=== PATIENT | male | born 1980 | race Caucasian/White ===

== ENCOUNTER 2019-04-16 12:31 | Emergency (ER) | payer OTHER, SELFPAY ==
--- NOTE | ~2019-04-16 | XR_ITS ---
EXAMINATION: XR chest 2V EXAM DATE: 04/16/2019 13:28 INDICATION: Shortness of breath, dizziness. TECHNIQUE: Frontal and lateral projections of the chest obtained and reviewed. Comparison is made to prior examination from 08/17/2018. FINDINGS: The lungs are clear. There are no pleural effusions. The cardiomediastinal silhouette is within normal limits. There is no pneumothorax suspected. The bones and soft tissues are unremarkab le. IMPRESSION: Normal chest x-ray exam. Reviewed, dictated and finalized at location A. E INVESTIGATOR IMPRESSION: Normal chest x-ray exam.
[2019-04-16 12:42] VITALS: BP 108/54; PULSE 75; RESP 18; TEMP 36.3; O2SAT 100
--- NOTE | 2019-04-16 12:51 | ECG_ITS ---
Measurements Intervals [place] Rate: 65 P: 39 NC: 164 QRS: -13 QRSD: 76 T: 45 QT: 357 QTc: 373 Interpretive Statements SINUS RHYTHM POSSIBLE LEFT ATRIAL ENLARGEMENT MINIMAL Q WAVES- INFERIOR LEADS BORDERLINE ECG Electronically Signed On 04-16-2019 17:05:38 DRAWER IN JACQUARD LOOM by Donny Fletcher D.O.
--- NOTE | 2019-04-16 13:03 | PC.NURSE ---
Patient aware that if he wishes to leave the ED he must come to triage and have IV, that was started by EMS, discontinued.
[2019-04-16 13:16] LABS: Basophils Percent Auto 0.2 % (0.2-1.2); Eosinophils Absolute Auto 0.1 K/mm3 (0-0.3); Eosinophils Percent Auto 1.3 % (0-4.4); Hematocrit 47.5 % (42.0-52.0); Hemoglobin 16.3 g/dL (14.0-18.0); Immature Granulocyte Absolute 0.04 K/mm3 (0.00-0.031); Immature Granulocyte Percent A 0.4 % (0-0.5); Lymphocytes Percent Auto 29.5 % (18.3-44.2); Mean Corpuscular HGB Conc 34.3 g/dl (32-36); Mean Corpuscular Hemoglobin 31.5 pg (26-34); Mean Corpuscular Volume 91.9 fl (80-100); Mean Platelet Volume 10.2 fl (7.4-10.4); Monocytes Absolute Auto 0.7 K/mm3 (0.1-0.6); Monocytes Percent Auto 7.8 % (2.6-8.5); Neutrophils Absolute Auto 5.8 K/mm3 (1.3-6.7); Neutrophils Percent Auto 60.8 % (45.5-73.1); Platelet Count Result 254 k/mm3 (150-375); Red Blood Count 5.17 M/mm3 (4.6-6.20); Red Cell Distribution Width 13.2 % (11.5-14.5); White Blood Count 9.5 K/mm3 (4.5-10.0)
[2019-04-16 13:28] LABS: Blood Urea Nitrogen 18 mg/dL (9-20); Calcium 9.7 mg/dL (8.4-10.2); Carbon Dioxide 19 mmol/L (22-30); Chloride 104 mmol/L (98-107); Estimated CRCL calculation 131 ml/min; Estimated Glomerular Filt Rate > 60; Glucose 116 mg/dL (75-110); Potassium 4.1 mmol/L (3.4-5.0); Sodium 134 mmol/L (137-145)
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
[2019-04-16] MEDS: KETOROLAC 30 MG/ML VIAL (*BKC) IV PUSH (16:35)
[2019-04-16] MEDS: FAMOTIDINE 20 MG/2 ML VIAL IV PUSH (16:35)
[2019-04-16] MEDS: LACTATED RINGERS 1,000 ML 999 ML IV CONT (16:36)
[2019-04-16 17:25] LABS: Alanine Aminotransferase 25 U/L (4-50); Albumin Level 4.6 g/dL (3.5-5.1); Alkaline Phosphatase 98 U/L (38-126); Aspartate Amino Transferase 23 U/L (17-59); Bilirubin,Total 0.4 mg/dL (0.2-1.3); Lipase 128 U/L (23-300)
[2019-04-16 17:36] LABS: Troponin I < 0.012 ng/mL (0.000-0.034)
[2019-04-16 17:40] VITALS: BP 124/55; BP 136/89; BP 138/39; PULSE 57; PULSE 62; PULSE 68
== END 2019-04-16 18:02 | disposition home or self-care (01) ==
PROVIDERS: Emergency Medicine Emergency Medical Services; Emergency Provider Emergency Medicine; PCP Emergency Medicine
DX: R07.9 Chest pain, unspecified (principal)
CPT/HCPCS: 36415; 71046; 80048; 80076; 83690; 84484; 85025; 93005; 96361; 96374; 96375; 99284; J1885; J7120

== ENCOUNTER 2019-05-22 04:03 | Emergency (ER) | payer OTHER, SELFPAY ==
[2019-05-22] VITALS (14 sets, daily range): BP systolic 106–128; BP diastolic 48–93; PULSE 49–87; RESP 15–29; TEMP 36.8; O2SAT 97–100
[2019-05-22 04:30] LABS: Basophils Absolute Auto 0.1 K/mm3 (0.0-0.1); Basophils Percent Auto 0.7 % (0.2-1.2); Eosinophils Absolute Auto 0.2 K/mm3 (0-0.3); Eosinophils Percent Auto 2.6 % (0-4.4); Hematocrit 43.3 % (42.0-52.0); Hemoglobin 14.5 g/dL (14.0-18.0); Immature Granulocyte Absolute 0.01 K/mm3 (0.00-0.031); Immature Granulocyte Percent A 0.1 % (0-0.5); Lymphocytes Percent Auto 46.2 % (18.3-44.2); Mean Corpuscular HGB Conc 33.5 g/dl (32-36); Mean Corpuscular Hemoglobin 31.5 pg (26-34); Mean Corpuscular Volume 93.9 fl (80-100); Mean Platelet Volume 9.9 fl (7.4-10.4); Monocytes Absolute Auto 0.8 K/mm3 (0.1-0.6); Neutrophils Absolute Auto 3.5 K/mm3 (1.3-6.7); Neutrophils Percent Auto 41.4 % (45.5-73.1); Platelet Count Result 252 k/mm3 (150-375); Red Blood Count 4.61 M/mm3 (4.6-6.20); Red Cell Distribution Width 13.7 % (11.5-14.5); White Blood Count 8.4 K/mm3 (4.5-10.0)
[2019-05-22] MEDS: LORAZEPAM INJ 2 MG/ML VIAL 1 MG IV PUSH (04:38)
[2019-05-22 04:41] LABS: Ethanol 220 mg/dL (<10)
[2019-05-22 04:41] LABS: Add Urine Microscopic? NO; Appearance Urine Clear (Clear); Bilirubin Urine Negative (Negative); Blood Urine Negative (Negative); Color Urine Yellow (Yellow); Glucose Urine UA Negative (Negative); Ketones Urine Negative (Negative); Leukocyte Esterase Ur Negative LEU/UL (Negative); Nitrate Urine Negative (Negative); Protein Urine Negative (Negative); Specific Grav Ur 1.012 (1.001-1.035); Urobilinogen Urine Negative mg/dL (<2.0)
--- NOTE | 2019-05-22 05:00 | PC.NURSE ---
Patient stated he would like to speak to someone about his PTSD. Patient in room, resting on stretcher. Patient states he is unaware of where he is, or what is going on. Patient informed that he is at [facility] and he was brought in by EMS. This nurse informed the patient that he is here to be checked out and that he is in a safe place. Patient states he has multiple issues he wants to speak to someone about. Patient states he does remember that he is supposed to see someone in [place] tomorrow, I'm not sure when though. To speak about my problems. Patient requested to have the lights dimmed and a warm blanket. Patient was given a warm blanket and the lights in the room were dimmed. Patient stated he will try to get some rest.
[2019-05-22 05:02] LABS: Amphetamine Screen Urine Negative (Negative); Barbiturate Screen Urine Negative (Negative); Benzodiazepines Screen Urine Negative (Negative); Cannabinoid Screen Urine Negative (Negative); Cocaine Screen Urine Negative (Negative); Methadone Screen Urine Negative (Negative); Opiate Screen Urine Negative (Negative); Phencyclidine Screen Urine Negative (Negative)
[2019-05-22 05:03] LABS: Alanine Aminotransferase 22 U/L (4-50); Albumin Level 4.3 g/dL (3.5-5.1); Alkaline Phosphatase 85 U/L (38-126); Aspartate Amino Transferase 24 U/L (17-59); Bilirubin,Total 0.2 mg/dL (0.2-1.3); Blood Urea Nitrogen 12 mg/dL (9-20); Carbon Dioxide 23 mmol/L (22-30); Chloride 109 mmol/L (98-107); Estimated CRCL calculation 138 ml/min; Estimated Glomerular Filt Rate > 60; Glucose 99 mg/dL (75-110); Sodium 142 mmol/L (137-145)
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
--- NOTE | 2019-05-22 07:25 | PC.NURSE ---
Assumed care. Sleeping. Sitter at bedside.
[2019-05-22 11:41] LABS: Ethanol 120 mg/dL (<10)
[2019-05-22] MEDS: ACETAMINOPHEN 500 MG TABLET 1000 MG PO ×2 (12:54→18:21)
[2019-05-22 14:49] LABS: Ethanol 70 mg/dL (<10)
--- NOTE | 2019-05-22 15:14 | PC.NURSE ---
Called crisis in regards to pt. Spoke with Gisele from Crisis, she states she will send someone out.
--- NOTE | 2019-05-22 17:32 | PC.NURSE ---
Per flour worker, Shauna from crisis will be coming out and speaking with this pt.
[2019-05-22] MEDS: IBUPROFEN 600 MG TABLET PO (18:20)
== END 2019-05-22 18:29 | disposition home or self-care (01) ==
PROVIDERS: Emergency Medicine; Emergency Provider Emergency Medicine; PCP Emergency Medicine
DX: F10.120 Alcohol abuse with intoxication, uncomplicated (principal); Y90.6 Blood alcohol level of 120-199 mg/100 ml; F43.10 Post-traumatic stress disorder, unspecified
CPT/HCPCS: 36415; 80053; 80307; 81003; 84443; 85025; 96374; 99284; A9270; J2060

== ENCOUNTER 2019-05-24 11:36 | Emergency (ER) | payer OTHER, SELFPAY ==
--- NOTE | 2019-05-24 11:40 | ED.GENADULT ---
HPI - General Adult General Chief complaint: Dental/Oral Stated complaint: tooth abscess Time Seen by Provider: 05/24/19 11:40 Source: patient Mode of arrival: ambulatory Limitations: no limitations History of Present Illness HPI narrative: 38-year-old male patient presents to the [facility] with complaints of dental pain for the past 3 days. Patient states he has had a left lower tooth that has been broken for quite a while but has gotten increasingly worse with the pain for the past 3 days. Patient states he has been taking Tylenol and ibuprofen for the pain but does not feel like it is helping much. Patient states he feels like the pain is radiating down to the jaw. Denies having a dentist at this time but states he is trying to call around find a dentist that we will see him. Denies any fevers, body aches or chills. Related Data Home Medications Medication Instructions Recorded Confirmed alprazolam [Xanax] 0.5 mg PO TID 05/24/19 05/24/19 Allergies Allergy/AdvReac Type Severity Reaction Status Date / Time aspirin Allergy Intermediate hives Verified 05/24/19 11:51 Review of Systems Review of Systems: Narrative: CONSTITUTIONAL: Denies fever, chills, or sweats. EYES: Denies visual changes, redness, or discharge. ENT: Denies rhinorrhea, congestion, sore throat, or otalgia. Positive left lower dental pain x3 days CARDIOVASCULAR: Denies chest pain, palpitations, or edema. RESPIRATORY: Denies cough or dyspnea. GASTROINTESTINAL: Denies abdominal pain, nausea, vomiting, or diarrhea. GENITOURINARY: Denies dysuria or hematuria. SKIN: Denies rash or itching. MUSCULOSKELETAL: Denies back pain, joint pain, or myalgia. NEUROLOGIC: Denies headache, numbness, or weakness. PSYCHIATRIC: Denies anxiety or depression. PENDING SALE TO [facility] Past Medical History Medical History Back pain Blackout Cardiac arrhythmia Chest pain Dizziness and giddiness History of migraine headaches Social History Social History Smoking status: Smoker, status unknown Alcohol intake: never Gender identity (if verbalized by the patient): Male Comments At the time of my signature I agree with nursing past medical history, surgical, social, and family history. There is no relevant family history pertinent to the presenting complaint. Exam Narrative: Exam Narrative: GENERAL: Well-appearing, well-nourished, and in no acute distress. HEAD: Normocephalic, atraumatic. EYES: PERRLA and EOMI. ENT: Nares clear, no rhinorrhea or epistaxis. Mucous membranes moist. Patient has a broken tooth noted to the left lower first molar. There is surrounding erythema and tenderness noted on palpation. No active discharge at this time. No obvious abscess noted at this time. NECK: Supple. No lymphadenopathy CHEST: Clear to auscultation. No respiratory distress. HEART: Regular rate and rhythm. No murmur heard. Normal peripheral pulses. ABDOMEN: Soft, nontender, nondistended, normal active bowel sounds. EXTREMITIES: Normal range of motion. No edema. SKIN: Warm, dry, no rash. NEURO: No focal deficits. Alert and oriented x3. Course Vital Signs Vital signs: Vital Signs Temperature 36.6 C 05/24/19 11:44 Pulse Rate 70 05/24/19 11:44 Respiratory Rate 16 05/24/19 11:44 Blood Pressure 129/60 05/24/19 11:44 Pulse Oximetry 99 05/24/19 11:44 Temperature 36.6 C 05/24/19 11:44 Pulse Rate 70 05/24/19 11:44 Respiratory Rate 16 05/24/19 11:44 Blood Pressure 129/60 05/24/19 11:44 Pulse Oximetry 99 05/24/19 11:44 Vital signs reviewed. Medical Decision Making Differential Diagnosis Differential Diagnosis: Differential diagnosis: Dental caries, periodontal disease, avulsed tooth, tooth infections, mandibular infection, Boni's angiana, upper tooth infection, dry socket, gingivitis, acute necrotizing ulcerative gingivitis, sialolithiasis. No
[2019-05-24 11:44] VITALS: BP 129/60; PULSE 70; RESP 16; TEMP 36.6; O2SAT 99
== END 2019-05-24 12:04 | disposition home or self-care (01) ==
PROVIDERS: Emergency Provider Nurse Practitioner Family; PCP Emergency Medicine
DX: K08.89 Other specified disorders of teeth and supporting structures (principal); K02.9 Dental caries, unspecified
CPT/HCPCS: 99213; G0463

== ENCOUNTER 2019-10-17 02:23 | Emergency (ER) | payer OTHER, SELFPAY ==
--- NOTE | ~2019-10-17 | XR_ITS ---
EXAMINATION: XR chest 1V portable INDICATION: Chest pain TECHNIQUE: Portable AP chest at 0 to 54 hours COMPARISON: 04/16/2019 FINDINGS: The lungs are free of acute opacities. There is no pleural effusion or pneumothorax. The ca rdiomediastinal silhouette is normal. The visualized bones and soft tissues are unremarkable. IMPRESSION: 1. No acute cardiopulmonary abnormality. Reviewed, dictated and finalized at location A.
[2019-10-17 02:24] VITALS: BP 130/78; PULSE 83; RESP 20; TEMP 36.6; O2SAT 98
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
--- NOTE | 2019-10-17 02:46 | ECG_ITS ---
Measurements Intervals [place] Rate: 73 P: 65 CT: 168 QRS: 33 QRSD: 90 T: 51 QT: 356 QTc: 394 Interpretive Statements SINUS RHYTHM POSSIBLE LEFT ATRIAL ENLARGEMENT BASELINE ARTIFACT- I, III, AVR, AVL, AVF BORDERLINE ECG Electronically Signed On 10-17-2019 7:06:44 CDT by Donny Fletcher D.O.
--- NOTE | 2019-10-17 02:55 | PC.NURSE ---
ekg times at 0225 was deleted. new ekg obtained timed 0233. only 1 order on chart.
[2019-10-17 03:00] LABS: Basophils Percent Auto 0.5 % (0.2-1.2); Eosinophils Absolute Auto 0.1 K/mm3 (0-0.3); Eosinophils Percent Auto 1.6 % (0-4.4); Hematocrit 44.5 % (42.0-52.0); Hemoglobin 15.4 g/dL (14.0-18.0); Immature Granulocyte Absolute 0.02 K/mm3 (0.00-0.031); Immature Granulocyte Percent A 0.3 % (0-0.5); Lymphocytes Percent Auto 51.9 % (18.3-44.2); Mean Corpuscular HGB Conc 34.6 g/dl (32-36); Mean Corpuscular Hemoglobin 31.2 pg (26-34); Mean Corpuscular Volume 90.1 fl (80-100); Mean Platelet Volume 10.1 fl (7.4-10.4); Monocytes Absolute Auto 0.9 K/mm3 (0.1-0.6); Neutrophils Absolute Auto 2.7 K/mm3 (1.3-6.7); Neutrophils Percent Auto 34.7 % (45.5-73.1); Platelet Count Result 251 k/mm3 (150-375); Red Blood Count 4.94 M/mm3 (4.6-6.20); Red Cell Distribution Width 13.2 % (11.5-14.5); White Blood Count 7.9 K/mm3 (4.5-10.0)
[2019-10-17 03:08] LABS: Prothrombin Time 12.8 Seconds (11.1-14.7)
[2019-10-17 03:13] LABS: Alanine Aminotransferase 41 U/L (4-50); Albumin Level 4.6 g/dL (3.5-5.1); Alkaline Phosphatase 86 U/L (38-126); Anion Gap 15.5 mmol/L (7-16); Aspartate Amino Transferase 29 U/L (17-59); Bilirubin,Total 0.4 mg/dL (0.2-1.3); Blood Urea Nitrogen 10 mg/dL (9-20); Calcium 9.2 mg/dL (8.4-10.2); Carbon Dioxide 19 mmol/L (22-30); Chloride 110 mmol/L (98-107); Estimated Glomerular Filt Rate > 60; Glucose 88 mg/dL (75-110); Lipase 129 U/L (23-300); Potassium 3.5 mmol/L (3.4-5.0); Sodium 141 mmol/L (137-145)
[2019-10-17 03:24] LABS: NT Pro B Type Natriuretic Pept 64 PG/ML (5-100); Troponin I < 0.012 ng/mL (0.000-0.034)
[2019-10-17 03:30] LABS: Ethanol 158 mg/dL (<10)
[2019-10-17 03:44] LABS: Amphetamine Screen Urine Negative (Negative); Barbiturate Screen Urine Negative (Negative); Benzodiazepines Screen Urine Negative (Negative); Cannabinoid Screen Urine Negative (Negative); Cocaine Screen Urine Negative (Negative); Methadone Screen Urine Negative (Negative); Opiate Screen Urine Negative (Negative); Phencyclidine Screen Urine Negative (Negative)
[2019-10-17] MEDS: FAMOTIDINE 20 MG/2 ML VIAL IV PUSH (04:01)
[2019-10-17] MEDS: KETOROLAC 15 MG/ML VIAL (*BKC) IV PUSH (04:01)
[2019-10-17 06:09] VITALS: BP 112/67; PULSE 61; RESP 14; O2SAT 99
[2019-10-17 06:23] LABS: Troponin I < 0.012 ng/mL (0.000-0.034)
[2019-10-17 06:38] LABS: Ethanol 109 mg/dL (<10)
== END 2019-10-17 07:07 | disposition home or self-care (01) ==
PROVIDERS: Emergency Provider Emergency Medicine; PCP Emergency Medicine
DX: R07.9 Chest pain, unspecified (principal); F10.920 Alcohol use, unspecified with intoxication, uncomplicated
CPT/HCPCS: 36415; 71045; 80053; 80307; 83690; 83880; 84484; 85025; 85610; 93005; 96374; 96375; 99284; J1885

== ENCOUNTER 2020-02-16 07:35 | Outpatient (CLI) | payer OTHER, SELFPAY ==
--- NOTE | ~2020-02-16 | MR_ITS ---
EXAMINATION: MR brain/brain stem wo con DATE: 02/16/2020 09:03 TIRE GROOVER INDICATION: Vertigo TECHNIQUE: Magnetic resonance imaging (MRI) of the brain and brainstem was performed without intraven ous contrast. Sequences included sagittal and axial T1-weighted SE, axial diffusion-weighted FS SE, a xial T2*-weighted GRE, axial T2-weighted FLAIR Propeller, and axial T2-weighted Propeller. Apparent d iffusion coefficient (ADC) maps were created. COMPARISON: CT dated 01/17/2018 FINDINGS: The brain volume and ventricular system are within normal limits. The brain parenchymal si gnal intensity pattern and arellano/white matter is normal and there is no evidence of hemorrhage, space occupying masses or infarctions. The flow signal voids of the major arterial structures about the [place] and within the anselmo r dural venous sinuses appear grossly unremarkable and patent. The seventh and eighth cranial nerve complexes are normal. The mid sagittal image demonstrates a normal craniovertebral junction and robert us callosum. The paranasal sinuses are grossly unremarkable. IMPRESSION: 1: No acute intracranial abnormality. Reviewed, dictated and finalized at location A. GROOVER
== END 2020-02-16 07:36 | disposition home or self-care (01) ==
PROVIDERS: Visit Provider Psychiatry & Neurology Neurology
DX: R42 Dizziness and giddiness (principal)
CPT/HCPCS: 70551

== ENCOUNTER 2020-07-11 08:00 | Outpatient (RCR) | payer OTHER, SELFPAY ==
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
--- NOTE | 2020-06-06 11:35 | PTOPEVAL ---
PHYSICAL THERAPY RE-EVALUATION AND UPDATED PLAN OF CARE 06-06-20 Refer to the clinical summary below for his status with the reeval, compared to the initial evaluation. He has made improvements and requires additional vestibular therapy, to further increase his activity level and decrease his dizziness. PT to continue 1x/week for 4 weeks. Thank you for referring Raoul Goode to [facility].? Please review, sign, date and return this updated plan of care [facility]. I agree with and certify that the following plan of care is medically necessary. Referring Physician Date Attending Provider: Kraig Darby NP Document 06/06/20 10:50 MARS (Rec: 06/06/20 11:35 MARS [id number]) Assessment Status Re-evaluation Subjective Information Raoul reports: dizziness still Query Text:As Reported By Patient/ there with driving and going Family on ramps towards the [place]; have returned to driving, after about [address]-start to get nausea; it is getting better with driving and dizziness; play video games on home console 1-2 hours, then dizzy and cannot do anymore; off balance with walking- happens all the time; not always have time to do the exercises at home, been too busy and not have time to get to them; taking allergy meds every day- when I remember; need more therapy, to be better and 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- 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 to be active, move alot and not able to do because of dizziness; has not worked since October due to dizziness; Pain Assessment Timing of Pain Assessment Timing of Pain Assessment Assessment Pain Scale Pain Scale Used Numeric (1 - 10) Self Report Pain Assessment Bilateral Head, Occiptial Reported Pain Level 3 Pain Description Pressure Pain Frequency Chronic,Intermittent Other Pain Description headache- front of head pressure; last 5-10 min, 3-4x/ day; Lowest Pain Intensity 0 Greatest Pain Intensity 10 Pain Score Pain Score 3: Self Report Interventions Used Interventions Used By Clinicians Education Other Alleviating Interventions reinforced taking allergy med
--- NOTE | 2020-07-02 13:48 | PCPTNOTE ---
pt called and canceled today's reevaluation;
--- NOTE | 2020-07-11 08:53 | PTOPEVAL ---
PHYSICAL THERAPY DISCHARGE 07-11-20 Refer to the clinical summary below for his status at today's discharge, compared to the last reevaluation. The goals were partially achieved. Thank you for referring Raoul Goode to [facility].? Please review, sign, date and return this Discharge JANETT. I agree with and certify that the following plan of care is medically necessary. Referring Physician Date Attending Provider: Kraig Darby NP CC: Dr. Stan Cooper, per pt request, his general physician Document 07/11/20 08:00 MARS (Rec: 07/11/20 08:53 MARS [id number]) Assessment Status Discharge Subjective Information Raoul reports: sleeping 4-6 Query Text:As Reported By Patient/ hours-cannot go to sleep; Family dizziness comes and goes, mostly when in the car, as driving and as passenger, mostly when is the passenger; driving is mostly on the weekend, his car is not working, and when use girlfriends' car; is able to drive about 30 minutes; stress makes dizziness worse; walking is not a problem; dizziness happens when drive, every time, during day doing house things- not dizzy, except with leaning over to pick things up off floor; play video games about 1-2 hours at night; busy during day-- remodeling bathroom, working on getting car running, cutting grass; is still doing the exercises at home, but it is different when do them at home by himself and when do in therapy--doing in therapy is better and makes it easier to do them; everything is getting better, but taking too long to get over this; want to get better ; With other medical issues: -have antibiotics for tooth infection, take only when mouth hurts, to have dental work done by October; -nasal issues have cleared up- no longer coughing; is not
== END 2020-07-11 13:42 | disposition home or self-care (01) ==
LOC: ANHPT 08:00
PROVIDERS: PCP Family Medicine; Visit Provider Nurse Practitioner Family
DX: R42 Dizziness and giddiness (principal)
CPT/HCPCS: 97110; 97161

== ENCOUNTER 2020-07-12 02:59 | Emergency (ER) | payer OTHER, SELFPAY ==
--- NOTE | ~2020-07-12 | XR_ITS ---
XR chest 2V DATE: 07/12/2020 03:28 INDICATION: Shortness of breath, burning in chest. TECHNIQUE: PA and lateral views COMPARISON: 11/06/2019 portable AP chest FINDINGS: Normal heart size. No hilar or mediastinal enlargement. No pulmonary infiltrate or consolid ation, pleural effusion or pulmonary vascular congestion or pneumothorax. Included skeletal structure s are unremarkable. IMPRESSION: Negative Reviewed, dictated and finalized at location A. IMPRESSION: Negative
[2020-07-12 02:59] VITALS: BP 139/77; PULSE 87; RESP 24; TEMP 36.2; O2SAT 98
--- NOTE | 2020-07-12 03:00 | ECG_ITS ---
Measurements Intervals [place] Rate: 84 P: 50 HI: 169 QRS: 33 QRSD: 90 T: 44 QT: 323 QTc: 383 Interpretive Statements SINUS RHYTHM POSSIBLE LEFT ATRIAL ENLARGEMENT MINIMAL Q WAVES- INFERIOR LEADS BASELINE ARTIFACT- I, II, III, AVR, AVL, AVF, V1 BORDERLINE ECG Electronically Signed On 07-12-2020 17:00:27 CDT by Donny Fletcher D.O.
[2020-07-12 03:23] LABS: Basophils Absolute Auto 0.1 K/mm3 (0.0-0.1); Basophils Percent Auto 0.6 % (0.2-1.2); Eosinophils Absolute Auto 0.1 K/mm3 (0-0.3); Eosinophils Percent Auto 1.3 % (0-4.4); Hematocrit 41.7 % (42.0-52.0); Hemoglobin 14.3 g/dL (14.0-18.0); Immature Granulocyte Absolute 0.03 K/mm3 (0.00-0.031); Immature Granulocyte Percent A 0.3 % (0-0.5); Lymphocytes Percent Auto 47.1 % (18.3-44.2); Mean Corpuscular HGB Conc 34.3 g/dl (32-36); Mean Corpuscular Hemoglobin 31.4 pg (26-34); Mean Corpuscular Volume 91.6 fl (80-100); Mean Platelet Volume 9.8 fl (7.4-10.4); Monocytes Percent Auto 10.1 % (2.6-8.5); Neutrophils Percent Auto 40.6 % (45.5-73.1); Platelet Count Result 269 k/mm3 (150-375); Red Blood Count 4.55 M/mm3 (4.6-6.20); Red Cell Distribution Width 13.1 % (11.5-14.5); White Blood Count 9.8 K/mm3 (4.5-10.0)
[2020-07-12 03:24] LABS: Add Urine Microscopic? NO; Appearance Urine Clear (Clear); Bilirubin Urine Negative (Negative); Blood Urine Negative (Negative); Color Urine Colorless (Yellow); Glucose Urine UA Negative (Negative); Ketones Urine Negative (Negative); Leukocyte Esterase Ur Negative LEU/UL (Negative); Nitrate Urine Negative (Negative); Protein Urine Negative (Negative); Urobilinogen Urine Negative mg/dL (<2.0)
[2020-07-12 03:28] LABS: Specific Grav Ur 1.003 (1.001-1.035)
[2020-07-12 03:33] LABS: Alanine Aminotransferase 57 U/L (4-50); Albumin Level 4.3 g/dL (3.5-5.1); Alkaline Phosphatase 99 U/L (38-126); Anion Gap 9 mmol/L (8-16); Aspartate Amino Transferase 38 U/L (17-59); Bilirubin,Total 0.2 mg/dL (0.2-1.3); Blood Urea Nitrogen 19 mg/dL (9-20); Carbon Dioxide 22 mmol/L (22-30); Chloride 108 mmol/L (98-107); Estimated CRCL calculation 96 ml/min; Estimated Glomerular Filt Rate > 60; Glucose 110 mg/dL (75-110); Potassium 3.7 mmol/L (3.4-5.0); Sodium 139 mmol/L (137-145)
[2020-07-12 03:34] LABS: Ethanol 105 mg/dL (<10)
[2020-07-12 03:42] LABS: Amphetamine Screen Urine Negative (Negative); Barbiturate Screen Urine Negative (Negative); Benzodiazepines Screen Urine Negative (Negative); Cannabinoid Screen Urine Negative (Negative); Cocaine Screen Urine Negative (Negative); Methadone Screen Urine Negative (Negative); Opiate Screen Urine Negative (Negative); Phencyclidine Screen Urine Negative (Negative)
[2020-07-12 03:51] LABS: Troponin I < 0.012 ng/mL (0.000-0.034)
[2020-07-12 05:01] VITALS: BP 109/63; PULSE 71; RESP 19; O2SAT 97
--- NOTE | 2020-07-12 06:21 | ED.GENADULT ---
HPI - General Adult General Chief complaint: Shortness of Breath/Dyspnea Stated complaint: difficulty breathing, burning in chest Time Seen by Provider: 07/12/20 03:03 History of Present Illness HPI narrative: Patient is a 39-year-old male who presents ER with chest pain and shortness of breath. Patient reports he is having a nightmare to related PTSD and it woke him up. He then started to get nervous and started having chest burning. He is also been having some chronic left-sided chest pain that sharp. Patient was also having shortness of breath. Significant improvement prior to arrival to the ER. Patient sees Dr. Fletcher. Previous echo and stress test were negative. He is planning on obtaining outpatient echo and pulmonary studies for patient's reports of exertional dyspnea. No SI/HI. Related Data Home Medications Medication Instructions Recorded Confirmed meclizine 12.5 mg tablet 12.5 mg PO DAILY tablet 06/30/20 06/30/20 Allergies Allergy/AdvReac Type Severity Reaction Status Date / Time No Known Allergies Allergy Verified 06/30/20 09:46 Review of Systems Review of Systems: All systems reviewed & are unremarkable except as noted in HPI and below Constitutional: Constitutional: Denies chills, Denies fever(s) and Denies weakness ENT: Denies nasal congestion and Denies sore throat Cardiovascular: Cardiovascular: Reports chest pain (chronic pain in left chest), Denies rapid heart rate and Denies radiating jaw, neck or arm pain Respiratory: Respiratory: Denies cough, Reports dyspnea and Denies wheezing Psychiatric: Psychiatric: Reports anxiety, Denies depression, Denies homicidal ideation and Denies suicidal ideation PMFSH Past Medical History Medical History Back pain Blackout Cardiac arrhythmia Chest pain Dizziness and giddiness History of migraine headaches Hyperlipidemia Smoking Social History Social History (Reviewed 06/30/20 @ 09:47 by Fatmata Marshall [facility]) Social History: former smoker Smoking status: Former smoker Alcohol intake: never Gender identity (if verbalized by the patient): Male Exam Narrative: Exam Narrative: GENERAL: Well-appearing, well-nourished, and in no acute distress. HEAD: Normocephalic, atraumatic. EYES: PERRL and EOMI. CHEST: Clear to auscultation. No respiratory distress. HEART: Regular rate and rhythm. Normal peripheral pulses. ABDOMEN: Soft, nontender, nondistended. EXTREMITIES: Normal range of motion. No edema. SKIN: Warm, dry, no rash. NEURO: Alert and oriented x3. PSYCH: Mildly anxious, normal affect. No SI/HI. Does not appear to be responding to internal stimuli. Course Course Emergency Course: Patient resting comfortably. Informed of results. Symptoms felt to be related to patient's anxiety/PTSD. Discharge home. Vital Signs Vital signs: Vital Signs Temperature 97.1 F L 07/12/20 02:59 Pulse Rate 87 07/12/20 02:59 Respiratory Rate 24 H 07/12/20 02:59 Blood Pressure 139/77 07/12/20 02:59 Pulse Oximetry 98 07/12/20 02:59 Temperature 97.1 F L 07/12/20 02:59 Pulse Rate 71 07/12/20 05:01 Respiratory Rate 19 07/12/20 05:01 Blood Pressure 109/63 07/12/20 05:01 Pulse Oximetry 97 07/12/20 05:01 Medical Decision Making Vital Signs Vital Signs: Vital Signs Temperature 97.1 F L 07/12/20 02:59 Pulse Rate 87 07/12/20 02:59 Respiratory Rate 24 H 07/12/20 02:59 Blood Pressure 139/77 07/12/20 02:59 Pulse Oximetry 98 07/12/20 02:59 Temperature 97.1 F L 07/12/20 02:59 Pulse Rate 71 07/12/20 05:01 Respiratory Rate 19 07/12/20 05:01 Blood Pressure 109/63 07/12/20 05:01 Pulse Oximetry 97 07/12/20 05:01 Lab Data Result diagrams: 07/12/20 03:15 07/12/20 03:15 Labs: Lab Results 07/12/20 07/12/20 07/12/20 Range/Units 03:14 03:15 03:15 WBC 9.8 (4.5-10.0) K/mm3 RBC 4.55 L (4.6-6.20) M/mm3 Hgb 14.3 (14.0-18.0) g/dL Hct
[2020-07-12 06:45] VITALS: BP 118/65; PULSE 68; RESP 19; O2SAT 98
== END 2020-07-12 06:45 | disposition home or self-care (01) ==
PROVIDERS: Emergency Provider Emergency Medicine; PCP Family Medicine
DX: F41.9 Anxiety disorder, unspecified (principal); E78.5 Hyperlipidemia, unspecified; R94.31 Abnormal electrocardiogram [ECG] [EKG]; F43.10 Post-traumatic stress disorder, unspecified; Z87.891 Personal history of nicotine dependence
CPT/HCPCS: 36415; 71046; 80053; 80307; 81003; 84443; 84484; 85025; 93005; 99284

== ENCOUNTER 2020-07-21 12:30 | Outpatient (CLI) | payer OTHER, SELFPAY ==
--- NOTE | 2020-07-21 12:43 | ECHO_ITS ---
Patient Info Name: Raoul Goode Age: 39 years : 1980 Gender: Male Ht: 76 in Wt: 268 lbs BSA: 2.58 m2 HR: 67 bpm Technical Quality: Good Exam Date: 07/21/2020 12:46 PM Exam Location: [facility] Patient Status: Outpatient Admit Date: 07/21/2020 Staff Ordering Physician: Donny Fletcher DO Attending Provider: Donny Fletcher DO Referring Physician: Chance LUGO; Exam Type: CA echo doppler color flow Study Info Indications R06.00 - Dyspnea, unspecified Complete two-dimensional, color flow and Doppler transthoracic echocardiogram is performed. Summary 1. Complete two-dimensional, color flow and Doppler transthoracic echocardiogram is performed. 2. Left ventricular chamber dimension is normal. 3. Left ventricular systolic function is normal, estimated at 55-60%. 4. The left ventricular diastolic function is normal. 5. E/e' 6 is not elevated. 6. There is trace mitral valve regurgitation. 7. There is trace tricuspid valve regurgitation. 8. No pulmonary hypertension, estimated pulmonary arterial systolic pressure is 32 mmHg. Left Ventricle E/e' 6 is not elevated. Left ventricular chamber dimension is normal. Left ventricular systolic function is normal, estimated at 55-60%. The left ventricular diastolic function is normal. Right Ventricle Right ventricular chamber dimension is normal. Right ventricular systolic function is normal. Left Atria Left atrial chamber dimension is normal. Right Atria Right atrial chamber dimension is normal. Aortic Valve The aortic valve is trileaflet. There is no aortic valve stenosis. There is no aortic valve regurgitation. Pulmonic Valve There is no pulmonic regurgitation. Mitral Valve There is no mitral valve stenosis. There is trace mitral valve regurgitation. Tricuspid Valve There is trace tricuspid valve regurgitation. No pulmonary hypertension, estimated pulmonary arterial systolic pressure is 32 mmHg. Pericardium/Pleural There is no pericardial effusion. Inferior Vena Cava Normal inferior vena cava with >50% collapse upon inspiration consistent with normal right atrial pressure, 5 mmHg. Aorta The aortic root size at the sinus of Valsalva is normal. Left Ventricular Outflow Tract Name Value Normal LVOT 2D LVOT Diameter 2.1 cm LVOT Doppler LVOT Peak Gradient 3 mmHg LVOT Mean Gradient 1 mmHg LVOT VTI 17 cm LVOT VTI/AV VTI Ratio 0.7 LVOT Stroke Volume 58 ml LVOT CO 3.5 l/min LVOT CI 1.3 l/min/m2 Pulmonic Valve Name Value Normal PV Doppler PV Peak Gradient 4 mmHg PV Regurgitation Doppler
== END 2020-07-21 12:31 | disposition home or self-care (01) ==
PROVIDERS: PCP Family Medicine; Visit Provider Internal Medicine Cardiovascular Disease
DX: R06.00 Dyspnea, unspecified (principal)
CPT/HCPCS: 93306

== ENCOUNTER 2020-08-18 10:29 | Emergency (ER) | payer OTHER, SELFPAY ==
--- NOTE | ~2020-08-18 | XR_ITS ---
EXAMINATION: XR chest 2V 08/18/2020 12:49 INDICATION: Shortness of breath and dizziness PROCEDURE: PA and lateral views of the chest COMPARISON: 08/17/2018 FINDINGS: The lungs are clear. The cardiomediastinal silhouette is within normal limits. There are no pleural effusions. There is no pneumothorax suspected. IMPRESSION: 1: NO ACUTE CARDIOPULMONARY DISEASE. Reviewed, dictated and finalized at location B.
--- NOTE | ~2020-08-18 | CT_ITS ---
EXAMINATION: CTA chest PE protocol EXAM DATE: 08/18/2020 14:39 INDICATION: Dyspnea. TECHNIQUE: Spiral CTA of the chest (pulmonary arteries) was performed with 100 cc Omnipaque 350 intr avenous contrast injection. Images were acquired during the pulmonary arterial phase. Coronal maxi mum intensity projection 3D-reconstructions were created by the technologist on dedicated workstation . Axial, coronal and sagittal reformatted images were reviewed. The dose-length product (DLP) for t his examination was 573.27 mGy-cm. The exposure was tailored according to patient size (auto mA exp osure control), and iterative reconstruction (ASIR) was used as additional dose reduction technique. There is no prior study for comparison. FINDINGS: Pulmonary arteries are well opacified and without intraluminal filling defects. No thora cic aortic dissection. The lungs are clear. There are no pleural or pericardial effusions. Trach eobronchial tree is patent. There is no mediastinal, hilar or axillary lymphadenopathy. There is no pneumothorax. Heart normal in size. No evidence of coronary arterial calcification. Upper abd omen is unremarkable. The bones are unremarkable. IMPRESSION: No acute cardiopulmonary findings. Reviewed, dictated and finalized at location A.
[2020-08-18 10:35] VITALS: BP 131/58; PULSE 61; RESP 16; TEMP 36.8; O2SAT 96
--- NOTE | 2020-08-18 10:41 | ED.SOB ---
HPI - SOB/Dyspnea General Chief Complaint: Shortness of Breath/Dyspnea Stated Complaint: SOB x 2 days Time Seen by Provider: 08/18/20 10:41 Source: patient and EMS Mode of arrival: EMS Limitations: no limitations History of Present Illness HPI Narrative: Patient is a 39-year-old male who presents for evaluation of shortness of breath and chest pain. Patient reports an episode of shortness of breath and chest pain yesterday when he was moving some moldy logs that were outside. Patient states that some of the dust and debris got into his face and respiratory symptoms started at that point. They have been constant since overnight. He reports some mild, aching left-sided chest pain that began yesterday. No current chest pain in the room. No associated jaw pain, neck pain, shoulder pain or back pain. No epigastric pain. No nausea or vomiting. Patient denies any recent car or air travel. No history of Covid. No history of coagulopathy. No leg swelling or calf pain. Patient follows with Dr. Fletcher. He has had a cardiology work-up recently which has been negative. Patient transported via EMS with stable vital signs, normal oxygenation. Related Data Home Medications Medication Instructions Recorded Confirmed meclizine 12.5 mg tablet 12.5 mg PO DAILY tablet 06/30/20 06/30/20 Allergies Allergy/AdvReac Type Severity Reaction Status Date / Time No Known Allergies Allergy Verified 06/30/20 09:46 Review of Systems Review of Systems: Narrative: CONSTITUTIONAL: Denies fever, chills, or sweats. EYES: Denies visual changes, redness, or discharge. ENT: Denies rhinorrhea, congestion, sore throat, or otalgia. CARDIOVASCULAR: Denies current chest pain, palpitations, or edema. RESPIRATORY: Denies cough, reports mild dyspnea GASTROINTESTINAL: Denies abdominal pain, nausea, vomiting, or diarrhea. GENITOURINARY: Denies dysuria or hematuria. SKIN: Denies rash or itching. MUSCULOSKELETAL: Denies back pain, joint pain, or myalgia. NEUROLOGIC: Denies headache, numbness, or weakness. [facility] Past Medical History Medical History Back pain Blackout Cardiac arrhythmia Chest pain Dizziness and giddiness History of migraine headaches Hyperlipidemia Smoking Social History Social History Social History: former smoker Smoking status: Former smoker Alcohol intake: never Gender identity (if verbalized by the patient): Male Exam Narrative: Exam Narrative: GENERAL: Awake, alert, conversant HEAD: Normocephalic, atraumatic. EYES: PERRLA and EOMI. ENT: Nares clear, no rhinorrhea or epistaxis. Mucous membranes moist. NECK: Supple. CHEST: No respiratory distress, breathing even and non labored, no chest wall tenderness HEART: Regular rate, sinus rhythm ABDOMEN:Non distended, non tender EXTREMITIES: Normal range of motion. No edema. SKIN: Warm, dry, no rash. NEURO:No focal deficits. Alert and oriented x3 Course Vital Signs Vital signs: Vital Signs Temperature 36.8 C 08/18/20 10:35 Pulse Rate 61 08/18/20 10:35 Respiratory Rate 16 08/18/20 10:35 Blood Pressure 131/58 L 08/18/20 10:35 Pulse Oximetry 96 08/18/20 10:35 Temperature 36.8 C 08/18/20 10:35 Pulse Rate 63 08/18/20 15:00 Respiratory Rate 18 08/18/20 15:00 Blood Pressure 128/67 08/18/20 15:00 Pulse Oximetry 100 08/18/20 15:00 MDM - SOB/Dyspnea MDM Narrative Medical decision making narrative: Patient presenting for evaluation of shortness of breath and chest pain. Symptoms are very atypical in nature. Initial EKG is obtained, no evidence of acute ST segment elevation or depression. Patient was given an aspirin. I reviewed the patient's previous laboratory results for which she has had numerous visits to emergency department for atypical chest pain, ultimately diagnosed with anxiety type component, is following with his hospice physician. Patient's EKG and labs are without signific
[2020-08-18] MEDS: ASPIRIN 81 MG CHEWABLE TABLET 324 MG PO (11:48)
--- NOTE | 2020-08-18 11:51 | ECG_ITS ---
Measurements Intervals [place] Rate: 56 P: 48 NH: 162 QRS: 24 QRSD: 89 T: 21 QT: 366 QTc: 356 Interpretive Statements SINUS BRADYCARDIA POSSIBLE LEFT ATRIAL ENLARGEMENT BORDERLINE ST-T WAVE ABNORMALITY- HIGH LATERAL LEADS BASELINE ARTIFACT- II, III, AVR, AVF, V1, V3-V6 BORDERLINE ECG Electronically Signed On 08-18-2020 12:03:48 CDT by Donny Fletcher D.O.
[2020-08-18 12:00] VITALS: BP 124/56; PULSE 57; RESP 20; O2SAT 100
[2020-08-18 12:11] LABS: Basophils Percent Auto 0.7 % (0.2-1.2); Eosinophils Absolute Auto 0.1 K/mm3 (0-0.3); Eosinophils Percent Auto 1.4 % (0-4.4); Hematocrit 44.9 % (42.0-52.0); Hemoglobin 15.3 g/dL (14.0-18.0); Immature Granulocyte Absolute 0.01 K/mm3 (0.00-0.031); Immature Granulocyte Percent A 0.2 % (0-0.5); Lymphocytes Percent Auto 41.5 % (18.3-44.2); Mean Corpuscular HGB Conc 34.1 g/dl (32-36); Mean Corpuscular Hemoglobin 30.5 pg (26-34); Mean Corpuscular Volume 89.6 fl (80-100); Mean Platelet Volume 10.6 fl (7.4-10.4); Monocytes Absolute Auto 0.6 K/mm3 (0.1-0.6); Monocytes Percent Auto 9.9 % (2.6-8.5); Neutrophils Absolute Auto 2.7 K/mm3 (1.3-6.7); Neutrophils Percent Auto 46.3 % (45.5-73.1); Platelet Count Result 230 k/mm3 (150-375); Red Blood Count 5.01 M/mm3 (4.6-6.20); Red Cell Distribution Width 13.1 % (11.5-14.5); White Blood Count 5.8 K/mm3 (4.5-10.0)
[2020-08-18 12:24] LABS: Anion Gap 10 mmol/L (8-16); Blood Urea Nitrogen 14 mg/dL (9-20); Calcium 9.7 mg/dL (8.4-10.2); Carbon Dioxide 21 mmol/L (22-30); Chloride 108 mmol/L (98-107); Estimated CRCL calculation 128 ml/min; Estimated Glomerular Filt Rate > 60; Glucose 108 mg/dL (75-110); Potassium 4.5 mmol/L (3.4-5.0); Sodium 139 mmol/L (137-145)
[2020-08-18 12:34] LABS: Troponin I < 0.012 ng/mL (0.000-0.034)
--- NOTE | 2020-08-18 13:15 | PC.NURSE ---
pt complaining of SOB. Pulse ox 99%, heart rate 60, & resps hector and unlabored @ rate of 12. Pt explained SOB as a burning in the middle of chest and it goes outward then dissipates. Informed CHIOMA Guevara and Dr Toledo
[2020-08-18] MEDS: FAMOTIDINE 20 MG/2 ML VIAL IV PUSH (13:30)
--- NOTE | 2020-08-18 13:40 | PC.NURSE ---
Patient refuses GI cocktail stating, this burning in my chest is not heartburn, I don't have heartburn. Patient did agree to Pepcid IVP to help with the burning/pain.
--- NOTE | 2020-08-18 13:50 | PC.NURSE ---
PT called out and states he is SOB. This RN into room and pt is talking on Ipad with no difficulty. Informs pt that his vitals are stable and is showing no signs of distress. Also informs pt that i will let know of his concerns.
[2020-08-18 14:19] VITALS: BP 127/78; PULSE 65; RESP 18; O2SAT 100
[2020-08-18 15:00] VITALS: BP 128/67; PULSE 63; RESP 18; O2SAT 100
[2020-08-18] MEDS: ALBUTEROL SULFATE (*SP) AEROSOL 1 PUFF 2 PUFF INHALATION (15:38)
--- NOTE | 2020-08-18 15:54 | PC.NURSE ---
Spoke with Anna in lab - looking for 3 hr trop blood specimen. Informed her it was sent down and waiting results.
[2020-08-18 15:58] LABS: D Dimer 0.37 ug/mL (<0.48)
[2020-08-18 17:00] LABS: Troponin I < 0.012 ng/mL (0.000-0.034)
== END 2020-08-18 17:16 | disposition home or self-care (01) ==
PROVIDERS: Emergency Provider Emergency Medicine; PCP Family Medicine
DX: R06.00 Dyspnea, unspecified (principal); R07.89 Other chest pain; E78.5 Hyperlipidemia, unspecified; Z87.891 Personal history of nicotine dependence; R00.1 Bradycardia, unspecified; R94.31 Abnormal electrocardiogram [ECG] [EKG]
CPT/HCPCS: 36415; 71046; 71275; 80048; 84484; 85025; 85380; 93005; 96374; 99284; A9270; Q9967

== ENCOUNTER 2020-11-05 10:00 | Outpatient (RCR) | payer OTHER, SELFPAY ==
--- NOTE | 2020-09-16 13:41 | PTOPEVAL ---
PHYSICAL THERAPY EVALUATION AND PLAN OF CARE 09-16-20 Thank you for referring Raoul Goode to [facility].? He is scheduled to be seen for therapy? 2 x/week for 3 weeks. Please review, sign, date and return this plan of care JANETT. I agree with and certify that the following plan of care is medically necessary. Referring Physician Date Attending Provider: Stan Cooper MD PT Outpatient Evaluation Document 09/16/20 12:40 MARS (Rec: 09/16/20 13:41 MARS [id number]) Past Medical History Source of Past Medical History Recalled from Previous Visit, Confirmed with Patient/Family Neurological History Hx Other Neurological Disorders Yes: head injury '99 with decreased memory; vertigo Cardiovascular History Hx Hypercholesterolemia Yes: meds Respiratory History Hx Bronchitis Yes Gastrointestinal History Hx Gastrointestinal Disorders No Significant History Genitourinary History Hx Urinary Tract Infection Yes Musculoskeletal History Hx Back Pain Yes: chronic back pain since 2002 Hx Other Musculoskeletal Disorders Yes: headaches with vertigo episodes; Hematological History Hx Hematological Disorders No Significant History Endocrine History Hx Endocrine Disorders No Significant History HEENT History Hx Other HEENT Disorders Yes: sinus/allergies Integumentary History Hx Skin Disorders No Significant History Reproductive History Hx Reproductive Disorders No Significant History Psychosocial History Hx Anxiety Yes Hx Post Traumatic Stress Disorder Yes Pain History History of Any Previous or Ongoing No Significant History Instance of Pain Anesthesia History Hx Anesthesia Reactions No Significant History Evaluation Information Problem Diagnosis chronic low back pain, degenerative disc disease, scoliosis Onset Jan 2020 Subjective Information chronic since 2002; in Query Text:As Reported By Patient/ January, more L leg numbness Family and tingling- leg goes completely numb sometimes; Diagnostic Tests X-Rays For This Problem Yes: at another facility MRI For This Problem No Other Tests For This Problem No Previous Treatments Previous Treatments For This Problem chiropractor treatment in 2003 Prior Level of Function Activity Level (Last 3 Months) Occupation currently not working due to vertigo and back pain Hand Dominance Right Activity of Daily Living Ability Independent Indoor/Home Mobility [facility]
--- NOTE | 2020-10-01 14:25 | PTOPEVAL ---
PHYSICAL THERAPY REEVALUATION AND UPDATED PLAN OF CARE 10-01-20 Refer to the clinical summary below for his status today, compared to the initial evaluation. Continue PT 1x/week for 5 weeks. Thank you for referring Raoul Goode to [facility].? Please review, sign, date and return this updated plan of care [facility]. I agree with and certify that the following plan of care is medically necessary. Referring Physician Date Attending Provider: Stan Cooper MD PT Outpatient Re-Evaluation Document 10/01/20 13:40 MARS (Rec: 10/01/20 14:25 MARS [id number]) Subjective Information Raoul reports: therapy is Query Text:As Reported By Patient/ helping-- L leg is better, but Family now have pain R leg; exercises are helping get strength back; cannot do heavy lifting anymore---for fitness exercises, do squat lifts, can no longer do 200- 300#, can do 100# without hurting, but anymore than that hurts my back, even with back brace on; doing work on cars ; The electrical stim and massage help his pain--wants to continue therapy; At home, have fitness equipment: doing weighted chest, single arms 35-45#, legs 100-150# and back work/ lats and rowing machine; Discussed posture with above exercises and decreasing the wt for decreased stress on his back; Pain Assessment Timing of Pain Assessment Timing of Pain Assessment Assessment Pain Scale Pain Scale Used Numeric (1 - 10) Self Report Pain Assessment Bilateral Spine, Lumbar Reported Pain Level 3 Pain Description Aching Pain Radiation Right Leg Radicular Pain Location no pain in L leg, but now is in R leg--lateral thigh to mid thigh Pain Frequency Chronic,Continuous Other Pain Description lumbar R and L; when worse, pain goes into anterior chest Lowest Pain Intensity 2 Greatest Pain Intensity 7 Other Pain Aggravating Factors reports standing tolerance of 25 min; yard work; Pain Behaviors Anxious,Grimacing Pain Score Pain Score
--- NOTE | 2020-11-05 10:57 | PTOPEVAL ---
PHYSICAL THERAPY DISCHARGE 11-05-20 Refer to the clinical summary below for his status with today's reeval, compared to the last reeval. The goals were partially achieved. Raoul has been educated on a home exercise program, correct lifting and activity/rest balance to help manage his pain. He continues to use incorrect lifting technique and overdoing activity--lifting heavy weights and running. He expressed concern about still having pain, but he is doing more activity. Discussed with him to follow up with his dr and he stated he may go to pain management, but does not want any kind of back surgery. Thank you for referring Raoul Goode to [facility].? Please review, sign, date and return this Discharge JANETT. I agree with and certify that the following plan of care is medically necessary. Referring Physician Date Attending Provider: Stan Cooper, Document 11/05/20 10:00 MARS (Rec: 11/05/20 10:56 MARS [id number]) Assessment Status Discharge Subjective Information Raoul reports: doing more-- Query Text:As Reported By Patient/ jogged 3 miles yesterday after Family he cut his grass; painted his car; back hurts less when running, compared to walking-- running hips hurt and with walking both legs go crazy and hurt more; back is the same, but doing more; home exercises with hand wts and at gym- use machines: wear back brace: doing pec fly in sitting with 35# hand wt on R and L sides; doing abd curls with 50# wt on stomach- and the ball popped; doing exercises with bench support; EDUCATION: with demo of exercises: arch/sag lumbar spine with UE pec fly- instruct on correct stabilization of trunk; correct lifting floor/waist, home TENS unit, taping technique, continue HEP; have to manage his chronic back pain, monitor activity level to manage his s/s; Pt stated he wants to continue therapy for the stim, massage and taping; reinforced to him that is not skilled therapy--he has been educated and knows above techniques to manage his pain. Pain Assessment
== END 2020-11-06 10:35 | disposition home or self-care (01) ==
LOC: ANHPT 10:00
PROVIDERS: PCP Family Medicine; Visit Provider Family Medicine
DX: M51.36 Other intervertebral disc degeneration, lumbar region (principal)
CPT/HCPCS: 97014; 97110; 97140; 97161; G0283

== ENCOUNTER 2021-04-14 12:30 | Outpatient (RCR) | payer OTHER, SELFPAY ==
--- NOTE | 2021-02-09 13:50 | PTOPEVAL ---
PHYSICAL THERAPY EVALUATION AND PLAN OF CARE Thank you for referring Raoul Goode to [facility].? The patient is scheduled to be seen for therapy? 2x/week for 4 weeks. Please review, sign, date and return this plan of care JANETT. I agree with and certify that the following plan of care is medically necessary. Referring Physician Date Attending Provider: Jun Medeiros MD Evaluation Outpatient Past Medical History Neurological History Hx Other Neurological Disorders Yes: head injury '99 with decreased memory; vertigo Cardiovascular History Hx Hypercholesterolemia Yes: meds Respiratory History Hx Bronchitis Yes Gastrointestinal History Hx Gastrointestinal Disorders No Significant History Genitourinary History Hx Urinary Tract Infection Yes Musculoskeletal History Hx Back Pain Yes: chronic back pain since 2002 Hx Other Musculoskeletal Disorders Yes: headaches with vertigo episodes; Psychosocial History Hx Anxiety Yes Hx Post Traumatic Stress Disorder Yes Pain History Diagnosis low back pain Subjective Information left leg started going numb Query Text:As Reported By Patient/ and hurting about a year ago. Family More recently the entire left leg has been going numb when standing on it for longer than 30-60minutes. Changing positions helps to prevent the numbness and it takes 10-15 minutes of sitting when the leg is numb for feeling to come back. States that his back hurts all the time but when standing for a prolonged period of time his back will get tight and then the leg will go numb. Self Report Pain Assessment Spine, Lumbar Reported Pain Level 5 Pain Frequency Chronic,Continuous Pain Aggravating Factors Weight Bearing/Standing Pain Behaviors None Pain Score Pain Score 5: Self Report Interventions Used Interventions Used By Clinicians Exercise,Joint Mobilization, Manual Therapy Techniques Pain Relief Interventions Used By Inactivity/Rest Patient Cervical and Lumbar ROM Lumbar ROM Lumbar Flexion Active Floor Query Text:Hands to: Lumbar Extension (0-40) 12 Query Text:Active in Degrees Lumbar Comments decreased pain with flexion, i
--- NOTE | 2021-02-16 16:30 | PCPTNOTE ---
Patient called & cancelled scheduled appointment this date due to not having a ride.
--- NOTE | 2021-02-23 16:55 | PCPTNOTE ---
Patient did not show up for scheduled appointment this date. Called and spoke with Pt. He apologized stating he forgot. Reminded Pt of upcoming appointment and advised him if unable to make it, please call. This is Pt's first N/S.
--- NOTE | 2021-03-10 16:55 | PTOPEVAL ---
PHYSICAL THERAPY PLAN OF CARE UPDATE AND PROGRESS REPORT Thank you for referring Raoul Goode to [facility].? The patient is scheduled to be seen for therapy? 1x/week for 5 weeks. Please review, sign, date and return this plan of care JANETT. I agree with and certify that the following plan of care is medically necessary. Referring Physician Date Attending Provider: Jun Medeiros MD Diagnosis low back pain Subjective Information states that overall things are Query Text:As Reported By Patient/ better by about 25%. States Family that today he does have a good amount of pain in the left side of the low back. He has been driving a lot lately which could have lead to the increased symptoms but he is also stating today that the stretching at home has started to cause increased pain. States that the stretches started causing his pain to increase about a week ago but before that when he did the stretches they did not increase his pain. Self Report Pain Assessment Spine, Lumbar Reported Pain Level 2 Pain Score Pain Score 2: Self Report Interventions Used Interventions Used By Clinicians Exercise Other Alleviating Interventions states that he has a lot of medication in him right now Cervical and Lumbar ROM Lumbar ROM Lumbar Flexion Active Floor Query Text:Hands to: Lumbar Extension (0-40) 15 Query Text:Active in Degrees Lateral Rotation Right (0-45) 45 Query Text:Active in Degrees Lateral Rotation Left (0-45) 45 Query Text:Active in Degrees Lumbar Comments decreased pain with flexion, increased pain with extension Lower Extremity Muscle Strength Testing Hip Strength Right Hip Flexion Strength 5 Normal Hip Extension Strength 4+ Good + Hip Abduction Strength 4+ Good + Left Hip Flexion Strength 5 Normal Hip Extension Strength 4- Good - Hip Abduction Strength 4 Good Muscle Length Testing Muscle Length Testing Piriformis w/Hip Flexion >90 Degrees (R) Moderate Tightness,(L) Moderate Tightness Left Hamstring Length -30 Query Text:(90 - 90 Position) Right Hamstring Length -20 Query Text:(90 - 90 Position) Right Prone Knee Flexor Muscle Length ( 135 degrees) Left Prone Knee Flexor Muscle Length (
--- NOTE | 2021-04-14 13:17 | PTOPEVAL ---
PHYSICAL THERAPY DISCHARGE NOTE Thank you for referring Raoul Goode to [facility].?Please review, sign, date and return this plan of care JANETT. I agree with and certify that the following plan of care is medically necessary. Referring Physician Date Attending Provider: Jun Medeiros MD Diagnosis low back pain Subjective Information States that he feels like his Query Text:As Reported By Patient/ back is getting better. He is Family going to the gym and running and working on losing weight. His left leg does still go numb when standing or walking - rarely happens when he is sitting. Physical therapy does not seem to have changed the numbness but did improve the pain. Self Report Pain Assessment Spine, Lumbar Reported Pain Level 5 Pain Description Sharp Pain Radiation Left Leg Pain Aggravating Factors Bending,Walking,Weight Bearing /Standing Pain Score Pain Score 5: Self Report Interventions Used Interventions Used By Clinicians Education,Exercise Cervical and Lumbar ROM Lumbar ROM Lumbar Flexion Active Floor Query Text:Hands to: Lumbar Extension (0-40) 20 Query Text:Active in Degrees Lateral Rotation Right (0-45) 45 Query Text:Active in Degrees Lateral Rotation Left (0-45) 45 Query Text:Active in Degrees Lower Extremity Muscle Strength Testing Hip Strength Right Hip Flexion Strength 5 Normal Hip Extension Strength 4+ Good + Hip Abduction Strength 4+ Good + Left Hip Flexion Strength 5 Normal Hip Extension Strength 5 Normal Hip Abduction Strength 5 Normal Muscle Length Testing Muscle Length Testing Left Hamstring Length -30 Query Text:(90 - 90 Position) Right Hamstring Length -20 Query Text:(90 - 90 Position) PT Clinical Summary Raoul is a 40 yo male presenting to outpatient physical therapy with chronic and constant low back pain with intermittment left LE numbness from prolonged standing. His symptoms are significantly reduced except for the numbness in the left LE. At this time I recommend discharge from PT with continuing HEP.
== END 2021-04-14 14:29 | disposition home or self-care (01) ==
LOC: ANHPT 12:30
PROVIDERS: PCP Family Medicine; Visit Provider Psychiatry & Neurology Neurology
DX: M54.50 Low back pain, unspecified (principal)
CPT/HCPCS: 97110; 97140; 97162

== ENCOUNTER 2021-06-11 04:33 | Emergency (ER) | payer OTHER, SELFPAY ==
[2021-06-11] VITALS (12 sets, daily range): BP systolic 113–159; BP diastolic 71–116; PULSE 61–87; RESP 15–26; TEMP 36.4; O2SAT 97–99
--- NOTE | ~2021-06-11 | XR_ITS ---
EXAMINATION: XR chest 2V DATE: 06/11/2021 05:37 INDICATION: Chest pain TECHNIQUE: frontal and lateral views of the chest were obtained. COMPARISON: Chest radiograph dated 08/18/20 FINDINGS: Thoracic kyphosis which could be positional with decreased lung volumes. No focal airspace opacities, pulmonary edema, pleural effusion or pneumothorax. The cardiomediastinal silhouette is normal. Visua lized bones and soft tissues are unremarkable. IMPRESSION: 1. No acute cardiopulmonary disease. Reviewed, dictated and finalized at location A.
--- NOTE | 2021-06-11 04:34 | ED.PSYCH ---
HPI - Psych General Chief Complaint: Chest Pain Stated Complaint: Anxiety Time Seen by Provider: 06/11/21 04:33 Source: EMS Mode of arrival: EMS Limitations: intoxication History of Present Illness HPI Narrative: Patient is a 40-year-old male with history of hyperlipidemia, anxiety, PTSD, alcoholism, presenting to the emergency department for evaluation of hallucinations. History mostly provided by EMS report. Patient reportedly called 911 for hallucinations, EMS responded, patient was agreeable to come to the hospital, noted to be somewhat agitated in route. Pt reports visual hallucinations for EMS. Denied any pain. At the time of arrival, patient walks from the ambulance to the hospital room. He is oriented to person, not to place or time. He is reporting visual hallucinations. States that he is seeing evidence of war like when he was in [place]. Reports flashes of people in front of him. Patient is intermittently tearful, pacing the room. He does respond to gentle direction. He is reporting chest pain for approximately 11 years. He is reporting shortness of breath daily for 11 years. States that he drinks significant alcohol today, when questioned how much he drinks, he states only that he drinks daily for many years. Denies history of alcohol withdrawal or seizures. Patient denies fever, chills, cough Patient denies suicidal ideation. Denies homicidal ideation. Related Data Home Medications Medication Instructions Recorded Confirmed fenofibrate 50 mg capsule 50 mg PO DAILY 03/25/21 03/25/21 omeprazole 40 mg capsule,delayed 40 mg PO DAILY 03/25/21 release meclizine 12.5 mg tablet 12.5 mg PO TID 05/18/21 Allergies Allergy/AdvReac Type Severity Reaction Status Date / Time No Known Allergies Allergy Verified 03/25/21 13:37 Review of Systems Review of Systems: CONSTITUTIONAL: Denies fever CARDIOVASCULAR: Reports chest pain RESPIRATORY: Denies cough or dyspnea. GASTROINTESTINAL: Denies abdominal pain SKIN: Denies rash MUSCULOSKELETAL: Denies back pain NEUROLOGIC: Denies headache History limited secondary to patient. [facility] Past Medical History Medical History Back pain Blackout Cardiac arrhythmia Chest pain Dizziness and giddiness History of migraine headaches Hyperlipidemia Smoking Social History Social History Social History: former smoker Smoking status: Former smoker Alcohol intake: current Gender identity (if verbalized by the patient): Male Exam Narrative: GENERAL: Awake, alert, anxious appearing, pacing HEAD: Normocephalic, atraumatic. EYES: PERRLA and EOMI. ENT: Nares clear, no rhinorrhea or epistaxis. Mucous membranes moist. NECK: Supple. CHEST: No respiratory distress, breathing even and non labored, no chest wall pain HEART: Regular rate, sinus rhythm ABDOMEN:Non distended, non tender EXTREMITIES: Normal range of motion. No edema. SKIN: Warm, dry, no rash. NEURO:No focal deficits. Alert and oriented x1, ambulatory with a narrow base, steady gait Course Course Emergency Course: Pt alcohol level undetected at [address], came to evaluate patient, patient is alert and oriented with friend at bedside. No SI or HI. Safety plan with crisis counselor. He is not currently agitated, suicidal, homicidal, no other acute complaints. Patient then left the ER prior to discharge paperwork being provided to him. Vital Signs Vital signs: Vital Signs Temperature 36.4 C 06/11/21 04:36 Pulse Rate 86 06/11/21 04:36 Respiratory Rate 24 H 06/11/21 04:36 Blood Pressure 129/75 06/11/21 04:36 Pulse Oximetry 99 06/11/21 04:36 Temperature 36.4 C 06/11/21 04:36 Pulse Rate 66 06/11/21 14:01 Respiratory Rate 21 H 06/11/21 14:01 Blood Pressure 159/96 H 06/11/21 14:01 Pulse Oximetry 99 06/11/21 14:01 MDM - Psych MDM Narrative Medical decision making narrative: Pt pr
--- NOTE | 2021-06-11 04:35 | ECG_ITS ---
Measurements Intervals [place] Rate: 84 P: 49 RI: 164 QRS: 35 QRSD: 96 T: 52 QT: 366 QTc: 434 Interpretive Statements SINUS RHYTHM NONSPECIFIC T-WAVE ABNORMALITY BASELINE ARTIFACT BORDERLINE ECG COMPARED TO ECG 08/18/2020 10:31:59 HEART RATE HAS INCREASED OTHERWISE NO SIGNIFICANT CHANGE Electronically Signed On 06-11-2021 15:39:07 CDT by Chalino Gonzales M.D.
[2021-06-11 05:02] LABS: Basophils Absolute Auto 0.1 K/mm3 (0.0-0.1); Basophils Percent Auto 0.6 % (0.2-1.2); Eosinophils Absolute Auto 0.1 K/mm3 (0-0.3); Eosinophils Percent Auto 1.5 % (0-4.4); Hematocrit 46.2 % (42.0-52.0); Hemoglobin 15.5 g/dL (14.0-18.0); Immature Granulocyte Absolute 0.01 K/mm3 (0.00-0.031); Immature Granulocyte Percent A 0.1 % (0-0.5); Lymphocytes Absolute Auto 4.43 K/mm3 (0.9-3.2); Lymphocytes Percent Auto 51.1 % (18.3-44.2); Mean Corpuscular HGB Conc 33.5 g/dl (32-36); Mean Corpuscular Hemoglobin 31.5 pg (26-34); Mean Corpuscular Volume 93.9 fl (80-100); Mean Platelet Volume 9.8 fl (7.4-10.4); Monocytes Absolute Auto 0.7 K/mm3 (0.1-0.6); Neutrophils Absolute Auto 3.4 K/mm3 (1.3-6.7); Neutrophils Percent Auto 38.7 % (45.5-73.1); Platelet Count Result 261 k/mm3 (150-375); Red Blood Count 4.92 M/mm3 (4.6-6.20); Red Cell Distribution Width 13.8 % (11.5-14.5); White Blood Count 8.7 K/mm3 (4.5-10.0)
[2021-06-11] MEDS: ASPIRIN 81 MG CHEWABLE TABLET 324 MG PO (05:11)
[2021-06-11] MEDS: LORazepam INJ (*CRX) 2 MG/ML VIAL IV PUSH (05:12)
[2021-06-11 05:14] LABS: Alanine Aminotransferase 37 U/L (4-50); Albumin Level 4.6 g/dL (3.5-5.1); Alkaline Phosphatase 99 U/L (38-126); Anion Gap 14 mmol/L (8-16); Aspartate Amino Transferase 35 U/L (17-59); Bilirubin,Total 0.3 mg/dL (0.2-1.3); Blood Urea Nitrogen 13 mg/dL (9-20); Calcium 8.9 mg/dL (8.4-10.2); Carbon Dioxide 20 mmol/L (22-30); Chloride 109 mmol/L (98-107); Estimated CRCL calculation 110 ml/min; Estimated Glomerular Filt Rate > 60; Glucose 110 mg/dL (65-110); Sodium 143 mmol/L (137-145)
[2021-06-11 05:21] LABS: Mucus Urine Rare /lpf; Squamous Epithelial Cell Urine Rare /hpf (Few); WBC Urine 0-3 /hpf
[2021-06-11 05:25] LABS: Troponin I < 0.012 ng/mL (0.000-0.034)
--- NOTE | 2021-06-11 05:28 | PC.NURSE ---
Pt to imaging at this time.
[2021-06-11 05:31] LABS: Amphetamine Screen Urine Negative (Negative); Barbiturate Screen Urine Negative (Negative); Benzodiazepines Screen Urine Negative (Negative); Cannabinoid Screen Urine Negative (Negative); Cocaine Screen Urine Negative (Negative); Methadone Screen Urine Negative (Negative); Opiate Screen Urine Negative (Negative); Phencyclidine Screen Urine Negative (Negative)
[2021-06-11 05:33] LABS: Ethanol 203 mg/dL (<10)
[2021-06-11 05:40] LABS: Add Urine Microscopic? NO; Appearance Urine Clear (Clear); Bilirubin Urine Negative (Negative); Blood Urine Negative (Negative); Color Urine Yellow (Yellow); Glucose Urine UA Negative (Negative); Ketones Urine Negative (Negative); Leukocyte Esterase Ur Negative LEU/UL (Negative); Nitrate Urine Negative (Negative); Protein Urine Negative (Negative); Specific Grav Ur 1.015 (1.001-1.035); Urobilinogen Urine 0.2 mg/dL (<2.0)
[2021-06-11 05:48] LABS: SARS-CoV-2 RNA PCR Negative
--- NOTE | 2021-06-11 06:10 | PC.NURSE ---
Per [facility] [place], pt will continue to require a sitter for elopement precautions. Sitter initiated at this time.
--- NOTE | 2021-06-11 07:12 | PC.NURSE ---
Assumed care of pt at this time from Summer. Sitter at bedside
[2021-06-11 07:56] LABS: Troponin I < 0.012 ng/mL (0.000-0.034)
--- NOTE | 2021-06-11 14:38 | PC.NURSE ---
Pt is awake at this time, calm, asking what is going on. This RN informed him that we are waiting on his ETOH level to come down and then he will be evaluated by crisis
--- NOTE | 2021-06-11 14:55 | PC.NURSE ---
Reevaluated pt columbia scale. Pt scored no risk. Pt calm and cooperative. Pt friend at bedside. Sitter pulled at this time. Charge notified
[2021-06-11 15:17] LABS: Ethanol < 10 mg/dL (<10)
--- NOTE | 2021-06-11 18:15 | PC.NURSE ---
Pt not in room at time of charge nurse walking rounds.
== END 2021-06-11 21:18 | disposition left against medical advice (07) ==
PROVIDERS: Emergency Provider Emergency Medicine; PCP Family Medicine
DX: F32.A Depression, unspecified (principal); F29 Unspecified psychosis not due to a substance or known physiological condition; R44.0 Auditory hallucinations; Z20.822 Contact with and (suspected) exposure to COVID-19; E78.5 Hyperlipidemia, unspecified; Z87.891 Personal history of nicotine dependence; R94.31 Abnormal electrocardiogram [ECG] [EKG]
CPT/HCPCS: 36415; 71046; 80053; 80307; 81003; 84443; 84484; 85025; 93005; 96374; 99284; A9270; C9803; J2060; U0003; U0005

== ENCOUNTER 2021-07-17 02:15 | Emergency (ER) | payer OTHER, SELFPAY ==
--- NOTE | ~2021-07-17 | XR_ITS ---
EXAMINATION: XR chest 1V portable INDICATION: Chest pain TECHNIQUE: Portable AP chest at 0 to 53 hours COMPARISON: 06/11/2021 FINDINGS: The lungs are free of acute opacities. There is no pleural effusion or pneumothorax. The ca rdiomediastinal silhouette is normal. The visualized osseous structures are unremarkable. IMPRESSION: 1. No acute cardiopulmonary abnormality. Reviewed, dictated and finalized at location A.
[2021-07-17 02:13] VITALS: BP 143/76; PULSE 80; RESP 14; TEMP 36.1; O2SAT 98
--- NOTE | 2021-07-17 02:22 | ECG_ITS ---
Measurements Intervals [place] Rate: 81 P: 46 SD: 162 QRS: 39 QRSD: 81 T: 42 QT: 326 QTc: 380 Interpretive Statements SINUS RHYTHM POSSIBLE LEFT ATRIAL ENLARGEMENT MINIMAL Q WAVES- INFERIOR LEADS BORDERLINE ECG Electronically Signed On 07-17-2021 6:41:36 CDT by Donny Fletcher D.O.
--- NOTE | 2021-07-17 02:24 | ED.ANXIETY ---
HPI - Anxiety General Chief Complaint: Anxiety <Mian Mullins MD - Last Filed: 07/17/21 07:04> Stated Complaint: ANXIETY,PTSD, R CHEST PAIN <Mian Mullins MD - Last Filed: 07/17/21 07:04> Time Seen by Provider: 07/17/21 02:21 <Mian Mullins MD - Last Filed: 07/17/21 07:04> Source: patient and old records reviewed <Mian Mullins MD - Last Filed: 07/17/21 07:04> History of Present Illness HPI narrative: Patient presents with visual hallucinations. He reports he is seeing people and situations plan out that have happened in his past. Reports a history of the same last episode of this was on Tuesday and he pushed it back down . Today was more severe so he came to the ER for further evaluation. Denies any auditory hallucinations denies any thoughts of hurting himself or others. He also reports right-sided chest pain prior documentation reports chest pain present for approximately 11 years similar timeframe for shortness of breath. Denies any nausea vomiting or diarrhea. Reports he does not see any behavioral health and has not previously been evaluated for this. Of note patient was seen on June 11 for similar complaint. Patient reports he has significant alcohol use drinks several beers a day as well as a couple bottles of wine. Reports he last drank an hour ago. <Mian Mullins MD - Last Filed: 07/17/21 07:04> Related Data Home Medications: Home Medications Medication Instructions Recorded Confirmed No Home Medications 06/25/21 07/17/21 <Mian Mullins MD - Last Filed: 07/17/21 07:04> Allergies/Adverse Reactions: Allergies Allergy/AdvReac Type Severity Reaction Status Date / Time No Known Allergies Allergy Verified 06/25/21 13:36 <Mian Mullins MD - Last Filed: 07/17/21 07:04> Review of Systems Review of Systems: CONSTITUTIONAL: Denies fever, chills, or sweats. EYES: Denies visual changes, redness, or discharge. ENT: Denies rhinorrhea, congestion, sore throat, or otalgia. CARDIOVASCULAR: Denies palpitations, or edema. RESPIRATORY: Denies cough. GASTROINTESTINAL: Denies abdominal pain, nausea, vomiting, or diarrhea. GENITOURINARY: Denies dysuria or hematuria. SKIN: Denies rash or itching. MUSCULOSKELETAL: Denies back pain, joint pain, or myalgia. NEUROLOGIC: Denies headache, numbness, dizziness, or weakness. PSYCHIATRIC: Denies anxiety or depression. <Mian Mullins MD - Last Filed: 07/17/21 07:04> All systems reviewed & are unremarkable except as noted in HPI and below <Mian Mullins MD - Last Filed: 07/17/21 07:04> PMFSH Past Medical History Medical History: Medical History Back pain Blackout Cardiac arrhythmia Chest pain Dizziness and giddiness History of migraine headaches Hyperlipidemia Smoking <Mian Mullins MD - Last Filed: 07/17/21 07:04> Social History Social History: Social History Social History: former smoker Smoking status: Former smoker Alcohol intake: current Substance use type: does not use Gender identity (if verbalized by the patient): Male <Mian Mullins MD - Last Filed: 07/17/21 07:04> Exam Narrative: GENERAL: Well-appearing, well-nourished, and in no acute distress. HEAD: Normocephalic, atraumatic. EYES: PERRLA and EOMI. ENT: Nares clear, no rhinorrhea or epistaxis. Mucous membranes moist. NECK: Supple. No masses. No JVD CHEST: Clear to auscultation. No respiratory distress. No wheezes rales or rhonchi HEART: Regular rate and rhythm. No murmur heard. Normal peripheral pulses. ABDOMEN: Soft, nontender, nondistended, normal active bowel sounds. EXTREMITIES: Normal range of motion. No edema. SKIN: Warm, dry, no rash. NEURO: No focal deficits. Alert and oriented x3. PSYCH: Normal mood and affect. <Mian Mullins MD - Last Filed: 07/17/21 07:04> Course Reevaluation(s) Reevaluation #1: Repeat
[2021-07-17 02:38] LABS: Appearance Urine Clear (Clear); Bilirubin Urine Negative (Negative); Blood Urine Negative (Negative); Color Urine Yellow (Yellow); Glucose Urine UA Negative (Negative); Ketones Urine Negative (Negative); Leukocyte Esterase Ur Negative LEU/UL (Negative); Nitrate Urine Negative (Negative); Protein Urine Negative (Negative); Specific Grav Ur <= 1.005 (1.001-1.035); Urobilinogen Urine 0.2 mg/dL (<2.0)
[2021-07-17 02:39] LABS: Basophils Percent Auto 0.2 % (0.2-1.2); Eosinophils Absolute Auto 0.1 K/mm3 (0-0.3); Eosinophils Percent Auto 1.4 % (0-4.4); Hematocrit 47.2 % (42.0-52.0); Hemoglobin 15.7 g/dL (14.0-18.0); Immature Granulocyte Absolute 0.01 K/mm3 (0.00-0.031); Immature Granulocyte Percent A 0.1 % (0-0.5); Lymphocytes Absolute Auto 3.39 K/mm3 (0.9-3.2); Lymphocytes Percent Auto 42.1 % (18.3-44.2); Mean Corpuscular HGB Conc 33.3 g/dl (32-36); Mean Corpuscular Hemoglobin 31.8 pg (26-34); Mean Corpuscular Volume 95.5 fl (80-100); Mean Platelet Volume 9.7 fl (7.4-10.4); Monocytes Absolute Auto 0.9 K/mm3 (0.1-0.6); Monocytes Percent Auto 11.4 % (2.6-8.5); Neutrophils Absolute Auto 3.6 K/mm3 (1.3-6.7); Neutrophils Percent Auto 44.8 % (45.5-73.1); Platelet Count Result 256 k/mm3 (150-375); Red Blood Count 4.94 M/mm3 (4.6-6.20); Red Cell Distribution Width 13.5 % (11.5-14.5); White Blood Count 8.1 K/mm3 (4.5-10.0)
[2021-07-17 02:47] LABS: Alanine Aminotransferase 40 U/L (4-50); Albumin Level 4.3 g/dL (3.5-5.1); Alkaline Phosphatase 86 U/L (38-126); Anion Gap 12 mmol/L (8-16); Aspartate Amino Transferase 35 U/L (17-59); Bilirubin,Total 0.3 mg/dL (0.2-1.3); Blood Urea Nitrogen 14 mg/dL (9-20); Calcium 8.8 mg/dL (8.4-10.2); Carbon Dioxide 18 mmol/L (22-30); Chloride 111 mmol/L (98-107); Estimated CRCL calculation 113 ml/min; Estimated Glomerular Filt Rate > 60; Glucose 65 mg/dL (65-110); Lipase 123 U/L (23-300); Potassium 4.1 mmol/L (3.4-5.0); Sodium 141 mmol/L (137-145)
[2021-07-17 02:52] LABS: Acetaminophen < 10 ug/mL (10-30); Ethanol 149 mg/dL (<10); Salicylate < 1.0 mg/dL (2-20)
[2021-07-17 02:57] LABS: Amphetamine Screen Urine Negative (Negative); Barbiturate Screen Urine Negative (Negative); Benzodiazepines Screen Urine Negative (Negative); Cannabinoid Screen Urine Negative (Negative); Cocaine Screen Urine Negative (Negative); Methadone Screen Urine Negative (Negative); Opiate Screen Urine Negative (Negative); Phencyclidine Screen Urine Negative (Negative); RBC Urine 0-2 /hpf (0-2); WBC Urine 0-3 /hpf
[2021-07-17 02:59] LABS: Troponin I < 0.012 ng/mL (0.000-0.034)
[2021-07-17 03:00] VITALS: BP 150/89; PULSE 62; RESP 16; O2SAT 99
[2021-07-17 03:02] LABS: Add Urine Microscopic? YES
[2021-07-17 04:50] VITALS: BP 150/75; PULSE 83; RESP 16; O2SAT 99
[2021-07-17 06:23] LABS: Ethanol 73 mg/dL (<10)
[2021-07-17 06:34] LABS: Troponin I < 0.012 ng/mL (0.000-0.034)
[2021-07-17 07:13] VITALS: BP 126/101; PULSE 72; RESP 17; O2SAT 98
--- NOTE | 2021-07-17 08:28 | PC.NURSE ---
Pt getting impatient, want to leave. Told pt that crisis was on his way.
== END 2021-07-17 09:17 | disposition home or self-care (01) ==
PROVIDERS: Emergency Provider Emergency Medicine; PCP Family Medicine
DX: R44.1 Visual hallucinations (principal); E78.5 Hyperlipidemia, unspecified; Z87.891 Personal history of nicotine dependence; R94.31 Abnormal electrocardiogram [ECG] [EKG]
CPT/HCPCS: 36415; 71045; 80053; 80307; 81001; 83690; 84443; 84484; 85025; 93005; 99284

== ENCOUNTER 2022-07-05 13:05 | Emergency (ER) | payer OTHER, SELFPAY ==
[2022-07-05 13:16] VITALS: BP 143/81; PULSE 90; RESP 16; TEMP 36.6; O2SAT 98
--- NOTE | 2022-07-05 13:19 | ED.WOUNDLAC ---
HPI - Wound/Laceration General Chief Complaint: Wound/Laceration Stated Complaint: Wound on Right Hand Time Seen by Provider: 07/05/22 13:19 Source: patient Mode of arrival: ambulatory Limitations: no limitations History of Present Illness HPI narrative: 41-year-old male presents with complaint of healing laceration to right hand. Patient cut himself on glass 4 days ago. Reports that he has tried Band-Aids but wound keeps opening while working. 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 States that he has a medic friend that told him to get a Tegaderm to cover wound. Patient states that he looked for taking her arms but could not find them anywhere. Explained to patient there are multiple options for water poured Band-Aids at [employer] or [employer] but patient states that he wants a clear dressing So he can see if wound is bleeding when he is working . Tetanus up-to-date. All systems reviewed and negative except as noted above. Related Data Home Medications Medication Instructions Recorded Confirmed No Home Medications 06/25/21 07/05/22 Allergies Allergy/AdvReac Type Severity Reaction Status Date / Time No Known Allergies Allergy Verified 07/05/22 13:11 Review of Systems Review of Systems: CONSTITUTIONAL: Denies fever, chills, or sweats. EYES: Denies visual changes, redness, or discharge. ENT: Denies rhinorrhea, congestion, sore throat, or otalgia. CARDIOVASCULAR: Denies chest pain, palpitations, or edema. RESPIRATORY: Denies cough or dyspnea. GASTROINTESTINAL: Denies abdominal pain, nausea, vomiting, or diarrhea. GENITOURINARY: Denies dysuria or hematuria. SKIN: Denies rash or itching. Reports healing laceration to right hand. MUSCULOSKELETAL: Denies back pain, joint pain, or myalgia. NEUROLOGIC: Denies headache, numbness, or weakness. PSYCHIATRIC: Denies anxiety or depression. All other systems reviewed are negative, except as documented in HPI. [facility] Past Medical History Medical History Back pain Blackout Cardiac arrhythmia Chest pain Dizziness and giddiness History of migraine headaches Hyperlipidemia Smoking Social History Social History (System 02/11/22 @ 11:52 by Shira Jenkins) Social History: former smoker Smoking status: Former smoker Alcohol intake: current Substance use type: does not use Gender identity (if verbalized by the patient): Male Comments At time of signature, agree with nursing past medical, surgical, social and family history. There is no relevant family history pertinent to the presenting complaint. Exam Narrative: GENERAL: This is a well-nourished, well-developed patient, in no apparent distress. HEAD: normocephalic, atraumatic. EYES: PERRL. Sclera clear/white. Vision is grossly intact. EARS: External ears normal NOSE: External nose normal NECK: Neck supple, non-tender without lymphadenopathy, masses or thyromegaly. CARDIOVASCULAR: Regular rate and rhythm without murmurs, gallops, or rubs. RESPIRATORY: Clear to auscultation. Breath sounds equal bilaterally. No wheezes, rales, or rhonchi. SKIN: warm, Dry, with no suspicious lesions or rash, good texture and turgor. Healing superficial laceration approximately 5 cm diameter to lateral aspect of right hand. there are no signs of infection. No active bleeding. NEURO: awake, alert, and oriented to person, place and time. There were no obvious focal neurologic abnormalities. EXTREMITIES: No joint tenderness, effusion, or edema noted. Extrem: Hand/finger images: 1. 5cm superficial laceration Course Course Level of Care: Express Care Visit Vital Signs Vital signs: Vital Signs Temperature 36.6 C 07/05/22 13:16 Pulse Rate 90 07/05/22 13:16 Respiratory Rate 16 07/05/22 13:16 Blood Pressure 143/81 H 07/05/22 13:16 Pulse Oximetry 98 07/05/22 13:16 Oxygen Delivery Room Air 07/05/22 13:16 Temperature 36.6 C 07/05/22 13:16 Pulse Rate 90 07/05/22 13:16 Respiratory Rate 16
== END 2022-07-05 13:33 | disposition home or self-care (01) ==
PROVIDERS: Emergency Provider Nurse Practitioner Family; PCP Family Medicine
DX: S61.412A Laceration without foreign body of left hand, initial encounter (principal); W25.XXXA Contact with sharp glass, initial encounter; Z87.891 Personal history of nicotine dependence; E78.5 Hyperlipidemia, unspecified
CPT/HCPCS: 99212; G0463

== ENCOUNTER 2022-08-08 13:39 | Inpatient (IN) | payer OTHER, SELFPAY ==
--- NOTE | ~2022-08-08 | CT_ITS ---
EXAMINATION: CT abdomen pelvis w con DATE: 08/08/2022 16:23 INDICATION: Left-sided abdominal pain TECHNIQUE: Computed tomography (CT) of the abdomen and pelvis was performed with 100 mL Omnipaque-350 intravenous contrast. Automated exposure control and iterative reconstruction technique were employe d. The dose-length product was 1323.45 mGy-cm. COMPARISON: 01/10/2016 FINDINGS: Lung bases are clear. Heart size is normal. No pericardial or pleural effusion. 7 mm cyst in the righ t hepatic lobe. The gallbladder, spleen, bilateral adrenal glands and kidneys are normal. There is pr ominent peripancreatic stranding with small nonloculated peripancreatic fluid collections including a long the bilateral anterior pararenal spaces extending more caudally on the left along the paracolic gutter and with additional small collection inferior to the distal stomach likely within the lesser o mentum. Fracture consistent with acute interstitial pancreatitis. No evident pancreatic parenchymal n ecrosis, organized abscess, walled off necrosis. The adjacent vasculature appears normal with no evid ent thrombosis or pseudoaneurysm. Bowels including the appendix are normal. Bladder is normal. Trace amount of ascites in the pelvis. No free intraperitoneal gas. No pathologically enlarged abdominal or pelvic lymphadenopathy. Moderate to severe disc height loss at L5-S1. Mild spondylosis in the more c ephalad lumbar and lower thoracic spine. IMPRESSION: 1. Acute interstitial pancreatitis. Reviewed, dictated and finalized at location A.
--- NOTE | ~2022-08-08 | NM_ITS ---
EXAMINATION: NM hepatobiliary w pharm DATE: 08/10/2022 15:37 INDICATION: Abdominal pain. COMPARISON: CT abdomen and pelvis 08/08/2022 TECHNIQUE: 5.3 mCi Tc-99m mebrofenin (Choletec) was administered intravenously. Scintigraphic images of the abdomen were obtained for one hour. Then, 2 mg morphine IV was administered, and imaging was continued for 30 minutes. FINDINGS: There is normal clearance of radiotracer from the blood pool. There is homogeneous tracer u ptake by the liver. Activity progresses to the bowel and gallbladder. IMPRESSION: 1. Patent cystic duct and common duct. Reviewed, dictated and finalized at location L.
[2022-08-08 14:04] VITALS: BP 133/82; PULSE 71; RESP 20; TEMP 37; O2SAT 98
--- NOTE | 2022-08-08 14:34 | PC.NURSE ---
patient states he is lactose intolerant and ate a bunch of cheese last night so he is unsure if the pain is related.
[2022-08-08 14:47] LABS: Basophils Percent Auto 0.2 % (0.2-1.2); Eosinophils Absolute Auto 0.1 K/mm3 (0-0.3); Eosinophils Percent Auto 0.8 % (0-4.4); Hematocrit 47.1 % (42.0-52.0); Hemoglobin 15.9 g/dL (14.0-18.0); Immature Granulocyte Absolute 0.03 K/mm3 (0.00-0.031); Immature Granulocyte Percent A 0.3 % (0-0.5); Lymphocytes Absolute Auto 1.96 K/mm3 (0.9-3.2); Lymphocytes Percent Auto 20.2 % (18.3-44.2); Mean Corpuscular HGB Conc 33.8 g/dl (32-36); Mean Corpuscular Hemoglobin 31.2 pg (26-34); Mean Corpuscular Volume 92.4 fl (80-100); Mean Platelet Volume 10.2 fl (7.4-10.4); Monocytes Absolute Auto 0.6 K/mm3 (0.1-0.6); Monocytes Percent Auto 6.6 % (2.6-8.5); Neutrophils Percent Auto 71.9 % (45.5-73.1); Platelet Count Result 290 k/mm3 (150-375); White Blood Count 9.7 K/mm3 (4.5-10.0)
[2022-08-08 15:07] LABS: Alanine Aminotransferase 33 U/L (6-50); Albumin Level 4.1 g/dL (3.5-5.1); Alkaline Phosphatase 99 U/L (38-126); Anion Gap 10 mmol/L (8-16); Aspartate Amino Transferase 26 U/L (17-59); Bilirubin,Total 0.6 mg/dL (0.2-1.3); Blood Urea Nitrogen 13 mg/dL (9-20); Calcium 8.9 mg/dL (8.4-10.2); Carbon Dioxide 20 mmol/L (22-30); Chloride 105 mmol/L (98-107); Estimated CRCL calculation 132 ml/min; Estimated Glomerular Filt Rate > 60; Glucose 133 mg/dL (65-110); Potassium 4.1 mmol/L (3.4-5.0); Sodium 135 mmol/L (137-145)
--- NOTE | 2022-08-08 15:08 | ED.ABDPAIN ---
HPI - Abdominal Pain General Chief Complaint: Abdominal Pain Stated Complaint: abd pain Time Seen by Provider: 08/08/22 14:34 Source: patient, RN notes reviewed and old records reviewed Mode of arrival: ambulatory Limitations: no limitations History of Present Illness HPI narrative: This is a 41 year old male who presents for evaluation of abdominal pain. PAtient reports he developed sudden onset mid abdominal pain going into his back this morning at 9 am. He is unable to describe his pain. This pain has been constant and denies having similar pain in the past. HE denies associated nausea, vomiting but he does reports constipation. His last bowel movement was 2 days ago and he normally going daily. He is having urge to have bowel movement and urinate but he states only a small amount of urine out patient. He has not taken any medication for his pain. He rates his pain 10/10. He also reported to nurse that he is lactose intolerate and he did eat some cheese. Related Data Home Medications Medication Instructions Recorded Confirmed No Home Medications 06/25/21 08/08/22 Allergies Allergy/AdvReac Type Severity Reaction Status Date / Time No Known Allergies Allergy Verified 08/08/22 14:06 Review of Systems Constitutional: Constitutional: Denies weakness Cardiovascular: Cardiovascular: Denies syncope, Denies rapid heart rate, Denies irregular heart rhythm, Denies leg edema and Denies dyspnea Respiratory: Respiratory: Denies chest congestion, Denies hemoptysis, Denies excessive phlegm production and Denies dyspnea Gastrointestinal: Gastrointestinal: Reports abdominal pain, Denies hematochezia, Reports constipation, Denies diarrhea and Denies vomiting Genitourinary: Genitourinary: Denies hematuria, Denies dysuria, Denies penile discharge, Denies testicular pain and Reports urinary frequency Musculoskeletal: Musculoskeletal: Reports back pain, Denies joint swelling, Denies loss of height and Denies muscle weakness Neurologic: Denies syncope, Denies focal weakness and Denies weakness PMFSH Past Medical History Medical History Back pain Blackout Cardiac arrhythmia Chest pain Dizziness and giddiness History of migraine headaches Hyperlipidemia Smoking Social History Social History Social History: former smoker Smoking status: Former smoker Alcohol intake: current Substance use type: does not use Lack of Transportation: YES Lack of Food: Sometimes True Current Housing: I Have Housing Concerned About Future Housing: No Difficulty Paying Gas/Electric Bills: YES Difficulty Paying for Meds: No Currently Unemployed: No Education: Trade/Vocational Certificate Difficulty w/ Childcare or Family Care: No Gender identity (if verbalized by the patient): Male Spiritual care concerns: No Exam Const: General: alert Orientation/consciousness: patient oriented x3 Other: patient is restless and appears to be in pain, no diaphoresis HENMT: Head: normal to inspection Throat: posterior oropharynx normal and uvula midline Eyes: EOM: EOMs intact bilaterally Chest: Chest palpation & inspection: normal inspection of the chest Resp: Effort & Inspection: normal respiratory effort Auscultation: clear to auscultation bilaterally Cardio: Rate: regular rate Rhythm: regular rhythm Heart sounds: no murmurs GI: GI Palp: Yes Soft to palpation, Yes Tenderness to palpation present (GI) (LLQ, LUQ), No Guarding due to palpation present (GI) and No Rigid due to palpation Auscultation: Hypoactive bowel sounds present : General: Yes no CVA tenderness Back/Spine/Pelvis: Back: no CVA tenderness Skin: General skin exam: normal color Rashes: no rashes Wounds: no wounds Neuro: General: patient oriented x3, moves all extremities and CN's II-XI intact bilaterally Cranial nerves: Yes Nystagmus not present Speech: normal speech Gait exam (Sherman
[2022-08-08] MEDS: ONDANSETRON INJ 4 MG/2 ML VIAL IV PUSH (15:27)
[2022-08-08] MEDS: SODIUM CHLORIDE 0.9% IV 1,000 ML 999 ML IV CONT (15:27)
[2022-08-08 15:28] LABS: Lipase 19581 U/L (23-300)
[2022-08-08] MEDS: HYDROmorphone HCL INJ (*CRX) 1 MG/ML SYR IV PUSH ×2 (15:28→17:10)
--- NOTE | 2022-08-08 18:25 | ADMGEN ---
This patient, Raoul Goode, was admitted to 3 Med Surg Room 332-01 at 1825. Patient/family oriented to hospital policies and general routines including ID bracelet, bed and alarms, visiting hours, pain management, procedures, bathroom and other care routines, personal items, smoking policy, room service/diet, and visiting hours. Information on how to activate the Rapid Response Team has been discussed. Patient/Family are encouraged to report perceived risks to care and to ask questions if they do not understand what they are told or what they should do.
[2022-08-08] MEDS: LACTATED RINGERS 1,000 ML 125 ML IV CONT (18:30)
[2022-08-08] MEDS: HYDROmorphone HCL INJ (*CRX) 1 MG/ML SYR 0.5 MG IV PUSH ×2 (18:30→22:47)
[2022-08-08 18:38] VITALS: BP 136/72; PULSE 52; RESP 20; TEMP 35.5; O2SAT 100; BMI 28.6
[2022-08-08 20:00] VITALS: PULSE 61; RESP 16; O2SAT 100
[2022-08-08 21:13] LABS: Appearance Urine Clear (Clear); Bilirubin Urine Negative (Negative); Blood Urine Negative (Negative); Color Urine Yellow (Yellow); Glucose Urine UA Negative (Negative); Ketones Urine Negative (Negative); Leukocyte Esterase Ur Negative LEU/UL (Negative); Nitrate Urine Negative (Negative); Protein Urine 1+ mg/dL (Negative); Urobilinogen Urine 0.2 mg/dL (<2.0); pH Urine 5.5 (5.0-9.0)
[2022-08-08 21:27] LABS: Add Urine Microscopic? YES; RBC Urine 0-2 /hpf (0-2)
[2022-08-08 21:28] LABS: WBC Urine 0-3 /hpf
[2022-08-08] MEDS: KETOROLAC 30 MG/ML VIAL (*BKC) IV PUSH (21:48)
[2022-08-08 21:53] VITALS: BP 129/79; PULSE 61; RESP 16; TEMP 36.1; O2SAT 100
--- NOTE | 2022-08-08 22:09 | PM.IMHP ---
H&P: HPI History of Present Illness Date/Time: 08/08/22 22:09 Chief Complaint: Abdominal pain Narrative: this is a 41-year-old male patient that stated he has been having pain to his abdomen for approximately 2 weeks. The patient stated that he was scheduled to have an ultrasound of his gallbladder at the imaging center bus not had performed yet. The patient stated that he did drink heavily on Tuesday. The patient states that he drinks heavily a couple times a week. The patient has been complaining of worsening pain to his mid abdomen. This is different from his usual right upper quadrant pain. The patient denies any nausea vomiting reports he feels bloated has some constipation. The patient still feels like he needs to have a bowel movement and is unable to. He feels distended. When he came to the emergency room he stated his pain was 10/10 and was also in the room moaning. The patient stated that he has lactose intolerance and had recently eat some cheese. Sodium is slightly low at 135. Abdominal pelvis CT was read as acute interstitial pancreatitis. The patient was given Dilaudid in the emergency room he stated it did not totally resolve all of his pain. his lipase was 19,581. The patient was given IV fluids, Zofran, and Dilaudid. The patient is being admitted to inpatient status on the date of service of 08/08/2022. Review of Systems Review of Systems: All systems reviewed & are unremarkable except as noted in HPI and below Constitutional: Constitutional: Reports as per HPI and Reports no additional constitutional complaints Eyes: Eyes: Reports as per HPI and Reports no additional eye complaints ENT: Reports system reviewed and no additional complaints, except as documented and Reports Normal hearing present Cardiovascular: Cardiovascular: Reports no additional cardiovascular complaints Respiratory: Respiratory: Reports no additional respiratory complaints and Reports no additional respiratory complaints Gastrointestinal: Gastrointestinal: Reports as per HPI and Reports no additional gastrointestinal complaints Musculoskeletal: Musculoskeletal: Reports no additional musculoskeletal complaints Integumentary/Breasts: Skin/Breast: Reports system reviewed and no additional complaints, except as docu and Reports as per HPI Neurologic: Reports system reviewed and no additional complaints, except as documented, Reports as per HPI and Reports Normal hearing present Psychiatric: Psychiatric: Reports no additional psychiatric complaints and Reports as per HPI Endocrine: Endocrine: Reports no additional endocrine complaints Hematologic/Lymphatic: Hematologic/Lymphatic: Reports no additional hematologic/lymphatic complaints Allergic/Immunologic: Allergic/Immunologic: Reports no additional allergic/immunologic complaints PMFSH Past Medical History Medical History Back pain Blackout Cardiac arrhythmia Chest pain Dizziness and giddiness History of migraine headaches Hyperlipidemia Infertility Smoking Surgical History Surgical History (Updated 08/09/22 @ 00:34 by Dipika Valladares NP) No pertinent past surgical history Family History Family History (Updated 08/09/22 @ 00:34 by Dipika Valladares NP) Sibling Autoimmune disease Social History Social History (Updated 08/09/22 @ 00:35 by Dipika Valladares NP) Social History: former smoker. The patient has a significant Other. The patient recently lost his job. He is not currently working. The patient states that he drinks heavily at least 2-3 days a week which is more than 6 drinks at a time. 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
[2022-08-09] MEDS: HYDROmorphone HCL INJ (*CRX) 1 MG/ML SYR IV PUSH ×7 (01:28→23:51)
[2022-08-09] MEDS: SODIUM CHLORIDE 0.9% IV 1,000 ML 100 ML IV CONT ×3 (04:15→20:40)
[2022-08-09] MEDS: diphenhydrAMINE HCl INJ 50 MG/ML VIAL 25 MG IV PUSH (04:35)
[2022-08-09] MEDS: KETOROLAC 15 MG/ML VIAL (*BKC) IV PUSH ×2 (04:35→20:00)
[2022-08-09 05:19] LABS: Basophils Percent Auto 0.3 % (0.2-1.2); Eosinophils Percent Auto 0.2 % (0-4.4); Hematocrit 44.5 % (42.0-52.0); Hemoglobin 14.9 g/dL (14.0-18.0); Immature Granulocyte Absolute 0.06 K/mm3 (0.00-0.031); Immature Granulocyte Percent A 0.5 % (0-0.5); Lymphocytes Absolute Auto 1.08 K/mm3 (0.9-3.2); Lymphocytes Percent Auto 9.2 % (18.3-44.2); Mean Corpuscular HGB Conc 33.5 g/dl (32-36); Mean Corpuscular Hemoglobin 31.7 pg (26-34); Mean Corpuscular Volume 94.7 fl (80-100); Mean Platelet Volume 9.6 fl (7.4-10.4); Monocytes Percent Auto 8.1 % (2.6-8.5); Neutrophils Absolute Auto 9.6 K/mm3 (1.3-6.7); Neutrophils Percent Auto 81.7 % (45.5-73.1); Platelet Count Result 145 k/mm3 (150-375); Red Cell Distribution Width 13.6 % (11.5-14.5); White Blood Count 11.7 K/mm3 (4.5-10.0)
[2022-08-09 05:41] LABS: Alanine Aminotransferase 28 U/L (6-50); Albumin Level 3.5 g/dL (3.5-5.1); Alkaline Phosphatase 70 U/L (38-126); Anion Gap 5 mmol/L (8-16); Aspartate Amino Transferase 30 U/L (17-59); Bilirubin,Total 1.5 mg/dL (0.2-1.3); Blood Urea Nitrogen 21 mg/dL (9-20); Carbon Dioxide 26 mmol/L (22-30); Chloride 105 mmol/L (98-107); Estimated CRCL calculation 79 ml/min; Estimated Glomerular Filt Rate 55; Glucose 131 mg/dL (65-110); Potassium 4.4 mmol/L (3.4-5.0); Sodium 136 mmol/L (137-145)
[2022-08-09 06:00] VITALS: BP 143/92; PULSE 76; RESP 18; TEMP 36.2; O2SAT 93
[2022-08-09 06:43] LABS: Lipase 13407 U/L (23-300)
[2022-08-09 12:00] VITALS: PULSE 91
--- NOTE | 2022-08-09 12:39 | WPDPN ---
Progress Note: A&P Assessment and Plan (1) Acute alcoholic pancreatitis: Code(s): K85.20 - Alcohol induced acute pancreatitis without necrosis or infection Status: Acute Assessment and Plan: The patient stated that he drinks heavily 2 to 3 times a week. I explained to the patient that he will need to avoid alcohol in the future to prevent any further episodes of pancreatitis. The patient stated that he was supposed to have an ultrasound performed days he has been having pain for 2 weeks and that he thought it might be his gallbladder. However and the CT scan there was no abnormality seen in the gallbladder. I did order a nuclear med HIDA scan. His lipase was 19,581. The patient is receiving ice chips. The patient stated that he has been drinking water in his room in that he has hiccups and still complains of severe discomfort. I explained how the pancreas works with the digestion of food in the the more that he puts on his stomach that it will just irritated his pancreas even more. The patient stated he is having difficulty sleeping so I did add Ativan and Benadryl. The patient stated that the Toradol helped the most with this discomfort. He stated that the dilaudid only lasted for approximately 1 hour and then it wore off. Recheck lipase in the a.m. his lipase was 19,581. as per CT lung bases are clear. Heart size is normal. No pericardial or pleural effusion. 7 mm cyst in the right hepatic lobe. The gallbladder, spleen, bilateral adrenal glands and kidneys are normal. There is prominent peripancreatic stranding with small nonloculated peripancreatic fluid collections including along the bilateral anterior pararenal spaces extending more caudally on the left along the paracolic gutter and with additional small collection inferior to the distal stomach likely within the lesser omentum. Fracture consistent with acute interstitial pancreatitis. No evident pancreatic parenchymal necrosis, organized abscess, walled off necrosis. The adjacent vasculature appears normal with no evident thrombosis or pseudoaneurysm. Bowels including the appendix are normal. Bladder is normal. Trace amount of ascites in the pelvis. No free intraperitoneal gas. No pathologically enlarged abdominal or pelvic lymphadenopathy. Moderate to severe disc height loss at L5-S1. Mild spondylosis in the more cephalad lumbar and lower thoracic spine. 08/09/2022 interval history: patient with history of alcohol abuse presented with abnormal faint is found to have a acute on chronic pancreatitis most likely secondary to alcohol abuse upon arrival patient lipase were 19,581 patient is NPO being hydrated and given pain medication his lipase levels are trending down today to 13,407, patient he does not have any history of alcohol withdrawal, however will continue to monitor with CIWA protocol and further recommendation to follow. Subjective Date/time seen: 08/09/22 12:39 Interval history: ?Abdominal pain HPI-Narrative: ?this is a 41-year-old male patient that stated he has been having pain to his abdomen for approximately 2 weeks.? The patient stated that he was scheduled to have an ultrasound of his gallbladder at the imaging center bus not had performed yet.? The patient stated that he did drink heavily on Tuesday.? The patient states that he drinks heavily a couple times a week.? The patient has been complaining of worsening pain to his mid abdomen.? This is different from his usual right upper quadrant pain.? The patient denies any nausea vomiting reports he feels bloated has some constipation.? The patient still feels like he needs to have a bowel movement and is unable to.? He feels distended.? When he came to the emergency room he stated his pain was 10/10 and was also in the room moaning.? The patient stated that he has lactose intolerance and had recently eat some cheese.? Sodium is slightly low at 135.? Abdominal pelvis CT was read as acute interstitial pancreatitis.?
[2022-08-09 14:00] VITALS: BP 126/73; PULSE 84; RESP 16; TEMP 36.3; O2SAT 93
[2022-08-09 16:00] VITALS: PULSE 73
[2022-08-09 19:50] VITALS: PULSE 98
[2022-08-09] MEDS: ONDANSETRON INJ 4 MG/2 ML VIAL IV PUSH (20:01)
[2022-08-09 22:00] VITALS: BP 124/56; PULSE 96; RESP 16; TEMP 36.4; O2SAT 93
[2022-08-10] VITALS (9 sets, daily range): BP systolic 126–152; BP diastolic 59–76; PULSE 84–101; RESP 14–20; TEMP 36.5–37.2; O2SAT 90–93
[2022-08-10] MEDS: SODIUM CHLORIDE 0.9% IV 1,000 ML 100 ML IV CONT ×2 (04:40→13:03)
[2022-08-10] MEDS: HYDROmorphone HCL INJ (*CRX) 1 MG/ML SYR IV PUSH ×5 (04:41→23:06)
[2022-08-10 06:25] LABS: Hemoglobin 14.2 g/dL (14.0-18.0); Mean Corpuscular HGB Conc 32.3 g/dl (32-36); Mean Corpuscular Hemoglobin 31.8 pg (26-34); Mean Corpuscular Volume 98.7 fl (80-100); Mean Platelet Volume 10.5 fl (7.4-10.4); Platelet Count Result 77 k/mm3 (150-375); Red Blood Count 4.46 M/mm3 (4.6-6.20); Red Cell Distribution Width 14.3 % (11.5-14.5); White Blood Count 13.8 K/mm3 (4.5-10.0)
[2022-08-10 06:35] LABS: Alanine Aminotransferase 23 U/L (6-50); Albumin Level 3.1 g/dL (3.5-5.1); Alkaline Phosphatase 59 U/L (38-126); Anion Gap 3 mmol/L (8-16); Aspartate Amino Transferase 33 U/L (17-59); Bilirubin,Total 1.7 mg/dL (0.2-1.3); Blood Urea Nitrogen 22 mg/dL (9-20); Carbon Dioxide 25 mmol/L (22-30); Chloride 108 mmol/L (98-107); Estimated CRCL calculation 85 ml/min; Estimated Glomerular Filt Rate 60; Glucose 104 mg/dL (65-110); Magnesium 1.6 mg/dL (1.6-2.3); Potassium 4.5 mmol/L (3.4-5.0); Sodium 136 mmol/L (137-145)
[2022-08-10 06:53] LABS: Lipase 3917 U/L (23-300)
[2022-08-10] MEDS: ONDANSETRON INJ 4 MG/2 ML VIAL IV PUSH ×2 (08:21→20:21)
[2022-08-10 10:24] LABS: Appearance Urine Clear (Clear); Bacteria Urine None Seen /hpf; Bilirubin Urine 1+ (Negative); Blood Urine 2+ (Negative); Color Urine Dark Yellow (Yellow); Glucose Urine UA Negative (Negative); Ketones Urine 1+ mg/dL (Negative); Leukocyte Esterase Ur Negative LEU/UL (Negative); Nitrate Urine Negative (Negative); Non Pathogenic Casts 0-2; Protein Urine 3+ mg/dL (Negative); RBC Urine 0-2 /hpf (0-2); Specific Grav Ur 1.034 (1.001-1.035); Squamous Epithelial Cell Urine Few /hpf (Few); WBC Urine 0-5 /hpf; pH Urine 5.5 (5.0-9.0)
[2022-08-10 10:38] LABS: Add Urine Microscopic? YES
--- NOTE | 2022-08-10 11:39 | ECG_ITS ---
Measurements Intervals [place] Rate: 86 P: 58 CO: 156 QRS: 44 QRSD: 86 T: 32 QT: 316 QTc: 380 Interpretive Statements SINUS RHYTHM MINIMAL Q WAVES- INFERIOR LEADS BORDERLINE ECG COMPARED TO ECG 07/17/2021 02:20:09 NO SIGNIFICANT CHANGES Electronically Signed On 08-10-2022 12:14:35 CDT by Donny Fletcher D.O.
[2022-08-10 12:16] LABS: Troponin I < 0.012 ng/mL (0.000-0.034)
--- NOTE | 2022-08-10 12:26 | WPDPN ---
Progress Note: A&P Assessment and Plan (1) Acute alcoholic pancreatitis: Code(s): K85.20 - Alcohol induced acute pancreatitis without necrosis or infection Status: Acute Assessment and Plan: The patient stated that he drinks heavily 2 to 3 times a week. I explained to the patient that he will need to avoid alcohol in the future to prevent any further episodes of pancreatitis. The patient stated that he was supposed to have an ultrasound performed days he has been having pain for 2 weeks and that he thought it might be his gallbladder. However and the CT scan there was no abnormality seen in the gallbladder. I did order a nuclear med HIDA scan. His lipase was 19,581. The patient is receiving ice chips. The patient stated that he has been drinking water in his room in that he has hiccups and still complains of severe discomfort. I explained how the pancreas works with the digestion of food in the the more that he puts on his stomach that it will just irritated his pancreas even more. The patient stated he is having difficulty sleeping so I did add Ativan and Benadryl. The patient stated that the Toradol helped the most with this discomfort. He stated that the dilaudid only lasted for approximately 1 hour and then it wore off. Recheck lipase in the a.m. his lipase was 19,581. as per CT lung bases are clear. Heart size is normal. No pericardial or pleural effusion. 7 mm cyst in the right hepatic lobe. The gallbladder, spleen, bilateral adrenal glands and kidneys are normal. There is prominent peripancreatic stranding with small nonloculated peripancreatic fluid collections including along the bilateral anterior pararenal spaces extending more caudally on the left along the paracolic gutter and with additional small collection inferior to the distal stomach likely within the lesser omentum. Fracture consistent with acute interstitial pancreatitis. No evident pancreatic parenchymal necrosis, organized abscess, walled off necrosis. The adjacent vasculature appears normal with no evident thrombosis or pseudoaneurysm. Bowels including the appendix are normal. Bladder is normal. Trace amount of ascites in the pelvis. No free intraperitoneal gas. No pathologically enlarged abdominal or pelvic lymphadenopathy. Moderate to severe disc height loss at L5-S1. Mild spondylosis in the more cephalad lumbar and lower thoracic spine. 08/10/2022 interval history: patient with history of alcohol abuse presented with abnormal pain is found to have a acute on chronic pancreatitis most likely secondary to alcohol abuse upon arrival patient lipase were 19,581 patient is NPO being hydrated and given pain medication his lipase levels are trending down today to 3917, patient is scheduled to have HIDA scan today to further evaluate, patient he does not have any history of alcohol withdrawal, however will continue to monitor with CIWA protocol and further recommendation to follow. Subjective Date/time seen: 08/10/22 12:26 Interval history: 08/10/2022 interval history: patient with history of alcohol abuse presented with abnormal pain is found to have a acute on chronic pancreatitis most likely secondary to alcohol abuse upon arrival patient lipase were 19,581 patient is NPO being hydrated and given pain medication his lipase levels are trending down today to 3917, patient is scheduled to have HIDA scan today to further evaluate, patient he does not have any history of alcohol withdrawal, however will continue to monitor with CIWA protocol and further recommendation to follow. Review of Systems Review of Systems: All systems reviewed & are unremarkable except as noted in HPI and below Exam Narrative: Moderately obese Patient is comfortable, NAD HEENT: eyes are clear and none icteric LUNGS: Normal respiratory effort ABD: Distended Lower extremities: no edema SKIN: nonjaundiced Neuro: grossly intact. Objective Data Vital Signs Vital Sig
[2022-08-10] MEDS: MORPHINE SULFATE (*CRX) 2 MG/ML INJ IV PUSH (14:56)
[2022-08-11] VITALS: PULSE 94
[2022-08-11] MEDS: HYDROmorphone HCL INJ (*CRX) 1 MG/ML SYR IV PUSH ×2 (02:06→05:21)
[2022-08-11] MEDS: SODIUM CHLORIDE 0.9% IV 1,000 ML 100 ML IV CONT (02:06)
[2022-08-11 04:00] VITALS: PULSE 90
[2022-08-11 06:00] VITALS: BP 118/52; PULSE 86; RESP 14; TEMP 37.3; O2SAT 90
[2022-08-11 06:02] LABS: Hematocrit 37.9 % (42.0-52.0); Hemoglobin 12.4 g/dL (14.0-18.0); Mean Corpuscular HGB Conc 32.7 g/dl (32-36); Mean Corpuscular Hemoglobin 31.6 pg (26-34); Mean Corpuscular Volume 96.7 fl (80-100); Mean Platelet Volume 10.6 fl (7.4-10.4); Platelet Count Result 59 k/mm3 (150-375); Red Blood Count 3.92 M/mm3 (4.6-6.20); Red Cell Distribution Width 14.4 % (11.5-14.5); White Blood Count 10.6 K/mm3 (4.5-10.0)
[2022-08-11 06:25] LABS: Alanine Aminotransferase 18 U/L (6-50); Albumin Level 2.8 g/dL (3.5-5.1); Alkaline Phosphatase 52 U/L (38-126); Anion Gap 3 mmol/L (8-16); Aspartate Amino Transferase 27 U/L (17-59); Bilirubin,Total 1.5 mg/dL (0.2-1.3); Blood Urea Nitrogen 15 mg/dL (9-20); Calcium 7.1 mg/dL (8.4-10.2); Carbon Dioxide 24 mmol/L (22-30); Chloride 107 mmol/L (98-107); Estimated CRCL calculation 109 ml/min; Estimated Glomerular Filt Rate > 60; Glucose 109 mg/dL (65-110); Lipase 637 U/L (23-300); Magnesium 1.7 mg/dL (1.6-2.3); Sodium 134 mmol/L (137-145)
[2022-08-11 08:00] VITALS: PULSE 84
[2022-08-11] MEDS: KETOROLAC 15 MG/ML VIAL (*BKC) IV PUSH (08:29)
--- NOTE | 2022-08-11 11:37 | PM.DS ---
DS: Admitting Diagnosis Discharge Date 08/11/2022 Admitting Diagnosis Abdominal pain DS: Discharge Diagnosis Discharge Diagnosis (1) Acute alcoholic pancreatitis: Code(s): K85.20 - Alcohol induced acute pancreatitis without necrosis or infection Status: Acute Assessment and Plan: The patient stated that he drinks heavily 2 to 3 times a week. I explained to the patient that he will need to avoid alcohol in the future to prevent any further episodes of pancreatitis. The patient stated that he was supposed to have an ultrasound performed days he has been having pain for 2 weeks and that he thought it might be his gallbladder. However and the CT scan there was no abnormality seen in the gallbladder. I did order a nuclear med HIDA scan. His lipase was 19,581. The patient is receiving ice chips. The patient stated that he has been drinking water in his room in that he has hiccups and still complains of severe discomfort. I explained how the pancreas works with the digestion of food in the the more that he puts on his stomach that it will just irritated his pancreas even more. The patient stated he is having difficulty sleeping so I did add Ativan and Benadryl. The patient stated that the Toradol helped the most with this discomfort. He stated that the dilaudid only lasted for approximately 1 hour and then it wore off. Recheck lipase in the a.m. his lipase was 19,581. as per CT lung bases are clear. Heart size is normal. No pericardial or pleural effusion. 7 mm cyst in the right hepatic lobe. The gallbladder, spleen, bilateral adrenal glands and kidneys are normal. There is prominent peripancreatic stranding with small nonloculated peripancreatic fluid collections including along the bilateral anterior pararenal spaces extending more caudally on the left along the paracolic gutter and with additional small collection inferior to the distal stomach likely within the lesser omentum. Fracture consistent with acute interstitial pancreatitis. No evident pancreatic parenchymal necrosis, organized abscess, walled off necrosis. The adjacent vasculature appears normal with no evident thrombosis or pseudoaneurysm. Bowels including the appendix are normal. Bladder is normal. Trace amount of ascites in the pelvis. No free intraperitoneal gas. No pathologically enlarged abdominal or pelvic lymphadenopathy. Moderate to severe disc height loss at L5-S1. Mild spondylosis in the more cephalad lumbar and lower thoracic spine. 08/10/2022 interval history: patient with history of alcohol abuse presented with abnormal pain is found to have a acute on chronic pancreatitis most likely secondary to alcohol abuse upon arrival patient lipase were 19,581 patient is NPO being hydrated and given pain medication his lipase levels are trending down today to 3917, patient is scheduled to have HIDA scan today to further evaluate, patient he does not have any history of alcohol withdrawal, however will continue to monitor with CIWA protocol and further recommendation to follow. DS: Summary Hospital Course Reason for hospitalization: Chief Complaint: ? Abdominal pain Narrative: ?this is a 41-year-old male patient that stated he has been having pain to his abdomen for approximately 2 weeks.? The patient stated that he was scheduled to have an ultrasound of his gallbladder at the imaging center bus not had performed yet.? The patient stated that he did drink heavily on Tuesday.? The patient states that he drinks heavily a couple times a week.? The patient has been complaining of worsening pain to his mid abdomen.? This is different from his usual right upper quadrant pain.? The patient denies any nausea vomiting reports he feels bloated has some constipation.? The patient still feels like he needs to have a bowel movement and is unable to.? He feels distended.? When he came to the emergency room he stated his pain was 10/10 and was also in the room moaning.? The patient stated
== END 2022-08-11 12:05 | disposition home or self-care (01) | DRG 282 ==
LOC: ANHED 17:07 → ANH3MEDSUR 18:21
PROVIDERS: Emergency Medicine; Admitting Provider Family Medicine; Emergency Provider General Practice; PCP Family Medicine; Visit Provider Family Medicine
DX: K85.20 Alcohol induced acute pancreatitis without necrosis or infection (principal); F10.10 Alcohol abuse, uncomplicated; E78.5 Hyperlipidemia, unspecified; Z87.891 Personal history of nicotine dependence
CPT/HCPCS: 36415; 74177; 78227; 80053; 81001; 83690; 83735; 84484; 85025; 85027; 85055; 93005; 96361; 96374; 96375; 96376; 99285; A9537; J1170; J1200; J1885; J2270; J2405; J2805; J7030; J7120; Q9967

== ENCOUNTER 2022-08-28 11:36 | Emergency (ER) | payer OTHER, SELFPAY ==
[2022-08-28 11:40] VITALS: BP 130/82; PULSE 97; RESP 18; TEMP 36.4; O2SAT 97
--- NOTE | 2022-08-28 11:57 | ED.SKABFB ---
HPI - Skin/Abscess/Foreign Bdy General Chief complaint: Skin/Abscess/Foreign Body Stated complaint: Insect Bite Rt Knee Time Seen by Provider: 08/28/22 11:50 Source: patient Mode of arrival: ambulatory Limitations: no limitations History of Present Illness HPI narrative: 41 y/o male presented for c/o red lump on right inner knee since yesterday. States he was bit by an insect in the the garage. The site became red and swollen last night. While in the shower today, he scratched the center and pressed out clear liquid. Since then the site has gone down in size. Denies streaking, pain, nausea, vomiting, fever or chills. Denies other locations of skin changes. Patient is currently taking Augmentin for recent dx pancreatitis. Scheduled to f/u with pcp in 3 days. Related Data Home Medications Medication Instructions Recorded Confirmed amoxicillin 875 mg-potassium 1 tablet PO BID 08/28/22 08/28/22 clavulanate 125 mg tablet oxycodone-acetaminophen 5 mg-325 1 tablet PO Q6-8H PRN Abdominal 08/28/22 08/28/22 mg tablet Pain pantoprazole 40 mg tablet,delayed 40 mg PO DAILY 08/28/22 08/28/22 release Allergies Allergy/AdvReac Type Severity Reaction Status Date / Time lactose AdvReac Intermediate Diarrhea Verified 08/28/22 11:38 Review of Systems Review of Systems: CONSTITUTIONAL: Denies body aches, fever, chills, or sweats. EYES: Denies visual changes, redness, or discharge. ENT: Denies rhinorrhea, congestion CARDIOVASCULAR: Denies chest pain, palpitations, or edema. RESPIRATORY: Denies cough or dyspnea. GASTROINTESTINAL: Reports abdominal pain, nausea, denies vomiting, or diarrhea. SKIN: per HPI MUSCULOSKELETAL: Denies back pain, joint pain, or myalgia. NEUROLOGIC: Denies headache, numbness, tingling, or weakness. PMF Past Medical History Medical History Alcoholic pancreatitis Back pain Blackout Cardiac arrhythmia Chest pain Depressive disorder, not elsewhere classified Dizziness and giddiness History of migraine headaches Hyperlipidemia Infertility Sleep apnea Smoking Surgical History Surgical History No pertinent past surgical history Family History Family History Sibling Autoimmune disease Social History Social History Social History: former smoker. The patient has a significant Other. The patient recently lost his job. He is not currently working. The patient states that he drinks heavily at least 2-3 days a week which is more than 6 drinks at a time. Code status full code Smoking status: Former smoker Alcohol intake: current Substance use type: does not use Lack of Transportation: YES Lack of Food: Sometimes True Current Housing: I Have Housing Concerned About Future Housing: No Difficulty Paying Gas/Electric Bills: YES Difficulty Paying for Meds: No Currently Unemployed: No Education: Trade/Vocational Certificate Difficulty w/ Childcare or Family Care: No Gender identity (if verbalized by the patient): Male Spiritual care concerns: No Comments At time of signature, I have reviewed and agree with nursing past medical, surgical, social and family history unless otherwise noted. Please see nursing chart for further information. There is no relevant family history pertinent to the presenting complaint Exam Narrative: GENERAL: Well-appearing HEAD: Normocephalic, atraumatic. EYES: conjunctivae clear, and EOMI. ENT: Mucous membranes moist. Oropharynx without edema, erythema or lesions. NECK: Supple. No lymphadenopathy CHEST: Clear to auscultation. HEART: Regular rate and rhythm. ABD: round, soft, bowel sounds positive x4. Generalized tenderness. SKIN: Warm, dry. Right medial knee with 5cm diameter erythematous round area. Nontender. No fluctuance, induration, streaking,
== END 2022-08-28 12:03 | disposition home or self-care (01) ==
PROVIDERS: Emergency Provider Nurse Practitioner Family; PCP Family Medicine
DX: S80.261A Insect bite (nonvenomous), right knee, initial encounter (principal); W57.XXXA Bitten or stung by nonvenomous insect and other nonvenomous arthropods, initial encounter; R63.4 Abnormal weight loss; Z68.25 Body mass index [BMI] 25.0-25.9, adult; Z87.891 Personal history of nicotine dependence; E78.5 Hyperlipidemia, unspecified
CPT/HCPCS: 99211; G0463

== ENCOUNTER 2022-10-26 13:37 | Emergency (ER) | payer OTHER, SELFPAY ==
--- NOTE | 2022-10-26 13:47 | ED.CHESTPAIN ---
HPI - Chest Pain General Chief Complaint: Chest Pain Stated Complaint: chest pain Time Seen by Provider: 10/26/22 13:47 Source: patient, RN notes reviewed and old records reviewed Mode of arrival: ambulatory Limitations: no limitations History of Present Illness HPI narrative: 41 year old male presents to [facility] care with complaints of having lower back pain at 1300 then he had mid sternal chest pain at 1310 which lasted about 10 minutes which he describes as a sharp ice pick internally. He states then his pain wrapped around the sides of his chest.Patient states that he did not have any shortness of breath with his pain or feel nauseated or have any diaphoresis or any radiation of pain down his arms, denies chest pain at this time..He reports that he had pancreatitis in July and was hospitalized a few days at [facility] and was discharged. He reports that he then went to [facility] and was in the hospital there and was told he needs his gall bladder removed but has not had his gall bladder removed yet. Patient denies any chest pain or any shortness of breath at this time. 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 MD complaint: chest pain Pertinent past history: other (pancreatitis, hyperlipidemia,GERD) Onset (ago): hour(s) (1310 lasted about 10 minutes then wrapping around sides of chest) Prior episodes: Yes Pain location: substernal and other (sides of chest wrapping around) Pain scale (0-10): 9 Quality: sharp Treatment prior to arrival: none Related Data Home Medications Medication Instructions Recorded Confirmed pantoprazole 40 mg tablet,delayed 40 mg PO DAILY 08/28/22 10/26/22 release docusate sodium 50 mg capsule 50 mg PO DAILY 09/15/22 10/26/22 (Stool Softener) Allergies Allergy/AdvReac Type Severity Reaction Status Date / Time lactose AdvReac Intermediate Diarrhea Verified 10/26/22 13:40 Review of Systems Review of Systems: CONSTITUTIONAL: Denies fever, chills, or sweats. EYES: Denies visual changes, redness, or discharge. ENT: Denies rhinorrhea, congestion, sore throat, or otalgia. CARDIOVASCULAR: Reports episode of mid sternal chest pain las chest pain lasting 10 minutes which then wrapped around to sides of chest, no chest pain presently denies any, palpitations, or edema. RESPIRATORY: Denies cough or dyspnea. GASTROINTESTINAL: Denies abdominal pain, nausea, vomiting, or diarrhea. GENITOURINARY: Denies dysuria or hematuria. SKIN: Denies rash or itching. MUSCULOSKELETAL: Reports episode of lower back pain which has resolved,no other joint pain, or myalgia. NEUROLOGIC: Denies headache, numbness, or weakness. PSYCHIATRIC: Denies anxiety or depression. All systems reviewed & are unremarkable except as noted in HPI and below PMFSH Past Medical History Medical History Alcoholic pancreatitis Back pain Blackout Cardiac arrhythmia Chest pain Depressive disorder, not elsewhere classified Dizziness and giddiness History of migraine headaches Hyperlipidemia Infertility Sleep apnea Smoking Surgical History Surgical History No pertinent past surgical history Family History Family History Sibling Autoimmune disease Social History Social History (Updated 10/27/22 @ 08:39 by Freda Horowitz NP) Social History: former smoker. The patient has a significant Other. The patient recently lost his job. He is not currently working. The patient states that he drinks heavily at least 2-3 days a week which is more than 6 drinks at a time. Reports no alcohol since episode of pancreatitis in July 2022. States employed at present time. Code status full code Smoking status: Former smoker Alcohol intake: former Alcohol use details
[2022-10-26 13:57] VITALS: BP 131/79; PULSE 113; RESP 18; TEMP 36.1; O2SAT 100
--- NOTE | 2022-10-26 13:58 | ECG_ITS ---
Measurements Intervals [place] Rate: 50 P: 48 ME: 171 QRS: 34 QRSD: 88 T: 27 QT: 412 QTc: 378 Interpretive Statements SINUS BRADYCARDIA POSSIBLE LEFT ATRIAL ENLARGEMENT [-0.1mV P WAVE IN V1/V2] POSSIBLE INFERIOR MYOCARDIAL INFARCTION [30 ms Q WAVE IN II/aVF], PROBABLY OLD COMPARED TO ECG 08/10/2022 11:55:39 SINUS BRADYCARDIA NOW PRESENT Electronically Signed On 10-26-2022 14:42:30 CDT by Natanael Cooper M.D.
== END 2022-10-26 14:24 | disposition left against medical advice (07) ==
PROVIDERS: Emergency Provider Registered Nurse; PCP Family Medicine
DX: R07.89 Other chest pain (principal); Z87.891 Personal history of nicotine dependence; E78.5 Hyperlipidemia, unspecified; K21.9 Gastro-esophageal reflux disease without esophagitis
CPT/HCPCS: 93005; 99213; G0463

== ENCOUNTER 2022-11-16 10:37 | Emergency (ER) | payer OTHER, SELFPAY ==
[2022-11-16 10:48] VITALS: BP 126/74; PULSE 58; RESP 16; TEMP 36; O2SAT 99
--- NOTE | 2022-11-16 10:54 | ED.EYEPROB ---
HPI - Eye Problem General Chief complaint: Eye Problems Stated complaint: Rt Eye Irritation Time Seen by Provider: 11/16/22 10:50 Source: patient Mode of arrival: ambulatory Limitations: no limitations History of Present Illness HPI Narrative: Raoul is a 41-year-old male patient presenting to the clinic today with complaints of right eye irritation. He reports that he had a right upper eyelid stye that he notice yesterday and he pop this using a hook scalpel. States he for got to clean the hook scalpel the last time he used and is concerned that he may have an infection. He reports that he is having some yellow discharge into his eye. Denies any visual changes. Related Data Home Medications Medication Instructions Recorded Confirmed pantoprazole 40 mg tablet,delayed 40 mg PO DAILY 08/28/22 11/16/22 release docusate sodium 50 mg capsule 50 mg PO DAILY 09/15/22 11/16/22 (Stool Softener) Allergies Allergy/AdvReac Type Severity Reaction Status Date / Time lactose AdvReac Intermediate Diarrhea Verified 11/16/22 10:42 Review of Systems Review of Systems: Pertinent positives per HPI. Patient denies any fever, chills, rash, headache, visual changes, dizziness, cough, runny nose, sore throat, shortness of breath, chest pain, palpitations, nausea, vomiting, diarrhea, constipation, abdominal pain, or any urinary issues. [facility] Past Medical History Medical History Alcoholic pancreatitis Back pain Blackout Cardiac arrhythmia Chest pain Depressive disorder, not elsewhere classified Dizziness and giddiness History of migraine headaches Hyperlipidemia Infertility Sleep apnea Smoking Surgical History Surgical History No pertinent past surgical history Family History Family History Sibling Autoimmune disease Social History Social History Social History: former smoker. The patient has a significant Other. The patient recently lost his job. He is not currently working. The patient states that he drinks heavily at least 2-3 days a week which is more than 6 drinks at a time. Reports no alcohol since episode of pancreatitis in July 2022. States employed at present time. Code status full code Smoking status: Former smoker Alcohol intake: former Alcohol use details: reports no alcohol since episode of pancreatitis Substance use type: does not use Lack of Transportation: YES Lack of Food: Sometimes True Current Housing: I Have Housing Concerned About Future Housing: No Difficulty Paying Gas/Electric Bills: YES Difficulty Paying for Meds: No Currently Unemployed: No Education: Trade/Vocational Certificate Difficulty w/ Childcare or Family Care: No Gender identity (if verbalized by the patient): Male Spiritual care concerns: No Comments At the time of my signature, I reviewed and agree with the nursing past medical, surgical, social, and family history. There is no relevant family history pertinent to the patient complaint. Exam Narrative: General: Well-developed, well nourished, in no apparent distress Head: Normocephalic, atraumatic Eyes: Pupils equally round and reactive to light bilaterally, EOM intact, sclera and conjunctive clear, no discharge, redness and mild swelling noted to the right upper eyelid around the area that the stye was present, ttp, no active discharge noted Ears: TMs intact and clear, ear canals clear, no drainage, grossly hearing normal. Nose: Nares patent, no discharge, no inflammation, no sinus tenderness. Mouth: Oropharynx without lesions or masses, good dentition, MMM. Neck: Supple, trachea midline, no enlargement of anterior or posterior cervical nodes, no thyroid masses or goiter palpable. Cardio: Regular rate and rhythm, s1 and s2 normal, no murmur appreciated.
== END 2022-11-16 10:58 | disposition home or self-care (01) ==
PROVIDERS: Emergency Provider Nurse Practitioner Family; PCP Family Medicine
DX: H00.011 Hordeolum externum right upper eyelid (principal); E78.5 Hyperlipidemia, unspecified
CPT/HCPCS: 99213; G0463

== ENCOUNTER 2022-11-20 09:35 | Emergency (ER) | payer OTHER, SELFPAY ==
[2022-11-20 09:42] VITALS: BP 137/76; PULSE 77; RESP 16; TEMP 36; O2SAT 98
--- NOTE | 2022-11-20 09:47 | ED.GENADULT ---
HPI - General Adult General Chief complaint: Nausea/Vomiting/Diarrhea Stated complaint: Upset Stomach,Vomiting,Diarrhea Time Seen by Provider: 11/20/22 09:47 Source: patient Mode of arrival: ambulatory Limitations: no limitations History of Present Illness HPI narrative: 41-year-old male patient presents to the [facility] with complaints of nausea vomiting and diarrhea that started this morning. Patient states he ate some catfish from [place] [employer] yesterday which he thinks might have been bad. Denies any fevers, body aches or chills. Patient states he does have a little bit of abdominal pain. Denies any chest pain but states he always has short of breath. Denies taking anything for symptoms today. Patient states he has continued to vomit last time he vomited was about an hour ago and has not been able to keep any food or fluids down. patient denies alcohol consumption within the last 24 hours. Colleague states he has a known gallbladder issue and was told it was producing sludge in it needed to be removed. But has never removed it. Related Data Home Medications Medication Instructions Recorded Confirmed pantoprazole 40 mg tablet,delayed 40 mg PO DAILY 08/28/22 11/20/22 release docusate sodium 50 mg capsule 50 mg PO DAILY 09/15/22 11/20/22 (Stool Softener) Allergies Allergy/AdvReac Type Severity Reaction Status Date / Time lactose AdvReac Intermediate Diarrhea Verified 11/20/22 09:37 Review of Systems Review of Systems: CONSTITUTIONAL: Denies fever, chills, or sweats. EYES: Denies visual changes, redness, or discharge. ENT: Denies rhinorrhea, congestion, sore throat, or otalgia. CARDIOVASCULAR: Denies chest pain, palpitations, or edema. RESPIRATORY: Denies cough , positive chronic dyspnea. GASTROINTESTINAL: Positive abdominal pain, nausea, vomiting, and diarrhea. GENITOURINARY: Denies dysuria or hematuria. SKIN: Denies rash or itching. MUSCULOSKELETAL: Denies back pain, joint pain, or myalgia. NEUROLOGIC: Denies headache, numbness, or weakness. PSYCHIATRIC: Denies anxiety or depression. [facility] Past Medical History Medical History Alcoholic pancreatitis Back pain Blackout Cardiac arrhythmia Chest pain Depressive disorder, not elsewhere classified Dizziness and giddiness History of migraine headaches Hyperlipidemia Infertility Sleep apnea Smoking Surgical History Surgical History No pertinent past surgical history Family History Family History Sibling Autoimmune disease Social History Social History Social History: former smoker. The patient has a significant Other. The patient recently lost his job. He is not currently working. The patient states that he drinks heavily at least 2-3 days a week which is more than 6 drinks at a time. Reports no alcohol since episode of pancreatitis in July 2022. States employed at present time. Code status full code Smoking status: Former smoker Alcohol intake: former Alcohol use details: reports no alcohol since episode of pancreatitis Substance use type: does not use Lack of Transportation: YES Lack of Food: Sometimes True Current Housing: I Have Housing Concerned About Future Housing: No Difficulty Paying Gas/Electric Bills: YES Difficulty Paying for Meds: No Currently Unemployed: No Education: Trade/Vocational Certificate Difficulty w/ Childcare or Family Care: No Gender identity (if verbalized by the patient): Male Spiritual care concerns: No Comments At the time of my signature I agree with nursing past medical history, surgical, social, and family history. There is no relevant family history pertinent to the presenting complaint. Exam Narrative: GENERAL: Well-appearing, well-nourished, and in no acute distress. HEAD: Normocephalic, atrauma
== END 2022-11-20 10:04 | disposition short-term general hospital (02) ==
PROVIDERS: Emergency Provider Nurse Practitioner Family; PCP Family Medicine
DX: R10.11 Right upper quadrant pain (principal); R11.2 Nausea with vomiting, unspecified; R19.7 Diarrhea, unspecified; E78.5 Hyperlipidemia, unspecified; Z87.891 Personal history of nicotine dependence
CPT/HCPCS: 99212; G0463

== ENCOUNTER 2022-11-20 10:25 | Emergency (ER) | payer OTHER, SELFPAY ==
--- NOTE | ~2022-11-20 | CT_ITS ---
EXAMINATION: CT abdomen pelvis w con DATE: 11/20/2022 12:48 INDICATION: Right upper quadrant abdominal pain, nausea, vomiting, diarrhea TECHNIQUE: Computed tomography (CT) of the abdomen and pelvis was performed with 100 CC Omnipaque 350 intravenous contrast. Automated exposure control and iterative reconstruction technique were employe d. Exam dose: 1092.80 mGy-cm total exam DLP. COMPARISON: None. FINDINGS: The lung bases are clear. Normal heart size. No pericardial or pleural effusion. 8 mm probable cyst at the inferomedial lower right hepatic lobe. The liver, spleen, bile ducts are ot herwise unremarkable. There are prominent organized fluid collections along the anterior margin of the body of the pancreas and surrounding the tail the pancreas, likely due to pancreatitis. No pancreatic necrosis or pancrea tic mass lesion or calcification is evident. No dilatation of the pancreatic duct is noted. Normal morphology of the adrenal glands. No renal mass lesion or urinary tract calculus or hydroureteronephrosis is detected. There is moderate diffuse thickening of the urinary bladder which may be due to moderate prostate enl argement, less likely bladder infection. Normal caliber of the abdominal aorta. No intraperitoneal or retroperitoneal or pelvic mass lesion or adenopathy or ascites is detected. Normal appendix. No bowel obstruction or intraperitoneal free air. No osteolytic or osteosclerotic lesions are noted. IMPRESSION: Peripancreatic organized fluid collections at pancreatic body and tail, likely secondary to pancreatitis Normal appendix 8 mm hepatic cyst Reviewed, dictated and finalized at [facility]. Reviewed, dictated and finalized at [facility].
[2022-11-20 10:25] VITALS: BP 133/99; PULSE 73; RESP 16; TEMP 36.6; O2SAT 98
[2022-11-20 10:42] LABS: Basophils Percent Auto 0.5 % (0.2-1.2); Eosinophils Absolute Auto 0.1 K/mm3 (0-0.3); Eosinophils Percent Auto 1.6 % (0-4.4); Hematocrit 44.9 % (42.0-52.0); Hemoglobin 15.1 g/dL (14.0-18.0); Immature Granulocyte Absolute 0.02 K/mm3 (0.00-0.031); Immature Granulocyte Percent A 0.3 % (0-0.5); Lymphocytes Absolute Auto 1.95 K/mm3 (0.9-3.2); Lymphocytes Percent Auto 33.6 % (18.3-44.2); Mean Corpuscular HGB Conc 33.6 g/dl (32-36); Mean Corpuscular Hemoglobin 31.1 pg (26-34); Mean Corpuscular Volume 92.6 fl (80-100); Mean Platelet Volume 9.8 fl (7.4-10.4); Monocytes Absolute Auto 0.5 K/mm3 (0.1-0.6); Monocytes Percent Auto 8.6 % (2.6-8.5); Neutrophils Absolute Auto 3.2 K/mm3 (1.3-6.7); Neutrophils Percent Auto 55.4 % (45.5-73.1); Platelet Count Result 264 k/mm3 (150-375); Red Blood Count 4.85 M/mm3 (4.6-6.20); Red Cell Distribution Width 13.4 % (11.5-14.5); White Blood Count 5.8 K/mm3 (4.5-10.0)
[2022-11-20 10:57] LABS: Alanine Aminotransferase 28 U/L (6-50); Albumin Level 4.4 g/dL (3.5-5.1); Alkaline Phosphatase 107 U/L (38-126); Anion Gap 8 mmol/L (8-16); Aspartate Amino Transferase 26 U/L (17-59); Bilirubin,Total 0.6 mg/dL (0.2-1.3); Blood Urea Nitrogen 20 mg/dL (9-20); Calcium 9.5 mg/dL (8.4-10.2); Carbon Dioxide 26 mmol/L (22-30); Chloride 104 mmol/L (98-107); Estimated CRCL calculation 109 ml/min; Estimated Glomerular Filt Rate > 60; Glucose 100 mg/dL (65-110); Lipase 162 U/L (23-300); Potassium 4.7 mmol/L (3.4-5.0); Sodium 138 mmol/L (137-145)
[2022-11-20 11:53] LABS: Appearance Urine Clear (Clear); Bilirubin Urine Negative (Negative); Blood Urine Negative (Negative); Color Urine Yellow (Yellow); Glucose Urine UA Negative (Negative); Ketones Urine Negative (Negative); Leukocyte Esterase Ur Negative LEU/UL (Negative); Nitrate Urine Negative (Negative); Protein Urine Negative (Negative); Specific Grav Ur 1.021 (1.001-1.035); Urobilinogen Urine 0.2 mg/dL (<2.0); pH Urine 5.5 (5.0-9.0)
--- NOTE | 2022-11-20 11:53 | ED.ABDPAIN ---
HPI - Abdominal Pain General Chief Complaint: Abdominal Pain <ESTHER [place] Last Filed: 11/20/22 14:08> Stated Complaint: abdominal pain <ESTHER [place] Last Filed: 11/20/22 14:08> Time Seen by Provider: 11/20/22 11:29 <Gissel Price PA-C - Last Filed: 11/20/22 14:08> History of Present Illness HPI narrative: 41-year-old male with a history of reported pancreatitis and what sounds like biliary colic reports for evaluation for nausea, vomiting and diarrhea since 0500 this morning. Patient states he thought he had food poisoning because he ate a pound of slimy fish last night. States he was urgent care and was advised to come to the ED for further evaluation given he had right upper quadrant tenderness. Patient reports 6 episodes of emesis today and 3 episodes of diarrhea. He denies hematochezia or hematemesis, mucus in his stool. He is reporting epigastric abdominal pain now. He denies fever, body aches or chills, cough or congestion, chest pain or shortness of breath. Denies dysuria or hematuria. He denies recent camping or travel, recent antibiotic use. 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 <ESTHER [place] Last Filed: 11/20/22 14:08> Related Data Home Medications: Home Medications Medication Instructions Recorded Confirmed pantoprazole 40 mg tablet,delayed 40 mg PO DAILY 08/28/22 11/20/22 release docusate sodium 50 mg capsule 50 mg PO DAILY 09/15/22 11/20/22 (Stool Softener) <ESTHER [place] Last Filed: 11/20/22 14:08> Allergies/Adverse Reactions: Allergies Allergy/AdvReac Type Severity Reaction Status Date / Time lactose AdvReac Intermediate Diarrhea Verified 11/20/22 11:24 <ESTHER [place] Last Filed: 11/20/22 14:08> Review of Systems Review of Systems: CONSTITUTIONAL: Denies fever, chills EYES: Denies visual changes, redness, or discharge. ENT: Denies rhinorrhea, congestion, sore throat, or otalgia. CARDIOVASCULAR: Denies chest pain, palpitations, or edema. RESPIRATORY: Denies cough or dyspnea. GASTROINTESTINAL: See HPI GENITOURINARY: Denies dysuria or hematuria. SKIN: Denies rash or itching. MUSCULOSKELETAL: Denies back pain, joint pain, or myalgia. NEUROLOGIC: Denies headache, numbness, dizziness, or weakness. PSYCHIATRIC: Denies anxiety or depression. <Gissel Price PA-C - Last Filed: 11/20/22 14:08> [facility] Past Medical History Medical History: Medical History Alcoholic pancreatitis Back pain Blackout Cardiac arrhythmia Chest pain Depressive disorder, not elsewhere classified Dizziness and giddiness History of migraine headaches Hyperlipidemia Infertility Sleep apnea Smoking <Gissel Price PA-C - Last Filed: 11/20/22 14:08> Surgical History Surgical History: Surgical History No pertinent past surgical history <Gissel Price PA-C - Last Filed: 11/20/22 14:08> Family History Family History: Family History Sibling Autoimmune disease <Gissel Price PA-C - Last Filed: 11/20/22 14:08> Social History Social History: Social History Social History: former smoker. The patient has a significant Other. The patient recently lost his job. He is not currently working. The patient states that he drinks heavily at least 2-3 days a week which is more than 6 drinks at a time. Reports no alcohol since episode of pancreatitis in July 2022. States employed at present time. Code status full code Smoking status: Former smoker Alcohol intake: former Alcohol use details: reports no alcohol since episode of pancreatitis Substance use type: does not use Lack of Transportation: YES Lack of Food: Sometimes True Current Housing: I Have Housing Concerned About Fu
[2022-11-20 12:07] LABS: Add Urine Microscopic? NO
[2022-11-20] MEDS: SODIUM CHLORIDE 0.9% IV 1,000 ML 999 ML IV CONT (12:10)
[2022-11-20] MEDS: FAMOTIDINE 20 MG/2 ML VIAL IV PUSH (12:11)
[2022-11-20] MEDS: ONDANSETRON INJ 4 MG/2 ML VIAL IV PUSH (12:11)
--- NOTE | 2022-11-20 12:39 | PC.NURSE ---
Patient off unit to CT
[2022-11-20 14:13] VITALS: BP 130/92; PULSE 72; RESP 16; O2SAT 98
== END 2022-11-20 14:16 | disposition home or self-care (01) ==
PROVIDERS: Emergency Medicine; Emergency Provider Physician Assistant; PCP Family Medicine
DX: K86.1 Other chronic pancreatitis (principal); R11.2 Nausea with vomiting, unspecified; R19.7 Diarrhea, unspecified; E78.5 Hyperlipidemia, unspecified; G47.30 Sleep apnea, unspecified; Z87.891 Personal history of nicotine dependence; K76.89 Other specified diseases of liver
CPT/HCPCS: 36415; 74177; 80053; 81003; 83690; 85025; 96361; 96374; 96375; 99284; J2405; J7030; Q9967

== ENCOUNTER 2022-11-30 13:10 | Emergency (ER) | payer OTHER, SELFPAY ==
[2022-11-30 13:26] VITALS: BP 122/75; PULSE 64; RESP 18; TEMP 36.6; O2SAT 99
--- NOTE | 2022-11-30 13:35 | ED.ABDPAIN ---
HPI - Abdominal Pain General Chief Complaint: Abdominal Pain Stated Complaint: Abdominal Pain Time Seen by Provider: 11/30/22 13:38 Source: patient and RN notes reviewed Mode of arrival: ambulatory Limitations: no limitations History of Present Illness HPI narrative: 41 y/o male with hx pancreatitis and cholelithiasis, presented for c/o epigastric abdominal pain, onset today stating pain woke him up at 4:00 a.m.. States 'I know what this is states this is due to constipation because he is not able to fully have BM while at work. Taking docusate without change. States he has had similar symptoms his whole life, which have worsened since gallbladder problems started. He is aware of hx gallbladder issues and pancreatitis, however he states this is not the same. Reports chronic RUQ pain. States he is scared to have frank due to the fear of not waking up after anesthesia. Has been given GI referrals. Last ate yesterday. LBM today, small. Denies n/v/d/f/c. Denies cp, palpitations, sob. Denies recent alcohol use. Patient is requesting something to make bowels move. Related Data Home Medications Medication Instructions Recorded Confirmed pantoprazole 40 mg tablet,delayed 40 mg PO DAILY 08/28/22 11/30/22 release docusate sodium 50 mg capsule 50 mg PO DAILY 09/15/22 11/30/22 (Stool Softener) Allergies Allergy/AdvReac Type Severity Reaction Status Date / Time lactose AdvReac Intermediate Diarrhea Verified 11/30/22 13:32 Review of Systems Review of Systems: CONSTITUTIONAL: Denies body aches, fever, chills ENT: Denies rhinorrhea, congestion CARDIOVASCULAR: Denies chest pain, palpitations, or edema. RESPIRATORY: Denies cough or dyspnea. GASTROINTESTINAL: Endorses abdominal pain, denies nausea, vomiting, diarrhea, hematochezia, melena GENITOURINARY: Denies dysuria, hematuria, or CVA tenderness. SKIN: Denies rash, itching, or wounds. MUSCULOSKELETAL: Denies back pain, joint pain, or myalgia. NEUROLOGIC: Denies headache, numbness, tingling, or weakness. All systems reviewed & are unremarkable except as noted in HPI and below PMFSH Past Medical History Medical History Alcoholic pancreatitis Back pain Blackout Cardiac arrhythmia Chest pain Depressive disorder, not elsewhere classified Dizziness and giddiness History of migraine headaches Hyperlipidemia Infertility Sleep apnea Smoking Surgical History Surgical History No pertinent past surgical history Family History Family History Sibling Autoimmune disease Social History Social History Social History: former smoker. The patient has a significant Other. The patient recently lost his job. He is not currently working. The patient states that he drinks heavily at least 2-3 days a week which is more than 6 drinks at a time. Reports no alcohol since episode of pancreatitis in July 2022. States employed at present time. Code status full code Smoking status: Former smoker Alcohol intake: former Alcohol use details: reports no alcohol since episode of pancreatitis Substance use type: does not use Lack of Transportation: YES Lack of Food: Sometimes True Current Housing: I Have Housing Concerned About Future Housing: No Difficulty Paying Gas/Electric Bills: YES Difficulty Paying for Meds: No Currently Unemployed: No Education: Trade/Vocational Certificate Difficulty w/ Childcare or Family Care: No Gender identity (if verbalized by the patient): Male Spiritual care concerns: No Comments At time of signature, I have reviewed and agree with nursing past medical, surgical, social and family history unless otherwise noted. Please see nursing chart for further information. There is no relevant family history pertinent to the presenting complaint Exam Narrativ
== END 2022-11-30 13:55 | disposition left against medical advice (07) ==
PROVIDERS: Emergency Provider Nurse Practitioner Family; PCP Family Medicine
DX: R10.13 Epigastric pain (principal); Z87.891 Personal history of nicotine dependence; E78.5 Hyperlipidemia, unspecified
CPT/HCPCS: 99213; G0463

== ENCOUNTER 2023-01-05 10:57 | Emergency (ER) | payer OTHER, SELFPAY ==
--- NOTE | ~2023-01-05 | XR_ITS ---
EXAMINATION: XR chest 2V 01/05/2023 11:19 INDICATION: Chronic cough. PROCEDURE: 2 view chest COMPARISON: Comparison to multiple prior studies sequentially, with oldest reviewed study dated 03/2020. FINDINGS: The lungs are clear. The cardiomediastinal silhouette is within normal limits. There are no pleural effusions. There is no pneumothorax suspected. IMPRESSION: 1: NO ACUTE CARDIOPULMONARY DISEASE. Reviewed, dictated and finalized at location B.
[2023-01-05 11:05] VITALS: BP 140/65; PULSE 63; RESP 18; TEMP 36.6; O2SAT 99
--- NOTE | 2023-01-05 11:33 | ED.URI ---
HPI - URI/Sore Throat General Chief Complaint: Upper Respiratory Infection Stated Complaint: Blood Tinged Sputum and Vomit Time Seen by Provider: 01/05/23 11:05 Source: patient Mode of arrival: ambulatory Limitations: no limitations History of Present Illness HPI Narrative: 42 yo M with hx of chronic cough presents with c/o that when coughing this AM he gagged and coughed up sputum with speckled blood. No blood in sputum since then. Pt states has chronic cough from smoking. Always coughs alot in the AM. No fever. Pt is well appearing. Denies CP/SOB. Here for work note. All systems reviewed and negative except as noted above. Related Data Home Medications Medication Instructions Recorded Confirmed pantoprazole 40 mg tablet,delayed 40 mg PO DAILY 08/28/22 01/05/23 release docusate sodium 50 mg capsule 50 mg PO DAILY 09/15/22 01/05/23 (Stool Softener) Allergies Allergy/AdvReac Type Severity Reaction Status Date / Time lactose AdvReac Intermediate Diarrhea Verified 01/05/23 11:00 Review of Systems Review of Systems: CONSTITUTIONAL: Denies fever, chills, or sweats. EYES: Denies visual changes, redness, or discharge. ENT: Denies rhinorrhea, congestion, sore throat, or otalgia. CARDIOVASCULAR: Denies chest pain, palpitations, or edema. RESPIRATORY: reports cough blood and sputum. Denies dyspnea. GASTROINTESTINAL: Denies abdominal pain, nausea, vomiting, or diarrhea. GENITOURINARY: Denies dysuria or hematuria. SKIN: Denies rash or itching. MUSCULOSKELETAL: Denies back pain, joint pain, or myalgia. NEUROLOGIC: Denies headache, numbness, or weakness. PSYCHIATRIC: Denies anxiety or depression. All other systems reviewed are negative, except as documented in HPI. [facility] Past Medical History Medical History Alcoholic pancreatitis Back pain Blackout Cardiac arrhythmia Chest pain Depressive disorder, not elsewhere classified Dizziness and giddiness History of migraine headaches Hyperlipidemia Infertility Sleep apnea Smoking Surgical History Surgical History No pertinent past surgical history Family History Family History Sibling Autoimmune disease Social History Social History (Reviewed 11/30/22 @ 14:34 by ANGIE Simon Social History: former smoker. The patient has a significant Other. The patient recently lost his job. He is not currently working. The patient states that he drinks heavily at least 2-3 days a week which is more than 6 drinks at a time. Reports no alcohol since episode of pancreatitis in July 2022. States employed at present time. Code status full code Smoking status: Former smoker Alcohol intake: former Alcohol use details: reports no alcohol since episode of pancreatitis Substance use type: does not use Lack of Transportation: YES Lack of Food: Sometimes True Current Housing: I Have Housing Concerned About Future Housing: No Difficulty Paying Gas/Electric Bills: YES Difficulty Paying for Meds: No Currently Unemployed: No Education: Trade/Vocational Certificate Difficulty w/ Childcare or Family Care: No Gender identity (if verbalized by the patient): Male Spiritual care concerns: No Comments At time of signature, agree with nursing past medical, surgical, social and family history. There is no relevant family history pertinent to the presenting complaint. Exam Narrative: GENERAL: This is a well-nourished, well-developed patient, in no apparent distress. HEAD: normocephalic, atraumatic. EYES: PERRL. Sclera clear/white. Vision is grossly intact. EARS: External ears normal, auditory canals clear and without drainage, TMs normal without perforation. Hearing grossly intact. NOSE: External nose normal with no obvious nasal discharge, nares without redness, no rhinorrhea. THROAT: Mucous membranes moist, posterior pharynx
== END 2023-01-05 11:45 | disposition home or self-care (01) ==
PROVIDERS: Emergency Provider Nurse Practitioner Family; PCP Family Medicine
DX: R05.3 Chronic cough (principal); R04.2 Hemoptysis; E78.5 Hyperlipidemia, unspecified
CPT/HCPCS: 71046; 99213; G0463

== ENCOUNTER 2023-11-15 13:30 | Emergency (ER) | payer OTHER, SELFPAY ==
[2023-11-15 13:41] VITALS: BP 113/68; PULSE 63; RESP 16; TEMP 36.4; O2SAT 100
--- NOTE | 2023-11-15 13:48 | ED.SKABFB ---
HPI - Skin/Abscess/Foreign Bdy General Chief complaint: Skin/Abscess/Foreign Body Stated complaint: chin swelling from wasp sting Time Seen by Provider: 11/15/23 13:48 Source: patient, RN notes reviewed and old records reviewed Mode of arrival: ambulatory Limitations: no limitations History of Present Illness HPI narrative: 42 year old male presents to express care accompanied by spouse with with complaints of wasp sting to his chin which happened yesterday and initially was size of raised quarter on his chin. Today since this morning his chin has increased redness with increased swelling, warmth and tenderness to chin, He reports that he has noted some yellowish drainage from his chin, reports no fevers.. Patient reports no difficulty swallowing or with his breathing no Boni angina noted. Patient reports that he is scheduled to have dental extractions. MD complaint: insect bite/sting and other Onset (ago): day(s) (2) Location: face (chin) Severity: moderate Quality: aching Pain Consistency: intermittent Treatments prior to arrival: other (ice) Related Data Home Medications Medication Instructions Recorded Confirmed pantoprazole 40 mg tablet,delayed 40 mg PO DAILY 08/28/22 11/15/23 release docusate sodium 50 mg capsule 50 mg PO DAILY 09/15/22 11/15/23 (Stool Softener) rosuvastatin 5 mg tablet 5 mg PO DAILY 01/26/23 11/15/23 escitalopram oxalate 10 mg tablet 10 mg PO DAILY 11/15/23 11/15/23 gabapentin 300 mg capsule 300 mg PO TID 11/15/23 11/15/23 Allergies Allergy/AdvReac Type Severity Reaction Status Date / Time bee venom protein (honey bee) Allergy Swelling Verified 11/15/23 13:50 [bees] lactose AdvReac Intermediate Diarrhea Verified 01/26/23 11:11 wasp Allergy Swelling Uncoded 11/15/23 13:50 yellow jackets Allergy Swelling Uncoded 11/15/23 13:50 Review of Systems Review of Systems: CONSTITUTIONAL: Denies fever, chills, or sweats. CARDIOVASCULAR: Denies chest pain, palpitations, or edema. RESPIRATORY: Denies cough or dyspnea. GASTROINTESTINAL: Denies abdominal pain, nausea, vomiting SKIN: Reports redness and swelling to his chin which started yesterday with noted increase in size today, some yellowish drainage noted from chin,no obvious pustules, warmth of tissue with tenderness MUSCULOSKELETAL: Denies myalgia. NEUROLOGIC: Denies headache, numbness All systems reviewed & are unremarkable except as noted in HPI and below PMFSH Past Medical History Medical History Alcoholic pancreatitis Back pain Blackout Cardiac arrhythmia Chest pain Depressive disorder, not elsewhere classified Dizziness and giddiness History of migraine headaches Hyperlipidemia Infertility Sleep apnea Smoking Surgical History Surgical History No pertinent past surgical history Family History Family History Sibling Autoimmune disease Social History Social History Social History: former smoker. The patient has a significant Other. The patient recently lost his job. He is not currently working. The patient states that he drinks heavily at least 2-3 days a week which is more than 6 drinks at a time. Reports no alcohol since episode of pancreatitis in July 2022. States employed at present time. Code status full code Smoking status: Former smoker Alcohol intake: former Alcohol use details: reports no alcohol since episode of pancreatitis Substance use type: does not use Lack of Transportation: YES Lack of Food: Sometimes True Current Housing: I Have Housing Concerned About Future Housing: No Difficulty Paying Gas/Electric Bills: YES Difficulty Paying for Meds: No Currently Unemployed: No Education: Trade/Vocational Certificate Difficulty w/ Childcare or Family Care: No Gender identity (if verbalized by the patient):
[2023-11-15] MEDS: methylPREDNISolone ACETATE 80 MG/ML VIAL IM (14:03)
== END 2023-11-15 14:44 | disposition home or self-care (01) ==
PROVIDERS: Emergency Provider Registered Nurse; PCP Nurse Practitioner
DX: L03.211 Cellulitis of face (principal); T63.461A Toxic effect of venom of wasps, accidental (unintentional), initial encounter; Z87.891 Personal history of nicotine dependence; E78.5 Hyperlipidemia, unspecified
CPT/HCPCS: 96372; 99213; G0463; J1010

== ENCOUNTER 2024-06-17 15:42 | Inpatient (IN) | payer OTHER, SELFPAY ==
[2024-06-17] VITALS (8 sets, daily range): BP systolic 114–140; BP diastolic 56–87; PULSE 54–79; RESP 14–21; TEMP 36.4–36.8; O2SAT 95–100; BMI 27.6
--- NOTE | ~2024-06-17 | CT_ITS ---
CLINICAL INDICATION: Upper abdominal pain and diarrhea COMPARISON: 11/20/2022. TECHNIQUE: Multiple contiguous axial images of the abdomen and pelvis were performed following the ad ministration of with 100 mL Omnipaque-350 intravenous contrast The dose-length product (DLP) was 874.83 mGy-cm. Automated exposure control and iterative reconstruction technique were employed. FINDINGS/OBSERVATIONS: Visualized lower thorax: The bilateral lung bases are clear. The heart is of normal size, without pericardial effusion. Small hiatal hernia is present. Liver: The liver demonstrates homogeneous enhancement and is not enlarged. Gallbladder and biliary system: The gallbladder is only minimally distended, and otherwise unremarkable. Pancreas: Global enlargement of the pancreas with free fluid surrounding the pancreatic head. Redemonstration of multiple well-circumscribed foci of fluid attenuation within the tail of the pancr eas, unchanged from 11/20/2022 Spleen: Punctate calcifications identified within the splenic parenchyma, suggesting prior granulomat ous disease. The remainder of the spleen otherwise enhances homogeneously and is not enlarged. Kidneys: The bilateral kidneys enhance symmetrically without hydronephrosis or renal calculi. Adrenal glands: Unremarkable. Gastrointestinal tract: Trace fecal stasis. Appendix: The air-filled appendix is of normal caliber (axial series, images 113 through 134). Vasculature: The inferior vena cava is slit like, consistent with severe hypovolemia. Lymph nodes: No pathologically enlarged or morphologically suspicious lymph nodes within the retroperitoneum or at the root of the mesentery. Pelvic structures: The bladder is minimally distended, and otherwise unremarkable. The prostate gland is not enlarged. Body wall and musculoskeletal: Small fat-containing umbilical hernia. Degenerative disease within the lower lumbar spine at the level of L5/S1 with disc space narrowing an d vacuum phenomena. IMPRESSION: Findings consistent with acute (on chronic) pancreatitis. Additional findings suggesting hypovolemia. Reviewed, dictated and finalized at location A.
[2024-06-17 16:00] LABS: Basophils Absolute Auto 0.1 K/mm3 (0.0-0.1); Basophils Percent Auto 0.7 % (0.2-1.2); Eosinophils Absolute Auto 0.1 K/mm3 (0-0.3); Eosinophils Percent Auto 1.4 % (0-4.4); Hematocrit 45.6 % (42.0-52.0); Hemoglobin 15.6 g/dL (14.0-18.0); Immature Granulocyte Absolute 0.02 K/mm3 (0.00-0.031); Immature Granulocyte Percent A 0.3 % (0-0.5); Lymphocytes Absolute Auto 2.94 K/mm3 (0.9-3.2); Lymphocytes Percent Auto 40.8 % (18.3-44.2); Mean Corpuscular HGB Conc 34.2 g/dl (32-36); Mean Corpuscular Hemoglobin 31.1 pg (26-34); Mean Corpuscular Volume 90.8 fl (80-100); Mean Platelet Volume 10.1 fl (7.4-10.4); Monocytes Absolute Auto 0.6 K/mm3 (0.1-0.6); Neutrophils Absolute Auto 3.5 K/mm3 (1.3-6.7); Neutrophils Percent Auto 48.8 % (45.5-73.1); Platelet Count Result 291 k/mm3 (150-375); Red Blood Count 5.02 M/mm3 (4.6-6.20); White Blood Count 7.2 K/mm3 (4.5-10.0)
--- OUTSIDE RECORDS SUMMARY | 2024-06-17 16:01 | XMS_ITS | CONTINUITY OF CARE DOCUMENT ---
Author Name gisel batres Address Unknown Organization [facility] Address [address] [place] [address] Phone [phone] Care Team Providers Care Meat Packager Name Role Phone Norman Briscoe MD Unavailable [phone] JOSESITO SAXENA MD, KEVIN Unavailable DIONNE WINTERS, SERGEI Unavailable [phone] INSURANCE PROVIDERS Payer name Policy type / Coverage type [employer] [place] MEDICAID (2) Medicaid [id number]
--- OUTSIDE RECORDS SUMMARY | 2024-06-17 16:01 | XMS_ITS | Encounter Summary ---
Author Organization [facility] Address [address] [place] [address] Care Team Providers Care Professional Volleyball Player Name Role Phone Ani Ellsworth NP Primary Care Provider [phone] Encounter Details Date Type Department Care Team (Late st Contact Info) Description 11/15/2023 [employer] Message Enc [facility] Medical Group Family Medicine [address] [address] [facility] Provider results. Social History Tobacco Use Types Packs/Day Years Used Date Smoking Tobacco: Former Cigarettes 2 26 0 08/24/1993 - 08/25/2019 Passive Smoke Exposure: Past Smokeless Tobacco: Never Alcohol Use Standard Drinks/Week Comments Not Currently 0 (1 standard drink = 0.6 oz pur e alcohol) rare B1300 Health Literacy Answer Date Recor ded How often do you need to hav e someone help you when you read instructions, pamphlets, or other written material from your doctor or pharmacy? Never 10/03/2023 [facility] Utilities Answer Date Recorded In the past 12 months has [facility] [employer] gas, oil, or water [place] threatened to shut off services in your home? No 10/03/2023 Humiliation, Afraid, Rape, and Kick questionnair e Answer Date Recorded Within the last year, have y ou been afraid of your partner or ex-partner? No 10/03/2023 Within the last year, have y ou been humiliated or emotionally abused in other ways by your partner or ex-partner? No Within the last year, have y ou been kicked, hit, slapped, or otherwise physically hurt by your partner or ex-partner? No 10/03/2023 Within the last year, have y ou been raped or forced to have any kind of sexual activity by your partner or ex-partner? No 10/03/2023 Social Connection and Isolat ion Panel [NHANES] Answer Date Recorded In a typical week, how many times do you talk on the phone with family, friends, or neighbors? More than three times a week 10/03/2023 How often do you get togethe r with friends or relatives? Once a week 10/03/2023 How often do you attend chur ch or quaker services? Never 10/03/2023 Do you belong to any clubs o r organizations such as mandaeism groups, unions, fraternal or athletic groups, or school groups? No 10/03/2023 How often do you attend meet ings of the clubs or organizations you belong to? Never 10/03/2023 Are you , , di vorced, , never , or living with a partner? Never 10/03/2023 AUDIT-C Answer Date Recorded Q1: How often do you have a drink containing alcohol? Never 10/03/2023 Q2: How many drinks containi ng alcohol do you have on a typical day when you are drinking? Patient does not drink Q3: How often do you have si x or more drinks on one occasion? Never 10/03/2023 Overall Financial Resource Strain (CARDIA) Answe r Date Recorded How hard is it for you to pa y for the very basics like food, housing, medical care, and heating? Somewhat hard 10/03/2023 PHQ-2 Answer Date Recorded Patient Health Questionnaire-2 Score 0 10/03/2023 [facility] - Occupational Stress Questionnaire Answer Date Recorded Do you feel stress - tense, restless, nervous, or anxious, or unable to sleep at night because your mind is troubled all the time - these days? Not at all 10/03/2023 Exercise Vital Sign Answer Date Recorde d On average, how many days pe r week do you engage in moderate to strenuous exercise (like a brisk walk)? 6 days 10/03/2023 On average, how many minutes do you engage in exercise at this level? 30 min 10/03/2023 Hunger Vital Sign Answer Date Recorded Within the past 12 months, y ou worried that your food would run out before you got the money to buy more. Never true 10/03/19 24 Within the past 12 months, t he food you bought just didn't last and you didn't have money to get more. Never true 10/03/2023 PRAPARE - Transportation Answer Date Re corded In the past 12 months, has l ack of transportation kept you from medical appointments or from getting medications? No 09/12 In the past 12 months, has l ack of transportation kept you from meetings, work, or from getting things needed for daily living? No 10/03/2023 Housing Stability Vital Sign Answer Ciro e Recorded In the last 12 months, was t here a time when you were not able to pay the mortgage or rent on time? Yes 06/13/2023 In the last 12 months, how many places have you lived? 1 06/13/2023 In the last 12 months, was t here a time when you did not have a steady place to sleep or slept in a senior living (including now)? No 06/13/2023 Housing Stability Vital Sign Answer Ciro e Recorded In the last 12 months, was t here a time when you were not able to pay the mortgage or rent on time? No 10/03/2023 In the past 12 months, how m any times have you moved where you were living? 1 10/03/2023 At any time in the past 12 m [facility], were you homeless or living in a senior living (including now)? No 10/03/2023 Sex and Gender Information Value Date Recorded Sex Assigned at Male 08/13/2022 10:18 PM CDT Legal Sex Male 11:28 AM CDT Gender Identity Male 08/13/2022 10:18 PM CDT Sexual Orientation Straight 08/13/2022 10 :18 PM CDT documented as of this encounter Functional Status * Are you deaf or do you have serious difficulty hearing Answer Date of Assessment Author Status No 10/03/2023 5:52 PM CDT Staci Medina RN Active * Are you blind or do you have serious difficulty seeing, even when wearing glasses? Answer Date of Assessment Author Status No 10/03/2023 5:52 PM CDT Staci Medina RN Active * Do you have serious difficulty walking or climbing stairs? Answer Date of Assessment Author Status No 10/03/2023 5:52 PM CDT Staci Medina RN Active * Do you have difficulty dressing or bathing? Answer Date of Assessment Author Status No 10/03/2023 5:52 PM CDT Staci Medina RN Active * Because of a physical, mental, or emotional condition, do you have difficulty doing errands alone such as visiting a doctor's office or shopping? Answer Date of Assessment Author Status No 10/03/2023 5:52 PM CDT Staci Medina RN Active documented as of this encounter Mental Status * Because of a physical, mental, or emotional condition, do you have serious difficulty concentrating, remembering, or making decisions? Answer Entry Date Author Status No 10/03/2023 5:52 PM CDT Staci Medina RN Active documented in this encounter Progress Notes * Jemima Sherwood MA - 11/15/2023 2:31 PM CDT Sent him a letter thru my chart with the results pasted on it. And the number to call for pain management. documented in this encounter Plan of Treatment Upcoming Encounters Date Type Department Care Team (Late st Contact Info) Description 06/27/2024 8:00 AM CDT Office Visit [facility] Medical Group Multispecialty Care - [facility] [address] [place] [id number] Fatmata Wilhelm NP [address] [facility] [address] [place] [address] documented as of this encounter Goals Goal Patient Goal Type Associated Problems Recent Progress Patient-Stated? Author Patient will return to prior living situation and remain independent in ADLs upon discharge from hospital Lifestyle No Baltazar, Marycruz M, RN documented as of this encounter Visit Diagnoses Not on filedocumented in this encounter Additional Health Concerns Infection Onset Date Last Indicated Resolved Time COVID-19 Rule Out 03/16/2024 03/16/2024 03/16/2024 1:26 PM CUSHION BUILDER Assessment Noted Time PHQ-9 Depression Total Score: 13 024 1:09 PM CDT documented as of this encounter Care Teams Professional Volleyball Player Relationship Specialty Start Date End Date Ani Ellsworth NP [place] [address] PCP - General NURSE PRACTITIONER 06/13/23 documented as of this encounter
--- OUTSIDE RECORDS SUMMARY | 2024-06-17 16:01 | XMS_ITS | Clinical Summary ---
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 ML/MIN/1.7 3 M2 06/06/2024 5:54 PM CDT [facility] Comment: NOTE: eGFR is not calculated for patients <18 years of age. This is an estimated GFR calculation using the new CKD EPI creatinine equation without race and so does not require a correction factor for race. This estimated GFR should not be used for calculating drug doses. 06/06/2024 5:10 PM CDT us Amena Bull MD LABORATORY Final Resu lt [facility] [address] [place] [address], [place] [phone] * CBC W/DIFF AUTOMATED (06/06/2024 5:10 PM CDT) Only the most recent of4 resultswithin the time period is included. WBC 6.01 4.4 - 11.0 x10'3/uL 06/06/2024 5:41 PM CDT [facility] RBC 4.69 4.50 - 5.90 x10'6/uL 06/06/2024 5:41 PM CDT [facility] HGB 14.6 14.0 - 17.5 G/DL 06/06/2024 5:41 PM CDT [facility] HCT 42.7 41.5 - 50.4 % 06/06/2024 5:41 PM CDT [facility] MCV 91.0 80.0 - 96.0 FL 06/06/2024 5:41 PM CDT [facility] MCH 31.1 26.5 - 31.4 PG 06/06/2024 5:41 PM CDT [facility] MCHC 34.2 31.9 - 34.8 G/DL 06/06/2024 5:41 PM CDT [facility] RDW 13.2 12.3 - 14.3 % 06/06/2024 5:41 PM CDT [facility] PLT 258 151 - 353 x10'3/uL 06/06/2024 5:41 PM CDT [facility] MPV 9.9 9.7 - 11.9 FL 06/06/2024 5:41 PM CDT [facility] RBC MORPHOLOGY NORMAL 06/06/2024 5:41 PM CDT [facility] PLT MORPH. NORMAL 06/06/2024 5:41 PM CDT [facility] WBC MORPHOLOGY NORMAL 06/06/2024 5:41 PM CDT [facility] LYMPHOCYTES % 22.8 15.8 - 45.0 % 06/06/2024 5:41 PM CDT [facility] NEUTROPHILS % 69.3 42.1 - 71.9 % 06/06/2024 5:41 PM CDT [facility] MONOCYTES % 6.5 5.7 - 12.5 % 06/06/2024 5:41 PM CDT [facility] EOSINOPHILS 0.7 0.0 - 5.6 % 06/06/2024 5:41 PM CDT [facility] BASOPHILS 0.5 0.0 - 1.3 % 06/06/2024 5:41 PM CDT [facility] ABS. NEUTROPHILS 4.17 1.40 - 6.00 x10'3/uL 06/06/2024 5:41 PM T [facility] IMMATURE GRANS % 0.2 0.0 - 0.5 % 06/06/2024 5:41 PM CDT [facility] ABS. LYMPHOCYTES 1.37 0.80 - 4.70 x10'3/uL 06/06/2024 5:41 PM T [facility] 06/06/2024 5:10 PM CDT Amena Bull MD LABORATORY Final Resu lt [facility] [address] [place] [address], [place] [phone] * LIPASE (06/06/2024 5:10 PM CDT) Only the most recent of4 resultswithin the time period is included. LIPASE 61 16 - 77 UNITS/L 06/06/2024 5:54 PM CDT [facility] 06/06/2024 5:10 PM CDT Amena Bull MD LABORATORY Final Resu lt Performing Organization Address [facility]/ZIP Co de Phone Number [facility] [address] [place] [address], [place] [phone] * US ABD LIMITED (06/04/2024 4:15 PM CDT) Anatomical Region Laterality Modality Abdomen Ultrasound 06/04/2024 4:41 PM CDT Impressions 06/04/2024 4:45 PM CDT IMPRESSION: 1. Grossly normal gallbladder. Mild tenderness while scanning over the right upper quadrant. 2. No biliary ductal dilatation. Ordered By: QUINTIN JONES Interpreted By: Polly Nayak, 06/04/2024 4:41 PM Narrative 06/04/2024 4:45 PM CDT [facility] [address] [place] [address] IMAGING STUDIES: US ABD LIMITED DATE: 06/04/2024 3:34 PM COMPARISON STUDIES: 04/13/2023. CT abdomen of 05/30/2024 CLINICAL HISTORY: Right upper quadrant pain and tenderness. FINDINGS: Normal appearance to the gallbladder without calculi. No gallbladder wall thickening. Mild fatty infiltration of the liver without focal mass..Hepatic and portal veins are patent.. Common bile duct measures.4.8 mm. Right kidney .7 x 5.5 x 5.1 cm. No focal mass or hydronephrosis. Pancreas not well-visualized. Please see dictation for above stated recent CT Procedure Note Jesse Nayak MD - 06/04/2024 [facility] [address] [place] [address] IMAGING STUDIES: US ABD LIMITED DATE: 06/04/2024 3:34 PM COMPARISON STUDIES: 04/13/2023. CT abdomen of 05/30/2024 CLINICAL HISTORY: Right upper quadrant pain and tenderness. FINDINGS: Normal appearance to the gallbladder without calculi. No gallbladder wallthickening. Mild fatty infiltration of the liver without focal mass..Hepatic andportal veins are patent.. Common bile duct measures.4.8 mm. Right kidney .7 x 5.5 x 5.1 cm. No focal mass orhydronephrosis. Pancreas not well-visualized. Please see dictation for above stated recentCT IMPRESSION: 1. Grossly normal gallbladder. Mild tenderness while scanning over theright upper quadrant. 2. No biliary ductal dilatation. Ordered By: QUINTIN JONES Interpreted By: Polly Nayak, 06/04/2024 4:41 PM Quintin Jones MD ULTRASOUND Final Result * BASIC METABOLIC PANEL (06/03/2024 6:26 AM CDT) GLUCOSE 93 70 - 99 MG/DL 06/03/2024 7:22 AM CDT [facility] BUN 7 7 - 18 MG/DL 06/03/2024 7:22 AM CDT [facility] CREATININE S/P/B 1.00 0.7 - 1.3 MG/DL 06/03/2024 7:22 AM CDT [facility] SODIUM S/P/B 139 136 - 145 MMOL/L 06/03/2024 7:22 AM CDT [facility] POTASSIUM S/P/B 4.2 3.5 - 5.1 MMOL/L 06/03/2024 7:22 AM CDT [facility] CHLORIDE S/P/B 106 100 - 108 MMOL/L 06/03/2024 7:22 AM CDT [facility] CO2 25.9 21 - 32 MMOL/L 06/03/2024 7:22 AM CDT [facility] CALCIUM S/P/B 8.9 8.5 - 10.1 MG/DL 06/03/2024 7:22 AM CDT [facility] ANION GAP 7.1 5 - 15 MMOL/L 06/03/2024 7:22 AM T [facility] BUN CREATININE RATIO 7.0 6 - 26 06/03/2024 7:22 AM T [facility] GFR ESTIMATE >90 >90 ML/MIN/1.7 3 M2 06/03/2024 7:22 AM T [facility] Comment: NOTE: eGFR is not calculated for patients <18 years of age or gender unknown. This is an estimated GFR calculation using the new CKD EPI creatinine equation without race and so does not require a correction factor for race. This estimated GFR should not be used for calculating drug doses. 06/03/2024 6:26 AM CDT Fatmata Hernandez INFORMATION RESOURCES MANAGER LABORATORY Final Resul t [facility] [address] [place] [address], * (ABNORMAL) MAGNESIUM (06/03/2024 6:26 AM CDT) Only the most recent of3 resultswithin the time period is included. MAGNESIUM 1.5(L) 1.8 - 2.4 MG/DL 06/03/2024 7:22 AM CDT [facility] 06/03/2024 6:26 AM CDT Fatmata Hernandez NP LABORATORY Final Resul t Performing Organization Address City/[facility]/ZIP Co de Phone Number [facility] [address] [place] [address], [place] [phone] * LACTIC ACID W REFLEX (SEPSIS) (05/30/2024 7:10 PM CDT) Only the most recent of2 resultswithin the time period is included. LACTIC ACID VENOUS 0.6 0.4 - 2.0 MMOL/L 05/30/2024 7:35 PM CDT [facility] 05/30/2024 7:10 PM CDT Tommy Shepard MD LABORATORY Final Result [facility] [address] [place] [address], [place] [phone] * DRUG SCREEN RAPID (05/30/2024 5:02 PM CDT) AMPHETAMINE (U) NONE DETECTED NONE DETECTED 05/30/2024 5:28 PM CDT [facility] BARBITURATES SCREEN (U) NONE DETECTED NONE DETECTED 05/30/2024 5:28 PM CDT [facility] BENZODIAZEPINES SCREEN (U) NONE DETECTED NONE DETECTED 05/30/2024 5:28 PM CDT [facility] BUPRENORPHINE SCREEN (U) NONE DETECTED NONE DETECTED 05/30/2024 5:28 PM CDT [facility] COCAINE METABOLITES (U) NONE DETECTED NONE DETECTED 05/30/2024 5:28 PM CDT [facility] METHAMPHETAMINE (U) NONE DETECTED NONE DETECTED 05/30/2024 5:28 PM CDT [facility] METHADONE (U) NONE DETECTED NONE DETECTED 05/30/2024 5:28 PM CDT [facility] OPIATE SCREEN (U) NONE DETECTED NONE DETECTED 05/30/2024 5:28 PM CDT [facility] OXYCODONE SCREEN (U) NONE DETECTED NONE DETECTED 05/30/2024 5:28 PM CDT [facility] PHENCYCLIDINE PCP (U) NONE DETECTED NONE DETECTED 05/30/2024 5:28 PM CDT [facility] CANNABINOIDS SCREEN (U) NONE DETECTED NONE DETECTED 05/30/2024 5:28 PM CDT [facility] TRICYCLIC ANTIDEPRESSANT SCREEN (U) NONE DETECTED NONE DETECTED 05/30/2024 5:28 PM CDT [facility] Comment: NOTE: RESULTS OF THIS DRUG SCREEN SHOULD BE USED FOR MEDICAL PURPOSES ONLY AND NOT FOR LEGAL OR EMPLOYEMENT PURPOSES. MEDICATIONS CONTAINING EPHEDRINE MAY CAUSE FALSE POSITIVE AMPHETAMINE. AMPHETAMINE- 500 NG/ML BARBITURATE- 200 NG/ML BENZODIAZEPINE- 150 NG/ML BUPRENORPHINE- 10 NG/ML COCAINE- 150 NG/ML METHAMPHETAMINES- 500 NG/ML METHADONE- 200 NG/ML OPIATE- 100 NG/ML OXYCODONE- 100 NG/ML PCP- 25 NG/ML THC- 50 NG/ML TCA- 300 NG/ML URINE SPECIMEN / Unknown 05/30/2024 5:02 PM CDT us Tommy Shepard MD URINE ORDERABLES Final Result [facility] [address] [place] [address], * URINALYSIS, AUTO, COMPLETE (05/30/2024 5:02 PM CDT) COLOR (U) YELLOW 05/30/2024 5:25 PM CDT [facility] TRANSPARENCY CLEAR 05/30/2024 5:25 PM CDT [facility] SPECIFIC GRAVITY (U) 1.025 1.000 - 1.030 05/30/2024 5:25 PM CDT [facility] U PH 5.5 5.0 - 9.0 05/30/2024 5:25 PM CDT [facility] LEUKOCYTES (U) NEGATIVE NEGATIVE 05/30/2024 5:25 PM CDT [facility] NITRITES NEGATIVE NEGATIVE 05/30/2024 5:25 PM CDT [facility] PROTEIN RANDOM (U) NEGATIVE NEGATIVE 05/30/2024 5:25 PM CDT [facility] GLUCOSE (U) NEGATIVE NEGATIVE 05/30/2024 5:25 PM CDT [facility] KETONES MG/DL (U) NEGATIVE NEGATIVE 05/30/2024 5:25 PM CDT [facility] BILIRUBIN (U) NEGATIVE NEGATIVE 05/30/2024 5:25 PM CDT [facility] BLOOD (U) NEGATIVE NEGATIVE 05/30/2024 5:25 PM CDT [facility] WBC/HPF 0-5 0 - 5 /HPF 05/30/2024 5:25 PM CDT [facility] RBC/HPF 0-5 0 - 5 /HPF 05/30/2024 5:25 PM CDT [facility] EPI/HPF FEW /HPF 05/30/2024 5:25 PM CDT [facility] BACTERIA (U) FEW /HPF 05/30/2024 5:25 PM CDT [facility] URINE SPECIMEN OBTAINED BY CLEAN CATCH PROCEDURE / Unknown 05/30/2024 5:02 PM CDT us Tommy Shepard MD URINE ORDERABLES Final Result [facility] [address] [place] [address], [place] [phone] * PARTIAL THROMBOPLASTIN TIME,PTT (05/30/2024 4:46 PM CDT) PTT 32.2 27.0 - 36.8 SEC 05/30/2024 5:03 PM CDT [facility] 05/30/2024 4:46 PM CDT us Tommy Shepard MD LABORATORY Final Result Performing Organization Address [facility] Co de Phone Number [facility] [address] [place] [address], [place] [phone] * PROTIME/INR, VENOUS (05/30/2024 4:46 PM CDT) [facility] PROTIME 11.1 9.1 - 12.4 SEC 05/30/2024 5:03 PM CDT [facility] INR 1.0 05/30/2024 5:03 PM CDT [facility] Comment: Recommend INR ranges for Oral Anticoagulant Therapy: Mechanical Cardiac Values 2.5-3.5 All others indication 2.0-3.0 05/30/2024 4:46 PM CDT us Tommy Shepard MD LABORATORY Final Result Performing Organization Address City/[facility]/ZIP Co de Phone Number [facility] [address] [place] [address], [place] [phone] * (ABNORMAL) AMYLASE (05/30/2024 4:46 PM CDT) AMYLASE S/P/B 287(H) 25 - 115 UNITS/L 05/30/2024 5:17 PM CDT [facility] 05/30/2024 4:46 PM CDT Tommy Shepard MD LABORATORY Final Result Performing Organization Address [facility]/ZIP Co de Phone Number [facility] [address] [place] [address], [place] [phone] * CK (CPK) (05/30/2024 4:46 PM CDT) CPK 45 39 - 308 U/L 05/30/2024 5:17 PM CDT [facility] 05/30/2024 4:46 PM CDT Tommy Shepard MD LABORATORY Final Result Performing Organization Address [facility] de Phone Number [facility] [address] [place] [address], [place] [phone] * HEPATITIS C ANTIBODY (06/29/2023 9:04 AM CDT) HEPATITIS C AB NON-REACTI VE NON-REACT ANTONI 06/29/2023 6:33 PM CDT [facility] Comment: ANTIBODIES TO HCV NOT DETECTED. DOES NOT EXCLUDE THE POSSIBILITY OF EXPOSURE TO HCV. 06/29/2023 9:04 AM CDT Ani Ellsworth NP LABORATORY Final Res ult Performing Organization Address City/[facility]/ZIP Co de Phone Number [facility] [address] [place] [address], [place] [phone] [id number] from Last 3 Months or Most Recently Relevant to Health Maintenance [place] [address] [place] [address] Advance Directives * Full Code (Latest Code Status on File) Date Activated Date Inactivated Comments 05/30/2024 6:48 PM 06/05/2024 1:33 PM * Full Code Date Activated Date Inactivated Comments 03/14/2024 12:50 AM 03/16/2024 11:58 AM * Full Code Date Activated Date Inactivated Comments 01/06/2024 6:55 PM 01/11/2024 2:03 PM * Full Code Date Activated Date Inactivated Comments 10/03/2023 5:39 PM 10/09/2023 3:58 PM * Full Code Date Activated Date Inactivated Comments 07/03/2023 2:45 AM 07/08/2023 2:52 PM Care Teams Center Maker Hand Relationship Specialty Start Date End Date Ani Ellsworth NP [address] [place] [address] PCP - General NURSE PRACTITIONER 06/13/23
--- OUTSIDE RECORDS SUMMARY | 2024-06-17 16:01 | XMS_ITS | Encounter Summary ---
Author Organization [facility] Address [facility] [place] [address] Care Team Providers Care Body Coverer Name Role Phone Ani Ellsworth NP Primary Care Provider [phone] Encounter Details Date Type Department Care Team (Late st Contact Info) Description 11/15/2023 [facility] Message Enc [facility] Medical [facility] Family Medicine [address] [address] [place], [facility] Provider xrays Social History Tobacco Use Types Packs/Day Years [...] from your doctor or pharmacy? Never 10/03/[address] [facility] Utilities Answer Date Recorded In the past 12 months has [facility] [employer], gas, oil, or water [employer] threatened to shut off services in your [...] often do you attend chur ch or confucianist services? Never 10/03/2023 Do you belong to any clubs o r organizations such as advent groups, unions, fraternal or athletic groups, or [...] Recorded Patient Health Questionnaire-2 Score 0 10/03/2023 [facility] - Occupational [...] place to sleep or slept in a mcc (including now)? No 06/13/2023 Housing Stability Vital Sign Answer Ciro e Recorded In the last 12 months, was t here a time when you were not able to pay the mortgage or rent on time? No 10/03/2023 In the past 12 months, how m any times have you moved where you were living? 1 10/03/2023 At any time in the past 12 m [facility], were you homeless or living in a mcc (including now)? No 10/03/2023 Sex and Gender [...] Author Status No 10/03/2023 5:52 PM CDT Staic Medina RN Active * Do you have [...] Medina RN Active documented in this encounter Plan of Treatment Upcoming Encounters Date Type Department Care Team (Late st Contact Info) Description 06/27/2024 8:00 AM CDT Office Visit [facility] Multispecialty Care - [facility] [address] [facility], [address] [place] [phone] Fatmata Wilhelm NP [address] [facility] [address] [place] [address] documented as of this encounter Goals Goal Patient Goal Type Associated Problems Recent Progress Patient-Stated? 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
--- OUTSIDE RECORDS SUMMARY | 2024-06-17 16:01 | XMS_ITS | Clinical Summary ---
Author Organization [facility] [employer] Address [address] [facility] [place] [address] Care Team Providers Care Level Vial Inspector Name Role Phone Stan Cooper Primary Care Provider Unavailab le Source Comments [facility],non-owned Affiliates and Associated Physician Practices is amultiple site organization consisting of ambulatory clinics and hospital sitesin [place], [place], [place] and [place]. This disclosure is being madepursuant to the Care Everywhere program and may not contain all information available regarding this patient. Last updated 17.[facility] [employer] Allergies Active Allergy Reactions Criticality Noted Date Comments Aspirin Rash Medium 09/03/2018 Medications * Be aware that medications may not be up to date on this document. Alwaysverify current medications with the patient. Medication Sig Dispensed Refills Start Date End Date Status fenofibrate (LOFIBRA) 54 MG tablet TAKE 1 TABLET BY MOUTH EVERY DAY IN THE MORNING 06/26/2020 Active Social History Tobacco Use Types Packs/Day Years Used Date Smoking Tobacco: Former Smokeless Tobacco: Never Alcohol Use Standard Drinks/Week Comments Yes 0 (1 standard drink = 0.6 oz pur e alcohol) Sex and Gender Information Value Date Recorded Sex Assigned at Not on file Gender Identity Not on file Sexual Orientation Not on file Last Filed Vital Signs Vital Sign Reading Time Taken Comments Blood Pressure 148/62 07/08/2020 1:21 PM CDT Pulse 72 07/08/2020 1:21 PM CDT Temperature 36.4 C (97.6 F) 07/08/2020 1:21 PM CDT Respiratory Rate - - Oxygen Saturation 98% 07/08/2020 1:21 PM CDT Inhaled Oxygen Concentration - - Weight 111.1 kg (245 lb) 07/08/2020 1:21 PM CDT Height 193 cm (6' 4 ) 07/08/2020 1:21 PM CDT Body Mass Index 29.82 07/08/2020 1:21 PM CDT Plan of Treatment Health Maintenance Due Date Last Done Comments COLOGUARD (AGES 45-75) - COL ON CA SCREENING 1978 COLON MONITORING 1978 COLONOSCOPY - COLON CA SCREENING 1978 CT COLONOGRAPHY - COLON CA SCREENING 1978 Colorectal Cancer Screening 1978 FIT - COLON CA SCREENING 1978 FLEX SIG - COLON CA SCREENING 1978 LIPID TESTING 1978 HIV SCREENING 1993 HEPATITIS C SCREENING 11/28/1996 DTAP/TDAP/TD VACCINES (1 - Tdap) 1997 HEPATITIS B VACCINE (1 of 3 - 19+ 3-dose series) 1997 SCREENING FOR DIABETES 07/08/2020 COVID-19 VACCINE (1 - 2023-2 5 season) 2023 DEPRESSION SCREENING 03/14/2024 INFLUENZA VACCINE (Season Ended) 2024 ZOSTER VACCINE (1 of 2) 2028 HIB VACCINE Aged Out No longer eligi ble based on patient's age to complete this topic HPV VACCINE Aged Out No longer eligi ble based on patient's age to complete this topic MENINGOCOCCAL (Group B) VACC INE SHARED DECISION-MAKING Aged Out No longer eligibl e based on patient's age to complete this topic MENINGOCOCCAL GROUPS A/C/Y/W VACCINE Aged Out No longer eligible b ased on patient's age to complete this topic PNEUMOCOCCAL VACCINE Aged Out No long er eligible based on patient's age to complete this topic Care Teams Level Vial Inspector Relationship Specialty Start Date End Date Stan Cooper Update Information PCP - General 07/08/20
--- OUTSIDE RECORDS SUMMARY | 2024-06-17 16:01 | XMS_ITS | Encounter Summary ---
Author Organization [facility] - [facility] Address [facility] [place] [address] Care Team Providers Care Tongue And Quarter Stitcher Name Role Phone Ani Ellsworth NP Primary Care Provider +1 [phone] Encounter Details Date Type Department Care Team (Late st Contact Info) Description 04/10/2024 Five Below Message Enc [facility] Medical Group Multispecialty Care - [address], [address] [place] [phone] Spenser, [facility] Provider MRCP Social History Tobacco Use Types Packs/Day Years [...] from your doctor or pharmacy? Never 10/03/2023 [facility] Utilities Answer Date Recorded In the past 12 months has e electric, gas, oil, or water company threatened to shut off services in your home? No 03/14/2024 Humiliation, Afraid, Rape, and Kick questionnair e Answer Date Recorded Within the last year, have y ou been afraid of your partner or ex-partner? No 03/14/2024 Within the last year, have y ou been humiliated or emotionally abused in other ways by your partner or ex-partner? No Within the last year, have y ou been kicked, hit, slapped, or otherwise physically hurt by your partner or ex-partner? No 03/14/2024 Within the last year, have y ou been raped or forced to have any kind of sexual activity by your partner or ex-partner? No 03/14/2024 Social Connection and Isolation Panel [NHANES] A nswer Date Recorded In a typical week, how many times do you talk on the phone with family, friends, or neighbors? Once a week 01/06/2024 How often do you get together with friends or re latives? Never 01/06/2024 How often do you attend yarsanism or baptism serv ices? Never 01/06/2024 Do you belong to any clubs o r organizations such as yarsanism groups, unions, fraternal or athletic groups, or [...] housing, medical care, and heating? Somewhat hard 03/14/2024 PHQ-2 Answer Date Recorded Patient Health Questionnaire-2 Score 1 01/31/2024 [facility] [place] of Occupat ional Health - Occupational Stress [...] the money to buy more. Never true 03/14/19 25 Within the past 12 months, t he food you bought just didn't last and you didn't have money to get more. Never true 03/14/2024 PRAPARE - Transportation Answer Date Re corded In the past 12 months, has l ack of transportation kept you from medical appointments or from getting medications? No 03/2024 In the past 12 months, has l ack of transportation kept you from meetings, work, or from getting things needed for daily living? No 03/14/2024 Housing Stability Vital Sign Answer Ciro e [...] the mortgage or rent on time? No 03/14/2024 In the past 12 months, how m any times have you moved where you were living? 0 03/14/2024 At any time in the past 12 m [facility], were you homeless or living in a senior living (including now)? No 03/14/2024 Sex and Gender Information Value Date Recorded Sex Assigned at Male 08/13/2022 10:18 PM CDT Legal Sex Male 11:28 AM CDT Gender Identity Male 08/13/2022 10:18 PM CDT Sexual Orientation Straight 08/13/2022 10 :18 PM CDT documented as of this encounter Functional Status * Are you deaf or do you have serious difficulty hearing Answer Date of Assessment Author Status No 03/14/2024 1:03 AM Anselmo Fox, RN Active * Are you blind or do you have serious difficulty seeing, even when wearing glasses? Answer Date of Assessment Author Status No 03/14/2024 1:03 AM Anselmo Fox RN Active * Do you have serious difficulty walking or climbing stairs? Answer Date of Assessment Author Status No 03/14/2024 1:03 AM Anselmo Fox RN Active * Do you have difficulty dressing or bathing? Answer Date of Assessment Author Status No 03/14/2024 1:03 AM Anselmo Fox RN Active * Because of a physical, mental, or emotional condition, do you have difficulty doing errands alone such as visiting a doctor's office or shopping? Answer Date of Assessment Author Status No 03/14/2024 1:03 AM Anselmo Fox RN Active documented as of this encounter Mental Status * Because of a physical, mental, or emotional condition, do you have serious difficulty concentrating, remembering, or making decisions? Answer Entry Date Author Status No 03/14/2024 1:03 AM Anselmo Fox RN Active documented in this encounter Plan of Treatment Upcoming Encounters Date Type Department Care Team (Late st Contact Info) Description 06/27/2024 8:00 AM CDT Office Visit [facility] Medical Group Multispecialty Care - [facility] 3 [facility], [address] [place] [phone] Fatmata Wilhelm NP 3 [facility] [address] [place] [address] documented as of this encounter Goals Goal Patient Goal Type Associated Problems Recent Progress Patient-Stated? Author Patient will return to prior living situation and remain independent in ADLs upon discharge from hospital Lifestyle No Marycruz Baltazar RN documented as of this encounter Visit Diagnoses Not on filedocumented in this encounter Additional Health Concerns Assessment Noted Time PHQ-9 Depression Total Score: 13 024 1:09 PM CDT documented as of this encounter Care Teams Tongue And Quarter Stitcher Relationship Specialty Start Date End Date Ani Ellsworth NP [facility] [place] [address] PCP - General NURSE PRACTITIONER 06/13/23 documented as of this encounter
--- OUTSIDE RECORDS SUMMARY | 2024-06-17 16:01 | XMS_ITS | Encounter Summary ---
Author Organization [facility] - [facility] Address [facility] [place] [address] Care Team Providers Care Supervisor Veneer Name Role Phone Ani Ellsworth NP Primary Care Provider [phone] [phone] Encounter Details Date Type Department Care Team (Late st Contact Info) Description 04/06/2024 X-1 Message Enc [facility] Medical Group Multispecialty Care - [address], [address] [place] [phone] Spenser, [facility] Provider MRCP Social History Tobacco Use Types [...] from your doctor or pharmacy? Never 10/03/2023 [facility] Utilities Answer Date Recorded In the [...] Never 01/06/2024 How often do you attend catholic or taoism serv ices? Never 01/06/2024 Do you belong to any clubs o r organizations such as catholic groups, unions, fraternal or athletic groups, or [...] Recorded Patient Health Questionnaire-2 Score 1 01/31/2024 [facility] [place] of Occupat ional Health - Occupational Stress [...] any time in the past 12 m [facility], were you homeless or living in a [...] Description 06/27/2024 8:00 AM CDT Office Visit [facility] Medical Group Multispecialty Care - [facility] 3 [facility], [address] [place] [phone] Fatmata Wilhelm NP 3 [facility] [address] [place] [address] documented as of this encounter Goals Goal [...] documented as of this encounter Care Teams Supervisor Veneer Relationship Specialty Start Date End Date Ani Ellsworth NP [facility] [place] [address] PCP - General NURSE PRACTITIONER 06/13/23 documented as of this encounter
--- OUTSIDE RECORDS SUMMARY | 2024-06-17 16:01 | XMS_ITS | Encounter Summary ---
Author Organization [facility] Address [facility] [place] [address] Care Team Providers Care Stencil Cutter Machine Name Role Phone Ani Ellsworth STUDENT LOAN COUNSELOR Primary Care Provider [phone] [phone] Encounter Details Date Type Department Care Team (Latest Contact Info) Description 12/21/2023 GiveNext Message Enc [facility] Medical Group Family Medicine - [place] [address] [facility] [address] [place] [address] Ani Ellsworth NP [address] [address] follow up on endocrinology referral Social History Tobacco Use Types Packs/Day Years [...] from your doctor or pharmacy? Never 10/03/2023 [facility] Utilities Answer Date Recorded In the past 12 months has e [employer], gas, oil, or water company threatened to [...] 10/03/2023 How often do you attend chur or yazdanism services? Never 10/03/2023 Do you belong to any clubs o r organizations such as temple groups, unions, fraternal or athletic groups, or [...] Recorded Patient Health Questionnaire-2 Score 0 10/03/2023 [facility] [place] of Occupat ional Health - Occupational Stress [...] place to sleep or slept in a retirement (including now)? No 06/13/2023 Housing Stability Vital Sign Answer Ciro e Recorded In the last 12 months, was t here a time when you were not able to pay the mortgage or rent on time? No 10/03/2023 In the past 12 months, how m any times have you moved where you were living? 1 10/03/2023 At any time in the past 12 m [facility], were you homeless or living in a retirement (including now)? No 10/03/2023 Sex and Gender [...] Assessment Author Status No 10/03/2023 5:52 PM REINIERT Staci Medina RN Active * Do you have difficulty dressing or bathing? Answer Date of Assessment Author Status No 10/03/2023 5:52 PM CDT Staci Medina RN Active * Because of a physical, mental, or emotional condition, do you have difficulty doing errands alone such as visiting a doctor's office or shopping? Answer Date of Assessment Author Status No 10/03/2023 5:52 PM Staci Oreilly RN Active documented as of this encounter Mental Status * Because of a physical, mental, or emotional condition, do you have serious difficulty concentrating, remembering, or making decisions? Answer Entry Date Author Status No 10/03/2023 5:52 PM REINIERT Staci Medina RN Active documented in this encounter Plan of Treatment Upcoming Encounters Date Type Department Care Team (Late st Contact Info) Description 06/27/2024 8:00 AM CDT Office Visit [facility] Medical Group Multispecialty Care - [facility] 3 [facility], [address] [place] [phone] Fatmata Wilhelm NP 3 [facility] [address] [place] [address] documented as of this encounter Goals Goal Patient Goal Type Associated Problems Recent Progress Patient-Stated? Author Patient will return to prior living situation and remain independent in ADLs upon discharge from hospital Lifestyle Marycruz Arellano RN documented as of this encounter Visit Diagnoses Not on filedocumented in this encounter Additional Health Concerns Infection Onset Date Last Indicated Resolved Time COVID-19 Rule Out 03/16/2024 03/16/2024 03/16/2024 1:26 PM REHABILITATION THERAPY TECHNICIAN Assessment Noted Time PHQ-9 Depression Total Score: 13 024 1:09 PM CDT documented as of this encounter Care Teams Stencil Cutter Machine Relationship Specialty Start Date End Date Ani Ellsworth NP [address] [place] [address] PCP - General NURSE PRACTITIONER 06/13/23 documented as of this encounter
--- OUTSIDE RECORDS SUMMARY | 2024-06-17 16:01 | XMS_ITS | Encounter Summary ---
Author Organization [facility] - [facility] Address [facility] [place] [address] Care Team Providers Care Well Drill Operator Cable Tool Name Role Phone Ani Ellsworth NP Primary Care Provider [phone] [phone] Encounter Details Date Type Department Care Team (Late st Contact Info) Description 11/15/2023 [employer] Message Enc [facility] Medical Group Multispecialty Care - [address], [address] [place] [phone] Spenser, [facility] Provider reschedule Social History Tobacco Use Types Packs/Day Years [...] from your doctor or pharmacy? Never 10/03/2023 [facility] Utilities Answer Date Recorded In the past [...] How often do you attend chur or zoroastrian services? Never 10/03/2023 Do you belong to any clubs o r organizations such as lutheran groups, unions, fraternal or athletic groups, or [...] Recorded Patient Health Questionnaire-2 Score 0 10/03/2023 [facility] [place] of Occupat ional Health - Occupational Stress [...] place to sleep or slept in a snf (including now)? No 06/13/2023 Housing Stability Vital Sign Answer Ciro e Recorded In the last 12 months, was t here a time when you were not able to pay the mortgage or rent on time? No 10/03/2023 In the past 12 months, how m any times have you moved where you were living? 1 10/03/2023 At any time in the past 12 m [facility], were you homeless or living in a snf (including now)? No 10/03/2023 Sex and Gender [...] PM REINIERT Staci Medina RN Active * Because of [...] Description 06/27/2024 8:00 AM CDT Office Visit [facility] Medical Group Multispecialty Care - [facility] 3 [facility], [address] [place] [phone] Fatmata Wilhelm NP 3 [facility] [address] [place] [address] documented as of this encounter Goals Goal [...] Rule Out 03/16/2024 03/16/2024 03/16/2024 1:26 PM DIVIDING MACHINE OPERATOR HELPER Assessment Noted Time PHQ-9 Depression Total Score: 13 024 1:09 PM CDT documented as of this encounter Care Teams Well Drill Operator Cable Tool Relationship Specialty Start Date End Date Ani Ellsworth NP [address] [place] [address] PCP - General NURSE PRACTITIONER 06/13/23 documented as of this encounter
--- OUTSIDE RECORDS SUMMARY | 2024-06-17 16:01 | XMS_ITS | Encounter Summary ---
Author Organization [facility] Address [facility] [place] [address] Care Team Providers Care Clinical Manager Name Role Phone Ani Ellsworth NP Primary Care Provider [phone] [phone] Encounter Details Date Type Department Care Team (Late st Contact Info) Description 06/20/2023 [place] Message Enc [facility] Medical Group Family Medicine - [place] [address] [facility] [address] [place] [address] Ani Ellsworth NP [address] [address] Follow up Social History Tobacco Use Types Packs/Day Years Used Date Smoking Tobacco: Former Cigarettes 2 26 0 08/24/1993 - 08/25/2019 Passive Smoke Exposure: Past Smokeless Tobacco: Never Alcohol Use Standard Drinks/Week Comments Yes 0 (1 standard drink = 0.6 oz pur e alcohol) rare [facility] Utilities Answer Date Recorded In the past 12 months has e [employer], gas, oil, or water [employer] threatened to shut off services in your home? No 06/13/2023 Humiliation, Afraid, Rape, and Kick questionnair e Answer Date Recorded Within the last year, have y ou been afraid of your partner or ex-partner? No 06/13/2023 Within the last year, have y ou been humiliated or emotionally abused in other ways by your partner or ex-partner? No Within the last year, have y ou been kicked, hit, slapped, or otherwise physically hurt by your partner or ex-partner? No 06/13/2023 Within the last year, have y ou been raped or forced to have any kind of sexual activity by your partner or ex-partner? No 06/13/2023 Social Connection and Isolat ion Panel [NHANES] Answer Date Recorded In a typical week, how many times do you talk on the phone with family, friends, or neighbors? More than three times a week 05/21/2023 How often do you get togethe r with friends or relatives? Once a week 05/21/2023 How often do you attend chur or buddhist services? Never 05/21/2023 Do you belong to any clubs o r organizations such as sikhism groups, unions, fraternal or athletic groups, or school groups? No 05/21/2023 How often do you attend meet ings of the clubs or organizations you belong to? Never 05/21/2023 Are you , , di vorced, , never , or living with a partner? Never 05/21/2023 AUDIT-C Answer Date Recorded Q1: How often do you have a drink containing alcohol? Never 05/21/2023 Q2: How many drinks containi ng alcohol do you have on a typical day when you are drinking? Patient does not drink Q3: How often do you have si x or more drinks on one occasion? Never 05/21/2023 Overall Financial Resource Strain (CARDIA) Answe r Date Recorded How hard is it for you to pa y for the very basics like food, housing, medical care, and heating? Not hard at all 06/13/2023 PHQ-2 Answer Date Recorded Patient Health Questionnaire-2 Score 0 06/24/2023 [facility] of Occupat ional Health - Occupational Stress Questionnaire Answer Date Recorded Do you feel stress - tense, restless, nervous, or anxious, or unable to sleep at night because your mind is troubled all the time - these days? Not at all 05/21/2023 Exercise Vital Sign Answer Date Recorde d On average, how many days pe r week do you engage in moderate to strenuous exercise (like a brisk walk)? 0 days 05/21/2023 On average, how many minutes do you engage in exercise at this level? 0 min 05/21/2023 Hunger Vital Sign Answer Date Recorded Within the past 12 months, y ou worried that your food would run out before you got the money to buy more. Never true 06/13/19 24 Within the past 12 months, t he food you bought just didn't last and you didn't have money to get more. Never true 06/13/2023 PRAPARE - Transportation Answer Date Re corded In the past 12 months, has l ack of transportation kept you from medical appointments or from getting medications? No 03/2023 In the past 12 months, has l ack of transportation kept you from meetings, work, or from getting things needed for daily living? No 06/13/2023 Housing Stability Vital Sign Answer [...] place to sleep or slept in a longterm (including now)? No 06/13/2023 Sex and Gender Information Value Date Recorded Sex Assigned at Male 08/13/2022 10:18 PM CDT Legal Sex Male 11:28 AM CDT Gender Identity Male 08/13/2022 10:18 PM CDT Sexual Orientation Straight 08/13/2022 10 :18 PM CDT documented as of this encounter Functional Status * Are you deaf or do you have serious difficulty hearing Answer Date of Assessment Author Status No 06/15/2023 3:07 PM CDT Duglas Khoury RN Active * Are you blind or do you have serious difficulty seeing, even when wearing glasses? Answer Date of Assessment Author Status No 06/15/2023 3:07 PM CDT Duglas Khoury RN Active * Do you have serious difficulty walking or climbing stairs? Answer Date of Assessment Author Status No 06/15/2023 3:07 PM CDT Duglas Khoury RN Active * Do you have difficulty dressing or bathing? Answer Date of Assessment Author Status No 06/15/2023 3:07 PM CDT Duglas Khoury RN Active * Because of a physical, mental, or emotional condition, do you have difficulty doing errands alone such as visiting a doctor's office or shopping? Answer Date of Assessment Author Status No 06/15/2023 3:07 PM CDT Duglas Khoury, RN Active documented as of this encounter Mental Status * Because of a physical, mental, or emotional condition, do you have serious difficulty concentrating, remembering, or making decisions? Answer Entry Date Author Status No 06/15/2023 3:07 PM CDT Duglas Khoury RN Active documented in this encounter Plan of Treatment Upcoming Encounters Date Type Department Care Team (Late st Contact Info) Description 06/27/2024 8:00 AM CDT Office Visit [facility] Medical Group Multispecialty Care - [facility] 3 [facility], [address] [place] [address] Fatmata Wilhelm NP 3 [facility] [address] [place] [address] documented as of this encounter Goals Goal [...] Rule Out 03/16/2024 03/16/2024 03/16/2024 1:26 PM DIRECTOR LAW ENFORCEMENT Assessment Noted Time PHQ-9 Depression Total Score: 13 024 1:09 PM CDT documented as of this encounter Care Teams Clinical Manager Relationship Specialty Start Date End Date Ani Ellsworth NP [address] [place] [address] PCP - General NURSE PRACTITIONER 06/13/23 documented as of this encounter
--- OUTSIDE RECORDS SUMMARY | 2024-06-17 16:01 | XMS_ITS | Encounter Summary ---
Author Organization [facility] - [facility] Address [facility] [place] [address] Care Team Providers Care Resident Athletic Trainer Name Role Phone Ani Ellsworth NP Primary Care Provider [phone] [phone] Encounter Details Date Type Department Care Team (Late st Contact Info) Description 06/24/2023 [employer] Message Enc [facility] Medical Group Multispecialty Care - [place] [address] [address] [place] [address] Prateek Calle MD [address] [facility] [address] [place], [place] [phone] [employer]co Social History Tobacco Use Types Packs/Day Years Used Date Smoking Tobacco: Former Cigarettes 2 26 0 08/24/1993 - 08/25/2019 Passive Smoke Exposure: Past Smokeless Tobacco: Never Alcohol Use Standard Drinks/Week Comments Yes 0 (1 standard drink = 0.6 oz pur e alcohol) rare [facility] Utilities Answer Date Recorded In the past 12 months has e [employer], gas, oil, or water [employer] threatened to shut off services in your [...] 05/21/2023 How often do you attend chur ch or gnosticist services? Never 05/21/2023 Do you belong to any clubs o r organizations such as restorationism groups, unions, fraternal or athletic groups, or [...] Recorded Patient Health Questionnaire-2 Score 0 06/24/2023 [facility] of Occupat ional Health - Occupational [...] place to sleep or slept in a halfway (including now)? No 06/13/2023 Sex and Gender [...] Assessment Author Status No 06/15/2023 3:07 PM REINIERT Duglas Khoury RN Active * Do you have difficulty dressing or bathing? Answer Date of Assessment Author Status No 06/15/2023 3:07 PM REINIERT Duglas Khoury RN Active * Because of [...] Description 06/27/2024 8:00 AM CDT Office Visit [facility] Medical Group Multispecialty Care - [facility] 3 [facility], [address] [place] [address] Fatmata Wilhelm NP 3 [facility] [address] [place] [address] documented as of this encounter Goals Goal [...] Rule Out 03/16/2024 03/16/2024 03/16/2024 1:26 PM PROPERTY MANAGEMENT INTERN Assessment Noted Time PHQ-9 Depression Total Score: 13 2 024 1:09 PM CDT documented as of this encounter Care Teams Resident Athletic Trainer Relationship Specialty Start Date End Date Ani Ellsworth NP [address] [place] [address] PCP - General NURSE PRACTITIONER 06/13/23 documented as of this encounter
--- OUTSIDE RECORDS SUMMARY | 2024-06-17 16:01 | XMS_ITS | Encounter Summary ---
Author Organization [facility] - [facility] Address [facility] [place] [address] Care Team Providers Care Pellet Machine Operator Name Role Phone Ani Ellsworth NP Primary Care Provider [phone] Encounter Details Date Type Department Care Team (Late st Contact Info) Description 01/27/2024 Opez Message Enc [facility] Medical Group Family Medicine [address] [address] [place], [facility] Provider Endo Referral Social History Tobacco Use Types Packs/Day Years [...] from your doctor or pharmacy? Never 10/03/2023 [facility] Utilities Answer Date Recorded In the past 12 months has [facility] [employer], gas, oil, or water [email or web address] threatened to shut off services in your home? No 01/06/2024 Humiliation, Afraid, Rape, and Kick questionnair e Answer Date Recorded Within the last year, have y ou been afraid of your partner or ex-partner? No 01/06/2024 Within the last year, have y ou been humiliated or emotionally abused in other ways by your partner or ex-partner? No Within the last year, have y ou been kicked, hit, slapped, or otherwise physically hurt by your partner or ex-partner? No 01/06/2024 Within the last year, have y ou been raped or forced to have any kind of sexual activity by your partner or ex-partner? No 01/06/2024 Social Connection and Isolation Panel [NHANES] A nswer Date Recorded In a typical week, how many times do you talk on the phone with family, friends, or neighbors? Once a week 01/06/2024 How often do you get together with friends or re latives? Never 01/06/2024 How often do you attend buddhist or congregational serv ices? Never 01/06/2024 Do you belong to any clubs o r organizations such as buddhist groups, unions, fraternal or athletic groups, or [...] housing, medical care, and heating? Somewhat hard 01/06/2024 PHQ-2 Answer Date Recorded Patient Health Questionnaire-2 Score 1 01/31/2024 [facility] [place] of Occupat ional Health - Occupational Stress [...] the money to buy more. Never true 01/06/20 24 Within the past 12 months, t he food you bought just didn't last and you didn't have money to get more. Never true 01/06/2024 PRAPARE - Transportation Answer Date Re corded In the past 12 months, has l ack of transportation kept you from medical appointments or from getting medications? No 12/13 In the past 12 months, has l ack of transportation kept you from meetings, work, or from getting things needed for daily living? No 01/06/2024 Housing Stability Vital Sign Answer Ciro e [...] place to sleep or slept in a jail (including now)? No 06/13/2023 Housing Stability Vital Sign Answer Ciro e Recorded In the last 12 months, was t here a time when you were not able to pay the mortgage or rent on time? No 01/06/2024 In the past 12 months, how m any times have you moved where you were living? 0 01/06/2024 At any time in the past 12 m [facility], were you homeless or living in a jail (including now)? No 01/06/2024 Sex and Gender Information Value Date Recorded Sex Assigned at Male 08/13/2022 10:18 PM CDT Legal Sex Male 11:28 AM CDT Gender Identity Male 08/13/2022 10:18 PM CDT Sexual Orientation Straight 08/13/2022 10 :18 PM CDT documented as of this encounter Functional Status * Are you deaf or do you have serious difficulty hearing Answer Date of Assessment Author Status No 01/06/2024 7:13 PM CDT Sadaf Huang R N Active * Are you blind or do you have serious difficulty seeing, even when wearing glasses? Answer Date of Assessment Author Status No 01/06/2024 7:13 PM CDT Sadaf Huang R N Active * Do you have serious difficulty walking or climbing stairs? Answer Date of Assessment Author Status No 01/06/2024 7:13 PM CDT Sadaf Huang R N Active * Do you have difficulty dressing or bathing? Answer Date of Assessment Author Status No 01/06/2024 7:13 PM CDT Sadaf Huang R N Active * Because of a physical, mental, or emotional condition, do you have difficulty doing errands alone such as visiting a doctor's office or shopping? Answer Date of Assessment Author Status No 01/06/2024 7:13 PM CDT Sadaf Huang R N Active documented as of this encounter Mental Status * Because of a physical, mental, or emotional condition, do you have serious difficulty concentrating, remembering, or making decisions? Answer Entry Date Author Status No 01/06/2024 7:13 PM CDT Sadaf Huang R N Active documented in this encounter Plan of Treatment Upcoming Encounters Date Type Department Care Team (Late st Contact Info) Description 06/27/2024 8:00 AM CDT Office Visit [facility] Medical Group Multispecialty Care - [facility] [address] [facility], [address] [place] [phone] Fatmata Wilhelm NP 3 [facility] [address] [place] [phone] documented as of this encounter Goals Goal [...] Rule Out 03/16/2024 03/16/2024 03/16/2024 1:26 PM UNDERWRITING SPECIALIST Assessment Noted Time PHQ-9 Depression Total Score: 13 06/15/ 024 1:09 PM CDT documented as of this encounter Care Teams Pellet Machine Operator Relationship Specialty Start Date End Date Ani Ellsworth NP [address] [place] [address] PCP - General NURSE PRACTITIONER 06/13/23 documented as of this encounter
--- OUTSIDE RECORDS SUMMARY | 2024-06-17 16:01 | XMS_ITS | Encounter Summary ---
Author Organization [facility] - [facility] Address [facility] [place] [address] Care Team Providers Care All Source Intelligence Name Role Phone Ani Ellsworth NP Primary Care Provider [phone] Encounter Details Date Type Department Care Team (Late st Contact Info) Description 11/17/2023 REAL SAMURAI Message Enc [facility] Medical Group Multispecialty Care - [address], [address] [place] [phone] [place], [facility] Provider Reschedule Social History Tobacco Use Types Packs/Day Years [...] from your doctor or pharmacy? Never 10/03/2023 [facility] Utilities Answer Date Recorded In [...] How often do you attend chur or jehovah's witness services? Never 10/03/2023 Do you belong to any clubs o r organizations such as baptist groups, unions, fraternal or athletic groups, or [...] Recorded Patient Health Questionnaire-2 Score 0 10/03/2023 [facility] [place] of Occupat ional Health - Occupational Stress [...] place to sleep or slept in a half-way (including now)? No 06/13/2023 Housing Stability Vital Sign Answer Ciro e Recorded In the last 12 months, was t here a time when you were not able to pay the mortgage or rent on time? No 10/03/2023 In the past 12 months, how m any times have you moved where you were living? 1 10/03/2023 At any time in the past 12 m [facility], were you homeless or living in a half-way (including now)? No 10/03/2023 Sex and Gender [...] Description 06/27/2024 8:00 AM CDT Office Visit [facility] Medical Group Multispecialty Care - [facility] 3 [facility], [address] [place] [phone] Fatmata Wilhelm NP 3 [facility] [address] [place] [address] documented as of this encounter Goals Goal [...] Rule Out 03/16/2024 03/16/2024 03/16/2024 1:26 PM SPECIAL POLICE Assessment Noted Time PHQ-9 Depression Total Score: 13 024 1:09 PM CDT documented as of this encounter Care Teams All Source Intelligence Relationship Specialty Start Date End Date Ani Ellsworth NP [address] [place] [phone] PCP - General NURSE PRACTITIONER 06/13/23 documented as of this encounter
--- OUTSIDE RECORDS SUMMARY | 2024-06-17 16:01 | XMS_ITS | Encounter Summary ---
Author Organization [facility] Address [facility] [place] [address] Care Team Providers Care Blow Down Helper Name Role Phone Ani Ellsworth NP Primary Care Provider [phone] Encounter Details Date Type Department Care Team (Late st Contact Info) Description 02/24/2024 Fracture Message Enc [facility] Medical Group Family Medicine - [place] [address] [place] [phone] Michelle Cook MD [address] [place] [address] Pain Social History Tobacco Use Types Packs/Day Years [...] from your doctor or pharmacy? Never 10/03/2023 [facility] Utilities Answer Date Recorded In the past 12 months has [employer], gas, oil, or water company threatened to [...] Never 01/06/2024 How often do you attend sabianist or holiness serv ices? Never 01/06/2024 Do you belong to any clubs o r organizations such as sabianist groups, unions, fraternal or athletic groups, or [...] Recorded Patient Health Questionnaire-2 Score 1 01/31/2024 [facility] [place] of Occupat ional Health - Occupational Stress [...] place to sleep or slept in a long-term (including now)? No 06/13/2023 Housing Stability Vital Sign Answer Ciro e Recorded In the last 12 months, was t here a time when you were not able to pay the mortgage or rent on time? No 01/06/2024 In the past 12 months, how m any times have you moved where you were living? 0 01/06/2024 At any time in the past 12 m [facility], were you homeless or living in a long-term (including now)? No 01/06/2024 Sex and Gender [...] Author Status No 01/06/2024 7:13 PM CDT Reina, Sadaf I, R N Active * Are you blind or do you have serious difficulty seeing, even when wearing glasses? Answer Date of Assessment Author Status No 01/06/2024 7:13 PM CDuS Reina Sadaf Owens R N Active * Do you have serious difficulty walking or climbing stairs? Answer Date of Assessment Author Status No 01/06/2024 7:13 PM CDT Reina Sadaf Owens R N Active * Do you have difficulty dressing or bathing? Answer Date of Assessment Author Status No 01/06/2024 7:13 PM CDT Reina Sadaf Owens R N Active * Because of a physical, mental, or emotional condition, do you have difficulty doing errands alone such as visiting a doctor's office or shopping? Answer Date of Assessment Author Status No 01/06/2024 7:13 PM CDT Marce Huangjulia Owens R N Active documented as of this encounter Mental Status * Because of a physical, mental, or emotional condition, do you have serious difficulty concentrating, remembering, or making decisions? Answer Entry Date Author Status No 01/06/2024 7:13 PM ROSIE Reina Sadaf Owens R N Active documented in this encounter Progress Notes * Ani Ellsworth NP - 02/27/2024 5:34 PM CST I cannot provide pt pain medication for his abdominal pain. He will need to discuss with GI. If hispain is bad enough from an infection in his tooth then he needs to go to the ER. ZEL TWISTER documented in this encounter Plan of Treatment Upcoming Encounters Date Type Department Care Team (Late st Contact Info) Description 06/27/2024 8:00 AM CDT Office Visit [facility] Medical Group Multispecialty Care - [facility] 3 [facility] [address] [place] [phone] Fatmata Wilhelm NP 3 [facility] [address] [place] [address] documented as of this encounter Goals Goal [...] Rule Out 03/16/2024 03/16/2024 03/16/2024 1:26 PM PRETZEL TWISTER Assessment Noted Time PHQ-9 Depression Total Score: 13 024 1:09 PM CDT documented as of this encounter Care Teams Blow Down Helper Relationship Specialty Start Date End Date Ani Ellsworth NP [facility] [place] [address] PCP - General NURSE PRACTITIONER 06/13/23 documented as of this encounter
--- OUTSIDE RECORDS SUMMARY | 2024-06-17 16:01 | XMS_ITS | Data Portability ---
Author Organization [facility], Main Office Address [address] [place] [address] Care Team Providers Care Tai Chi Instructor Name Role Phone STAN COOPER Primary Care Provider Assessment Encounter Date Assessment Date Assessment LastModified by Organization Details LastModified Time 12/23/2022 12/23/2022 42 yo M with - ABDOMINAL PAIN - PROBABLY PANCREATITIS - DDD L-SPINE - CHROINC LOW BACK PAIN - SCOLIOSIS - PRE-DM - HTG - HLD - GERD, improved - PERSISTENT DIZZINESS, resolved - DEPRESSION - ANXIETY DISORDER - CHRONIC INSOMNIA - DENTAL CARRIES - FATIGUE - UNDESCENDED TESTICLES (Congenital) - OVERWEIGHT - EX-SMOKER (Quitted since 07/01) - H/O ELEVATED LFTs HbA1c: 6.1(06/07/22) CXR: 06/07/22. Annual labs: 05/26/22. X-ray L-spine: 05/20/22. CTA chest: 08/18/20. CXR: 08/18/20. X-ray L-spine: 07/24/20. 2-D echo: 07/21/20. US carotids: 01/25/20. US Abdo: 12/27/19. Hepatitis panel & T-level: 12/19/19. CXR: 12/14/19. Annual labs: 12/06/19. D/w pt in detail about his findings, recent labs & imagines and further plan of care. Explained about differential diagnosis for him. Pt declined to go to ED at this time. Advised pt to f/u with his Surgeon. Will refer pt to Pain clinic again. Answered all questions for pt. Meds as directed. Very good liquid intake explained. Advised to talk with his close friend on a regular basis. Educated pt about alarming symptoms to monitor at home and call us back or get checked in ED. Pt verbalized understanding it. Diet and exercise explained in detail. Encouraged pt cont not to smoke. F/u with Pain clinic as per schedule. F/u with Counsellor as per schedule. F/u with Psych as per schedule. F/u with GI as per schedule. Cont f/u with Uro at [facility] as per schedule. Cont f/u with ENT as per schedule. Cont f/u with Neuro at [facility] as per schedule. Cont f/u with Cardio at [facility] as per schedule. Cont f/u with Dentist as per schedule. Pt has done PT in the past. Pt got s/e from Citalopram, Sertraline, Buspirone. HM: Flu - Pt declined. Tdap, Hep B - At HD. F/u in 1-1.5 months. Lipids, A1c, T-level before next visit. Annual labs in 06/04. [email or web address] Not available 12/23/2022 16:59:08 01/24/2023 01/24/2023 42 yo M with - PRE-DM, improved - HTG - HLD - GERD, improved - PERSISTENT DIZZINESS, resolved - DEPRESSION - ANXIETY DISORDER - CHRONIC INSOMNIA - DDD L-SPINE - CHROINC LOW BACK PAIN - SCOLIOSIS - DENTAL CARRIES - FATIGUE - UNDESCENDED TESTICLES (Congenital) - OVERWEIGHT - EX-SMOKER (Quitted since 07/01) - H/O ELEVATED LFTs HbA1c: 6.1(06/07/22) - 5.8(12/29/22) CXR: 06/07/22. Annual labs: 05/26/22. X-ray L-spine: 05/20/22. CTA chest: 08/18/20. CXR: 08/18/20. X-ray L-spine: 07/24/20. 2-D echo: 07/21/20. US carotids: 01/25/20. US Abdo: 12/27/19. Hepatitis panel & T-level: 12/19/19. CXR: 12/14/19. Annual labs: 12/06/19. D/w pt in detail about his findings, recent labs & imagines and further plan of care. Advised pt to f/u with his Surgeon. Will refer pt to Pain clinic again. Answered all questions for pt. Meds as directed. Very good liquid intake explained. Advised to talk with his close friend on a regular basis. Educated pt about alarming symptoms to monitor at home and call us back or get checked in ED. Pt verbalized understanding it. Diet and exercise explained in detail. Encouraged pt cont not to smoke. F/u with Pain clinic as per schedule. F/u with Counsellor as per schedule. F/u with Psych as per schedule. F/u with GI as per schedule. Cont f/u with Uro at [facility] as per schedule. Cont f/u with ENT as per schedule. Cont f/u with Neuro at [facility] as per schedule. Cont f/u with Cardio at [facility] as per schedule. Cont f/u with Dentist as per schedule. Pt has done PT in the past. Pt got s/e from Citalopram, Sertraline, Buspirone. HM: Flu - Pt declined. Tdap, Hep B - At HD. F/u in 1-2 months. T-level before next visit. Annual labs in 06/04. [email or web address] Not available 01/24/2023 12:18:50 02/21/2023 02/21/2023 42 yo M with - PRE-DM, improved - HTG - HLD - GERD, improved - DEPRESSION - ANXIETY DISORDER - CHRONIC INSOMNIA - DDD L-SPINE - CHROINC LOW BACK PAIN - SCOLIOSIS - DENTAL CARRIES - FATIGUE - UNDESCENDED TESTICLES (Congenital) - OVERWEIGHT - EX-SMOKER (Quitted since 07/01) - H/O ELEVATED LFTs - H/O PERSISTENT DIZZINESS HbA1c: 6.1(06/07/22) - 5.8(12/29/22) CXR: 06/07/22. Annual labs: 05/26/22. X-ray L-spine: 05/20/22. CTA chest: 08/18/20. CXR: 08/18/20. X-ray L-spine: 07/24/20. 2-D echo: 07/21/20. US carotids: 01/25/20. US Abdo: 12/27/19. Hepatitis panel & T-level: 12/19/19. CXR: 12/14/19. Annual labs: 12/06/19. D/w pt in detail about his findings, recent labs & imagines and further plan of care. Advised pt to f/u with his Surgeon. Answered all questions for pt. Meds as directed. Very good liquid intake explained. Advised to talk with his close friend on a regular basis. Educated pt about alarming symptoms to monitor at home and call us back or get checked in ED. Pt verbalized understanding it. Diet and exercise explained in detail. Encouraged pt cont not to smoke. F/u with Pain clinic as per schedule. F/u with Counsellor as per schedule. F/u with Psych as per schedule. F/u with GI as per schedule. Cont f/u with Uro at [facility] as per schedule. Cont f/u with ENT as per schedule. Cont f/u with Neuro at [facility] as per schedule. Cont f/u with Cardio at [facility] as per schedule. Cont f/u with Dentist as per schedule. Pt has done PT in the past. Pt got s/e from Citalopram, Sertraline, Buspirone. HM: Flu - Pt declined. Tdap, Hep B - At HD. F/u in 3 months. T-level before next visit. Annual labs in 06/04. [email or web address] Not available 02/21/2023 13:08:44 Plan of Treatment Reminders Order Date Submit Date Provider Last Modified By Organization Details Last Modified Time Details Appointments None recorded. Lab glycohemogl obin, total, blood 2022 023 [facility] (Lab), [address] [place], [address], 3 16:24:24 lipid panel, serum 2022 023 [facility] (Lab), [address] [place], [address], 3 14:32:10 testosteron e, free + total, serum [email or web address] (Lab), [address] [place], [address], 09:27:46 Referral pain management referral 2022 023 [email or web address] 3 [facility], [address], [place], [address], 3 08:32:37 Procedures None recorded. Surgeries None recorded. Imaging None recorded. Medication Orders amoxicillin 500 mg capsule 2023 024 [facility] [id number], [address], 4 12:21:07 famotidine 20 mg tablet 2022 023 [email or web address] [address], [address], 4 11:48:43 rosuvastati n 5 mg tablet 2022 023 [email or web address] [address], [address], 4 11:49:37 famotidine 20 mg tablet 2022 023 [email or web address] [address], [address], 4 11:48:43 rosuvastati n 5 mg tablet 2022 023 [email or web address] [address], [address], 4 11:49:37 ondansetron 4 mg disintegrat ing tablet 2022 023 [email or web address] [address], [address], 4 11:49:28 famotidine 20 mg tablet 2022 023 [email or web address] [address], [address], 4 11:48:43 Patient TargetsNo targets recorded. Patient InstructionsNo instructions recorded. Reason for Referral Pain Management Referral for Chronic low back pain Referring Physician: [facility], Encounter Date: 12/23/2022 Results Created Date Observation Date Name Description Value Unit Range Abnormal Flag Note LastModifiedBy Organization Detail LastModifiedTime 12/30/1912/29/2022 TEST NOT PERFO RMED test not performed COMMEN T sampl e was qns for testi ng Conta cted B Cooper Offic e 12/29 1240 jf Not Available [facility] (Lab) [address] [place], [address], 12/29/2022 13:41:11 12/30/1912/29/2022 LIPID PANEL cholesterol 204 mg/dL 140-19 9 high NIH ANIBAL NSUS RECOM MENDA TION FOR MICHOACANO STERO L: ADULT CHILD LOW RISK: <200 <170 BORDE RLINE : <200- 239 ----- HIGH RISK: >240 >200 Not Available [facility] (Lab) [address] [place], [address], 12/29/2022 14:32:10 12/30/1912/29/2022 LIPID PANEL triglyceride s 215 mg/dL 0-150 high NIH ANIBAL NSUS REPOR T RECOM MENDA TION FOR TRIGL YCERI FAB: ADULT CHILD LOW RISK: <150 ----- BODER LINE: 150-1 99 ----- HIGH RISK: >200 ----- Not Available [facility] (Lab) [address] [place], [address], 12/29/2022 14:32:10 12/30/1912/29/2022 LIPID PANEL HDL cholesterol 32 mg/dL 40- low Not Available [facility] (Lab) [address] [place], [address], 12/29/2022 14:32:10 12/30/1912/29/2022 LIPID PANEL LDL cholesterol, calculated 129 mg/dL 0-130 NIH ANIBAL NSUS REPOR T RECOM MENDA TIONS FOR LDL: ADULT CHILD LOW RISK <130 <110 (OPTI MAL LDL) <100 ----- BORDE RLINE : 130-1 59 ----- HIGH RISK: >160 >130 A TRIGL YCERI DE RESUL T >400 INVAL IDATE S THE CALCU LATIO N FOR LDL FRACT IONAT ION - THE LDL RESUL T WILL NOT BE REPOR CELIO. Not Available [facility] (Lab) [address] [place], [address], 12/29/2022 14:32:10 12/30/19 23 12/29/2022 HEMOG LOBIN A1C HA1C 5.8 % 4.0-6. 0 Diabe danny Scree bertha Crite klaudia: <5.7% Consi stent with absen ce of diabe danny 5.7-6 .4% Consi stent with incre ased risk for diabe danny (pred iabet es) >OR=6 .5% Consi stent with diabe danny REFER ENCE: Diabe danny Care 2016, 39(Campbell ppl.1 ):s13 -s22 Not Available [facility] (Lab) [address] [place], [address], 12/29/2022 16:24:24 01/06/20 23 01/05/2023 XR, chest , 2 view No observ ation record ed. [email or web address] [address], [place], [address], 01/24/2023 11:55:30 Result Notes None recorded. Problems Name Problem SNOMED Code Status Onset Date Resolution Date Notes Provider Name and Address Organization Details Recorded Time Eruption 189169768 Active 2022 Stan Cooper MD [address], [facility] [address], [place], [address] , [facility] [employer] 12:51:37 Allergic contact dermatitis 829352300 Active 2022 Stan Cooper MD [address], [facility] [address], [place], [address] , [place] [facility] 3 12:51:52 Folliculit is 12835894 Active 2022 Stan Cooper MD [address], [place], [address] , [place] [facility] 3 09:45:24 Right upper quadrant pain 223066697 Active 2022 Stan Cooper MD [address], [place], [address] , [place] [facility] 3 09:47:11 Prediabete s 557803524 Active 2022 Stan Cooper MD [address], [place], [address] , [facility] 3 12:33:51 Recurrent pancreatit is 710236289 Active 2022 Stan Cooper MD [address], [place], [address] , [facility] 3 11:42:03 Alcohol abuse 88418785 Active 2022 Stan Cooper MD [address], [place], [address] , [facility] 3 11:42:17 Cellulitis of skin 253124357 Active 2022 Stan Cooper MD [address], [place], [address] , [facility] 3 12:02:31 Chronic idiopathic constipati on 20123340 Active 2022 Stan Cooper MD [address], [place], [address] , [facility] 3 12:16:32 Epigastric pain 03096329 Active 2022 Stan Cooper MD [address], [place], [address] , [facility] [employer] [facility] 3 16:29:55 Pancreatit is 17003453 Active 2022 Stan Cooper MD [address] [facility] [address], [place], [address] , [facility] [employer] [facility] [employer] [facility] 3 16:30:50 Nausea 065980365 Active 2022 Stan Cooper MD [address] [facility], [address] [address], [place], [address] , [employer] [facility] [employer] [facility] 3 16:30:57 Infection of tooth 548395849 Active 2023 MARYSE Lieberman [address] [facility], [address] [address], [place], [address] , [facility] [employer] [facility] [employer] [facility] 4 12:16:24 Atypical chest pain 328455256 Active 2020 Not Available [facility] 3 04:46:54 Anxiety disorder 032121508 Active 2019 Not Available [facility] 3 04:46:54 Undescende d testicle 928852434 Active 2020 Not Available [facility] 3 04:46:55 Absent testes 080420797 Completed 201904/14/2020 Not Available [facility] 3 04:46:55 Overweight 668319732 Active 2019 Not Available [facility] 3 04:46:55 Degenerati on of lumbar interverte bral disc 35447681 Active 2020 Not Available [facility] 3 04:46:55 Gastro-eso phageal reflux disease with esophagiti s 286205633 Active 2020 Not Available [employer] 3 04:46:55 Sore throat 412534599 Active 2021 Not Available [employer] 3 04:46:55 Toothache 85466673 Active 2021 Not Available [facility] 3 04:46:55 Chronic low back pain 596937448 Active 2020 Not Available [facility] 3 04:46:55 Hypertrigl yceridemia 959628606 Active 2019 Not Available [facility] 3 04:46:55 Depressive disorder 95384038 Active 2019 Not Available [facility] 3 04:46:55 Dizziness of unknown cause 754272631 Active 2019 Not Available [facility] 3 04:46:55 Gastritis 2089559 Active 2020 Not Available [facility] 3 04:46:55 Anxiety 54876282 Completed 201912/19/2019 Not Available [facility] 3 04:46:56 Hyperlipid emia 84454156 Active 2019 Not Available [facility] 3 04:46:56 Liver enzymes level above reference range 180022393 Active 2019 Not Available [facility] 3 04:46:56 Chronic insomnia 161070016 Active 2019 Not Available [facility] 3 04:46:56 Dental caries 08469443 Active 2021 Not Available [facility] 3 04:46:56 Neck pain 06176392 Active 2021 Not Available [facility] 3 04:46:56 Fatigue 91333585 Active 2019 Not Available [facility] 3 04:46:56 Ex-smoker 8572443 Active 2019 Not Available [facility] 3 04:46:56 Paresthesi a 26964613 Active 2019 Not Available [facility] 3 04:46:56 Problem Notes None recorded. Procedures Surgical History None recorded. Imaging Results Imaging Date Name Status LastModified by Organiz ation Details LastModified Time 01/05/2023 XR, chest, 2 view completed [email or web address] [address], [place], [address], 01/24/2023 11:55:30 Procedure Notes None recorded. Medical Equipment None Reported. Allergies Allergen ID Allergen Name Allergen Category Reaction Reaction Severity Criticality Documentation Date Start Date Code Code System Note Provider Name and Address Organization Details Recorded Time 7024 citalopra m medicatio n other severe Not available 05/12/2022 2556 RxNorm Pares thesi a of whole body CHIOMA Johnson, [facility] 4 11:47:39 7025 cephalexi n medicatio n nausea severe Not available 05/12/2022 2231 RxNorm CHIOMA Johnson, [facility] 4 11:47:47 7026 aspirin medicatio n Not available Not available Not available 05/12/2022 1191 RxNorm Not Available [facility] 3 04:53:59 Medications Name Sig Start Date Stop Date Status Note LastModified by Organization Details LastModified Time cyclobenza rodrigue 10 mg tablet TAKE 1 TABLET BY MOUTH EVERY 12 HOURS NEEDED 06/02 completed Not Available Not Available Not Available amoxicilli n 500 mg capsule TAKE 1 CAPSULE BY MOUTH EVERY 8 HOURS FOR 7 DAYS. active Not Available Not Available No t Available buspirone 5 mg tablet TK 1 T PO Q 12 H PRN active Not Available Not Available No t Available venlafaxin e ER 75 mg capsule,ex tended release 24 hr TAKE 1 CAPSULE BY MOUTH EVERY DAY IN THE MORNING 06/02 completed Not Available Not Available Not Available doxycyclin e hyclate 100 mg capsule Take 1 capsule twice a day by oral route as directed for 7 days. 09/09 completed Not Available Not Available Not Available atorvastat in 20 mg tablet TAKE 1 TABLET BY MOUTH EVERY DAY AT BEDTIME 06/09 completed Not Available Not Available Not Available clindamyci n HCl 300 mg capsule Take 1 capsule 3 times a day by oral route as directed for 7 days. active Not Available Not Available No t Available trazodone 50 mg tablet TAKE 1 TABLET BY MOUTH EVERY DAY AT BEDTIME 06/02 completed Not Available Not Available Not Available Stool Softener 100 mg capsule TAKE 1 CAPSULE BY MOUTH TWICE DAILY NEEDED 06/02 completed Not Available Not Available Not Available citalopram 10 mg tablet active Not Available Not Available Not Available hydrocodon e 5 mg-acetami nophen 325 mg tablet TAKE 1 TABLET BY MOUTH EVERY 8 HOURS NEEDED 06/02 completed Not Available Not Available Not Available prednisone 20 mg tablet PLEASE SEE ATTACHED FOR DETAILED DIRECTIO NS active Not Available Not Available No t Available penicillin V potassium 500 mg tablet Take 1 tablet every 12 hours by oral route for 10 days. active Not Available Not Available No t Available meclizine 12.5 mg tablet active Not Available Not Available Not Available acetaminop hen 300 mg-codeine 30 mg tablet TAKE 1 TABLET BY MOUTH EVERY 3 TO 4 HOURS NEEDED FOR PAIN 06/26 completed Not Available Not Available Not Available omeprazole 40 mg capsule,de layed release Take 1 capsule every day by oral route in the morning for 30 days. 06/02 completed Take [address] Not Available Not Available Not Available tramadol 50 mg tablet 12/05 completed Not Available Not Available Not Available triamcinol one acetonide 0.1 % topical cream APPLY THIN LAYER TOPICALL Y TO THE AFFECTED AREA TWICE DAILY 06/02 completed Not Available Not Available Not Available amoxicilli n 500 mg tablet Take 1 tablet every 8 hours by oral route for 7 days. 05/12 completed Not Available Not Available Not Available meloxicam 7.5 mg tablet TAKE 1 TABLET BY MOUTH EVERY 12 HOURS NEEDED 06/02 completed Not Available Not Available Not Available oxycodone- acetaminop hen 5 mg-325 mg tablet TAKE 1 TABLET BY MOUTH EVERY 6 HOURS NEEDED active Not Available Not Available No t Available alprazolam 0.5 mg tablet 12/05 completed Not Available Not Available Not Available alprazolam 0.25 mg tablet TK PRN UP TO 2 TS D active Not Available Not Available No t Available famotidine 20 mg tablet Take 1 tablet twice a day by oral route as directed for 30 days. 06/02 completed Not Available Not Available Not Available lorazepam 0.5 mg tablet TK 1 T PO Q 6 H PRN ANXIETY active Not Available Not Available No t Available temazepam 15 mg capsule 12/05 completed Not Available Not Available Not Available meclizine 25 mg tablet TAKE 1 TABLET BY MOUTH EVERY 8 HOURS NEEDED 06/09 completed Not Available Not Available Not Available cephalexin 500 mg capsule Take 1 capsule 3 times a day by oral route for 7 days. active Not Available Not Available No t Available pantoprazo le 40 mg tablet,del ayed release TAKE 1 TABLET BY MOUTH EVERY DAY FOR 30 DAYS 06/02 completed Not Available Not Available Not Available erythromyc in 5 mg/gram (0.5 %) eye ointment APPLY 1 APPLICAT ION INTO RIGHT EYE EVERY 8 HOURS FOR 7 DAYS 06/02 completed Not Available Not Available Not Available triamcinol one acetonide 0.1 % topical ointment APPLY TOPICALL Y TO THE AFFECTED AREA EVERY 12 HOURS NEEDED 06/02 completed Not Available Not Available Not Available mupirocin 2 % topical ointment APPLY SMALL AMOUNT TOPICALL Y TO THE AFFECTED AREA THREE TIMES DAILY 06/02 completed Not Available Not Available Not Available gabapentin 100 mg capsule TAKE 1 CAPSULE (100 MG TOTAL) BY MOUTH THREE TIMES DAILY. active Not Available Not Available No t Available metoprolol succinate ER 25 mg tablet,ext ended release 24 hr TAKE 1 TABLET BY MOUTH EVERY DAY 06/02 completed Not Available Not Available Not Available polyethyle ne glycol 3350 17 gram/dose oral powder MIX AND TAKE 17 GRAMS BY MOUTH EVERY DAY DIRECTED 06/02 completed Not Available Not Available Not Available albuterol sulfate HFA 90 mcg/actuat ion aerosol inhaler INHALE 1 PUFF BY MOUTH FOUR TIMES DAILY active Not Available Not Available No t Available ondansetro n 4 mg disintegra ting tablet PLACE 1 TABLET BY TRANSLIN GUAL ROUTE EVERY 6 TO 8 HOURS NEEDED FOR 5 DAYS 06/02 completed Not Available Not Available Not Available sertraline 50 mg tablet TK 1 T PO QD IN THE MORNING active Not Available Not Available No t Available amoxicilli n 875 mg-potassi um clavulanat e 125 mg tablet TAKE 1 TABLET BY MOUTH EVERY 12 HOURS FOR 10 DAYS active Not Available Not Available No t Available rosuvastat in 5 mg tablet Take 1 tablet every day by oral route at bedtime for 90 days. 06/02 completed Not Available Not Available Not Available lactulose 10 gram/15 mL oral solution TAKE 30 ML (20 GM) BY MOUTH ONCE DAILY NEEDED FOR CONSTIPA TION 06/02 completed Not Available Not Available Not Available fenofibrat e 160 mg tablet Take 1 tablet every day by oral route in the morning for 90 days. 06/09 completed Not Available Not Available Not Available fenofibrat e 54 mg tablet TAKE 1 TABLET BY MOUTH EVERY DAY IN THE MORNING 06/09 completed Not Available Not Available Not Available naloxone 4 mg/actuati on nasal spray PLEASE SEE ATTACHED FOR DETAILED DIRECTIO NS 06/02 completed Not Available Not Available Not Available Vitals Date Recorded Body height Body mass index (BMI) Body weight Body temperature Heart rate Respiratory rate Heart rate Oxygen saturation Oxygen saturation in Arterial blood by Pulse oximetry Systolic blood pressure Diastolic blood pressure Provider Name and Address Organization Details Last Updated DateTime 3 195.58 cm 26.7 kg/m2 688473. 98 g 98.1 [degF] 62 /min 16 /min 68 /min 99 % 99 % 120 mm[Hg] 82 mm[Hg] Jaylon Samuels [employer] [facility] [employer] [facility] 3 16:25:29 Date Recorded Body height Provider Name an d Address Organization Details Last Updated DateTime 12/29/2022 195.58 cm Jaylon Samuels [place] [employer] [facility] 01/06/2023 08:46:53 Date Recorded Body height Body mass index (BMI) Body weight Body temperature Heart rate Heart rate Respiratory rate Oxygen saturation Oxygen saturation in Arterial blood by Pulse oximetry Systolic blood pressure Diastolic blood pressure Provider Name and Address Organization Details Last Updated DateTime 3 195.58 cm 26.7 kg/m2 345418. 63 g 98.1 [degF] 70 /min 60 /min 16 /min 99 % 99 % 126 mm[Hg] 78 mm[Hg] Jaylon Samuels [employer] [facility] [employer] [facility] 3 11:50:30 Date Recorded Body height Body mass index (BMI) Body weight Body temperature Heart rate Respiratory rate Oxygen saturation Oxygen saturation in Arterial blood by Pulse oximetry Systolic blood pressure Diastolic blood pressure Provider Name and Address Organization Details Last Updated DateTime 3 195.58 cm 27.7 kg/m2 388140. 82 g 97.3 [degF] 65 /min 20 /min 98 % 98 % 122 mm[Hg] 72 mm[Hg] Jaylon Samuels [employer] [facility] [employer] [facility] 3 12:06:04 Date Recorded Body height Body mass index (BMI) Body weight Body temperature Heart rate Respiratory rate Oxygen saturation Oxygen saturation in Arterial blood by Pulse oximetry Pain severity - 0-10 verbal numeric rating [Score] - Reported Systolic blood pressure Diastolic blood pressure Provider Name and Address Organization Details Last Updated DateTime 4 195.58 cm 27.6 kg/m2 703894. 58 g 97.9 [degF] 74 /min 24 /min 97 % 97 % 9 170 mm[Hg] 110 mm[Hg] Estrella Chacko RN [place] [facility] [employer] 4 11:52:38 Social History Question Answer Notes LastModified by Organizat ion Details LastModified Time Tobacco Smoking Status Former Smoker Quit 08/2019 Not Available [employer] 05/12/2022 04:35:24 Do You Have An Advance Directive? No [id number] Information not available 05/12/2022 What Is Your Level Of Alcohol Consumption? Occasional [id number] Information not available 05/12/2022 Do You Wear A Helmet When Biking? No MIGRATION.27514 [id number] Information not available 05/12/2022 In The 14 Days Before Symptom Onset, Have You Had Close Contact With A Laboratory-confi rmed COVID-19 While That Case Was Ill? No MIGRATION.22597 32883 Information not available 05/12/2022 In The 14 Days Before Symptom Onset, Have You Had Close Contact With A Person Who Is Under Investigation For COVID-19 While That Person Was Ill? No MIGRATION.12260 60584 Information not available 05/12/2022 What Type Of Diet Are You Following? REGULAR TRYING TO STAY AWAY FROM NO FRIED FOODS NO DARK SODAS NO SWEETS MIGRATION.96455 03032 Information not available 05/12/2022 What Is The Highest Grade Or Level Of School You Have Completed Or The Highest Degree You Have Received? [id number] MIGRATION.45527 31447 Information not available 05/12/2022 Have There Been Any Changes To Your Family Or Social Situation? No MIGRATION.29723 67796 Information not available 05/12/2022 Do You Use Insect Repellent Routinely? No MIGRATION.43340 55075 Information not available 05/12/2022 Where Do You Live? [place]LevelHouse MIGRATION.56879 45283 Information not available 05/12/2022 Do You Have A Medical Power Of [employer]? No MIGRATION.05744 11543 Information not available 05/12/2022 Have You Ever Been Counseled For Unhealthy Alcohol Use? No MIGRATION.77257 17230 Information not available 05/12/2022 Do You Have Any Pets? No MIGRATION.97463 39705 Information not available 05/12/2022 What Is Your Relationship Status? Single MIGRATION.57075 76654 Information not available 05/12/2022 Do You Use Your Seat Belt Or Car Seat Routinely? Yes MIGRATION.08564 09322 Information not available 05/12/2022 Do You Have Smoke And Carbon Monoxide Detectors In Your Home? Yes MIGRATION.29021 47647 Information not available 05/12/2022 Are You Passively Exposed To Smoke? No MIGRATION.52848 26749 Information not available 05/12/2022 Are There Any Smokers In Your House? No MIGRATION.91099 92641 Information not available 05/12/2022 Do You Participate In Social [employer]? No MIGRATION.41803 48870 Information not available 05/12/2022 Do You Feel Stressed (tense, Restless, Nervous, Or Anxious, Or Unable To Sleep At Night)? [id number] CANT SLEEP AT NIGHT MIGRATION.60256 46685 Information not available 05/12/2022 Do You Use Any Illicit Or Recreational Drugs? No MIGRATION.62157 13897 Information not available 05/12/2022 Do You Use Sunscreen Routinely? No MIGRATION.78740 44697 Information not available 05/12/2022 Has Tobacco Cessation Counseling Been Provided? No MIGRATION.42967 38258 Information not available 05/12/2022 Have You Recently Traveled Abroad? No MIGRATION.11125 19035 Information not available 05/12/2022 Are You Currently In School? No MIGRATION.52264 81419 Information not available 05/12/2022 Do You Have Any Dietary Restrictions? No MIGRATION.43215 89911 Information not available 05/12/2022 Do You Or Have You Ever Used Any Other Forms Of Tobacco Or Nicotine? No MIGRATION.95424 38294 Information not available 05/12/2022 Sex: Male Functional Status Question Answer Note LastModified by Organizat ion Details LastModified Time What is your exercise level? Occasional MIGRATION.[id number] 26 Information not available 05/12/2022 Mental Status None recorded. Family History Relationship Description Onset Age of this Age Resolved Age Notes LastModified by Organization Details LastModified Time Father No current problems or disability MIGRATION.[id number] Not available 05/12/2022 04:42:10 Mother No current problems or disability MIGRATION.720 [id number] Not available 05/12/2022 04:42:10 Medical History Condition Response BLINDNESS N RHEUMATIC FEVER N KIDNEY STONES N BLADDER PROBLEMS N MRSA N OTHER # 1 N POLIO N LUNG DISEASE/DISORDER N RADIATION / CHEMOTHERAPY N COPD N Other # 2 N BLOOD DISEASES N SURGERY N EAR OR HEARING PROBLEMS N MUMPS N FEMALE PROBLEMS / INFECTIONS N BOWEL PROBLEMS N DEPRESSION (INCLUDING POST ) N STROKE/TIA N THYROID DISEASE N ULCERS N BENIGN PROSTATIC HYPERPLASIA N MEASLES N CERVICALGIA N TB SKIN TEST N MYOCARDIAL INFARCTION N PARAPELGIA N OBESITY N GERD/NAUSEA N ANEURYSM N URINARY/BLADDER/KIDNEY PROBLEMS N CORONARY ARTERY DISEASE (CAD) N MENIERE'S DISEASE N ADDICTION CONCERNS Y ENDOMETRIOSIS N USE OF BLOOD THINNERS N SKIN PROBLEMS N EMPHYSEMA N GASTROINTESTINAL DISORDER N MUSCLE,JOINT OR BONE PROBLEMS N GASTROINTESTINAL BLEEDING N BLOOD CLOTS N ASTHMA N CATARACTS N Abdominal Pain Y ERECTILE DYSFUNCTION N GI PROBLEMS N CHF N Low Testosterone N NEUROPATHY N INFERTILITY N AIDS/HIV N FRACTURES N CHEMOTHERAPY / RADIATION N VISION/EYE PROBLEMS N LIVER DISEASE N MALE HYPOGONADISM N HYPERTENSION Y ANXIETY DISORDER Y BLOOD TRANSFUSION N ANEMIA/BLOOD DISORDER N CHRONIC EAR INFECTIONS N BRONCHITIS N TUBERCULOSIS N GLAUCOMA N FOOT PROBLEM N DIVERTICULITIS N SLEEP APNEA N CHICKENPOX N ALLERGIES/HAYFEVER N INFECTIOUS DISEASE N PROSTATE N HEART ARRHYTHMIA N INSOMNIA Y HIGH CHOLESTEROL / HYPERLIPIDEMIA N EYE PROBLEMS N HYPERTHYROIDISM N EATING DISORDER N NEUROLOGICAL PROBLEMS N EDEMA N CHRONIC PAIN SYNDROME N HYPOTHYROIDISM N CONSTIPATION N CAROTID BLOCKAGE N BACK / NECK PROBLEMS N HAVE YOU BEEN HOSPITALIZED OR SEEN IN [facility] IN THE PAST YEAR ? Y ATHEROSCLEROSIS N BREAST PROBLEMS N DIALYSIS N ECZEMA N FIBROMYALGIA N OSTEOPOROSIS N ARTHRITIS N NO SIGNIFICANT PAST MEDICAL HISTORY N APPENDICITIS N DIABETES, TYPE N BAD TEETH Y HEARTBURN / REFLUX N ADD/ADHD N AFIB N AUTISM SPECTRUM DISORDER (ASD) N HEPATITIS / LIVER DISEASE N PULMONARY DISEASE N GOUT N SLEEP DISORDER N ALZHEIMER'S DISEASE N PAIN N DEMENTIA N HERPES N SEIZURES/EPILEPSY N HEADACHES/MIGRAINES N VASCULAR DISEASE N PACEMAKER N DIZZINESS N HEART DISEASE/HEART PROBLEMS N KIDNEY DISEASE N SCARLET FEVER N MULTIPLE SCLEROSIS N DEVELOPMENTAL OR BEHAVIORAL DISORDERS N MENTAL DISORDER/ILLNESS N CANCER: SPECIFY N CARDIAC ARRHYTHMIA N PNEUMONIA N ATRIAL FIBRILLATION N Gall Stones N PULMONARY EMBOLISM N AUTOIMMUNE DISEASE N Past Encounters Encounter ID Performer Location Encounter Start Date Encounter Closed Date Diagnosis/Indication Diagnosis SNOMED-CT Code Diagnosis ICD10 Code Diagnosis Note [id number] [facility] [address] [place] [address] 06/26/2020 00:00:00 06/26/2020 11:32:00 [id number] [facility] [address] [place] [address] 07/18/2020 00:00:00 07/18/2020 11:35:23 [id number] [facility] [address] [place] [address] 07/24/2020 00:00:00 07/24/2020 12:08:31 [id number] [facility] [address] [place] [address] 08/14/2020 00:00:00 08/14/2020 12:58:38 [id number] [facility] [address] [place] [address] 09/11/2020 00:00:00 09/11/2020 11:23:38 [id number] [facility] [address] [place] [address] 10/14/2020 00:00:00 10/14/2020 10:01:57 [id number] [facility] [address] [place] [address] 10/16/2020 00:00:00 10/16/2020 11:20:30 [id number] [facility] [address] [place] [address] 01/14/2021 00:00:00 01/14/2021 09:24:39 [id number] [facility] [address] [place] [address] 01/21/2021 00:00:00 01/21/2021 15:45:34 [id number] [facility] [address] [place] [address] 02/10/2021 00:00:00 02/10/2021 10:49:11 [id number] [facility] [address] [place] [address] 07/27/2021 00:00:00 07/27/2021 17:28:25 [id number] [facility] [address] [place] [address] 07/28/2021 00:00:00 07/28/2021 09:10:49 [id number] [facility] [place] [address] [place] [address] 11/02/2021 00:00:00 11/02/2021 12:48:27 [id number] Stan Cooper MD [address] [address] 05/12/2022 12:38:55 05/12/2022 13:06:24 Eruption 904711456 R21 Allergic c ontact dermatitis 417579459 L23.9 Overweight 421719086 E66 .3 Chronic low back pain 27 6805240 M54.50 Depressive disorder 3548 9007 F32.A Gastro-eso phageal reflux disease with esophagitis 890611857 K21.00 [id number] Stan Cooper MD [address] [address] 05/26/2022 09:30:55 05/26/2022 10:06:18 Adult health examination 883809023 Z00.00 Overweight 933256323 E66 .3 Fatigue 58560661 R53.83 Chronic low back pain 27 9174454 M54.50 Ex-smoker 2596624 Z87.89 1 Folliculitis 96898767 L7 3.9 Right uppe r quadrant pain 191804934 R10.11 [id number] Stan Cooper MD [address] [address] 06/09/2022 12:23:09 06/09/2022 12:39:44 Overweight 911494146 E66.3 Fatigue 22029455 R53.83 Chronic low back pain 27 4397527 M54.50 Right uppe r quadrant pain 061845380 R10.11 Hyperlipidemia 73976128 E78.5 Prediabetes 936254642 R7 3.03 [id number] Stan Cooper MD [address] [address] 08/31/2022 11:23:14 08/31/2022 12:18:31 Hospital inpatient stay within past 30 days 5730393641 106 Z76.89 Recurrent pancreatitis 549200562 K86.1 Alcohol abuse 65974591 F 10.10 Bite of spider 386932972 W57.XXXA Cellulitis of skin 43818 1002 L03.90 Rt thigh Gastro-eso phageal reflux disease with esophagitis 654162790 K21.00 [id number] Stan Cooper MD [address] [address] 09/09/2022 11:50:36 09/09/2022 12:30:12 Recurrent pancreatitis 046219592 K86.1 Alcohol abuse 03913530 F 10.10 Bite of spider 482418148 W57.XXXA resolved Gastro-eso phageal reflux disease with esophagitis 181456700 K21.00 Right uppe r quadrant pain 175701986 R10.11 Chronic id iopathic constipation 31362674 K59.04 [id number] Estrella Guzman NP [address] [address] 10/06/2022 13:59:22 10/06/2022 17:57:59 [id number] Stan Cooper MD [address] [address] 12/23/2022 16:15:52 12/23/2022 17:00:17 Epigastric pain 24540137 R10.13 Chronic low back pain 27 2838667 M54.50 Pancreatitis 00794894 K8 5.90 Nausea 457820995 R11.0 Gastritis 9084925 K29.70 Hyperlipidemia 14142571 E78.5 Hypertriglyceridemia 302 803713 E78.2 Prediabetes 393732236 R7 3.03 Fatigue 66708996 R53.83 [id number] Estrella Guzman NP [address] [address] 12/29/2022 09:01:39 12/29/2022 09:45:14 [id number] Stan Cooper MD [address] [address] 1 01/24/2023 11:43:48 01/24/2023 12:20:42 Chronic low back pain 624449873 M54.50 Pancreatitis 63346957 K8 5.90 Gastritis 1373432 K29.70 Hyperlipidemia 59808286 E78.5 Hypertriglyceridemia 302 369770 E78.2 Prediabetes 140176278 R7 3.03 Improved Fatigue 35356627 R53.83 [id number] Stan Cooper MD [address] [address] 02/21/2023 11:59:34 02/21/2023 13:54:33 Prediabetes 179814487 R73.03 Improved Hyperlipidemia 24767198 E78.5 Hypertriglyceridemia 302 996999 E78.2 Chronic low back pain 27 3331170 M54.50 Pancreatitis 79017887 K8 5.90 Gastritis 4833998 K29.70 Fatigue 14284879 R53.83 [id number] MARYSE Lieberman [address] [address] 06/03/2023 11:22:47 06/03/2023 12:39:28 Pancreatitis 85252208 K85.90 Continue follow up with GI Epigastric pain 31139413 R10.13 Infection of tooth 05233 8007 K04.7 please consult Health Concerns Section Related Observation LastModified by Organization Detai ls LastModified Time None Recorded Concern Status LastModified by Organization Details LastModified Time None Recorded Advance Directives Directive N: Payers Encounter Date Sequence Insurance Name Policy Number Policy Salmeron Covered Member ID Salmeron Member ID Guarantor Name 12/23/2022 1 [facility] (MEDICAID HMO) [id number] Raoul Goode [id number] Raoul Goode 12/29/2022 1 [facility] (MEDICAID HMO) [id number] 0003 Raoul Goode [id number] Raoul Goode 01/24/2023 1 [facility] (MEDICAID HMO) [id number] 0003 Raoul Waltona [id number] Raoul Goode 02/21/2023 1 [facility] (MEDICAID HMO) [id number] 0003 Raoul Waltona [id number] Raoul Goode 06/03/2023 1 [facility] (MEDICAID HMO) [id number] 0003 Raoul Waltona [id number] Raoul Goode Notes Date Note Type Note Provider Name and Address Organization Details Recorded Time 12/23/2022 text/html ACV: C/o epigastric and b/l UQ area pain and burning feeling for last several days. Pt says for last couple weeks, he is eating mostly outside food. Denies any known sick contact. Pt has these symptoms going on for last couple months and he has been seen in ED and he has pancreatitis at that time. Pt needs to get his gall bladder out and he has seen Surgeon for this, but he has not gone for the surgery yet. Pt says he was very busy for last few months. C/o chronic low back pain that is not getting better. Pt was referred to Pain clinic in the past, but he has not gone for it. Needs another referral for it. Denies any bowel/bladder incontinence. Last regular visit in 06/03. Stan Cooper MD [address] [place] [address], [place] [address], [place], [address], [place] [facility] 12/23/2022 16:59:27 01/24/2023 text/html Pt is here for f /u on his labs and chronic conditions. Doing overall better. Denies any new concern. C/o epigastric and b/l UQ area pain and burning feeling for last several days. Pt says for last couple weeks, he is eating mostly outside food. Denies any known sick contact. Pt has these symptoms going on for last couple months and he has been seen in ED and he has pancreatitis at that time. Pt needs to get his gall bladder out and he has seen Surgeon for this, but he has not gone for the surgery yet. Pt says he was very busy for last few months. C/o chronic low back pain that is not getting better. Pt was referred to Pain clinic in the past, but he has not gone for it. Needs another referral for it. Denies any bowel/bladder incontinence. Last regular visit in 06/03. Stan Cooper MD [address], [facility] [address], [place], [address], [employer] 01/24/2023 12:19:27 02/21/2023 text/html Pt is here for f /u on his labs and chronic conditions. Doing overall better. Denies any new concern. Pt has not gone for lab yet. C/o epigastric and b/l UQ area pain and burning feeling for last several days. Pt says for last couple weeks, he is eating mostly outside food. Denies any known sick contact. Pt has these symptoms going on for last couple months and he has been seen in ED and he has pancreatitis at that time. Pt needs to get his gall bladder out and he has seen Surgeon for this, but he has not gone for the surgery yet. Pt says he was very busy for last few months. C/o chronic low back pain that is not getting better. Pt was referred to Pain clinic in the past, but he has not gone for it. Needs another referral for it. Denies any bowel/bladder incontinence. Stan Cooper MD [address], [facility] [address], [place], [address], [employer] [facility] [employer] 02/21/2023 13:09:07 06/03/2023 text/html Raoul Goode is a 42 year old male patient of Dr. Cooper here today for pain. He states I need pain meds and amoxicillin . He was admitted to [facility] last week for pancreatitis.He has pain in the upper right quadrant, lower left quadrant, and in his upper molar. At [facility] they did CT scans, labs, and US per pt. He has not seen dentist in many years, but has infected tooth and needs to see oral surgeon. He has some left over antibiotics that he takes as needed. Oly Pulido, MARYSE [address] [facility], [facility] [address], [place], [address], [place] [facility] [place] [facility] [employer] [facility] 06/03/2023 12:33:52
--- NOTE | 2024-06-17 16:03 | PC.NURSE ---
gave patient urinal and advised we need a urine sample from him
[2024-06-17 16:12] LABS: Alanine Aminotransferase 29 U/L (6-50); Albumin Level 4.3 g/dL (3.5-5.1); Alkaline Phosphatase 103 U/L (38-126); Anion Gap 11 mmol/L (4-12); Aspartate Amino Transferase 21 U/L (17-59); Bilirubin,Total 0.5 mg/dL (0.2-1.3); Blood Urea Nitrogen 15 mg/dL (9-20); Calcium 9.4 mg/dL (8.4-10.2); Carbon Dioxide 18 mmol/L (22-30); Chloride 109 mmol/L (98-107); Estimated CRCL calculation 115 ml/min; Estimated Glomerular Filt Rate > 60; Glucose 100 mg/dL (65-110); Potassium 4.5 mmol/L (3.4-5.0); Sodium 138 mmol/L (137-145)
[2024-06-17 16:24] LABS: Add Urine Microscopic? NO; Appearance Urine Clear (Clear); Bilirubin Urine Negative (Negative); Blood Urine Negative (Negative); Color Urine Yellow (Yellow); Glucose Urine UA Negative (Negative); Ketones Urine Negative (Negative); Leukocyte Esterase Ur Negative LEU/UL (Negative); Nitrate Urine Negative (Negative); Protein Urine Negative (Negative); Specific Grav Ur 1.025 (1.001-1.035); Urobilinogen Urine 0.2 mg/dL (<2.0)
[2024-06-17 16:34] LABS: Lipase 3381 U/L (23-300)
[2024-06-17] MEDS: ONDANSETRON INJ 4 MG/2 ML VIAL IV PUSH ×2 (17:01→19:41)
[2024-06-17] MEDS: HYDROmorphone HCL INJ (*CRX) 1 MG/ML SYR IV PUSH ×3 (17:01→23:21)
--- NOTE | 2024-06-17 18:05 | ED_ITS ---
HPI - Abdominal Pain General Chief Complaint: Abdominal Pain Stated Complaint: abd pain Time Seen by Provider: 06/17/24 15:51 Source: patient Mode of arrival: EMS Limitations: no limitations History of Present Illness HPI narrative: 43-year-old with a history of hypertension, hyperlipidemia, pancreatitis here with a complaint of sudden onset of mid epigastric pain. Patient states that he was sitting on a couch felt a sudden pop in the mid abdomen associated with severe pain. He denies any chest pain. No history of nausea vomiting. Patient states that he was admitted to [facility] of 2 weeks ago for pancreatitis at the time of his discharge his lipase was 941. Patient stated that he was a heavy drinker until about 9 months ago and has been sober since then. MD elicited complaint: abdominal pain Pertinent past history: none Onset (ago): hour(s) (1) Pain Consistency: constant Quality: aching Radiation: none Migration to: no migration Exacerbating factors: nothing Relieving factors: nothing Context: confirms history of similar episodes Associated symptoms: denies other symptoms Related Data Home Medications ?Medication ?Instructions ?Recorded ?Confirmed ?Last Taken ?Type pantoprazole 40 mg tablet,delayed 40 mg PO DAILY 08/28/22 11/15/23 Unknown History release docusate sodium 50 mg capsule 50 mg PO DAILY 09/15/22 11/15/23 Unknown History (Stool Softener) rosuvastatin 5 mg tablet 5 mg PO DAILY 01/26/23 11/15/23 Unknown History escitalopram oxalate 10 mg tablet 10 mg PO DAILY 11/15/23 11/15/23 Unknown History gabapentin 300 mg capsule 300 mg PO TID 11/15/23 06/17/24 Unknown History Allergies Allergy/AdvReac Type Severity Reaction Status Date / Time bee venom protein (honey Allergy Swelling Verified 06/17/24 15:51 bee) (bees) lactose AdvReac Intermediate Diarrhea Verified 06/17/24 15:51 wasp Allergy Swelling Uncoded 06/17/24 15:51 yellow jackets Allergy Swelling Uncoded 06/17/24 15:51 Review of Systems 2 Review of Systems: All systems reviewed & are unremarkable except as noted in HPI and below Constitutional: Constitutional: Reports no additional constitutional complaints Eyes: Eyes: Reports no additional eye complaints ENT: Reports system reviewed and no additional complaints, except as documented Cardiovascular: Cardiovascular: Reports no additional cardiovascular complaints Respiratory: Respiratory: Reports no additional respiratory complaints Gastrointestinal: Gastrointestinal: Reports as per HPI Musculoskeletal: Musculoskeletal: Reports no additional musculoskeletal complaints Neurologic: Reports system reviewed and no additional complaints, except as documented Psychiatric: Psychiatric: Reports no additional psychiatric complaints PMFSH Past Medical History Medical History Alcoholic pancreatitis Sleep apnea Depressive disorder, not elsewhere classified Infertility Hyperlipidemia Smoking Cardiac arrhythmia History of migraine headaches Blackout Dizziness and giddiness Chest pain Back pain Surgical History Surgical History No pertinent past surgical history Family History Family History Sibling Autoimmune disease Social History Social History Social History: former smoker. The patient has a significant Other. The patient recently lost his job. He is not currently working. The patient states that he drinks heavily at least 2-3 days a week which is more than 6 drinks at a time. Reports no alcohol since episode of pancreatitis in July 2022. States employed at present time. Code status full code Smoking status: Former smoker Alcohol intake: former Alcohol use details: reports no alcohol since episode of pancreatitis Substance use type: does not use Lack of Transportation: YES Lack of Food: Sometimes True Current Housing: I Have Housing Concerned About Future Housing: No Difficulty Paying Gas/Electric Bills: YES Difficulty Paying for Meds: No Currently Unemployed: No Education: Trade/Vocational Certificate Difficulty w/ Childcare or Family Care: No Gender identity (if verbalized by the patient): Male Spiritual care concerns: No Exam 2 Narrative: GENERAL: Well-appearing, well-nourished, and in no acute distress. HEAD: Normocephalic, atraumatic. EYES: PERRLA and EOMI. ENT: Nares clear, Mucous membranes moist. NECK: Supple. CHEST: Clear to auscultation. No respiratory distress. HEART: Regular rate and rhythm. No murmur heard. Normal peripheral pulses. ABDOMEN: Soft, Mid abdomen , nondistended, normal active bowel sounds. EXTREMITIES: Normal range of motion. No edema. SKIN: Warm, dry, no rash. NEURO: No focal deficits. Alert and oriented x3. PSYCH: Normal mood and affect. Course Course Emergency Course: Informed patient about his lab work, CT findings. His pain has improved with IV hydromorphone. Patient is little upset about his numbers. Discussed with the hospitalist agreed to admit. Vital Signs Vital signs: Vital Signs Temperature 36.8 C 06/17/24 15:40 Pulse Rate 75 06/17/24 15:40 Respiratory Rate 16 06/17/24 15:40 Blood Pressure 125/78 06/17/24 15:40 Pulse Oximetry 98 06/17/24 15:40 Oxygen Delivery Room Air 06/17/24 15:40 Temperature 36.8 C 06/17/24 15:40 Pulse Rate 63 06/17/24 17:47 Respiratory Rate 19 06/17/24 17:47 Blood Pressure 128/87 06/17/24 17:47 Pulse Oximetry 95 06/17/24 17:47 Oxygen Delivery Room Air 06/17/24 15:40 MDM - Abdominal Pain Differential Diagnosis Differential diagnosis: Likely abdominal pain and pancreatitis Medical Records Attestation: I reviewed the patient's medical records. Lab Data Attestation: I reviewed the patient's lab results. 06/17/24 15:56 06/17/24 15:56 Labs: Lab Results 06/17/24 06/17/24 Range/Units 15:56 16:19 WBC 7.2 (4.5-10.0) K/mm3 RBC 5.02 (4.6-6.20) M/mm3 Hgb 15.6 (14.0-18.0) g/dL Hct 45.6 (42.0-52.0) % MCV 90.8 (80-100) fl MCH 31.1 (26-34) pg MCHC 34.2 (32-36) g/dl RDW 13.0 (11.5-14.5) % Plt Count 291 (150-375) k/mm3 MPV 10.1 (7.4-10.4) fl Immature Gran % (Auto) 0.3 (0-0.5) % Neut % (Auto) 48.8 (45.5-73.1) % Lymph % (Auto) 40.8 (18.3-44.2) % [place] % (Auto) 8.0 (2.6-8.5) % Eos % (Auto) 1.4 (0-4.4) % Baso % (Auto) 0.7 (0.2-1.2) % Lymph # (Auto) 2.94 (0.9-3.2) K/mm3 [place] # (Auto) 0.6 (0.1-0.6) K/mm3 Eos # (Auto) 0.1 (0-0.3) K/mm3 Baso # (Auto) 0.1 (0.0-0.1) K/mm3 Abs Immat Gran (auto) 0.02 (0.00-0.031) K/mm3 Absolute Neuts (auto) 3.5 (1.3-6.7) K/mm3 Absolute Nucleated RBC 0.000 (0.0-0.012) K/mm3 Nucleated RBC % 0.0 (0.0-0.2) % Sodium 138 (137-145) mmol/L Potassium 4.5 (3.4-5.0) mmol/L Chloride 109 H (98-107) mmol/L Carbon Dioxide 18 L (22-30) mmol/L Anion Gap 11 (4-12) mmol/L BUN 15 D (9-20) mg/dL Creatinine 0.87 (0.7-1.3) mg/dL Estim Creat Clear Calc 115 ml/min Estimated GFR > 60 (59 - ) Glucose 100 (65-110) mg/dL Calcium 9.4 (8.4-10.2) mg/dL Total Bilirubin 0.5 (0.2-1.3) mg/dL AST 21 (17-59) U/L ALT 29 (6-50) U/L Alkaline Phosphatase 103 (38-126) U/L Total Protein 8.0 (6.3-8.2) g/dL Albumin 4.3 (3.5-5.1) g/dL Lipase 3381 H (23-300) U/L Urine Color Yellow (Yellow) Urine Appearance Clear (Clear) Urine pH 5.0 (5.0-9.0) Ur Specific [place] 1.025 (1.001-1.035) Urine Protein Negative (Negative) mg/dL Urine Glucose (UA) Negative (Negative) mg/dL Urine Ketones Negative (Negative) mg/dL Ur Blood (Man) Negative (Negative) Urine Nitrate Negative (Negative) Urine Bilirubin Negative (Negative) Urine Urobilinogen 0.2 (<2.0) mg/dL Leukocyte Esterase Rfl Negative (Negative) MARCELO/UL Imaging Data Radiologist's impression: ITS Impressions Abdomen/Pelvis CT 06/17/24 17:13 IMPRESSION: Findings consistent with acute (on chronic) pancreatitis. Additional findings suggesting hypovolemia. ECG Data EKG #1: ECG completion date: 06/17/24 ECG completion time: 18:31 bradycardia (58), no ectopy, no ST changes, normal QRS, normal QT and no acute changes Discharge Plan Discharge Clinical Impression: Pancreatitis Qualifiers: Chronicity: acute Pancreatitis type: unspecified pancreatitis type Acute pancreatitis complication: no infection or necrosis Qualified Code(s): K85.90 - Acute pancreatitis without necrosis or infection, unspecified Patient Disposition: Still a Patient Condition: Stable Instructions: Antibiotic Form Patient Language: Taiwanese Prescriptions: No Action pantoprazole 40 mg tablet,delayed release (DR/EC) 40 mg PO DAILY lactulose 10 gram/15 mL solution 20 g PO DAILY PRN (Reason: constipation) Qty: 237 0RF gabapentin 300 mg capsule 300 mg PO TID escitalopram oxalate 10 mg tablet 10 mg PO DAILY cephalexin 500 mg tablet 500 mg PO Q8H Qty: 30 0RF prednisone 10 mg tablet 10 mg PO DIRECTED Qty: 21 0RF Rx Instructions: see taper instructions 6 tabs day 1, 5 tabs day 2, 4 tabs day 3, 3 tabs day 4 ,2 tabs day 5,1 tab day 6 famotidine [Pepcid] 20 mg tablet 20 mg PO DAILY Qty: 10 0RF mupirocin 2 % ointment 1 applic topical BID Qty: 22 0RF Rx Instructions: to chin Stool Softener 50 mg capsule 50 mg PO DAILY rosuvastatin 5 mg tablet 5 mg PO DAILY famotidine [Pepcid] 20 mg tablet 20 mg PO DAILY Qty: 20 0RF metoprolol succinate 25 mg tablet extended release 24 hr See Rx Instructions .ROUTE .COMPLEX Qty: 30 5RF Dose Instruction: TAKE 1 TABLET BY MOUTH EVERY DAY Rx Instructions: TAKE 1 TABLET BY MOUTH EVERY DAY Follow-up/Referrals: Seng,BETTY Morin [Primary Care Provider] - Time of Disposition: 18:13
--- NOTE | 2024-06-17 18:27 | ECG_ITS ---
Test Date: 2024-06-17 18:31:35 Measurements Intervals [place] Rate: 58 P: 24 DE: 180 QRS: 23 QRSD: 84 T: 23 QT: 381 QTc: 376 Interpretive Statements SINUS BRADYCARDIA POSSIBLE LEFT ATRIAL ENLARGEMENT BASELINE ARTIFACT- I, III, AVL, AVF, V2, V4-V6 BORDERLINE ECG No previous ECG available for comparison Electronically Signed On 06-17-2024 20:32:53 CDT by Donny Fletcher D.O.
--- NOTE | 2024-06-17 19:05 | PC.NURSE ---
this RN attempts to call report at [phone] with no success due to shift change.
--- NOTE | 2024-06-17 19:10 | ADMGEN ---
This patient, Raoul Goode, was admitted to 2 Medical Room 241-01. Patient/family oriented to hospital policies and general routines including ID bracelet, bed and alarms, visiting hours, pain management, procedures, bathroom and other care routines, personal items, smoking policy, room service/diet, and visiting hours. Information on how to activate the Rapid Response Team has been discussed. Patient/Family are encouraged to report perceived risks to care and to ask questions if they do not understand what they are told or what they should do.
[2024-06-17] MEDS: SODIUM CHLORIDE 0.9% IV 1,000 ML 125 ML IV CONT (19:27)
--- NOTE | 2024-06-17 19:38 | P.HP_ITS ---
H&P: HPI History of Present Illness Date/Time: 06/17/24 19:38 Chief Complaint: Abdominal pain Narrative: 43-year-old male with history of alcohol abuse sober for the last several months, hypertension and pancreatitis presents the hospital with acute abdominal pain. Patient states that he has central abdominal pain, sharp in nature stabbing like. States that he has had this before whenever he has had pancreat itis. He states he was just released from the hospital about 2 weeks ago for a pancreatitis episode when left the hospital his lipase level was about 1000. He was recommend to drink a lot a water, he states that he has difficulty drinking water however did try to drink juices and skin milk. Patient became sober about 10 months ago has had a significant amount of weight loss with diet and exerci se. Patient denies vomiting. CBC within normal limits, chloride 109, carbon dioxide 18, lipase 3381, UA negative for infection, and CT abdomen pelvis show acute on chronic pancreatitis and suggestive of hypovolemia. Review of Systems Review of Systems: 12 systems were reviewed and are negativ e except for as per HPI. [facility] Past Medical History Medical History Alcoholic pancreatitis Sleep apnea Depressive disorder, not elsewhere classified Infertility Hyperlipidemia Smoking Cardiac arrhythmia History of migraine headaches Blackout Dizziness and giddiness Chest pain Back pain Surgical History Surgical History No pertinent past surgical history Family History Family History Sibling Autoimmune disease Social History Social History Social History: former smoker. The patient has a significant Other. The patient recently lost his job. He is not currently working. The patient states that he drinks heavily at least 2-3 days a week which is more than 6 drinks at a time. Reports no alcohol since episode of pancreatitis in July 2022. States employed at present time. Code status full code Smoking status: Former smoker Alcohol intake: former Alcohol use details: reports no alcohol since episode of pancreatitis Substance use type: does not use Lack of Transportation: YES Lack of Food: Sometimes True Current Housing: I Have Housing Concerned About Future Housing: No Difficulty Paying Gas/Electric Bills: YES Difficulty Paying for Meds: No Currently Unemployed: No Education: Trade/Vocational Certificate Difficulty w/ Childcare or Family Care: No Gender identity (if verbalized by the patient): Male Spiritual care concerns: No Meds Home Medications and Allergies Home Medications ?Medication ?Instructions ?Recorded ?Confirmed ?Type gabapentin 300 mg capsule 300 mg PO TID 11/15/23 06/17/24 History gabapentin 100 mg capsule 100 mg PO Q8H 06/17/24 06/17/24 History Allergies Allergy/AdvReac Type Severity Reaction Status Date / Time bee venom protein (honey Allergy Swelling Verified 06/17/24 15:51 bee) (bees) lactose AdvReac Intermediate Diarrhea Verified 06/17/24 15:51 wasp Allergy Swelling Uncoded 06/17/24 15:51 yellow jackets Allergy Swelling Uncoded 06/17/24 15:51 Vital Signs Vital Signs - 24 hr 06/17/24 15:40 06/17/24 15:48 06/17/24 16:03 Temperature 98.2 F Pulse Rate 75 75 79 Respiratory Rate 16 14 20 Blood Pressure 125/78 125/78 114/56 L Pulse Oximetry 98 98 99 Oxygen Delivery Room Air 06/17/24 16:20 06/17/24 17:06 06/17/24 17:30 Temperature Pulse Rate 76 66 59 L Respiratory Rate 19 18 21 H Blood Pressure 128/68 Pulse Oximetry 98 98 98 Oxygen Delivery 06/17/24 17:47 06/17/24 19:14 Temperature 97.6 F Pulse Rate 63 54 L Respiratory Rate 19 18 Blood Pressure 128/87 140/60 Pulse Oximetry 95 100 Oxygen Delivery Exam Narrative: General: well appearing, appears stated age. HEENT: normocephalic, atraumatic. Mucous membranes moist. EOMI, PERRLA, bilateral sclera anicteric, no conjunctival injection. Neck supple without JVD, lymphadenopathy, or bruit. Respiratory: clear to ascultation bilaterally. No rales/rhonic/wheezes. Cardiovascular: Regular rate and rhythm, normal S1-S2 upon ascultation. No murmurs, rubs, or clicks. PMI is nondisplaced, capillary refill less than 3 second. Abdomen: Soft, round, no pulsatile masses, nondistended and nontender. No rebound, no guarding. No CVA tenderness, no hepatosplenomegaly. Bowel sounds present to all four quadrants. No high pitch or tinkling sounds, resonant to percussion. Extremities: No cyanosis, clubbing, or edema present. Pulses are palpable 2/2. Active ROM to all four extremities. Neuro: Alert and orientated x 4. PERRLA. Cranial nerves 2-12 intact without focal deficit. Skin: Warm, dry, and intact, without rash, erythema, or lesion. Psych: pleasant, cooperative, normal speech, normal affect, no hallucinations, no dysarthia H&P: Results Labs Labs: Short CBC 06/17/24 Range/Units 15:56 WBC 7.2 (4.5-10.0) K/mm3 Hgb 15.6 (14.0-18.0) g/dL Hct 45.6 (42.0-52.0) % Plt Count 291 (150-375) k/mm3 BMP 06/17/24 15:56 Sodium 138 Potassium 4.5 Chloride 109 H Carbon Dioxide 18 L BUN 15 D Creatinine 0.87 Glucose 100 Calcium 9.4 Liver Function 06/17/24 Range/Units 15:56 Total Bilirubin 0.5 (0.2-1.3) mg/dL AST 21 (17-59) U/L ALT 29 (6-50) U/L Alkaline Phosphatase 103 (38-126) U/L Albumin 4.3 (3.5-5.1) g/dL Urine 06/17/24 Range/Units 16:19 Urine Color Yellow (Yellow) Urine Appearance Clear (Clear) Urine pH 5.0 (5.0-9.0) Ur Specific [place] 1.025 (1.001-1.035) Urine Protein Negative (Negative) mg/dL Urine Glucose (UA) Negative (Negative) mg/dL Assessment and Plan Assessment and plan (1) Pancreatitis: Qualifiers: Acute pancreatitis complication: no infection or necrosis Chronicity: acute Pancreatitis type: unspecified pancreatitis type Qualified Code(s): K85.90 - Acute pancreatitis without necrosis or infection, unspecified Code(s): K85.90 - Acute pancreatitis without necrosis or infection, unspecified Status: Acute Assessment and Plan: Acute on chronic without necrosis 3 L LR bolus IVF at 200 Dilaudid for pain control When pain is better under control patient restart clear liquid diet (2) Depression: Code(s): F32.9 - Major depressive disorder, single episode, unspecified Status: Acute Assessment and Plan: Not on home medication States anxiety is controlled (3) Nerve pain: Code(s): M79.2 - Neuralgia and neuritis, unspecified Status: Acute Plan Continue home Gabapentin Quality VTE Prophylaxis VTE prophylaxis: mechanical ordered Hospitalist MIPS Advance Care Plan I have confirmed that the patient's Advanced Care Plan is present, code status is documented, or surrogate decision maker is listed in patient medical record.: Yes Medication Reconciliation I have utilized all available resources to obtain, update and review the patients current medications (includes all prescriptions, OTC, herbals, cannab is, and nutritional supplements).: Yes
[2024-06-17] MEDS: HYDROmorphone HCL INJ (*CRX) 1 MG/ML SYR 0.5 MG IV PUSH (19:41)
[2024-06-17] MEDS: LACTATED RINGERS 1,000 ML 999 ML IV CONT ×2 (20:52→23:21)
[2024-06-17] MEDS: GABAPENTIN 300 MG CAPSULE PO (21:35)
[2024-06-17] MEDS: LACTATED RINGERS 100 ML 999 ML IV CONT (22:10)
[2024-06-18] MEDS: diphenhydrAMINE HCl INJ 50 MG/ML VIAL 25 MG IV PUSH ×2 (00:39→22:45)
[2024-06-18] MEDS: LACTATED RINGERS 1,000 ML 200 ML IV CONT ×3 (00:39→10:39)
[2024-06-18 04:47] VITALS: BP 110/57; PULSE 51; RESP 17; TEMP 36.8; O2SAT 96
[2024-06-18 05:41] LABS: Basophils Percent Auto 0.5 % (0.2-1.2); Eosinophils Absolute Auto 0.1 K/mm3 (0-0.3); Eosinophils Percent Auto 1.6 % (0-4.4); Hematocrit 42.3 % (42.0-52.0); Hemoglobin 13.3 g/dL (14.0-18.0); Immature Granulocyte Absolute 0.02 K/mm3 (0.00-0.031); Immature Granulocyte Percent A 0.3 % (0-0.5); Lymphocytes Absolute Auto 3.04 K/mm3 (0.9-3.2); Lymphocytes Percent Auto 41.7 % (18.3-44.2); Mean Corpuscular HGB Conc 31.4 g/dl (32-36); Mean Corpuscular Hemoglobin 30.4 pg (26-34); Mean Corpuscular Volume 96.6 fl (80-100); Mean Platelet Volume 10.4 fl (7.4-10.4); Monocytes Absolute Auto 0.6 K/mm3 (0.1-0.6); Monocytes Percent Auto 7.7 % (2.6-8.5); Neutrophils Absolute Auto 3.5 K/mm3 (1.3-6.7); Neutrophils Percent Auto 48.2 % (45.5-73.1); Platelet Count Result 242 k/mm3 (150-375); Red Blood Count 4.38 M/mm3 (4.6-6.20); Red Cell Distribution Width 13.2 % (11.5-14.5); White Blood Count 7.3 K/mm3 (4.5-10.0)
[2024-06-18 05:48] LABS: Alanine Aminotransferase 23 U/L (6-50); Albumin Level 3.3 g/dL (3.5-5.1); Alkaline Phosphatase 75 U/L (38-126); Anion Gap 7 mmol/L (4-12); Aspartate Amino Transferase 18 U/L (17-59); Bilirubin,Total 0.4 mg/dL (0.2-1.3); Blood Urea Nitrogen 12 mg/dL (9-20); Calcium 8.5 mg/dL (8.4-10.2); Carbon Dioxide 25 mmol/L (22-30); Chloride 107 mmol/L (98-107); Estimated CRCL calculation 122 ml/min; Estimated Glomerular Filt Rate > 60; Glucose 92 mg/dL (65-110); Lipase 986 U/L (23-300); Potassium 4.3 mmol/L (3.4-5.0); Sodium 139 mmol/L (137-145)
[2024-06-18] MEDS: HYDROmorphone HCL INJ (*CRX) 1 MG/ML SYR IV PUSH ×7 (06:09→20:43)
--- NOTE | 2024-06-18 07:41 | WPDGICN ---
Assessment and Plan Assessment and plan (1) Pancreatitis: Qualifiers: Acute pancreatitis complication: no infection or necrosis Chronicity: acute Pancreatitis type: unspecified pancreatitis type Qualified Code(s): K85.90 - Acute pancreatitis without necrosis or infection, unspecified Code(s): K85.90 - Acute pancreatitis without necrosis or infection, unspecified Status: Acute (2) Epigastric pain: Code(s): R10.13 - Epigastric pain Status: Acute (3) Dysphagia: Qualifiers: Dysphagia type: other dysphagia Qualified Code(s): R13.19 - Other dysphagia Code(s): R13.10 - Dysphagia, unspecified Status: Acute (4) History of ETOH abuse: Code(s): F10.11 - Alcohol abuse, in remission Status: Acute (5) Change in bowel habits: Code(s): R19.4 - Change in bowel habit Status: Acute (6) Elevated lipase: Code(s): R74.8 - Abnormal levels of other serum enzymes Status: Acute Plan 1. Acute on chronic pancreatitis/elevated lipase/epigastric pain/dysphagia/change in bowel habits/Hx of ETOH abuse: Patient hospitalized at [facility] 2-3 weeks ago for pancreatitis. Patient states that he has been diagnosed with pancreatitis 11 times since January of 2023. He states that he is seeing a tool honing machine set up operator at [facility] and is scheduled for a follow-up on the . He has never had a colonoscopy or EGD. He was previously on pantoprazole but states that he is no longer taking this. Presented to our ER yesterday with complaints of epigastric pain. On admission lipase 3381 and trending down with todays levels at 986. LFT's normal. CT showed global enlargement of the pancreas with free fluid surrounding the pancreatic head and redemonstration of multiple well-circumscribed foci of fluid attenuation within the tail of the pancreas, unchanged from 11/20/2022. Hx of heavy alcohol use but has been sober for 9 months. Patient states that for the past 4 months he has been experiencing intermittent episodes of dysphagia with liquids but denies any difficulty swallowing solid foods or pills. Patient states that he had acute onset of severe epigastric pain starting around 11:30 a.m. yesterday that he describes as a stabbing sensation that lasted for approximately 10 minutes. He is still having epigastric pain but states states that it has significantly improved with pain medication. Since his hospitalization the patient states that he has been having more frequent and loose bowel movements. He is typically having 4-5 bowel movements daily that he describes as a soft serve consistency are urgent and are typically postprandial. He has never been on any pancreatic enzyme replacement. Change in bowel habits likely related to chronic pancreatitis and pancreatic insufficiency. Continue supportive care with pain management, IV fluids and antiemetics will start pancreatic enzyme replacement once starting PO intake and continue medication as outpatient start Protonix 40 mg daily and continue as outpatient Follow low to moderate fat meals, high protein foods, small meals, and avoid dehydration Continue avoiding alcohol Care with NSAID and aspirin containing products patient advised to follow up with primary GI doctor as scheduled on the to further discuss long-term treatment and possible need for EGD Thank you very much for allowing me to share in the care of this very nice patient. This report may have been done utilizing a voice recognition system. Attempts have been made to correct errors. However, there may be uncorrected grammatical, spelling, and recognition errors present. GI Consult Note Consult date/time: 06/18/24 07:41 Reason for consult: Pancreatitis HPI: Raoul Goode is a 43 year old male with PMSH of depression, pancreatitis, HLD, HTN and migraines He presented to the ER yesterday with complaints of epigastric pain. GI has been consulted for pancreatitis. Patient was admitted to [facility] 2-3 weeks ago for pancreatitis. Has a Hx of heavy alcohol use but has been sober since January 2024. Patient states that yesterday around 11:30 am he had an acute onset of severe epigastric pain that he described as a stabbing sensation that lasted for approximately 10 minutes. Patient states that he is still having epigastric pain that he describes as a stabbing burning sensation but states that it has significantly improved. Patient states at 1 point this pain radiated down into his abdomen and lower back. Patient states that over the past 4 months he has been having intermittent episodes of dysphagia with liquids but denies any difficulty swallowing pills or solid foods. Patient states that he has been following a low fat diet. Appears the patient was previously on pantoprazole but he states he is no longer taking this. Since his hospitalization a few weeks ago he has been having more frequent loose bowel movements. He states that he is having 4-5 bowel movements daily that are typically urgent postprandial but denies any change in bowel movement color. He denies nausea, vomiting, bloating, odynophagia, regurgitation, early satiety, unexplained weight loss, appetite loss, constipation, hematochezia, or melena. He denies any NSAID, aspirin, or anticoagulant use. Family history negative for CRC or IBD. ENDOSCOPY HISTORY: Patient has never had an EGD or colonoscopy LABS AND STOOL STUDIES: Labs 06/18/2024: Sodium 139, potassium 4.3, BUN 12, creatinine 0.82, GFR >60 WBC 7, Hgb 13, Hct 42, MCV 97, platelets 242 Total bilirubin 0.4, AST 18, ALT 23, Alkaline Phos 75, albumin 3.3 Calcium 8.5 and lipase 986 IMAGING: CT abd/pelvis w/contrast 06/17/2024: FINDINGS/OBSERVATIONS: Visualized lower thorax: The bilateral lung bases are clear. The heart is of normal size, without pericardial effusion. Small hiatal hernia is present. Liver: The liver demonstrates homogeneous enhancement and is not enlarged. Gallbladder and biliary system: The gallbladder is only minimally distended, and otherwise unremarkable. Pancreas: Global enlargement of the pancreas with free fluid surrounding the pancreatic head. Redemonstration of multiple well-circumscribed foci of fluid attenuation within the tail of the pancreas, unchanged from 11/20/2022 Spleen: Punctate calcifications identified within the splenic parenchyma, suggesting prior granulomatous disease. The remainder of the spleen otherwise enhances homogeneously and is not enlarged. Kidneys: The bilateral kidneys enhance symmetrically without hydronephrosis or renal calculi. Adrenal glands: Unremarkable. Gastrointestinal tract: Trace fecal stasis. Appendix: The air-filled appendix is of normal caliber (axial series, images 113 through 134). Vasculature: The inferior vena cava is slit like, consistent with severe hypovolemia. Lymph nodes: No pathologically enlarged or morphologically suspicious lymph nodes within the retroperitoneum or at the root of the mesentery. Pelvic structures: The bladder is minimally distended, and otherwise unremarkable. The prostate gland is not enlarged. Body wall and musculoskeletal: Small fat-containing umbilical hernia. Degenerative disease within the lower lumbar spine at the level of L5/S1 with disc space narrowing and vacuum phenomena. IMPRESSION: Findings consistent with acute (on chronic) pancreatitis. Additional findings suggesting hypovolemia. CT abd/pelvis w/contrast 11/20/2022: IMPRESSION: Peripancreatic organized fluid collections at pancreatic body and tail, likely secondary to pancreatitis Normal appendix 8 mm hepatic cyst HIDA scan : FINDINGS: There is normal clearance of radiotracer from the blood pool. There is homogeneous tracer uptake by the liver. Activity progresses to the bowel and gallbladder. IMPRESSION: 1. Patent cystic duct and common duct. CT abd/pelvis w/contrast 08/08/2022: IMPRESSION: 1. Acute interstitial pancreatitis. Review of Systems Constitutional: Constitutional: Reports as per HPI ENT: Reports as per HPI Cardiovascular: Cardiovascular: Reports as per HPI, Reports chest pain, Denies pedal edema, Denies leg edema and Denies dyspnea Respiratory: Respiratory: Denies cough and Denies dyspnea Gastrointestinal: Gastrointestinal: Reports as per HPI Musculoskeletal: Musculoskeletal: Reports as per HPI Integumentary/Breasts: Skin/Breast: Reports as per HPI Psychiatric: Psychiatric: Reports as per HPI Endocrine: Endocrine: Reports no additional endocrine complaints Hematologic/Lymphatic: Hematologic/Lymphatic: Reports no additional hematologic/lymphatic complaints [facility] Past Medical History Medical History Alcoholic pancreatitis Sleep apnea Depressive disorder, not elsewhere classified Infertility Hyperlipidemia Smoking Cardiac arrhythmia History of migraine headaches Blackout Dizziness and giddiness Chest pain Back pain Surgical History Surgical History No pertinent past surgical history Family History Family History Sibling Autoimmune disease Social History Social History Social History: former smoker. The patient has a significant Other. The patient recently lost his job. He is not currently working. The patient states that he drinks heavily at least 2-3 days a week which is more than 6 drinks at a time. Reports no alcohol since episode of pancreatitis in July 2022. States employed at present time. Code status full code Smoking status: Former smoker Alcohol intake: former Alcohol use details: reports no alcohol since episode of pancreatitis Substance use type: does not use Other substance usage details: QUIT 9 MONTHS AGO Do You Feel Safe in your Home?: Yes Lack of Transportation: No Lack of Food: Never True Current Housing: I Have Housing Concerned About Future Housing: No Difficulty Paying Gas/Electric Bills: No Difficulty Paying for Meds: No Currently Unemployed: YES Education: High School Diploma/GED Difficulty w/ Childcare or Family Care: No Gender identity (if verbalized by the patient): Male Spiritual care concerns: No Meds Home Medications and Allergies Home Medications ?Medication ?Instructions ?Recorded ?Confirmed ?Type gabapentin 300 mg capsule 300 mg PO TID 11/15/23 06/17/24 History gabapentin 100 mg capsule 100 mg PO Q8H 06/17/24 06/17/24 History Allergies Allergy/AdvReac Type Severity Reaction Status Date / Time bee venom protein (honey Allergy Swelling Verified 06/17/24 15:51 bee) (bees) lactose AdvReac Intermediate Diarrhea Verified 06/17/24 15:51 wasp Allergy Swelling Uncoded 06/17/24 15:51 yellow jackets Allergy Swelling Uncoded 06/17/24 15:51 Vital Signs Vital Signs - 24 hr 06/17/24 15:40 06/17/24 15:48 06/17/24 16:03 Temperature 98.2 F Pulse Rate 75 75 79 Respiratory Rate 16 14 20 Blood Pressure 125/78 125/78 114/56 L Pulse Oximetry 98 98 99 Oxygen Delivery Room Air 06/17/24 16:20 06/17/24 17:06 06/17/24 17:30 Temperature Pulse Rate 76 66 59 L Respiratory Rate 19 18 21 H Blood Pressure 128/68 Pulse Oximetry 98 98 98 Oxygen Delivery 06/17/24 17:47 06/17/24 19:14 06/17/24 19:43 Temperature 97.6 F Pulse Rate 63 54 L Respiratory Rate 19 18 Blood Pressure 128/87 140/60 Pulse Oximetry 95 100 Oxygen Delivery Room Air 06/18/24 04:47 Temperature 98.2 F Pulse Rate 51 L Respiratory Rate 17 Blood Pressure 110/57 L Pulse Oximetry 96 Oxygen Delivery Exam Const: General: cooperative, healthy appearing, comfortable, no acute distress and well developed Orientation/consciousness: oriented to person, oriented to place, oriented to time and patient oriented x3 HENMT: Head: normal to inspection, normocephalic and atraumatic Mouth: Yes Normal oral and palatal mucosa present and Yes moist mucous membranes Eyes: General: appearance normal, both eyes and all related structures Conjunctivae: conjunctivae normal Sclera: sclerae normal Pupils: Equal, round and reactive pupils present Neck: Neck: normal visual inspection Chest: Chest palpation & inspection: normal inspection of the chest Resp: Effort & Inspection: normal respiratory effort and able to speak in complete sentences Auscultation: clear to auscultation bilaterally Cardio: Jugular venous distension: no JVD Rate: regular rate Rhythm: regular rhythm Heart sounds: S1 normal heart sound present and S2 normal heart sound present GI: Inspection: normal to inspection GI Palp: Yes Soft to palpation, Yes Tenderness to palpation present (GI), No Guarding due to palpation present (GI) and Yes No hepatosplenomegaly present Auscultation: normal bowel sounds Rectal Exam: deferred Skin: General skin exam: normal color and no rashes or lesions noted Neuro: General: oriented to person, oriented to place, oriented to time and patient oriented x3 Cranial nerves: Yes Equal, round and reactive pupils present Speech: normal speech Extrem: General: normal to inspection and no clubbing, cyanosis or edema Psych: Appearance: grossly normal and well kempt Affect: normal affect Results Labs 06/18/24 04:49 06/18/24 04:49 Labs: Short CBC 06/17/24 06/18/24 Range/Units 15:56 04:49 WBC 7.2 7.3 (4.5-10.0) K/mm3 Hgb 15.6 13.3 L (14.0-18.0) g/dL Hct 45.6 42.3 (42.0-52.0) % Plt Count 291 242 (150-375) k/mm3 [facility] 06/17/24 06/18/24 15:56 04:49 Sodium 138 139 Potassium 4.5 4.3 Chloride 109 H 107 Carbon Dioxide 18 L 25 BUN 15 D 12 Creatinine 0.87 0.82 Glucose 100 92 Calcium 9.4 8.5 Liver Function 06/17/24 06/18/24 Range/Units 15:56 04:49 Total Bilirubin 0.5 0.4 (0.2-1.3) mg/dL AST 21 18 (17-59) U/L ALT 29 23 (6-50) U/L Alkaline Phosphatase 103 75 (38-126) U/L Albumin 4.3 3.3 L (3.5-5.1) g/dL Urine 06/17/24 Range/Units 16:19 Urine Color Yellow (Yellow) Urine Appearance Clear (Clear) Urine pH 5.0 (5.0-9.0) Ur Specific [place] 1.025 (1.001-1.035) Urine Protein Negative (Negative) mg/dL Urine Glucose (UA) Negative (Negative) mg/dL
[2024-06-18] MEDS: GABAPENTIN 300 MG CAPSULE PO ×3 (08:26→16:18)
[2024-06-18] MEDS: LACTATED RINGERS 1,000 ML 100 ML IV CONT ×2 (10:50→20:49)
[2024-06-18] MEDS: PANTOPRAZOLE 40 MG TABLET PO (10:56)
--- NOTE | 2024-06-18 10:56 | P.PNIM_ITS ---
Progress Note: A&P Assessment and Plan (1) Pancreatitis: Qualifiers: Acute pancreatitis complication: no infection or necrosis Chronicity: acute Pancreatitis type: unspecified pancreatitis type Qualified Code(s): K85.90 - Acute pancreatitis without necrosis or infection, unspecified Code(s): K85.90 - Acute pancreatitis without necrosis or infection, unspecified Status: Acute Assessment and Plan: Acute on chronic without necrosis CT AP reviewed Lipid panel ordered Dilaudid for pain control NPO, continue IVF monitor (2) Depression: Code(s): F32.9 - Major depressive disorder, single episode, unspecified Status: Acute Assessment and Plan: Not on home medication States anxiety is controlled (3) Nerve pain: Code(s): M79.2 - Neuralgia and neuritis, unspecified Status: Acute Plan Continue home Gabapentin DVT prophylaxis on Sq Lovenox Subjective Date/time seen: 06/18/24 10:56 Interval history: Complained of abd pain. Review of Systems Review of Systems: 12 systems were reviewed and are negativ e except for as per HPI. Exam Narrative: General: well appearing, appears stated age. HEENT: normocephalic, atraumatic. Mucous membranes moist. EOMI, PERRLA, bilateral sclera anicteric, no conjunctival injection. Neck supple without JVD, lymphadenopathy, or bruit. Respiratory: clear to ascultation bilaterally. No rales/rhonic/wheezes. Cardiovascular: Regular rate and rhythm, normal S1-S2 upon ascultation. No murmurs, rubs, or clicks. PMI is nondisplaced, capillary refill less than 3 second. Abdomen: Soft, round, no pulsatile masses, epigastric tenderness. No rebound, no guarding. No CVA tenderness, no hepatosplenomegaly. Bowel sounds present to all four quadrants. No high pitch or tinkling sounds, resonant to percussion. Extremities: No cyanosis, clubbing, or edema present. Pulses are palpable 2/2. Active ROM to all four extremities. Neuro: Alert and orientated x 4. PERRLA. Cranial nerves 2-12 intact without focal deficit. Skin: Warm, dry, and intact, without rash, erythema, or lesion. Psych: pleasant, cooperative, normal speech, normal affect, no hallucinations, no dysarthia Objective Data Vital Signs Vital Signs: Vital Signs - 24 hr 06/17/24 15:40 06/17/24 15:48 06/17/24 16:03 Temperature 98.2 F Pulse Rate 75 75 79 Respiratory Rate 16 14 20 Blood Pressure 125/78 125/78 114/56 L Pulse Oximetry 98 98 99 Oxygen Delivery Room Air 06/17/24 16:20 06/17/24 17:06 06/17/24 17:30 Temperature Pulse Rate 76 66 59 L Respiratory Rate 19 18 21 H Blood Pressure 128/68 Pulse Oximetry 98 98 98 Oxygen Delivery 06/17/24 17:47 06/17/24 19:14 06/17/24 19:43 Temperature 97.6 F Pulse Rate 63 54 L Respiratory Rate 19 18 Blood Pressure 128/87 140/60 Pulse Oximetry 95 100 Oxygen Delivery Room Air 06/18/24 04:47 06/18/24 08:28 Temperature 98.2 F Pulse Rate 51 L Respiratory Rate 17 Blood Pressure 110/57 L Pulse Oximetry 96 Oxygen Delivery Room Air Intake/Output Intake/Output: Intake & Output 06/15/24 06/16/24 06/17/24 06/18/24 23:59 23:59 23:59 23:59 Intake Total 1000 2986.7 Output Total 1200 Balance 1000 1786.7 Meds/Results Medications: Active Medications Generic Name Dose Route Start Last Admin Trade Name Freq PRN Reason Stop Dose Admin Acetaminophen 650 mg 06/17/24 18:14 Acetaminophen 325 Mg Tablet PO Q4H PRN Mild Pain (1-3) or Fever Lipase/Protease/Amylase 3 cap 06/18/24 12:00 Lipase/Amylase/Protease 12,000 Units Cap PO TIDWM OSCAR Diphenhydramine HCl 50 mg 06/17/24 23:35 Diphenhydramine Hcl Cap 25 Mg Capsule PO Q6H PRN Itching Gabapentin 300 mg 06/17/24 20:55 06/18/24 08:26 Gabapentin 300 Mg Capsule PO 300 mg TID OSCAR Administration Hydromorphone HCl 1 mg 06/17/24 19:51 06/18/24 10:39 Hydromorphone Hcl Inj (*Crx) 1 Mg/Ml Syr IV PUSH 1 mg Q2HR PRN Administration Pain Rated 7-10 Lactated Ringer's 1,000 mls @ 100 mls/hr 06/17/24 19:45 06/18/24 10:50 Lr - Lactated Ringers Iv IV CONT 100 mls/hr .Q10H OSCAR Administration Ondansetron HCl 4 mg 06/17/24 18:14 06/17/24 19:41 Ondansetron Inj 4 Mg/2 Ml Vial IV PUSH 4 mg Q4H PRN Administration Nausea Pantoprazole Sodium 40 mg 06/18/24 10:10 Pantoprazole 40 Mg Tablet PO QAM [facility] Radiology Results: ITS Impressions Abdomen/Pelvis CT 06/17/24 17:13 IMPRESSION: Findings consistent with acute (on chronic) pancreatitis. Additional findings suggesting hypovolemia. Labs Labs: Laboratory Results - last 24 hr 06/17/24 06/17/24 06/18/24 15:56 16:19 04:49 WBC 7.2 7.3 RBC 5.02 4.38 L Hgb 15.6 13.3 L Hct 45.6 42.3 MCV 90.8 96.6 D MCH 31.1 30.4 MCHC 34.2 31.4 L RDW 13.0 13.2 Plt Count 291 242 MPV 10.1 10.4 Immature Gran % (Auto) 0.3 0.3 Neut % (Auto) 48.8 48.2 Lymph % (Auto) 40.8 41.7 [place] % (Auto) 8.0 7.7 Eos % (Auto) 1.4 1.6 Baso % (Auto) 0.7 0.5 Lymph # (Auto) 2.94 3.04 [place] # (Auto) 0.6 0.6 Eos # (Auto) 0.1 0.1 Baso # (Auto) 0.1 0.0 Abs Immat Gran (auto) 0.02 0.02 Absolute Neuts (auto) 3.5 3.5 Absolute Nucleated RBC 0.000 0.000 Nucleated RBC % 0.0 0.0 Sodium 138 139 Potassium 4.5 4.3 Chloride 109 H 107 Carbon Dioxide 18 L 25 Anion Gap 11 7 BUN 15 D 12 Creatinine 0.87 0.82 Estim Creat Clear Calc 115 122 Estimated GFR > 60 > 60 Glucose 100 92 Calcium 9.4 8.5 Total Bilirubin 0.5 0.4 AST 21 18 ALT 29 23 Alkaline Phosphatase 103 75 Total Protein 8.0 6.0 L Albumin 4.3 3.3 L Lipase 3381 H 986 H Urine Color Yellow Urine Appearance Clear Urine pH 5.0 Ur Specific [place] 1.025 Urine Protein Negative Urine Glucose (UA) Negative Urine Ketones Negative Ur Blood (Man) Negative Urine Nitrate Negative Urine Bilirubin Negative Urine Urobilinogen 0.2 Leukocyte Esterase Rfl Negative Quality VTE Prophylaxis VTE prophylaxis: mechanical ordered
[2024-06-18] MEDS: LIPASE/AMYLASE/PROTEASE 12,000 UNITS CAP 3 CAP PO ×2 (12:57→16:18)
[2024-06-18] MEDS: ACETAMINOPHEN 325 MG TABLET 650 MG PO ×2 (13:29→17:05)
[2024-06-18 14:00] VITALS: BP 131/62; PULSE 61; RESP 16; TEMP 36.2; O2SAT 93
[2024-06-18 20:00] VITALS: PULSE 75; RESP 18; O2SAT 93
[2024-06-18 21:58] LABS: Glucose Point of Care 91 mg/dl (65-105)
[2024-06-18 22:00] VITALS: BP 143/86; PULSE 75; RESP 18; TEMP 36.3; O2SAT 93
[2024-06-19] MEDS: HYDROmorphone HCL INJ (*CRX) 1 MG/ML SYR IV PUSH ×7 (03:35→22:10)
[2024-06-19 05:18] LABS: Basophils Percent Auto 0.8 % (0.2-1.2); Eosinophils Absolute Auto 0.2 K/mm3 (0-0.3); Eosinophils Percent Auto 3.8 % (0-4.4); Hematocrit 41.4 % (42.0-52.0); Hemoglobin 13.3 g/dL (14.0-18.0); Immature Granulocyte Absolute 0.01 K/mm3 (0.00-0.031); Immature Granulocyte Percent A 0.2 % (0-0.5); Lymphocytes Percent Auto 45.9 % (18.3-44.2); Mean Corpuscular HGB Conc 32.1 g/dl (32-36); Mean Corpuscular Hemoglobin 30.1 pg (26-34); Mean Corpuscular Volume 93.7 fl (80-100); Mean Platelet Volume 10.3 fl (7.4-10.4); Monocytes Absolute Auto 0.6 K/mm3 (0.1-0.6); Monocytes Percent Auto 10.7 % (2.6-8.5); Neutrophils Percent Auto 38.6 % (45.5-73.1); Platelet Count Result 233 k/mm3 (150-375); Red Blood Count 4.42 M/mm3 (4.6-6.20); White Blood Count 5.2 K/mm3 (4.5-10.0)
[2024-06-19 05:28] LABS: Cholesterol 148 mg/dL (0-200); HDL Direct 23 mg/dL; Triglycerides 182 mg/dL (<150)
[2024-06-19 05:32] LABS: Alanine Aminotransferase 22 U/L (6-50); Albumin Level 3.6 g/dL (3.5-5.1); Alkaline Phosphatase 81 U/L (38-126); Anion Gap 8 mmol/L (4-12); Aspartate Amino Transferase 18 U/L (17-59); Bilirubin,Total 0.4 mg/dL (0.2-1.3); Blood Urea Nitrogen 8 mg/dL (9-20); Calcium 8.7 mg/dL (8.4-10.2); Carbon Dioxide 31 mmol/L (22-30); Chloride 100 mmol/L (98-107); Estimated CRCL calculation 109 ml/min; Estimated Glomerular Filt Rate > 60; Glucose 100 mg/dL (65-110); Magnesium 1.8 mg/dL (1.6-2.3); Potassium 3.8 mmol/L (3.4-5.0); Sodium 139 mmol/L (137-145)
[2024-06-19 05:39] LABS: LDL Cholesterol Direct 71 mg/dL
[2024-06-19 06:00] VITALS: BP 90/69; PULSE 63; RESP 18; TEMP 36.6; O2SAT 96
[2024-06-19] MEDS: LACTATED RINGERS 1,000 ML 100 ML IV CONT ×2 (06:59→16:12)
[2024-06-19] MEDS: GABAPENTIN 300 MG CAPSULE PO ×3 (08:03→16:11)
[2024-06-19] MEDS: PANTOPRAZOLE 40 MG TABLET PO (08:03)
[2024-06-19] MEDS: LIPASE/AMYLASE/PROTEASE 12,000 UNITS CAP 3 CAP PO ×3 (08:03→16:11)
[2024-06-19] MEDS: ENOXAPARIN 40 MG/0.4 ML SYRINGE SUB-Q (08:04)
--- NOTE | 2024-06-19 09:59 | P.PNIM_ITS ---
Progress Note: A&P Assessment and Plan (1) Pancreatitis: Qualifiers: Acute pancreatitis complication: no infection or necrosis Chronicity: acute Pancreatitis type: unspecified pancreatitis type Qualified Code(s): K85.90 - Acute pancreatitis without necrosis or infection, unspecified Code(s): K85.90 - Acute pancreatitis without necrosis or infection, unspecified Status: Acute Assessment and Plan: Acute on chronic without necrosis CT AP reviewed Lipid panel reviewed Triglyceride 182 Dilaudid for pain control Liquid diet continue IVF Monitor BUN, creatinine and hematocrit (2) Depression: Code(s): F32.9 - Major depressive disorder, single episode, unspecified Status: Acute Assessment and Plan: Not on home medication States anxiety is controlled (3) Nerve pain: Code(s): M79.2 - Neuralgia and neuritis, unspecified Status: Acute Plan Continue home Gabapentin DVT prophylaxis on Sq Lovenox Subjective Date/time seen: 06/19/24 09:59 Interval history: Patient continues to have abdominal pain. HCT and Cr is normal.Currently on full liquid diet.Reports quitting alcohol few months ago. Review of Systems Review of Systems: 12 systems were reviewed and are negativ e except for as per HPI. Exam Narrative: General: well appearing, appears stated age. HEENT: normocephalic, atraumatic. Mucous membranes moist. EOMI, PERRLA, bilateral sclera anicteric, no conjunctival injection. Neck supple without JVD, lymphadenopathy, or bruit. Respiratory: clear to ascultation bilaterally. No rales/rhonic/wheezes. Cardiovascular: Regular rate and rhythm, normal S1-S2 upon ascultation. No murmurs, rubs, or clicks. PMI is nondisplaced, capillary refill less than 3 second. Abdomen: Soft, round, no pulsatile masses, epigastric tenderness. No rebound, no guarding. No CVA tenderness, no hepatosplenomegaly. Bowel sounds present to all four quadrants. No high pitch or tinkling sounds, resonant to percussion. Extremities: No cyanosis, clubbing, or edema present. Pulses are palpable 2/2. Active ROM to all four extremities. Neuro: Alert and orientated x 4. PERRLA. Cranial nerves 2-12 intact without focal deficit. Skin: Warm, dry, and intact, without rash, erythema, or lesion. Psych: pleasant, cooperative, normal speech, normal affect, no hallucinations, no dysarthia Objective Data Vital Signs Vital Signs: Vital Signs - 24 hr 06/18/24 14:00 06/18/24 20:00 06/18/24 22:00 Temperature 97.2 F L 97.3 F L Pulse Rate 61 75 75 Respiratory Rate 16 18 18 Blood Pressure 131/62 143/86 H Pulse Oximetry 93 93 93 Oxygen Delivery Room Air 06/19/24 06:00 06/19/24 08:03 Temperature 97.9 F Pulse Rate 63 Respiratory Rate 18 Blood Pressure 90/69 L Pulse Oximetry 96 Oxygen Delivery Room Air Intake/Output Intake/Output: Intake & Output 06/16/24 06/17/24 06/18/24 06/19/24 23:59 23:59 23:59 23:59 Intake Total 1000 3985.0 1561 Output Total 4350 1035 Balance 1000 -365.0 526 Meds/Results Medications: Active Medications Generic Name Dose Route Start Last Admin Trade Name Freq PRN Reason Stop Dose Admin Acetaminophen 650 mg 06/17/24 18:14 06/18/24 17:05 Acetaminophen 325 Mg Tablet PO 650 mg Q4H PRN Administration Mild Pain (1-3) or Fever Lipase/Protease/Amylase 3 cap 06/18/24 12:00 06/19/24 08:03 Lipase/Amylase/Protease 12,000 Units Cap PO 3 cap TIDWM OSCAR Administration Diphenhydramine HCl 50 mg 06/17/24 23:35 Diphenhydramine Hcl Cap 25 Mg Capsule PO Q6H PRN Itching Diphenhydramine HCl 25 mg 04/07/25 17:46 06/18/24 22:45 Diphenhydramine Hcl Inj 50 Mg/Ml Vial IV PUSH 25 mg ONCE PRN Administration Itching Enoxaparin Sodium 40 mg 06/19/24 09:00 06/19/24 08:04 Enoxaparin 40 Mg/0.4 Ml Syringe SUB-Q 40 mg DAILY OSCAR Administration Gabapentin 300 mg 06/17/24 20:55 06/19/24 08:03 Gabapentin 300 Mg Capsule PO 300 mg TID OSCAR Administration Hydromorphone HCl 1 mg 06/17/24 19:51 06/19/24 06:43 Hydromorphone Hcl Inj (*Crx) 1 Mg/Ml Syr IV PUSH 1 mg Q2HR PRN Administration Pain Rated 7-10 Lactated Ringer's 1,000 mls @ 100 mls/hr 06/17/24 19:45 06/19/24 06:59 Lr - Lactated Ringers Iv IV CONT 100 mls/hr .Q10H OSCAR Administration Ondansetron HCl 4 mg 06/17/24 18:14 06/17/24 19:41 Ondansetron Inj 4 Mg/2 Ml Vial IV PUSH 4 mg Q4H PRN Administration Nausea Pantoprazole Sodium 40 mg 06/18/24 10:10 06/19/24 08:03 Pantoprazole 40 Mg Tablet PO 40 mg QAM OSCAR Administration Radiology Results: ITS Impressions Abdomen/Pelvis CT 06/17/24 17:13 IMPRESSION: Findings consistent with acute (on chronic) pancreatitis. Additional findings suggesting hypovolemia. Labs Labs: Laboratory Results - last 24 hr 06/18/24 06/19/24 21:54 04:30 WBC 5.2 RBC 4.42 L Hgb 13.3 L Hct 41.4 L MCV 93.7 MCH 30.1 MCHC 32.1 RDW 13.0 Plt Count 233 MPV 10.3 Immature Gran % (Auto) 0.2 Neut % (Auto) 38.6 L Lymph % (Auto) 45.9 H [place] % (Auto) 10.7 H Eos % (Auto) 3.8 Baso % (Auto) 0.8 Lymph # (Auto) 2.40 [place] # (Auto) 0.6 Eos # (Auto) 0.2 Baso # (Auto) 0.0 Abs Immat Gran (auto) 0.01 Absolute Neuts (auto) 2.0 Absolute Nucleated RBC 0.000 Nucleated RBC % 0.0 Sodium 139 Potassium 3.8 Chloride 100 Carbon Dioxide 31 H Anion Gap 8 BUN 8 L Creatinine 0.92 Estim Creat Clear Calc 109 Estimated GFR > 60 Glucose 100 POC Capillary Glucose 91 Calcium 8.7 Magnesium 1.8 Total Bilirubin 0.4 AST 18 ALT 22 Alkaline Phosphatase 81 Total Protein 6.0 L Albumin 3.6 Triglycerides 182 H Cholesterol 148 LDL Cholesterol Direct 71 HDL Direct 23 Quality VTE Prophylaxis VTE prophylaxis: mechanical ordered Hospitalist MIPS Advance Care Plan I have confirmed that the patient's Advanced Care Plan is present, code status is documented, or surrogate decision maker is listed in patient medical record.: Yes Medication Reconciliation I have utilized all available resources to obtain, update and review the p atients current medications (includes all prescriptions, OTC, herbals, cannabis, and nutritional supplements).: Yes
--- NOTE | 2024-06-19 12:17 | WPDGIPROGNO ---
Progress Note: A&P Assessment and Plan (1) Acute on chronic pancreatitis: Code(s): K85.90 - Acute pancreatitis without necrosis or infection, unspecified; K86.1 - Other chronic pancreatitis Status: Acute Assessment and Plan: clinically better, on liquid diet normal liver enzymes, also normal TG level he will follow-up with his GI doctor (2) Epigastric pain: Code(s): R10.13 - Epigastric pain Status: Acute Assessment and Plan: on treatment less pain (3) Alcohol abuse: Code(s): F10.10 - Alcohol abuse, uncomplicated Status: Acute Subjective Date/time seen: 06/19/24 12:17 Interval history: pain has improved but still discomfort after eating, he is on liquid diet Review of Systems Review of Systems: All systems reviewed & are unremarkable except as noted in HPI and below Exam Const: General: comfortable and no acute distress HENMT: Face/Nose/Sinus: Normal nares present Eyes: General: appearance normal, both eyes and all related structures Neck: Neck: no JVD Resp: Auscultation: clear to auscultation bilaterally Cardio: Rate: regular rate Rhythm: regular rhythm GI: Inspection: non-distended GI Palp: Yes Soft to palpation and Yes Tenderness to palpation present (GI) (less tender) Auscultation: normal bowel sounds Skin: General skin exam: normal color Neuro: Speech: normal speech Extrem: General: normal to inspection Psych: Mental Status: mental status grossly normal Objective Data Vital Signs Vital Signs: Vital Signs - 24 hr 06/18/24 14:00 06/18/24 20:00 06/18/24 22:00 Temperature 97.2 F L 97.3 F L Pulse Rate 61 75 75 Respiratory Rate 16 18 18 Blood Pressure 131/62 143/86 H Pulse Oximetry 93 93 93 Oxygen Delivery Room Air 06/19/24 06:00 06/19/24 08:03 Temperature 97.9 F Pulse Rate 63 Respiratory Rate 18 Blood Pressure 90/69 L Pulse Oximetry 96 Oxygen Delivery Room Air Intake/Output Intake/Output: Intake & Output 06/16/24 06/17/24 06/18/24 06/19/24 23:59 23:59 23:59 23:59 Intake Total 1000 3985.0 1561 Output Total 4350 1035 Balance 1000 -365.0 526 Meds/Results Medications: Active Medications Generic Name Dose Route Start Last Admin Trade Name Freq PRN Reason Stop Dose Admin Acetaminophen 650 mg 06/17/24 18:14 06/18/24 17:05 Acetaminophen 325 Mg Tablet PO 650 mg Q4H PRN Administration Mild Pain (1-3) or Fever Lipase/Protease/Amylase 3 cap 06/18/24 12:00 06/19/24 08:03 Lipase/Amylase/Protease 12,000 Units Cap PO 3 cap TIDWM OSCAR Administration Diphenhydramine HCl 50 mg 06/17/24 23:35 Diphenhydramine Hcl Cap 25 Mg Capsule PO Q6H PRN Itching Diphenhydramine HCl 25 mg 06/18/24 17:46 06/18/24 22:45 Diphenhydramine Hcl Inj 50 Mg/Ml Vial IV PUSH 25 mg ONCE PRN Administration Itching Enoxaparin Sodium 40 mg 06/19/24 09:00 06/19/24 08:04 Enoxaparin 40 Mg/0.4 Ml Syringe SUB-Q 40 mg DAILY OSCAR Administration Gabapentin 300 mg 06/17/24 20:55 06/19/24 08:03 Gabapentin 300 Mg Capsule PO 300 mg TID OSCAR Administration Hydromorphone HCl 1 mg 06/17/24 19:51 06/19/24 06:43 Hydromorphone Hcl Inj (*Crx) 1 Mg/Ml Syr IV PUSH 1 mg Q2HR PRN Administration Pain Rated 7-10 Lactated Ringer's 1,000 mls @ 100 mls/hr 06/17/24 19:45 06/19/24 06:59 Lr - Lactated Ringers Iv IV CONT 100 mls/hr .Q10H OSCAR Administration Ondansetron HCl 4 mg 06/17/24 18:14 06/17/24 19:41 Ondansetron Inj 4 Mg/2 Ml Vial IV PUSH 4 mg Q4H PRN Administration Nausea Pantoprazole Sodium 40 mg 06/18/24 10:10 06/19/24 08:03 Pantoprazole 40 Mg Tablet PO 40 mg QAM OSCAR Administration Radiology Results: ITS Impressions Abdomen/Pelvis CT 06/17/24 17:13 IMPRESSION: Findings consistent with acute (on chronic) pancreatitis. Additional findings suggesting hypovolemia. Labs Labs: Laboratory Results - last 24 hr 06/18/24 06/19/24 21:54 04:30 WBC 5.2 RBC 4.42 L Hgb 13.3 L Hct 41.4 L MCV 93.7 MCH 30.1 MCHC 32.1 RDW 13.0 Plt Count 233 MPV 10.3 Immature Gran % (Auto) 0.2 Neut % (Auto) 38.6 L Lymph % (Auto) 45.9 H [place] % (Auto) 10.7 H Eos % (Auto) 3.8 Baso % (Auto) 0.8 Lymph # (Auto) 2.40 [place] # (Auto) 0.6 Eos # (Auto) 0.2 Baso # (Auto) 0.0 Abs Immat Gran (auto) 0.01 Absolute Neuts (auto) 2.0 Absolute Nucleated RBC 0.000 Nucleated RBC % 0.0 Sodium 139 Potassium 3.8 Chloride 100 Carbon Dioxide 31 H Anion Gap 8 BUN 8 L Creatinine 0.92 Estim Creat Clear Calc 109 Estimated GFR > 60 Glucose 100 POC Capillary Glucose 91 Calcium 8.7 Magnesium 1.8 Total Bilirubin 0.4 AST 18 ALT 22 Alkaline Phosphatase 81 Total Protein 6.0 L Albumin 3.6 Triglycerides 182 H Cholesterol 148 LDL Cholesterol Direct 71 HDL Direct 23
[2024-06-19] MEDS: ACETAMINOPHEN 325 MG TABLET 650 MG PO (13:47)
[2024-06-19 14:00] VITALS: BP 135/74; PULSE 69; RESP 14; TEMP 36.6; O2SAT 95
[2024-06-19] MEDS: diphenhydrAMINE HCl CAP 25 MG CAPSULE 50 MG PO ×2 (17:34→23:23)
[2024-06-19 20:00] VITALS: PULSE 69; RESP 14; O2SAT 95
[2024-06-19 22:00] VITALS: BP 148/82; PULSE 88; RESP 18; TEMP 37; O2SAT 91
[2024-06-20] MEDS: HYDROmorphone HCL INJ (*CRX) 1 MG/ML SYR IV PUSH ×3 (00:40→08:58)
[2024-06-20] MEDS: LACTATED RINGERS 1,000 ML 100 ML IV CONT ×3 (03:18→23:29)
[2024-06-20 05:14] LABS: Hematocrit 39.9 % (42.0-52.0); Mean Corpuscular HGB Conc 32.6 g/dl (32-36); Mean Corpuscular Volume 95.2 fl (80-100); Mean Platelet Volume 10.3 fl (7.4-10.4); Platelet Count Result 232 k/mm3 (150-375); Red Blood Count 4.19 M/mm3 (4.6-6.20); Red Cell Distribution Width 12.9 % (11.5-14.5); White Blood Count 5.5 K/mm3 (4.5-10.0)
[2024-06-20 05:28] LABS: Alanine Aminotransferase 21 U/L (6-50); Albumin Level 3.6 g/dL (3.5-5.1); Alkaline Phosphatase 73 U/L (38-126); Anion Gap 5 mmol/L (4-12); Aspartate Amino Transferase 19 U/L (17-59); Bilirubin,Total 0.4 mg/dL (0.2-1.3); Blood Urea Nitrogen 6 mg/dL (9-20); Calcium 8.9 mg/dL (8.4-10.2); Carbon Dioxide 33 mmol/L (22-30); Chloride 102 mmol/L (98-107); Estimated CRCL calculation 100 ml/min; Estimated Glomerular Filt Rate > 60; Glucose 96 mg/dL (65-110); Potassium 4.3 mmol/L (3.4-5.0); Sodium 140 mmol/L (137-145)
[2024-06-20 06:00] VITALS: BP 142/75; PULSE 64; RESP 18; TEMP 36.6; O2SAT 98
[2024-06-20 08:47] VITALS: RESP 16; O2SAT 97
[2024-06-20] MEDS: PANTOPRAZOLE 40 MG TABLET PO (08:47)
[2024-06-20] MEDS: GABAPENTIN 300 MG CAPSULE PO ×3 (08:47→16:15)
[2024-06-20] MEDS: LIPASE/AMYLASE/PROTEASE 12,000 UNITS CAP 3 CAP PO ×3 (08:48→16:15)
[2024-06-20] MEDS: HYDROmorphone HCL INJ (*CRX) 1 MG/ML SYR 2 MG IV PUSH ×4 (11:24→21:23)
[2024-06-20 14:00] VITALS: BP 146/66; PULSE 67; RESP 16; TEMP 36.6; O2SAT 97
--- NOTE | 2024-06-20 15:32 | P.PNIM_ITS ---
Progress Note: A&P Assessment and Plan (1) Pancreatitis: Qualifiers: Acute pancreatitis complication: no infection or necrosis Chronicity: acute Pancreatitis type: unspecified pancreatitis type Qualified Code(s): K85.90 - Acute pancreatitis without necrosis or infection, unspecified Code(s): K85.90 - Acute pancreatitis without necrosis or infection, unspecified Status: Acute Assessment and Plan: Acute on chronic without necrosis CT AP reviewed Lipid panel reviewed Triglyceride 182 Dilaudid for pain control Liquid diet continue IVF Monitor BUN, creatinine and hematocrit (2) Depression: Code(s): F32.9 - Major depressive disorder, single episode, unspecified Status: Acute Assessment and Plan: Not on home medication States anxiety is controlled (3) Nerve pain: Code(s): M79.2 - Neuralgia and neuritis, unspecified Status: Acute Plan Continue home Gabapentin DVT prophylaxis on Sq Lovenox Subjective Date/time seen: 06/20/24 15:32 Interval history: Patient still complains of pain occasionally. Still on full liquid diet. Review of Systems Review of Systems: 12 systems were reviewed and are negativ e except for as per HPI. Exam Narrative: General: well appearing, appears stated age. HEENT: normocephalic, atraumatic. Mucous membranes moist. EOMI, PERRLA, bilateral sclera anicteric, no conjunctival injection. Neck supple without JVD, lymphadenopathy, or bruit. Respiratory: clear to ascultation bilaterally. No rales/rhonic/wheezes. Cardiovascular: Regular rate and rhythm, normal S1-S2 upon ascultation. No murmurs, rubs, or clicks. PMI is nondisplaced, capillary refill less than 3 second. Abdomen: Soft, round, no pulsatile masses, epigastric tenderness. No rebound, no guarding. No CVA tenderness, no hepatosplenomegaly. Bowel sounds present to all four quadrants. No high pitch or tinkling sounds, resonant to percussion. Extremities: No cyanosis, clubbing, or edema present. Pulses are palpable 2/2. Active ROM to all four extremities. Neuro: Alert and orientated x 4. PERRLA. Cranial nerves 2-12 intact without focal deficit. Skin: Warm, dry, and intact, without rash, erythema, or lesion. Psych: pleasant, cooperative, normal speech, normal affect, no hallucinations, no dysarthia Objective Data Vital Signs Vital Signs: Vital Signs - 24 hr 06/19/24 20:00 06/19/24 22:00 06/20/24 06:00 Temperature 98.6 F 97.8 F Pulse Rate 69 88 64 Respiratory Rate 14 18 18 Blood Pressure 148/82 H 142/75 H Pulse Oximetry 95 91 98 Oxygen Delivery Room Air 06/20/24 08:47 06/20/24 14:00 Temperature 97.8 F Pulse Rate 67 Respiratory Rate 16 16 Blood Pressure 146/66 H Pulse Oximetry 97 97 Oxygen Delivery Room Air Intake/Output Intake/Output: Intake & Output 06/17/24 06/18/24 06/19/24 06/20/24 23:59 23:59 23:59 23:59 Intake Total 1000 3985.0 5142.7 2860 Output Total 4350 5375 4600 Balance 1000 -365.0 -232.3 -1740 Meds/Results Medications: Active Medications Generic Name Dose Route Start Last Admin Trade Name Freq PRN Reason Stop Dose Admin Acetaminophen 650 mg 06/17/24 18:14 06/19/24 13:47 Acetaminophen 325 Mg Tablet PO 650 mg Q4H PRN Administration Mild Pain (1-3) or Fever Lipase/Protease/Amylase 3 cap 06/18/24 12:00 06/20/24 11:25 Lipase/Amylase/Protease 12,000 Units Cap PO 3 cap TIDWM OSCAR Administration Diphenhydramine HCl 50 mg 06/17/24 23:35 06/19/24 23:23 Diphenhydramine Hcl Cap 25 Mg Capsule PO 50 mg Q6H PRN Administration Itching Enoxaparin Sodium 40 mg 06/19/24 09:00 06/20/24 08:48 Enoxaparin 40 Mg/0.4 Ml Syringe SUB-Q Not Given DAILY OSCAR Gabapentin 300 mg 06/17/24 20:55 06/20/24 12:27 Gabapentin 300 Mg Capsule PO 300 mg TID OSCAR Administration Hydromorphone HCl 2 mg 06/20/24 10:58 06/20/24 15:02 Hydromorphone Hcl Inj (*Crx) 1 Mg/Ml Syr IV PUSH 2 mg Q3H PRN Administration Pain Rated 7-10 Lactated Ringer's 1,000 mls @ 100 mls/hr 06/17/24 19:45 06/20/24 13:27 Lr - Lactated Ringers Iv IV CONT 100 mls/hr .Q10H OSCAR Administration Ondansetron HCl 4 mg 06/17/24 18:14 06/17/24 19:41 Ondansetron Inj 4 Mg/2 Ml Vial IV PUSH 4 mg Q4H PRN Administration Nausea Pantoprazole Sodium 40 mg 06/18/24 10:10 06/20/24 08:47 Pantoprazole 40 Mg Tablet PO 40 mg QAM OSCAR Administration Radiology Results: ITS Impressions Abdomen/Pelvis CT 06/17/24 17:13 IMPRESSION: Findings consistent with acute (on chronic) pancreatitis. Additional findings suggesting hypovolemia. Labs Labs: Laboratory Results - last 24 hr 06/20/24 04:17 WBC 5.5 RBC 4.19 L Hgb 13.0 L Hct 39.9 L MCV 95.2 MCH 31.0 MCHC 32.6 RDW 12.9 Plt Count 232 MPV 10.3 Sodium 140 Potassium 4.3 Chloride 102 Carbon Dioxide 33 H Anion Gap 5 BUN 6 L Creatinine 1.01 Estim Creat Clear Calc 100 Estimated GFR > 60 Glucose 96 Calcium 8.9 Total Bilirubin 0.4 AST 19 ALT 21 Alkaline Phosphatase 73 Total Protein 6.0 L Albumin 3.6 Quality VTE Prophylaxis VTE prophylaxis: mechanical ordered Hospitalist MIPS Advance Care Plan I have confirmed that the patient's Advanced Care Plan is present, code status is documented, or surrogate decision maker is listed in patient medical record.: Yes Medication Reconciliation I have utilized all available resources to obtain, update and review the patients current medications (includes all prescriptions, OTC, herbals, cannabis, and nutritional supplements).: Yes
--- NOTE | 2024-06-20 17:20 | WPDGIPROGNO ---
Progress Note: A&P Assessment and Plan (1) Acute on chronic pancreatitis: Code(s): K85.90 - Acute pancreatitis without necrosis or infection, unspecified; K86.1 - Other chronic pancreatitis Status: Acute Assessment and Plan: diet as tolerated only still requiring pain meds normal liver enzymes he will follow-up with his GI doctor (2) Epigastric pain: Code(s): R10.13 - Epigastric pain Status: Acute Assessment and Plan: on treatment less pain today after pain meds adjusted (3) Alcohol abuse: Code(s): F10.10 - Alcohol abuse, uncomplicated Status: Acute Subjective Date/time seen: 06/20/24 17:20 Interval history: pain better after medication adjusted still not eating much Review of Systems Review of Systems: All systems reviewed & are unremarkable except as noted in HPI and below Exam Const: General: comfortable and no acute distress HENMT: Face/Nose/Sinus: Normal nares present Eyes: General: appearance normal, both eyes and all related structures Neck: Neck: no JVD Resp: Auscultation: clear to auscultation bilaterally Cardio: Rate: regular rate Rhythm: regular rhythm GI: Inspection: non-distended GI Palp: Yes Soft to palpation and Yes Tenderness to palpation present (GI) (less tender) Auscultation: normal bowel sounds Skin: General skin exam: normal color Neuro: Speech: normal speech Extrem: General: normal to inspection Psych: Mental Status: mental status grossly normal Objective Data Vital Signs Vital Signs: Vital Signs - 24 hr 06/19/24 20:00 06/19/24 22:00 06/20/24 06:00 Temperature 98.6 F 97.8 F Pulse Rate 69 88 64 Respiratory Rate 14 18 18 Blood Pressure 148/82 H 142/75 H Pulse Oximetry 95 91 98 Oxygen Delivery Room Air 06/20/24 08:47 06/20/24 14:00 Temperature 97.8 F Pulse Rate 67 Respiratory Rate 16 16 Blood Pressure 146/66 H Pulse Oximetry 97 97 Oxygen Delivery Room Air Intake/Output Intake/Output: Intake & Output 06/17/24 06/18/24 06/19/24 06/20/24 23:59 23:59 23:59 23:59 Intake Total 1000 3985.0 5142.7 3960 Output Total 4350 5375 6300 Balance 1000 -365.0 -232.3 -2340 Meds/Results Medications: Active Medications Generic Name Dose Route Start Last Admin Trade Name Freq PRN Reason Stop Dose Admin Acetaminophen 650 mg 06/17/24 18:14 06/19/24 13:47 Acetaminophen 325 Mg Tablet PO 650 mg Q4H PRN Administration Mild Pain (1-3) or Fever Lipase/Protease/Amylase 3 cap 06/18/24 12:00 06/20/24 16:15 Lipase/Amylase/Protease 12,000 Units Cap PO 3 cap TIDWM OSCAR Administration Diphenhydramine HCl 50 mg 06/17/24 23:35 06/19/24 23:23 Diphenhydramine Hcl Cap 25 Mg Capsule PO 50 mg Q6H PRN Administration Itching Enoxaparin Sodium 40 mg 06/19/24 09:00 06/20/24 08:48 Enoxaparin 40 Mg/0.4 Ml Syringe SUB-Q Not Given DAILY OSCAR Gabapentin 300 mg 06/17/24 20:55 06/20/24 16:15 Gabapentin 300 Mg Capsule PO 300 mg TID OSCAR Administration Hydromorphone HCl 2 mg 06/20/24 10:58 06/20/24 15:02 Hydromorphone Hcl Inj (*Crx) 1 Mg/Ml Syr IV PUSH 2 mg Q3H PRN Administration Pain Rated 7-10 Lactated Ringer's 1,000 mls @ 100 mls/hr 06/17/24 19:45 06/20/24 13:27 Lr - Lactated Ringers Iv IV CONT 100 mls/hr .Q10H OSCAR Administration Ondansetron HCl 4 mg 06/17/24 18:14 06/17/24 19:41 Ondansetron Inj 4 Mg/2 Ml Vial IV PUSH 4 mg Q4H PRN Administration Nausea Pantoprazole Sodium 40 mg 06/18/24 10:10 06/20/24 08:47 Pantoprazole 40 Mg Tablet PO 40 mg QAM OSCAR Administration Radiology Results: ITS Impressions Abdomen/Pelvis CT 06/17/24 17:13 IMPRESSION: Findings consistent with acute (on chronic) pancreatitis. Additional findings suggesting hypovolemia. Labs Labs: Laboratory Results - last 24 hr 06/20/24 04:17 WBC 5.5 RBC 4.19 L Hgb 13.0 L Hct 39.9 L MCV 95.2 MCH 31.0 MCHC 32.6 RDW 12.9 Plt Count 232 MPV 10.3 Sodium 140 Potassium 4.3 Chloride 102 Carbon Dioxide 33 H Anion Gap 5 BUN 6 L Creatinine 1.01 Estim Creat Clear Calc 100 Estimated GFR > 60 Glucose 96 Calcium 8.9 Total Bilirubin 0.4 AST 19 ALT 21 Alkaline Phosphatase 73 Total Protein 6.0 L Albumin 3.6
[2024-06-20 20:00] VITALS: PULSE 76; RESP 18; O2SAT 97
[2024-06-20] MEDS: ACETAMINOPHEN 325 MG TABLET 650 MG PO (20:05)
[2024-06-20 22:00] VITALS: BP 150/82; PULSE 76; RESP 18; TEMP 36.8; O2SAT 97
[2024-06-21] MEDS: HYDROmorphone HCL INJ (*CRX) 1 MG/ML SYR 2 MG IV PUSH (00:24)
[2024-06-21] MEDS: CALCIUM CARBONATE (TUMS) 500 MG (200 MG ELEMENTAL) PO ×2 (01:06→15:02)
[2024-06-21] MEDS: HYDROmorphone HCL INJ (*CRX) 1 MG/ML SYR 1.5 MG IV PUSH (03:26)
[2024-06-21 05:36] LABS: Hematocrit 40.7 % (42.0-52.0); Hemoglobin 13.4 g/dL (14.0-18.0); Mean Corpuscular HGB Conc 32.9 g/dl (32-36); Mean Corpuscular Hemoglobin 30.9 pg (26-34); Mean Platelet Volume 10.1 fl (7.4-10.4); Platelet Count Result 244 k/mm3 (150-375); Red Blood Count 4.33 M/mm3 (4.6-6.20); Red Cell Distribution Width 12.9 % (11.5-14.5); White Blood Count 4.8 K/mm3 (4.5-10.0)
[2024-06-21 05:46] LABS: Alanine Aminotransferase 24 U/L (6-50); Albumin Level 3.7 g/dL (3.5-5.1); Alkaline Phosphatase 75 U/L (38-126); Anion Gap 6 mmol/L (4-12); Aspartate Amino Transferase 22 U/L (17-59); Bilirubin,Total 0.4 mg/dL (0.2-1.3); Blood Urea Nitrogen 4 mg/dL (9-20); Calcium 8.9 mg/dL (8.4-10.2); Carbon Dioxide 34 mmol/L (22-30); Chloride 100 mmol/L (98-107); Estimated CRCL calculation 101 ml/min; Estimated Glomerular Filt Rate > 60; Glucose 95 mg/dL (65-110); Potassium 4.1 mmol/L (3.4-5.0); Sodium 140 mmol/L (137-145)
[2024-06-21 06:00] VITALS: BP 128/74; PULSE 66; RESP 18; TEMP 36.4; O2SAT 95
--- NOTE | 2024-06-21 08:42 | P.PNIM_ITS ---
Progress Note: A&P Assessment and Plan (1) Pancreatitis: Qualifiers: Acute pancreatitis complication: no infection or necrosis Chronicity: acute Pancreatitis type: unspecified pancreatitis type Qualified Code(s): K85.90 - Acute pancreatitis without necrosis or infection, unspecified Code(s): K85.90 - Acute pancreatitis without necrosis or infection, unspecified Status: Acute Assessment and Plan: Acute on chronic without necrosis CT AP reviewed Lipid panel reviewed Triglyceride 182 Dilaudid for pain control Liquid diet continue IVF Monitor BUN, creatinine and hematocrit (2) Depression: Code(s): F32.9 - Major depressive disorder, single episode, unspecified Status: Acute Assessment and Plan: Not on home medication States anxiety is controlled (3) Nerve pain: Code(s): M79.2 - Neuralgia and neuritis, unspecified Status: Acute Plan Continue home Gabapentin DVT prophylaxis on Sq Lovenox Subjective Date/time seen: 06/21/24 08:42 Interval history: Patient still requiring pain medication. Called [facility] and waiting for call back. Patient follows up with with BRANDI Daniel APRN at [facility]. Update: Received the call and currently patient is on waiting list but still not yet accepted. Review of Systems Review of Systems: 12 systems were reviewed and are negativ e except for as per HPI. Exam Narrative: General: well appearing, appears stated age. HEENT: normocephalic, atraumatic. Mucous membranes moist. EOMI, PERRLA, bilateral sclera anicteric, no conjunctival injection. Neck supple without JVD, lymphadenopathy, or bruit. Respiratory: clear to ascultation bilaterally. No rales/rhonic/wheezes. Cardiovascular: Regular rate and rhythm, normal S1-S2 upon ascultation. No murmurs, rubs, or clicks. PMI is nondisplaced, capillary refill less than 3 second. Abdomen: Soft, round, no pulsatile masses, epigastric tenderness. No rebound, no guarding. No CVA tenderness, no hepatosplenomegaly. Bowel sounds present to all four quadrants. No high pitch or tinkling sounds, resonant to percussion. Extremities: No cyanosis, clubbing, or edema present. Pulses are palpable 2/2. Active ROM to all four extremities. Neuro: Alert and orientated x 4. PERRLA. Cranial nerves 2-12 intact without foc al deficit. Skin: Warm, dry, and intact, without rash, erythema, or lesion. Psych: pleasant, cooperative, normal speech, normal affect, no hallucinations, no dysarthia Objective Data Vital Signs Vital Signs: Vital Signs - 24 hr 06/20/24 08:47 06/20/24 14:00 06/20/24 20:00 Temperature 97.8 F Pulse Rate 67 76 Respiratory Rate 16 16 18 Blood Pressure 146/66 H Pulse Oximetry 97 97 97 Oxygen Delivery Room Air Room Air 06/20/24 22:00 06/21/24 06:00 Temperature 98.2 F 97.5 F L Pulse Rate 76 66 Respiratory Rate 18 18 Blood Pressure 150/82 H 128/74 Pulse Oximetry 97 95 Oxygen Delivery Intake/Output Intake/Output: Intake & Output 06/18/24 06/19/24 06/20/24 06/21/24 23:59 23:59 23:59 23:59 Intake Total 3985.0 5142.7 5560 Output Total 4350 5375 8620 500 Balance -365.0 -232.3 -3060 -500 Meds/Results Medications: Active Medications Generic Name Dose Route Start Last Admin Trade Name Freq PRN Reason Stop Dose Admin Acetaminophen 650 mg 06/17/24 18:14 06/20/24 20:05 Acetaminophen 325 Mg Tablet PO 650 mg Q4H PRN Administration Mild Pain (1-3) or Fever Lipase/Protease/Amylase 3 cap 06/18/24 12:00 06/20/24 16:15 Lipase/Amylase/Protease 12,000 Units Cap PO 3 cap TIDWM OSCAR Administration Calcium Carbonate 200 mg 06/21/24 00:59 06/21/24 01:06 Calcium Carbonate (Tums) 500 Mg (200 Mg Elemental) PO 200 mg Q6H PRN Administration Indigestion Diphenhydramine HCl 50 mg 06/17/24 23:35 06/19/24 23:23 Diphenhydramine Hcl Cap 25 Mg Capsule PO 50 mg Q6H PRN Administration Itching Enoxaparin Sodium 40 mg 06/19/24 09:00 06/20/24 08:48 Enoxaparin 40 Mg/0.4 Ml Syringe SUB-Q Not Given DAILY OSCAR Gabapentin 300 mg 06/17/24 20:55 06/20/24 16:15 Gabapentin 300 Mg Capsule PO 300 mg TID OSCAR Administration Hydromorphone HCl 1.5 mg 06/21/24 00:59 06/21/24 03:26 Hydromorphone Hcl Inj (*Crx) 1 Mg/Ml Syr IV PUSH 1.5 mg Q3H PRN Administration Pain Rated 7-10 Lactated Ringer's 1,000 mls @ 100 mls/hr 06/17/24 19:45 06/20/24 23:29 Lr - Lactated Ringers Iv IV CONT 100 mls/hr .Q10H OSCAR Administration Ondansetron HCl 4 mg 06/17/24 18:14 06/17/24 19:41 Ondansetron Inj 4 Mg/2 Ml Vial IV PUSH 4 mg Q4H PRN Administration Nausea Pantoprazole Sodium 40 mg 06/18/24 10:10 06/20/24 08:47 Pantoprazole 40 Mg Tablet PO 40 mg QAM OSCAR Administration Radiology Results: ITS Impressions Abdomen/Pelvis CT 06/17/24 17:13 IMPRESSION: Findings consistent with acute (on chronic) pancreatitis. Additional findings suggesting hypovolemia. Labs Labs: Laboratory Results - last 24 hr 06/21/24 04:21 WBC 4.8 RBC 4.33 L Hgb 13.4 L Hct 40.7 L MCV 94.0 MCH 30.9 MCHC 32.9 RDW 12.9 Plt Count 244 MPV 10.1 Sodium 140 Potassium 4.1 Chloride 100 Carbon Dioxide 34 H Anion Gap 6 BUN 4 L Creatinine 1.00 Estim Creat Clear Calc 101 Estimated GFR > 60 Glucose 95 Calcium 8.9 Total Bilirubin 0.4 AST 22 ALT 24 Alkaline Phosphatase 75 Total Protein 6.0 L Albumin 3.7 Quality VTE Prophylaxis VTE prophylaxis: mechanical ordered Hospitalist MIPS Advance Care Plan I have confirmed that the patient's Advanced Care Plan is present, code status is documented, or surrogate decision maker is listed in patient medical record.: Yes Medication Reconciliation I have utilized all available resources to obtain, update and review the patients current medications (includes all prescriptions, OTC, herbals, cannabis, and nutritional supplements).: Yes
[2024-06-21 09:17] VITALS: RESP 18; O2SAT 95
[2024-06-21] MEDS: PANTOPRAZOLE 40 MG TABLET PO (09:17)
[2024-06-21] MEDS: GABAPENTIN 300 MG CAPSULE PO ×3 (09:17→17:43)
[2024-06-21] MEDS: LIPASE/AMYLASE/PROTEASE 12,000 UNITS CAP 3 CAP PO ×3 (09:17→17:43)
[2024-06-21] MEDS: LACTATED RINGERS 1,000 ML 100 ML IV CONT ×2 (12:11→22:35)
[2024-06-21 14:00] VITALS: BP 149/50; PULSE 58; RESP 16; TEMP 36.7; O2SAT 94
[2024-06-21] MEDS: MORPHINE SULFATE (*CRX) 2 MG/ML INJ 1 MG IV PUSH (14:03)
[2024-06-21] MEDS: ONDANSETRON INJ 4 MG/2 ML VIAL IV PUSH (15:02)
[2024-06-21 15:35] VITALS: BP 132/68; PULSE 61; RESP 18; O2SAT 95
--- NOTE | 2024-06-21 16:39 | WPDGIPROGNO ---
Progress Note: A&P Assessment and Plan (1) Acute on chronic pancreatitis: Code(s): K85.90 - Acute pancreatitis without necrosis or infection, unspecified; K86.1 - Other chronic pancreatitis Status: Acute Assessment and Plan: diet as tolerated only, not eating much still requiring pain meds normal liver enzymes he will follow-up with his GI doctor (2) Epigastric pain: Code(s): R10.13 - Epigastric pain Status: Acute Assessment and Plan: on treatment (3) Alcohol abuse: Code(s): F10.10 - Alcohol abuse, uncomplicated Status: Acute Subjective Date/time seen: 06/21/24 16:39 Interval history: still poor appetite because of pain he prefers to have morphine instead of dilaudid- this was causing blurred vision Review of Systems Review of Systems: All systems reviewed & are unremarkable except as noted in HPI and below Exam Const: General: comfortable and no acute distress HENMT: Face/Nose/Sinus: Normal nares present Eyes: General: appearance normal, both eyes and all related structures Neck: Neck: no JVD Resp: Auscultation: clear to auscultation bilaterally Cardio: Rate: regular rate Rhythm: regular rhythm GI: Inspection: non-distended GI Palp: Yes Soft to palpation and Yes Tenderness to palpation present (GI) (mild tender) Auscultation: normal bowel sounds Skin: General skin exam: normal color Neuro: Speech: normal speech Extrem: General: normal to inspection Psych: Mental Status: mental status grossly normal Objective Data Vital Signs Vital Signs: Vital Signs - 24 hr 06/20/24 20:00 06/20/24 22:00 06/21/24 06:00 Temperature 98.2 F 97.5 F L Pulse Rate 76 76 66 Respiratory Rate 18 18 18 Blood Pressure 150/82 H 128/74 Pulse Oximetry 97 97 95 Oxygen Delivery Room Air 06/21/24 09:17 06/21/24 14:00 06/21/24 15:35 Temperature 98.1 F Pulse Rate 58 L 61 Respiratory Rate 18 16 18 Blood Pressure 149/50 H 132/68 Pulse Oximetry 95 94 95 Oxygen Delivery Room Air Intake/Output Intake/Output: Intake & Output 06/18/24 06/19/24 06/20/24 06/21/24 23:59 23:59 23:59 23:59 Intake Total 3985.0 5142.7 5560 1360.0 Output Total 4350 5375 8620 1700 Balance -365.0 -232.3 -3060 -340.0 Meds/Results Medications: Active Medications Generic Name Dose Route Start Last Admin Trade Name Freq PRN Reason Stop Dose Admin Acetaminophen 650 mg 06/17/24 18:14 06/20/24 20:05 Acetaminophen 325 Mg Tablet PO 650 mg Q4H PRN Administration Mild Pain (1-3) or Fever Lipase/Protease/Amylase 3 cap 06/18/24 12:00 06/21/24 12:08 Lipase/Amylase/Protease 12,000 Units Cap PO 3 cap TIDWM OSCAR Administration Calcium Carbonate 200 mg 06/21/24 00:59 06/21/24 15:02 Calcium Carbonate (Tums) 500 Mg (200 Mg Elemental) PO 200 mg Q6H PRN Administration Indigestion Diphenhydramine HCl 50 mg 06/17/24 23:35 06/19/24 23:23 Diphenhydramine Hcl Cap 25 Mg Capsule PO 50 mg Q6H PRN Administration Itching Enoxaparin Sodium 40 mg 06/19/24 09:00 06/21/24 09:18 Enoxaparin 40 Mg/0.4 Ml Syringe SUB-Q Not Given DAILY OSCAR Gabapentin 300 mg 06/17/24 20:55 06/21/24 12:08 Gabapentin 300 Mg Capsule PO 300 mg TID OSCAR Administration Hydromorphone HCl 1.5 mg 06/21/24 00:59 06/21/24 03:26 Hydromorphone Hcl Inj (*Crx) 1 Mg/Ml Syr IV PUSH 1.5 mg Q3H PRN Administration Pain Rated 7-10 Lactated Ringer's 1,000 mls @ 100 mls/hr 06/17/24 19:45 06/21/24 12:11 Lr - Lactated Ringers Iv IV CONT 100 mls/hr .Q10H OSCAR Administration Ondansetron HCl 4 mg 06/17/24 18:14 06/21/24 15:02 Ondansetron Inj 4 Mg/2 Ml Vial IV PUSH 4 mg Q4H PRN Administration Nausea Pantoprazole Sodium 40 mg 06/18/24 10:10 06/21/24 09:17 Pantoprazole 40 Mg Tablet PO 40 mg QAM OSCAR Administration Radiology Results: ITS Impressions Abdomen/Pelvis CT 06/17/24 17:13 IMPRESSION: Findings consistent with acute (on chronic) pancreatitis. Additional findings suggesting hypovolemia. Labs Labs: Laboratory Results - last 24 hr 06/21/24 04:21 WBC 4.8 RBC 4.33 L Hgb 13.4 L Hct 40.7 L MCV 94.0 MCH 30.9 MCHC 32.9 RDW 12.9 Plt Count 244 MPV 10.1 Sodium 140 Potassium 4.1 Chloride 100 Carbon Dioxide 34 H Anion Gap 6 BUN 4 L Creatinine 1.00 Estim Creat Clear Calc 101 Estimated GFR > 60 Glucose 95 Calcium 8.9 Total Bilirubin 0.4 AST 22 ALT 24 Alkaline Phosphatase 75 Total Protein 6.0 L Albumin 3.7
[2024-06-21 20:36] VITALS: BP 108/61; PULSE 60; RESP 16; TEMP 36.5; O2SAT 93
[2024-06-21] MEDS: ACETAMINOPHEN 325 MG TABLET 650 MG PO (20:58)
[2024-06-21] MEDS: fentaNYL CITRATE INJ (*CRX) 100 MCG/2 ML VIAL 25 MCG IV PUSH (23:15)
[2024-06-21] MEDS: diphenhydrAMINE HCl CAP 25 MG CAPSULE 50 MG PO (23:56)
[2024-06-22] MEDS: ACETAMINOPHEN 325 MG TABLET 650 MG PO ×2 (01:16→06:24)
[2024-06-22] MEDS: CALCIUM CARBONATE (TUMS) 500 MG (200 MG ELEMENTAL) PO (01:17)
[2024-06-22 05:37] LABS: Hematocrit 39.8 % (42.0-52.0); Hemoglobin 13.2 g/dL (14.0-18.0); Mean Corpuscular HGB Conc 33.2 g/dl (32-36); Mean Corpuscular Hemoglobin 30.8 pg (26-34); Mean Corpuscular Volume 92.8 fl (80-100); Mean Platelet Volume 9.9 fl (7.4-10.4); Platelet Count Result 225 k/mm3 (150-375); Red Blood Count 4.29 M/mm3 (4.6-6.20); Red Cell Distribution Width 12.9 % (11.5-14.5); White Blood Count 4.2 K/mm3 (4.5-10.0)
[2024-06-22 05:50] LABS: Alanine Aminotransferase 28 U/L (6-50); Albumin Level 3.5 g/dL (3.5-5.1); Alkaline Phosphatase 74 U/L (38-126); Anion Gap 6 mmol/L (4-12); Aspartate Amino Transferase 24 U/L (17-59); Bilirubin,Total 0.6 mg/dL (0.2-1.3); Blood Urea Nitrogen 8 mg/dL (9-20); Calcium 9.2 mg/dL (8.4-10.2); Carbon Dioxide 31 mmol/L (22-30); Chloride 102 mmol/L (98-107); Estimated CRCL calculation 100 ml/min; Estimated Glomerular Filt Rate > 60; Glucose 102 mg/dL (65-110); Potassium 4.5 mmol/L (3.4-5.0); Sodium 139 mmol/L (137-145)
[2024-06-22 05:55] VITALS: BP 128/59; PULSE 60; RESP 16; TEMP 36.5; O2SAT 93
[2024-06-22] MEDS: diphenhydrAMINE HCl CAP 25 MG CAPSULE 50 MG PO (06:29)
[2024-06-22] MEDS: PANTOPRAZOLE 40 MG TABLET PO (08:46)
[2024-06-22] MEDS: LIPASE/AMYLASE/PROTEASE 12,000 UNITS CAP 3 CAP PO ×3 (08:46→16:39)
[2024-06-22] MEDS: GABAPENTIN 300 MG CAPSULE PO ×3 (08:46→16:39)
[2024-06-22] MEDS: LACTATED RINGERS 1,000 ML 100 ML IV CONT ×2 (08:47→17:52)
[2024-06-22] MEDS: MORPHINE SULFATE (*CRX) 2 MG/ML INJ 1 MG IV PUSH (12:14)
[2024-06-22 13:43] VITALS: BP 125/73; PULSE 54; RESP 18; TEMP 36.6; O2SAT 97
--- NOTE | 2024-06-22 13:50 | P.PNGI_ITS ---
Progress Note: A&P Assessment and Plan (1) Acute on chronic pancreatitis: Code(s): K85.90 - Acute pancreatitis without necrosis or infection, unspecified; K86.1 - Other chronic pancreatitis Status: Acute Assessment and Plan: diet as tolerated only, not eating much still requiring pain meds, this time asking for fentanyl (h/o recurrent pancreatitis with chronic pancreatitis) normal liver enzymes and renal function normal, no leukocytosis he will follow-up with his GI doctor (2) Epigastric pain: Code(s): R10.13 - Epigastric pain Status: Acute Assessment and Plan: on treatment (3) Alcohol abuse: Code(s): F10.10 - Alcohol abuse, uncomplicated Status: Acute Subjective Date/time seen: 06/22/24 13:50 Interval history: similar pain after eating, he is asking for fentanyl this time (received morphine) no emesis Review of Systems Review of Systems: All systems reviewed & are unremarkable except as noted in HPI and below Exam Const: General: comfortable and no acute distress HENMT: Face/Nose/Sinus: Normal nares present Eyes: General: appearance normal, both eyes and all related structures Neck: Neck: no JVD Resp: Auscultation: clear to auscultation bilaterally Cardio: Rate: regular rate Rhythm: regular rhythm GI: Inspection: non-distended GI Palp: Yes Soft to palpation and Yes Tender ness to palpation present (GI) (mild tender) Auscultation: normal bowel sounds Skin: General skin exam: normal color Neuro: Speech: normal speech Extrem: General: normal to inspection Psych: Mental Status: mental status grossly normal Objective Data Vital Signs Vital Signs: Vital Signs - 24 hr 06/21/24 14:00 06/21/24 15:35 06/21/24 20:00 Temperature 98.1 F Pulse Rate 58 L 61 Respiratory Rate 16 18 Blood Pressure 149/50 H 132/68 Pulse Oximetry 94 95 Oxygen Delivery Room Air 06/21/24 20:36 06/22/24 05:55 06/22/24 08:40 Temperature 97.7 F 97.7 F Pulse Rate 60 60 Respiratory Rate 16 16 Blood Pressure 108/61 128/59 L Pulse Oximetry 93 93 Oxygen Delivery Room Air 06/22/24 13:43 Temperature 97.8 F Pulse Rate 54 L Respiratory Rate 18 Blood Pressure 125/73 Pulse Oximetry 97 Oxygen Delivery Intake/Output Intake/Output: Intake & Output 06/19/24 06/20/24 06/21/24 06/22/24 23:59 23:59 23:59 23:59 Intake Total 5142.7 5560 3630.0 1590 Output Total 5375 8620 3350 700 Balance -232.3 -3060 280.0 890 Meds/Results Medications: Active Medications Generic Name Dose Route Start Last Admin Trade Name Freq PRN Reason Stop Dose Admin Acetaminophen 650 mg 06/17/24 18:14 06/22/24 06:24 Acetaminophen 325 Mg Tablet PO 650 mg Q4H PRN Administration Mild Pain (1-3) or Fever Lipase/Protease/Amylase 3 cap 06/18/24 12:00 06/22/24 12:13 Lipase/Amylase/Protease 12,000 Units Cap PO 3 cap TIDWM OSCAR Administration Calcium Carbonate 200 mg 06/21/24 00:59 06/22/24 01:17 Calcium Carbonate (Tums) 500 Mg (200 Mg Elemental) PO 200 mg Q6H PRN Administration Indigestion Diphenhydramine HCl 50 mg 06/17/24 23:35 06/22/24 06:29 Diphenhydramine Hcl Cap 25 Mg Capsule PO 50 mg Q6H PRN Administration Itching Enoxaparin Sodium 40 mg 06/19/24 09:00 06/22/24 08:46 Enoxaparin 40 Mg/0.4 Ml Syringe SUB-Q Not Given DAILY OSCAR Fentanyl Citrate 25 mcg 06/21/24 20:56 06/21/24 23:15 Fentanyl Citrate Inj (*Crx) 100 Mcg/2 Ml Vial IV PUSH 25 mcg Q4H PRN Administration Pain Rated 7-10 Gabapentin 300 mg 06/17/24 20:55 06/22/24 12:13 Gabapentin 300 Mg Capsule PO 300 mg TID OSCAR Administration Lactated Ringer's 1,000 mls @ 100 mls/hr 06/17/24 19:45 06/22/24 08:47 Lr - Lactated Ringers Iv IV CONT 100 mls/hr .Q10H OSCAR Administration Ondansetron HCl 4 mg 06/17/24 18:14 06/21/24 15:02 Ondansetron Inj 4 Mg/2 Ml Vial IV PUSH 4 mg Q4H PRN Administration Nausea Pantoprazole Sodium 40 mg 06/18/24 10:10 06/22/24 08:46 Pantoprazole 40 Mg Tablet PO 40 mg QAM OSCAR Administration Radiology Results: ITS Impressions Abdomen/Pelvis CT 06/17/24 17:13 IMPRESSION: Findings consistent with acute (on chronic) pancreatitis. Additional findings suggesting hypovolemia. Labs Labs: Laboratory Results - last 24 hr 06/22/24 05:11 WBC 4.2 L RBC 4.29 L Hgb 13.2 L Hct 39.8 L MCV 92.8 MCH 30.8 MCHC 33.2 RDW 12.9 Plt Count 225 MPV 9.9 Sodium 139 Potassium 4.5 Chloride 102 Carbon Dioxide 31 H Anion Gap 6 BUN 8 L Creatinine 1.01 Estim Creat Clear Calc 100 Estimated GFR > 60 Glucose 102 Calcium 9.2 Total Bilirubin 0.6 AST 24 ALT 28 Alkaline Phosphatase 74 Total Protein 6.0 L Albumin 3.5
--- NOTE | 2024-06-22 14:08 | P.PNIM_ITS ---
Progress Note: A&P Assessment and Plan (1) Pancreatitis: Qualifiers: Acute pancreatitis complication: no infection or necrosis Chronicity: acute Pancreatitis type: unspecified pancreatitis type Qualified Code(s): K85.90 - Acute pancreatitis without necrosis or infection, unspecified Code(s): K85.90 - Acute pancreatitis without necrosis or infection, unspecified Status: Acute Assessment and Plan: Acute on chronic without necrosis CT AP reviewed Lipid panel reviewed Triglyceride 182 Morphine for pain control Liquid diet continue IVF Monitor BUN, creatinine and hematocrit (2) Depression: Code(s): F32.9 - Major depressive disorder, single episode, unspecified Status: Acute Assessment and Plan: Not on home medication States anxiety is controlled (3) Nerve pain: Code(s): M79.2 - Neuralgia and neuritis, unspecified Status: Acute Plan Continue home Gabapentin DVT prophylaxis on Sq Lovenox Subjective Date/time seen: 06/22/24 14:08 Interval history: During initial encounter he reported he is doing well but later during the end of the conversation he reports pain and wants fentanyl.Waiting call back from [facility].Patient follows up with with BRANDI Daniel APRN at [facility]. Review of Systems Review of Systems: 12 systems were reviewed and are negativ e except for as per HPI. Exam Narrative: General: well appearing, appears stated age. HEENT: normocephalic, atraumatic. Mucous membranes moist. EOMI, PERRLA, bilateral sclera anicteric, no conjunctival injection. Neck supple without JVD, lymphadenopathy, or bruit. Respiratory: clear to ascultation bilaterally. No rales/rhonic/wheezes. Cardiovascular: Regular rate and rhythm, normal S1-S2 upon ascultation. No murmurs, rubs, or clicks. PMI is nondisplaced, capillary refill less than 3 second. Abdomen: Soft, round, no pulsatile masses, epigastric tenderness. No rebound, no guarding. No CVA tenderness, no hepatosplenomegaly. Bowel sounds present to all four quadrants. No high pitch or tinkling sounds, resonant to percussion. Extremities: No cyanosis, clubbing, or edema present. Pulses are palpable 2/2. Active ROM to all four extremities. Neuro: Alert and orientated x 4. PERRLA. Cranial nerves 2-12 intact without focal deficit. Skin: Warm, dry, and intact, without rash, erythema, or lesion. Psych: pleasant, cooperative, normal speech, normal affect, no hallucinations, no dysarthia Objective Data Vital Signs Vital Signs: Vital Signs - 24 hr 06/21/24 15:35 06/21/24 20:00 06/21/24 20:36 Temperature 97.7 F Pulse Rate 61 60 Respiratory Rate 18 16 Blood Pressure 132/68 108/61 Pulse Oximetry 95 93 Oxygen Delivery Room Air 06/22/24 05:55 06/22/24 08:40 06/22/24 13:43 Temperature 97.7 F 97.8 F Pulse Rate 60 54 L Respiratory Rate 16 18 Blood Pressure 128/59 L 125/73 Pulse Oximetry 93 97 Oxygen Delivery Room Air Intake/Output Intake/Output: Intake & Output 06/19/24 06/20/24 06/21/24 06/22/24 23:59 23:59 23:59 23:59 Intake Total 5142.7 5560 3630.0 1590 Output Total 5375 8620 3350 700 Balance -232.3 -3060 280.0 890 Meds/Results Medications: Active Medications Generic Name Dose Route Start Last Admin Trade Name Freq PRN Reason Stop Dose Admin Acetaminophen 650 mg 06/17/24 18:14 06/22/24 06:24 Acetaminophen 325 Mg Tablet PO 650 mg Q4H PRN Administration Mild Pain (1-3) or Fever Lipase/Protease/Amylase 3 cap 06/18/24 12:00 06/22/24 12:13 Lipase/Amylase/Protease 12,000 Units Cap PO 3 cap TIDWM OSCAR Administration Calcium Carbonate 200 mg 06/21/24 00:59 06/22/24 01:17 Calcium Carbonate (Tums) 500 Mg (200 Mg Elemental) PO 200 mg Q6H PRN Administration Indigestion Diphenhydramine HCl 50 mg 06/17/24 23:35 06/22/24 06:29 Diphenhydramine Hcl Cap 25 Mg Capsule PO 50 mg Q6H PRN Administration Itching Enoxaparin Sodium 40 mg 06/19/24 09:00 06/22/24 08:46 Enoxaparin 40 Mg/0.4 Ml Syringe SUB-Q Not Given DAILY OSCAR Fentanyl Citrate 25 mcg 06/21/24 20:56 06/21/24 23:15 Fentanyl Citrate Inj (*Crx) 100 Mcg/2 Ml Vial IV PUSH 25 mcg Q4H PRN Administration Pain Rated 7-10 Gabapentin 300 mg 06/17/24 20:55 06/22/24 12:13 Gabapentin 300 Mg Capsule PO 300 mg TID OSCAR Administration Lactated Ringer's 1,000 mls @ 100 mls/hr 06/17/24 19:45 06/22/24 08:47 Lr - Lactated Ringers Iv IV CONT 100 mls/hr .Q10H OSCAR Administration Ondansetron HCl 4 mg 06/17/24 18:14 06/21/24 15:02 Ondansetron Inj 4 Mg/2 Ml Vial IV PUSH 4 mg Q4H PRN Administration Nausea Pantoprazole Sodium 40 mg 06/18/24 10:10 06/22/24 08:46 Pantoprazole 40 Mg Tablet PO 40 mg QAM OSCAR Administration Radiology Results: ITS Impressions Abdomen/Pelvis CT 06/17/24 17:13 IMPRESSION: Findings consistent with acute (on chronic) pancreatitis. Additional findings suggesting hypovolemia. Labs Labs: Laboratory Results - last 24 hr 06/22/24 05:11 WBC 4.2 L RBC 4.29 L Hgb 13.2 L Hct 39.8 L MCV 92.8 MCH 30.8 MCHC 33.2 RDW 12.9 Plt Count 225 MPV 9.9 Sodium 139 Potassium 4.5 Chloride 102 Carbon Dioxide 31 H Anion Gap 6 BUN 8 L Creatinine 1.01 Estim Creat Clear Calc 100 Estimated GFR > 60 Glucose 102 Calcium 9.2 Total Bilirubin 0.6 AST 24 ALT 28 Alkaline Phosphatase 74 Total Protein 6.0 L Albumin 3.5 Quality VTE Prophylaxis VTE prophylaxis: mechanical ordered Hospitalist MIPS Advance Care Plan I have confirmed that the patient's Advanced Care Plan is present, code status is documented, or surrogate decision maker is listed in patient medical record.: Yes Medication Reconciliation I have utilized all available resources to obtain, update and review the patients current medications (includes all prescriptions, OTC, herbals, cannabis, and nutritional supplements).: Yes
[2024-06-22] MEDS: fentaNYL CITRATE INJ (*CRX) 100 MCG/2 ML VIAL 25 MCG IV PUSH ×2 (16:39→20:45)
[2024-06-22] MEDS: ONDANSETRON INJ 4 MG/2 ML VIAL IV PUSH (16:40)
[2024-06-22] MEDS: MORPHINE SULFATE (*CRX) 2 MG/ML INJ IV PUSH ×2 (17:45→22:24)
--- NOTE | 2024-06-22 17:45 | PC.NURSE ---
morphine vial was thrown in sharps container prior to being scanned
[2024-06-22 20:00] VITALS: PULSE 75; RESP 16; O2SAT 97
[2024-06-22 21:03] VITALS: O2SAT 98
[2024-06-22 21:36] VITALS: BP 128/68; PULSE 75; RESP 16; TEMP 36.8; O2SAT 97
[2024-06-23] MEDS: LACTATED RINGERS 1,000 ML 100 ML IV CONT (03:51)
[2024-06-23] MEDS: MORPHINE SULFATE (*CRX) 2 MG/ML INJ IV PUSH (03:55)
[2024-06-23 05:30] VITALS: BP 137/61; PULSE 60; RESP 16; TEMP 36.7; O2SAT 97
[2024-06-23 05:52] LABS: Hematocrit 41.1 % (42.0-52.0); Hemoglobin 13.3 g/dL (14.0-18.0); Mean Corpuscular HGB Conc 32.4 g/dl (32-36); Mean Corpuscular Hemoglobin 30.4 pg (26-34); Mean Corpuscular Volume 93.8 fl (80-100); Mean Platelet Volume 10.1 fl (7.4-10.4); Platelet Count Result 232 k/mm3 (150-375); Red Blood Count 4.38 M/mm3 (4.6-6.20); Red Cell Distribution Width 12.9 % (11.5-14.5); White Blood Count 5.2 K/mm3 (4.5-10.0)
[2024-06-23 06:03] LABS: Alanine Aminotransferase 28 U/L (6-50); Albumin Level 3.7 g/dL (3.5-5.1); Alkaline Phosphatase 82 U/L (38-126); Anion Gap 8 mmol/L (4-12); Aspartate Amino Transferase 25 U/L (17-59); Bilirubin,Total 0.4 mg/dL (0.2-1.3); Blood Urea Nitrogen 9 mg/dL (9-20); Carbon Dioxide 30 mmol/L (22-30); Chloride 103 mmol/L (98-107); Estimated CRCL calculation 100 ml/min; Estimated Glomerular Filt Rate > 60; Glucose 101 mg/dL (65-110); Potassium 4.3 mmol/L (3.4-5.0); Sodium 141 mmol/L (137-145)
--- NOTE | 2024-06-23 07:21 | PC.NURSE ---
called to pt's room, he states he is not having any pain right now and would like to have his pancreas levels checked and if they are normal he would like to be discharged instead of transferred out
--- NOTE | 2024-06-23 07:34 | P.DS_ITS ---
DS: Admitting Diagnosis Discharge Date 06/23/2024 Admitting Diagnosis Abdominal pain DS: Discharge Diagnosis Discharge Diagnosis (1) Pancreatitis: Qualifiers: Acute pancreatitis complication: no infection or necrosis Chronicity: acute Pancreatitis type: unspecified pancreatitis type Qualified Code(s): K85.90 - Acute pancreatitis without necrosis or infection, unspecified Code(s): K85.90 - Acute pancreatitis without necrosis or infection, unspecified Status: Acute Assessment and Plan: Acute on chronic without necrosis CT AP reviewed Lipid panel reviewed Triglyceride 182 Morphine for pain control Liquid diet continue IVF Monitor BUN, creatinine and hematocrit (2) Depression: Code(s): F32.9 - Major depressive disorder, single episode, unspecified Status: Acute Assessment and Plan: Not on home medication States anxiety is controlled (3) Nerve pain: Code(s): M79.2 - Neuralgia and neuritis, unspecified Status: Acute Plan Continue home Gabapentin DVT prophylaxis on Sq Lovenox DS: Summary Hospital Course Hospital Course: 43-year-old male with history of alcohol abuse sober for the last several months, hypertension and pancreatitis presents the hospital with acute abdominal pain. Patient states that he has central abdominal pain, sharp in nature stabbing like. States that he has had this before whenever he has had pancreatitis. He states he was just released from the hospital about 2 weeks ago for a pancreatitis episode when left the hospital his lipase level was about 1000. He was recommend to drink a lot a water, he states that he has difficulty drinking water however did try to drink juices and skin milk. Patient became sober about 10 months ago has had a significant amount of weight loss with diet and exercise. Patient denies vomiting. CBC within normal limits, chloride 109, carbon dioxide 18, lipase 3381, UA negative for infection, and CT abdomen pelvis show acute on chronic pancreatitis and suggestive of hypovolemia. After resuming the care discussed with the patient who reported he sees GI Fatmata Daniel APRN at [place]. Initiated transfer on 0 06/21 but got a call yesterday (06/22) late night reporting there is not much benefit by transferring the patient since currently the on-call coverage for GI is from [facility]. Today 06/23 patient reports he is doing well able to tolerate full liquid diet. Advised to continue full liquid diet and advance as tolerated. In the event of abdominal pain requested the patient to seek any [facility] with backup a coating line worker/GI who can perform endoscopic ultrasound and possible drainage from the pancreatic area. Status at Discharge Cognitive/behavioral status at discharge: Stable Time Spent with Patient Time attestation: Total time spent providing and/or coordinating discharge services: 45 minute Exam Narrative: General: well appearing, appears stated age. HEENT: normocephalic, atraumatic. Mucous membranes moist. EOMI, PERRLA, bilateral sclera anicteric, no conjunctival injection. Neck supple without JVD, lymphadenopathy, or bruit. Respiratory: clear to ascultation bilaterally. No rales/rhonic/wheezes. Cardiovascular: Regular rate and rhythm, normal S1-S2 upon ascultation. No murmurs, rubs, or clicks. PMI is nondisplaced, capillary refill less than 3 sec ond. Abdomen: Soft, round, no pulsatile masses, epigastric tenderness. No rebound, no guarding. No CVA tenderness, no hepatosplenomegaly. Bowel sounds present to all four quadrants. No high pitch or tinkling sounds, resonant to percussion. Extremities: No cyanosis, clubbing, or edema present. Pulses are palpable 2/2. Active ROM to all four extremities. Neuro: Alert and orientated x 4. PERRLA. Cranial nerves 2-12 intact without focal deficit. Skin: Warm, dry, and intact, without rash, erythema, or lesion. Psych: pleasant, cooperative, normal speech, normal affect, no hallucinations, no dysarthia DS: Data Data Completed and Pending Labs on day of discharge: Labs from last 24 hours 06/23/24 05:19 WBC 5.2 RBC 4.38 L Hgb 13.3 L Hct 41.1 L MCV 93.8 MCH 30.4 MCHC 32.4 RDW 12.9 Plt Count 232 MPV 10.1 Sodium 141 Potassium 4.3 Chloride 103 Carbon Dioxide 30 Anion Gap 8 BUN 9 Creatinine 1.01 Estim Creat Clear Calc 100 Estimated GFR > 60 Glucose 101 Calcium 9.0 Total Bilirubin 0.4 AST 25 ALT 28 Alkaline Phosphatase 82 Total Protein 7.0 Albumin 3.7 Discharge Plan Discharge Attending physician on discharge: Jesse Reyes Consulting providers: Ronaldo Montana Discharging Clinician: Jesse Reyes Anticipated Discharge Date/Time: 06/23/24 07:21 Patient Disposition: Home Activity: as tolerated Diet: other - see discharge instructions Discharge Instructions: Full liquid diet and advance as tolerated. Please follow up with your GI Fatmata Daniel APRN at [place] for possible Endoscopic US. Please follow up with your PCP in a week upon discharge Patient Language: Greek Stand Alone Forms: General Discharge Information Follow-up/Referrals: Ronaldo Montana MD [Physician] - Seng,BETTY Morin [Primary Care Provider] - Discharge Medications: New pantoprazole 40 mg Tablet,Delayed Release (Dr/Ec) 40 mg PO QAM Qty: 30 0RF calcium carbonate 500 mg calcium (1,250 mg) Tablet,Chewable 200 mg PO Q6H PRN (Reason: Indigestion) Qty: 30 0RF Creon 12,000-38,000 -60,000 unit Capsule,Delayed Release(Dr/Ec) 3 cap PO TIDWM Qty: 30 0RF hydrocodone-acetaminophen 5-300 mg tablet 1 tablet PO Q8H PRN (Reason: pain) Qty: 10 0RF Continued gabapentin 300 mg capsule 300 mg PO TID gabapentin 100 mg capsule 100 mg PO Q8H Patient Comments: 700 MG TID Date of admission: 06/17/24 18:14 Primary Care Provider: Seng,Ani Nelson Admitting Provider: Ирина Oakley Attending physician on admission: Ирина Oakley Condition: Stable
== END 2024-06-23 08:06 | disposition home or self-care (01) | DRG 282 ==
LOC: ANHED 18:13 → ANH2MED 18:41
PROVIDERS: Admitting Provider Internal Medicine; Emergency Provider Family Medicine; PCP Nurse Practitioner; Visit Provider General Practice
DX: K85.90 Acute pancreatitis without necrosis or infection, unspecified (principal); F32.9 Major depressive disorder, single episode, unspecified; K86.1 Other chronic pancreatitis; E86.1 Hypovolemia; M79.2 Neuralgia and neuritis, unspecified; I10 Essential (primary) hypertension; E78.5 Hyperlipidemia, unspecified; R13.10 Dysphagia, unspecified; F10.11 Alcohol abuse, in remission; R74.8 Abnormal levels of other serum enzymes; R19.4 Change in bowel habit; Z87.891 Personal history of nicotine dependence
CPT/HCPCS: 36415; 74177; 80053; 80061; 81003; 82948; 83690; 83735; 85025; 85027; 93005; 96374; 96375; 96376; 99285; A9270; J1171; J1200; J1650; J2270; J2405; J3010; J7030; J7120; Q9967

== ENCOUNTER 2024-09-28 16:40 | Observation (INO) | payer OTHER, SELFPAY ==
[2024-09-28] VITALS (7 sets, daily range): BP systolic 116–142; BP diastolic 50–100; PULSE 51–79; RESP 18–20; TEMP 36.6–36.7; O2SAT 95–100
--- NOTE | ~2024-09-28 | CT_ITS ---
EXAMINATION: CT abdomen pelvis w con DATE: 09/28/2024 20:07 INDICATION: generalized abdominal pain TECHNIQUE: Computed tomography (CT) of the abdomen and pelvis was performed with 100 mL Omnipaque-350 intravenous contrast. Automated exposure control and iterative reconstruction technique were employe d. The dose-length product was 695.67 mGy-cm. COMPARISON: 06/17/2024. FINDINGS: Lower thorax: Unremarkable Liver: Normal. Stable 11 mm right lobe cyst or hemangioma. Biliary/Gallbladder: Gallbladder is normal. No bile duct dilation. Pancreas: Multilobulated peripancreatic fluid collection unchanged. New peripancreatic edema and flui d surrounding the pancreatic body. Persistent or recurrent fluid and edema at the pancreatic head Mil d hypoenhancement in the pancreatic body likely representing edema.. Spleen: Normal. Adrenals:No mass. Kidneys: No suspicious mass, obstructing stone, or hydronephrosis. GI tract: No small or large bowel dilation. Normal appendix. Mesentery/Peritoneum: No ascites, mass, or free air. Retroperitoneum: No mass. Pelvis: Mild urinary bladder wall thickening in a partially distended urinary bladder. Prostatomegaly . Soft Tissues: Small fat-containing uncomplicated umbilical hernia. Bones: No acute osseous finding. IMPRESSION: Acute on chronic pancreatitis. Stable pancreatic pseudocysts. Urinary bladder wall thickening may be secondary to incomplete distention, cystitis, or chronic outle t obstruction. Reviewed, dictated and finalized at location K. IMPRESSION: Acute on chronic pancreatitis. Stable pancreatic pseudocysts. Urinary bladder wall thickening may be secondary to incomplete distention, cyst itis, or chronic outlet obstruction.
--- OUTSIDE RECORDS SUMMARY | 2024-09-28 16:42 | XMS_ITS | Encounter Summary ---
Author Organization [facility] Address [address] [place] [address] Care Team Providers Care Director Prison Name Role Phone Ani Ellsworth NP Primary Care Provider [phone] [phone] Encounter Details Date Type Department Care Team (Late st Contact Info) Description 11/15/2023 Bolster Message Enc [facility] Medical Group Multispecialty Care - [address], [address] [place] [address] [place], [facility] Provider reschedule Social History Tobacco Use Types [...] from your doctor or pharmacy? Never 10/03/2023 [facility] Utilities Answer Date Recorded In the [...] How often do you attend chur or voodoo services? Never 10/03/2023 Do you belong to any clubs o r organizations such as hoahaoism groups, unions, fraternal or athletic groups, or [...] Recorded Patient Health Questionnaire-2 Score 0 10/03/2023 [facility] [place] of Occupat ional Health - Occupational Stress [...] place to sleep or slept in a long term (including now)? No 06/13/2023 Housing Stability Vital Sign Answer Ciro e Recorded In the last 12 months, was t here a time when you were not able to pay the mortgage or rent on time? No 10/03/2023 In the past 12 months, how m any times have you moved where you were living? 1 10/03/2023 At any time in the past 12 m [facility], were you homeless or living in a long term (including now)? No 10/03/2023 Sex and Gender [...] documented in this encounter Plan of Treatment Not on file documented as of this encounter Goals Goal [...] Rule Out 03/16/2024 03/16/2024 03/16/2024 1:26 PM MANAGER WHOLESALE Assessment Noted Time PHQ-9 Depression Total Score: 13 06/15/ 024 1:09 PM CDT documented as of this encounter Care Teams Director Prison Relationship Specialty Start Date End Date Ani Ellsworth NP [address] [place] [address] PCP - General NURSE PRACTITIONER 06/13/23 documented as of this encounter
--- OUTSIDE RECORDS SUMMARY | 2024-09-28 16:42 | XMS_ITS | Encounter Summary ---
Author Organization [facility] Address [address] [place] [address] Care Team Providers Care Nurses Medical Assistants Phlebotomists Name Role Phone Ani Ellsworth NP Primary Care Provider [phone] [phone] Encounter Details Date Type Department Care Team (Late st Contact Info) Description 06/24/2023 MailInBlack Message Enc [facility] Medical Group Multispecialty Care - [place] [address] [address] [place] [address] [place] [address] [place] [address] [address] [place], [place] [id number] norco Social History Tobacco Use Types Packs/Day Years Used Date Smoking Tobacco: Former Cigarettes 2 26 0 08/24/1993 - 08/25/2019 Passive Smoke Exposure: Past Smokeless Tobacco: Never Alcohol Use Standard Drinks/Week Comments Yes 0 (1 standard drink = 0.6 oz pur e alcohol) rare [facility] Utilities Answer Date Recorded In the [...] How often do you attend chur or rastafarian services? Never 05/21/2023 Do you belong to [...] Recorded Patient Health Questionnaire-2 Score 0 06/24/2023 [facility] - Occupational Stress Questionnaire Answer Date [...] place to sleep or slept in a prison (including now)? No 06/13/2023 Sex and Gender [...] PM CDT Duglas Khoury RN Active * Over the past 2 weeks, how often have you been bothered by any of the following problems? Question Answer Date of Assessment Author Status Little interest or pleasure in doing things Not at all 06/24/2023 2:39 PM CDT Catina Muro MA Active Feeling down, depressed, or hopeless Not at all 06/24/2023 2:39 PM CDT Jie Muro MA Active Patient Health Questionnaire-2 Score 0 06/24/2023 2:39 PM CDT Millicent Muro MA Active documented as of this encounter Mental [...] Rule Out 03/16/2024 03/16/2024 03/16/2024 1:26 PM COMMERCIAL STRIPPER Assessment Noted Time PHQ-9 Depression Total Score: 13 024 1:09 PM CDT documented as of this encounter Care Teams Nurses Medical Assistants Phlebotomists Relationship Specialty Start Date End Date Ani Ellsworth NP [address] [place] [address] PCP - General NURSE PRACTITIONER 06/13/23 documented as of this encounter
--- OUTSIDE RECORDS SUMMARY | 2024-09-28 16:42 | XMS_ITS | Encounter Summary ---
Author Organization [facility] Address [address] [place] [address] Care Team Providers Care Tugboat Engineer Name Role Phone Ani Ellsworth NP Primary Care Provider [phone] Encounter Details Date Type Department Care Team (Late st Contact Info) Description 04/06/2024 [employer] Message Enc [facility] Medical Group Multispecialty Care - [address], [address] [place] [address] Spenser [facility] Provider MRCP Social History Tobacco Use Types [...] from your doctor or pharmacy? Never 10/03/2023 [facility] Utilities Answer Date Recorded In the [...] Never 01/06/2024 How often do you attend gnosticism or methodist serv ices? Never 01/06/2024 Do you belong to any clubs o r organizations such as gnosticism groups, unions, fraternal or athletic groups, or [...] Recorded Patient Health Questionnaire-2 Score 1 01/31/2024 [facility] [place] of Occupat ional Health - Occupational Stress [...] any time in the past 12 m [facility], were you homeless or living in a long-term (including now)? No 03/14/2024 Sex and Gender [...] 1:03 AM Anselmo Fox RN Active * Are you blind or [...] documented as of this encounter Care Teams Tugboat Engineer Relationship Specialty Start Date End Date Ani Ellsworth NP [facility] [place] [address] PCP - General NURSE PRACTITIONER 06/13/23 documented as of this encounter
--- OUTSIDE RECORDS SUMMARY | 2024-09-28 16:42 | XMS_ITS | Encounter Summary ---
Author Organization [facility] Address [address] [place] [address] Care Team Providers Care Traveling Crane Operator Name Role Phone Ani Ellsworth NP Primary Care Provider [phone] [phone] Encounter Details Date Type Department Care Team (Latest Contact Info) Description 12/21/2023 Collaaj Message Enc [facility] Medical Group Family Medicine - [place] [address] [place] [address] Ani Ellsworth NP [address] [place] [address] follow up on endocrinology referral Social History [...] doctor or pharmacy? Never 10/03/2023 [facility] Utilities Answer Date Recorded In [...] often do you attend chur ch or anabaptist services? Never 10/03/2023 Do you belong to any clubs o r organizations such as confucianist groups, unions, fraternal or athletic groups, or [...] Recorded Patient Health Questionnaire-2 Score 0 10/03/2023 [facility] [place] of Occupat ional Health - Occupational Stress [...] place to sleep or slept in a detention (including now)? No 06/13/2023 Housing Stability Vital Sign Answer Ciro e Recorded In the last 12 months, was t here a time when you were not able to pay the mortgage or rent on time? No 10/03/2023 In the past 12 months, how m any times have you moved where you were living? 1 10/03/2023 At any time in the past 12 m [facility], were you homeless or living in a detention (including now)? No 10/03/2023 Sex and Gender [...] PM REINIERT Staci Medina RN Active * Are you [...] PM REINIERT Staci Medina RN Active documented as of this encounter Mental Status * Because of a physical, mental, or emotional condition, do you have serious difficulty concentrating, remembering, or making decisions? Answer Entry Date Author Status No 10/03/2023 5:52 PM REINIERT Satci Medina RN Active documented in this encounter [...] Rule Out 03/16/2024 03/16/2024 03/16/2024 1:26 PM RAILROAD EMERGENCY SERVICES MANAGER Assessment Noted Time PHQ-9 Depression Total Score: 13 06/15/ 024 1:09 PM CDT documented as of this encounter Care Teams Traveling Crane Operator Relationship Specialty Start Date End Date Ani Ellsworth NP [address] [place] [address] PCP - General NURSE PRACTITIONER 06/13/23 documented as of this encounter
--- OUTSIDE RECORDS SUMMARY | 2024-09-28 16:42 | XMS_ITS | Encounter Summary ---
Author Organization [facility] Address [address] [place] [address] Care Team Providers Care Consulting Engineer Name Role Phone Ani Ellsworth NP Primary Care Provider [phone] Encounter Details Date Type Department Care Team (Late st Contact Info) Description 11/17/2023 Podcast Ready Message Enc [facility] Medical Group Multispecialty Care - [address], [address] [place] [address] Spens[place], [facility] Provider Reschedule Social History Tobacco Use [...] from your doctor or pharmacy? Never 10/03/2023 [facility] Utilities Answer Date Recorded In the past [...] How often do you attend chur or taoist services? Never 10/03/2023 Do you belong to [...] Recorded Patient Health Questionnaire-2 Score 0 10/03/2023 [facility] [place] of Occupat ional Health - Occupational Stress [...] place to sleep or slept in a group home (including now)? No 06/13/2023 Housing Stability Vital Sign Answer Ciro e Recorded In the last 12 months, was t here a time when you were not able to pay the mortgage or rent on time? No 10/03/2023 In the past 12 months, how m any times have you moved where you were living? 1 10/03/2023 At any time in the past 12 m [facility], were you homeless or living in a group home (including now)? No 10/03/2023 Sex and Gender [...] Status No 10/03/2023 5:52 PM REINIERT Staci Mednia RN Active documented in this encounter Plan [...] Rule Out 03/16/2024 03/16/2024 03/16/2024 1:26 PM LIMOUSINE RENTAL CLERK Assessment Noted Time PHQ-9 Depression Total Score: 13 06/15/ 024 1:09 PM CDT documented as of this encounter Care Teams Consulting Engineer Relationship Specialty Start Date End Date Ani Ellsworth NP [address] [place] [address] PCP - General NURSE PRACTITIONER 06/13/23 documented as of this encounter
--- OUTSIDE RECORDS SUMMARY | 2024-09-28 16:42 | XMS_ITS | Encounter Summary ---
Author Organization [facility] Address [address] [place] [address] Care Team Providers Care Hazmat Tanker Driver Name Role Phone Ani Ellsworth NP Primary Care Provider [phone] Encounter Details Date Type Department Care Team (Late st Contact Info) Description 02/24/2024 [employer] Message Enc [facility] Medical Group Family Medicine - [place] [address] [place] [address] Michelle Cook MD [address] [place] [phone] Pain Social History Tobacco Use Types Packs/Day [...] from your doctor or pharmacy? Never 10/03/2023 [facility] Utilities Answer Date Recorded In the past [...] Never 01/06/2024 How often do you attend cheondoism or methodist serv ices? Never 01/06/2024 Do you belong to any clubs o r organizations such as cheondoism groups, unions, fraternal or athletic groups, or [...] Recorded Patient Health Questionnaire-2 Score 1 01/31/2024 [facility] [place] of Occupat ional Health - Occupational Stress [...] any time in the past 12 m [facility], were you homeless or living in a group home (including now)? No 01/06/2024 Sex and Gender [...] No 01/06/2024 7:13 PM CDT Reina Sadaf Owens, R N Active * Are you blind or do you have serious difficulty seeing, even when wearing glasses? Answer Date of Assessment Author Status No 01/06/2024 7:13 PM CDT Marce Huangjulia Owens, R N Active * Do you have serious difficulty walking or climbing stairs? Answer Date of Assessment Author Status No 01/06/2024 7:13 PM CDT Reina aSdaf Owens, R N Active * Do you have difficulty dressing or bathing? Answer Date of Assessment Author Status No 01/06/2024 7:13 PM CDT Reina Sadaf Owens, R N Active * Because of a physical, mental, or emotional condition, do you have difficulty doing errands alone such as visiting a doctor's office or shopping? Answer Date of Assessment Author Status No 01/06/2024 7:13 PM CDT Marce Huangjulia Owens, R N Active documented as of this encounter Mental Status * Because of a physical, mental, or emotional condition, do you have serious difficulty concentrating, remembering, or making decisions? Answer Entry Date Author Status No 01/06/2024 7:13 PM CDT Reina Sadaf Owens, R N Active documented in this encounter Progress Notes * Ani Ellsworth NP - 02/27/2024 5:34 PM CST I cannot provide pt pain medication for his abdominal pain. He will need to discuss with GI. If hispain is bad enough from an infection in his tooth then he needs to go to the ER. L NIGHT AUDITOR documented in this encounter Plan of Treatment [...] Rule Out 03/16/2024 03/16/2024 03/16/2024 1:26 PM HOTEL NIGHT AUDITOR Assessment Noted Time PHQ-9 Depression Total Score: 13 04/04/2 024 1:09 PM CDT documented as of this encounter Care Teams Hazmat Tanker Driver Relationship Specialty Start Date End Date Ani Ellsworth NP [address] [place] [address] PCP - General NURSE PRACTITIONER 06/13/23 documented as of this encounter
--- OUTSIDE RECORDS SUMMARY | 2024-09-28 16:42 | XMS_ITS | Clinical Summary ---
Author Organization [facility] Address [address] [place] [address] Care Team Providers Care Fire Battalion Chief Name Role Phone Stan Cooper Primary Care Provider Unavailab le Source Comments [facility],non-owned Affiliates and Associated Physician Practices is amultiple site organization consisting of ambulatory clinics and hospital sitesin [place], [place] and [place]. This disclosure is being madepursuant to the Care Everywhere program and may not contain all information available regarding this patient. Last updated 17.[facility] Allergies Active Allergy Reactions Criticality Noted Date Comments Aspirin Rash Medium 09/03/2018 Medications * Be aware that medications may not be up to date on this document. Alwaysverify current medications with the patient. fenofibrate (LOFIBRA) 54 MG tablet TAKE 1 TABLET BY MOUTH EVERY DAY IN THE MORNING 06/26/2020 Active Encounters Date Type Department Care Team Description 08/14/2024 Telephone [facility] Pain Care [address] [place] [address] Dana Mccormack, ATTENDANT HONOR BAR-RECOOPERER Appointment 07/26/2024 Telephone [facility] [address] [place] [address] aKci Martinez Procedure (Eus Needed) from Last 3 Months Social History Tobacco Use Types Packs/Day Years Used Date Smoking Tobacco: Former Smokeless Tobacco: Never Alcohol Use Standard Drinks/Week Comments Yes 0 (1 standard drink = 0.6 oz pur e alcohol) Sex and Gender Information Value Date Recorded Sex Assigned at Not on file Legal Sex Male 2:56 PM CONTRACTING SUPPORT SPECIALIST Gender Identity Not on file Sexual Orientation [...] 1:21 PM CDT Height 193 cm (6' 4) 07/08/2020 1:21 PM CDT Body Mass Index 29.82 07/08/2020 1:21 PM CDT Plan of Treatment Health Maintenance Due Date Last Done Comments COLOGUARD (AGES 45-75) - COLON CA SCREENING 1978 COLON MONITORING 1978 COLONOSCOPY - COLON CA SCREENING 1978 CT COLONOGRAPHY - COLON CA SCREENING 1978 Colorectal Cancer Screening 1978 FIT - COLON CA SCREENING 1978 FLEX SIG - COLON CA SCREENING 1978 HIV SCREENING 1993 DTAP/TDAP/TD VACCINES (1 - Tdap) 1997 HEPATITIS B VACCINE (1 of 3 - 19+ 3-dose series) 1997 HPV VACCINE (1 - 3-dose SCDM series) 2005 COVID-19 VACCINE (1 - 2023- season) 2023 DEPRESSION SCREENING 03/14/2024 INFLUENZA VACCINE (#1) 2024 SCREENING FOR DIABETES 08/13/2027 , 08/12/2024, 08/11/2024, Additional history exists ZOSTER VACCINE (1 of 2) 2028 LIPID TESTING 08/08/2029 08/08/2024 HEPATITIS C SCREENING Completed 06/29/2023 HIB VACCINE Aged Out No longer eligi ble based on patient's age to complete this topic MENINGOCOCCAL (Group B) VACCINE SHARED DECISION-MAKING Aged Out No longer eligible based on patient's age to complete this topic MENINGOCOCCAL GROUPS A/C/Y/W VACCINE Aged Out No longer eligible based on patient's age to complete this topic PNEUMOCOCCAL VACCINE Aged Out No long er eligible based on patient's age to complete this topic Insurance Care Teams Fire Battalion Chief Relationship Specialty Start Date End Date Stan Cooper Update Information PCP - General 07/08/20
--- OUTSIDE RECORDS SUMMARY | 2024-09-28 16:42 | XMS_ITS | Encounter Summary ---
Author Organization [facility] Address [address] [place] [address] Care Team Providers Care Invoice Clerk Name Role Phone Ani Ellsworth NP Primary Care Provider [phone] Encounter Details Date Type Department Care Team (Late st Contact Info) Description 06/20/2023 [facility] Message Enc [facility] Family Medicine - [place] [address] [facility] [address] [place] [phone] Ani Ellsworth NP [phone] [place] [phone] Follow up Social History Tobacco Use Types Packs/Day Years Used Date Smoking Tobacco: Former Cigarettes 2 26 0 08/24/1993 - 08/25/2019 Passive Smoke Exposure: Past Smokeless Tobacco: Never Alcohol Use Standard Drinks/Week Comments Yes 0 (1 standard drink = 0.6 oz pur e alcohol) rare [facility] Utilities Answer Date Recorded In the past 12 months has e [employer], gas, oil, or water [employer] threatened to shut off services in your [...] How often do you attend chur or gnosticist services? Never 05/21/2023 Do you [...] Recorded Patient Health Questionnaire-2 Score 0 06/24/2023 [facility] - Occupational Stress Questionnaire Answer Date [...] place to sleep or slept in a intermediate (including now)? No 06/13/2023 Sex and Gender [...] Author Status No 06/15/2023 3:07 PM REINIERT Peng, Duglas M, RN Active * Because of a physical, mental, or emotional condition, do you have difficulty doing errands alone such as visiting a doctor's office or shopping? Answer Date of Assessment Author Status No 06/15/2023 3:07 PM CDT Duglas Khoury RN Active documented as of this encounter [...] Rule Out 03/16/2024 03/16/2024 03/16/2024 1:26 PM PT SKILLED Assessment Noted Time PHQ-9 Depression Total Score: 13 024 1:09 PM CDT documented as of this encounter Care Teams Invoice Clerk Relationship Specialty Start Date End Date Ani Ellsworth NP [address] [place] [id number] PCP - General NURSE PRACTITIONER 06/13/23 documented as of this encounter
--- OUTSIDE RECORDS SUMMARY | 2024-09-28 16:42 | XMS_ITS | Clinical Summary ---
Author Organization [facility] Address [address] [place] [address] Care Team Providers Care Supervisor Solder Making Name Role Phone Ani Ellsworth NP Primary Care Provider [phone] Allergies Active Allergy Reactions Criticality Noted Date Comments Bee Venom Hives 09/05/2024 Wasp Venom Hives 09/05/2024 Medications pancrelipase, Jao-Cdba-Thhm, (ZENPEP) 73527-61544 units capsuleIndication s:Chronic pancreatitis, unspecified pancreatitis type ([facility]) Take 1 capsule (10,000 units of lipase total) by mouth 3 (three) times daily with meals. 30 capsule 09/06/19 25 Active HYDROcodone-aceta minophen (NORCO) 5-325 MG tabletIndications :Acute Pain < 3 Day Supply Take 1 tablet by mouth every 6 (six) hours as needed for Pain. Indication s: Acute Pain < 3 Day Supply 12 tablet 09/06/19 25 Active pancrelipase, Ssq-Uaxy-Ogdj, (ZENPEP) 15506-86751 units capsule Take 1 capsule (10,000 units of lipase total) by mouth 3 (three) times daily with meals. 30 capsule 07/30/19 25 09/05/ 025 Discontinued(Re order) HYDROcodone-aceta minophen (NORCO) 5-325 MG tabletIndications :Acute Pain < 3 Day Supply Take 1 tablet by mouth every 6 (six) hours as needed for Pain. Indication s: Acute Pain < 3 Day Supply 10 tablet 08/14/19 25 025 Discontinued pantoprazole EC (PROTONIX) 40 MG tabletIndications :Gastritis without bleeding, unspecified chronicity, unspecified gastritis type Take 1 tablet (40 mg total) by mouth daily. 90 tablet 08/14/19 25 025 Discontinued gabapentin (NEURONTIN) 300 MG capsuleIndication s:Lumbar back pain,Lumbar radiculopathy Take 1 capsule (300 mg total) by mouth 3 (three) times daily. 90 capsule 1 08/17/19 025 Discontinued gabapentin (NEURONTIN) 400 MG capsuleIndication s:Lumbar back pain,Lumbar radiculopathy Take 1 capsule (400 mg total) by mouth 3 (three) times daily. 90 capsule 1 08/17/19 025 Discontinued ondansetron (ZOFRAN-ODT) 4 MG disintegrating tablet Take 1 tablet (4 mg total) by mouth every 8 (eight) hours as needed for Nausea. 12 tablet 09/06/19 025 Active Problems Problem Noted Date Diagnosed [...] to schedule MRI but has not called [facility] yet. Pt was also given phone number to endo to schedule his apt as he has lab work/physical findings suggestive of Klinefelters syndrome. He also has not scheduled. He also tells me he has noticed changes in his peripheral vision. Assessment & Plan (02/15/2024 1:50 PM CELL RELINER): Pt again informed to schedule his brain MRI as aoon as possible and schedule his appointment with endocrinology to follow up on these issues. I again provided pt phone number to the Endo he needs to call. If vision changes, severe, headache, or other neurological changes occur to seek ER care right away. Recurrent acute pancreatitis (HHS/HCC) 10/25/202 4 Dental abscess 09/05/2023 Decreased libido 07/18/2023 Abdominal pain 07/03/2023 Acute on chronic pancreatitis ([facility]) 05/21/2023 Acute pancreatitis ([facility]) 04/12/2023 Chronic idiopathic constipation 09/09/2022 Alcohol abuse 08/31/2022 Pancreatitis ([facility]) 08/13/2022 Prediabetes 06/09/2022 Folliculitis 05/26/2022 Right upper [...] locations, and numbers to local Chiropractor and Cath Lab Technologist. Follow up in: within a month Undescended [...] from his past job he worked from [id number]. Had taken Escitalopram in the past but weaned himself off. Was started on Wellbutrin in the ER but never started Was provided prazosin by my college to help with his nightmares/insomnia but also never started. Does not see a psychiatrist or a therapist. Pt would be interested to see a psychiatrist. Assessment & Plan (02/15/2024 1:55 PM CELL RELINER): Referral to psychiatry placed.Encourage CBT as well. Would recommend starting the prazosin to help with his nightmares. Resolved Problems Problem Noted Date Diagnosed Date Resolved Date Atypical chest pain 01/21/2021 07/18/19 24 Palpitations 06/14/2016 07/18/2023 Chronic cough 06/14/2016 07/18/2023 Encounters Date Type Department Care Team Description 09/05/2024 7:58 PM CDT - 09/05/2024 9:[address] [facility] Emergency Room [address] [place] [address] Deepak Rodriguez MD Abdominal Pain Discharge Disposition: Home or Self Care (Routine Discharge) 09/05/2024 1:20 PM CDT Office Visit [facility] - [place] [address] [place] [address] Ani Ellsworth NP Annual (Patient presents for an adult routine exam) 09/05/2024 Travel 08/16/2024 Orders Only [address] [place] [address] Ashely Allen MA 08/14/2024 Telephone [facility], [address] [address] Paresh Mejia MD Appointment Reminder 08/14/2024 Orders Only [address] [address] Vero Arango LPN 08/14/[address] [address] Ani Ellsworth NP Referral Request 08/14/2024 Results Follow-Up [address] [address] Ani Ellsworth NP XR THOR SPINE 3V, XR ABD KUB 08/14/2024 Hospital Follow-up Call [facility] [place] [address] Angela Tucker LPN Follow Up Call (KALLI 08/08-08/12/24) 08/13/2024 12:20 PM CDT Office Visit [address] [address] Ani Ellsworth NP Abdominal Pain 08/13/[address] [address] Ani Ellsworth NP Medication 08/12/2024 11:22 PM CDT - 08/13/2024 12:[address] [facility] Emergency Room [address] [place] [id number] Sriram Juares MD Abdominal Pain Discharge Disposition: Home or Self Care (Routine Discharge) 08/12/2024 9:33 AM CDT - 08/12/2024 5:[address] [facility] Emergency Room [address] [place] [address] Tommy Shepard MD Abdominal Pain Discharge Disposition: Home or Self Care (Routine Discharge) 08/12/2024 Travel 08/09/[address] [address] Ani Ellsworth NP Information 08/08/2024 4:52 AM CDT - 08/12/2024 4:21 AM CDT Hospital Encounter [facility] Med/Surg [address]th [place] [address] Nick Lubin MD Suresh, Aditya Krishna, MD Lamonica, Kandace C, MD Discharge Disposition: Home or Self Care (Routine Discharge) 08/07/2024 9:30 PM CDT - 08/08/2024 3:[address] [facility] Emergency Room [id number] [place] [address] Sriram Juares MD Abdominal Pain (Chronic pancreatitis) Discharge Disposition: Transfer to Acute Care Hospital 08/07/2024 Travel 07/30/[address] [address] Ani Ellsworth NP Follow Up Call 07/27/[address] [address] Ani Ellsworth NP Medication Problem 07/25/2024 5:01 PM CDT - 07/29/2024 4:06 PM CDT Hospital Encounter [facility] Med/Surg [id number] [place] [address] Amena Bull MD Mahtani, Andrew, MD Harris, Michael, MD Rodenberg, Ani L, FILLER SPREADER Abdominal Pain Discharge Disposition: Home or Self Care (Routine Discharge) 07/25/2024 Travel 07/20/2024 Results Follow-Up [facility] [address] [place] [address] [address] [place] [address] Ani Ellsworth NP XR KNEE LT 3V 07/19/2024 1:40 PM CDT Office Visit [facility] [address] [facility] [address] [place] [address] Ani Ellsworth NP Knee Pain (Patient presents with c/o left knee pain x Tuesday NKI) 07/19/2024 Travel 07/05/2024 8:00 AM CDT [facility] - [address], [address] [place] [address] Fatmata Wilhelm NP Follow Up (F/u ) 07/05/2024 Travel from Last 3 Months Immunizations Immunization Administration Dates Next Due Tdap (Adacel) 09/05/2024 Tdap (Boostrix) 07/21/2014 Family History Medical History Relation Comments Cancer Father No Known Problems Mother Relation Status Comments Father Alive Mother Alive Social History Tobacco Use Types Packs/Day Years Used Date Smoking Tobacco: Former Cigarettes 2 26 0 08/24/1993 - 08/25/2019 Cigars Passive Smoke Exposure: Past Smokeless Tobacco: Never Tobacco Cessation:Counseling Given: No Alcohol Use Standard Drinks/Week Comments Not Currently 0 (1 standard drink = 0.6 oz pure alcohol) states he hasn't drank in a year B1300 Health Literacy Answer Date Recor ded How often do you need to hav e someone help you when you read instructions, pamphlets, or other written material from your doctor or pharmacy? Never 10/03/2023 [facility] Utilities Answer Date Recorded In the past 12 months has th e electric, gas, oil, or water company threatened to shut off services in your home? Yes 08/08/2024 Humiliation, Afraid, Rape, and Kick questionnair e Answer Date Recorded Within the last year, have y ou been afraid of your partner or ex-partner? No 08/08/2024 Within the last year, have y ou been humiliated or emotionally abused in other ways by your partner or ex-partner? No Within the last year, have y ou been kicked, hit, slapped, or otherwise physically hurt by your partner or ex-partner? No 08/08/2024 Within the last year, have y ou been raped or forced to have any kind of sexual activity by your partner or ex-partner? No 08/08/2024 Social Connection and Isolation Panel [NHANES] A nswer Date Recorded In a typical week, how many times do you talk on the phone with family, friends, or neighbors? Once a week 01/06/2024 How often do you get together with friends or re latives? Never 01/06/2024 How often do you attend orthodoxy or alevism serv ices? Never 01/06/2024 Do you belong to any clubs o r organizations such as orthodoxy groups, unions, fraternal or athletic groups, or [...] food, housing, medical care, and heating? Not very hard 08/08/2024 PHQ-2 Answer Date Recorded Patient Health Questionnaire-2 Score 0 07/05/2024 [facility] - Occupational Stress Questionnaire Answer Date Recorded Do you feel stress - tense, restless, nervous, or anxious, or unable to sleep at night because your mind is troubled all the time - these days? To some extent 07/25/2024 Exercise Vital Sign Answer Date Recorde d [...] the money to buy more. Never true 08/09/19 25 Within the past 12 months, t he food you bought just didn't last and you didn't have money to get more. Never true 08/08/2024 PRAPARE - Transportation Answer Date Re corded In the past 12 months, has l ack of transportation kept you from medical appointments or from getting medications? No 07/13 In the past 12 months, has l ack of transportation kept you from meetings, work, or from getting things needed for daily living? No 08/08/2024 Housing Stability Vital Sign Answer Ciro e [...] place to sleep or slept in a assisted (including now)? No 06/13/2023 Housing Stability Vital Sign Answer Ciro e Recorded In the last 12 months, was t here a time when you were not able to pay the mortgage or rent on time? Yes 08/08/2024 In the past 12 months, how m any times have you moved where you were living? 0 08/08/2024 At any time in the past 12 m [facility], were you homeless or living in a assisted (including now)? No 08/08/2024 Sex and Gender Information Value Date Recorded Sex Assigned at Male 08/13/2022 10:18 PM CDT Legal Sex Male 11:28 AM CDT Gender Identity Male 08/13/2022 10:18 PM CDT Sexual Orientation Straight 08/13/2022 10 :18 PM CDT Last Filed Vital Signs Vital Sign Reading Time Taken Comments Blood Pressure 120/79 09/05/2024 9:22 PM CDT Pulse 60 09/05/2024 9:22 PM CDT Temperature 36.5 C (97.7 F) 09/05/2024 9:22 PM CDT Respiratory Rate 18 09/05/2024 9:22 PM CDT Oxygen Saturation 99% 09/05/2024 9:22 PM CDT Inhaled Oxygen Concentration - - Weight 94.8 kg (209 lb) 09/05/2024 8:01 PM CDT Height 195.6 cm (6' 5) 09/05/2024 8:01 PM CDT Body Mass Index 24.78 09/05/2024 8:01 PM CDT Plan of Treatment Health Maintenance Due Date Last Done Comments Colorectal Cancer Screening Colonoscopy (10 Years) 1978 Hepatitis B Vaccines (1 of 3 - 19+ 3-dose series) 1997 COVID-19 Vaccine (2023-2 5 season) 2023 Annual Physical 09/05/2025 09/05/2024 DTaP, Tdap and Td Vaccines ( 3 - Td or Tdap) 09/05/2034 09/05/2024, 07/21/2014 Hepatitis C Completed 06/29/2023 PHQ-2 (Physician [place]) Completed 07/05/2024 HPV Vaccines Aged Out No longer eligi ble based on patient's age to complete this topic Meningococcal B Vaccine Aged Out No l onger eligible based on patient's age to complete this topic Meningococcal Vaccine Aged Out No grover claudia eligible based on patient's age to complete this topic Pneumococcal Vaccine: Pediatrics (0 to 5 Years) and At-Risk Patients (6 to 49 Years) Aged Out No longer eligible b ased on patient's age to complete this topic RSV Immunizations Under 20 Months Aged Out No longer eligible b ased on patient's age to complete this topic Goals Goal Patient Goal Type Associated Problems Recent Progress Patient-Stated? Author Patient will return to prior living situation and remain independent in ADLs upon discharge from hospital Lifestyle No Marycruz Baltazar RN Safety Patient/family will have appropriate support at home upon discharge Lifestyle No Susan Corona RN Medical Devices Implanted Type Area Maintenance Manager Device Identifier Shelf Expiration Date Model / Serial / Lot Shrapnel Description:Pt has hx of shr apnel in lower back and it began to get warm during MRI scan, so scan was stopped - pt felt it each time the sequence started - 05/01/2024 NF Procedures Procedure Name Priority Date/Time Associated Diagnosis Comments XR ABD FLAT+UPRIGHT STAT 09/05/2024 8 :44 PM CDT LIPASE STAT 09/05/2024 8:22 PM CDT COMPREHENSIVE METABOLIC PANEL STAT 09/05/2024 8:22 PM CDT CBC W/DIFF AUTOMATED STAT 09/05/2024 8:22 PM CDT XR ABD KUB JANETT 08/13/2024 1:19 PM CDT Chronic abdominal pain XR THOR SPINE 3V Routine 08/13/2024 1:19 PM CDT Bilateral thoracic back pain, unspecified chronicity CT ABD+PEL W CON STAT 08/12/2024 11:1 1 AM CDT MAGNESIUM STAT 08/12/2024 9:59 AM CDT LACTIC ACID W REFLEX (SEPSIS) STAT 08/12/2024 9:59 AM CDT LIPASE STAT 08/12/2024 9:59 AM CDT COMPREHENSIVE METABOLIC PANEL STAT 08/12/2024 9:59 AM CDT PARTIAL THROMBOPLASTIN TIME,PTT STAT 08/12/2024 9:59 AM CDT PROTHROMBIN TIME, VENOUS STAT 08/12/2024 9:59 AM CDT CBC W/DIFF AUTOMATED STAT 08/12/2024 9:59 AM CDT CTA ABD+PEL Today 08/11/2024 1:39 PM CDT CBC, AUTO, NO DIFF Routine 08/11/2024 5: 54 AM CDT BASIC METABOLIC PANEL Routine 08/11/2024 5:54 AM CDT CBC, AUTO, NO DIFF Routine 08/10/2024 6: 00 AM CDT BASIC METABOLIC PANEL Routine 08/10/2024 6:00 AM CDT POCT GLUCOSE - DOCKED DEVICE Routine 08/10/2024 5:28 AM CDT CBC, AUTO, NO DIFF Routine 08/09/2024 10 :36 AM CDT BASIC METABOLIC PANEL Routine 08/09/2024 10:36 AM CDT POCT GLUCOSE - DOCKED DEVICE Routine 08/09/2024 2:48 AM CDT US ABD LIMITED Today 08/08/2024 12:03 PM CDT LIPID PANEL Routine 08/08/2024 6:00 AM CDT THYROID STIM HORMONE TSH Routine 08/08/2024 6:00 AM CDT HEMOGLOBIN, GLYCOSYLATED Routine 08/08/2024 6:00 AM CDT MAGNESIUM Routine 08/08/2024 6:00 AM CDT COMPREHENSIVE METABOLIC PANEL Routine 08/08/2024 6:00 AM CDT PROTHROMBIN TIME, VENOUS Routine 08/08/2024 6:00 AM CDT CBC W/DIFF AUTOMATED Routine 08/08/2024 6:[address] ABD+PEL W CON STAT 08/07/2024 11:2 6 PM CDT MAGNESIUM STAT 08/07/2024 10:05 PM CDT LIPASE STAT 08/07/2024 10:05 PM CDT COMPREHENSIVE METABOLIC PANEL STAT 08/07/2024 10:05 PM CDT CBC W/DIFF AUTOMATED STAT 08/07/2024 10:05 PM CDT LIPASE Routine 07/29/2024 9:44 AM CDT COMPREHENSIVE METABOLIC PANEL Routine 07/28/2024 6:33 AM CDT CBC W/DIFF AUTOMATED Routine 07/28/2024 6:33 AM CDT LIPASE Routine 07/27/2024 6:09 AM CDT COMPREHENSIVE METABOLIC PANEL Routine 07/27/2024 6:09 AM CDT CBC W/DIFF AUTOMATED Routine 07/27/2024 6:09 AM CDT BASIC METABOLIC PANEL Routine 07/26/2024 6:27 AM CDT CBC W/DIFF AUTOMATED Routine 07/26/2024 6:[address] ABD+PEL W CON STAT 07/25/2024 6:07 PM CDT LIPASE STAT 07/25/2024 5:35 PM CDT COMPREHENSIVE METABOLIC PANEL STAT 07/25/2024 5:35 PM CDT CBC W/DIFF AUTOMATED STAT 07/25/2024 5:35 PM CDT URINALYSIS, AUTO, COMPLETE STAT 07/25/2024 5:29 PM CDT XR KNEE LT 3V Routine 07/19/2024 2:40 PM CDT Left medial knee pain HEPATITIS C ANTIBODY Routine 06/29/2023 9:04 AM CDT Need for hepatitis C screening test from Last 3 Months or Most Recently Relevant to Health Maintenance Results * XR ABD FLAT+UPRIGHT (09/05/2024 8:44 PM CDT) Anatomical Region Laterality Modality Abdomen Radiographic Olive ging 09/05/2024 8:53 PM CDT Impressions 09/05/2024 8:56 PM CDT IMPRESSION: Nonobstructed gas pattern. Referred By: Interpreted By: Franco Phelps MD, 09/05/2024 8:53 PM Narrative 09/05/2024 8:56 PM CDT [address] [place] [address] EXAMINATION: XR ABD FLAT+UPRIGHT HISTORY: Abdominal pain, constipation DATE: 09/05/2024 8:37 PM COMPARISON: August 13, 2024 TECHNIQUE: Supine and upright AP views of the abdomen FINDINGS: Nonobstructed gas pattern. Moderate amount of stool density. No free air. No acute osseous abnormality. Procedure Note Franco Phelps MD - 09/05/[address] [place] [address] EXAMINATION: XR ABD FLAT+UPRIGHT HISTORY: Abdominal pain, constipation DATE: 09/05/2024 8:37 PM COMPARISON: August 13, 2024 TECHNIQUE: Supine and upright AP views of the abdomen FINDINGS: Nonobstructed gas pattern. Moderate amount of stool density.No free air. No acute osseous abnormality. IMPRESSION: Nonobstructed gas pattern. Referred By: Interpreted By: Franco Phleps MD, 09/05/2024 8:53 PM Deepak Rodriguez MD GENERAL IMAGING Final Resul t * (ABNORMAL) COMPREHENSIVE METABOLIC PANEL (09/05/2024 8:22 PM CDT) Only the most recent of7 resultswithin the time period is included. [facility] GLUCOSE 97 70 - 99 MG/DL 09/05/2024 8:56 PM CDT [facility] BUN 6(L) 7 - 18 MG/DL 09/05/2024 8:56 PM T [facility] CREATININE S/P/B 1.09 0.7 - 1.3 MG/DL 09/05/2024 8:56 PM T [facility] SODIUM S/P/B 137 136 - 145 MMOL/L 09/05/2024 8:56 PM T [facility] POTASSIUM S/P/B 3.9 3.5 - 5.1 MMOL/L 09/05/2024 8:56 PM T [facility] CHLORIDE S/P/B 102 100 - 108 MMOL/L 09/05/2024 8:56 PM T [facility] CO2 23.6 21 - 32 MMOL/L 09/05/2024 8:56 PM T [facility] CALCIUM S/P/B 9.2 8.5 - 10.1 MG/DL 09/05/2024 8:56 PM T [facility] BILIRUBIN TOTAL S/P/B 0.7 0.2 - 1.2 MG/DL 09/05/2024 8:56 PM T [facility] TOTAL PROTEIN S/P/B 7.5 6.4 - 8.2 G/DL 09/05/2024 8:56 PM T [facility] ALBUMIN S/P/B 4.0 3.4 - 5.0 G/DL 09/05/2024 8:56 PM T [facility] AST 20 15 - 37 U/L 09/05/2024 8:56 PM CDT [facility] ALT 37 16 - 60 U/L 09/05/2024 8:56 PM CDT [facility] ALKALINE PHOSPHATASE S/P/B 94 50 - 136 U/L 09/05/2024 8:56 PM CDT [facility] ANION GAP 11.4 5 - 15 MMOL/L 09/05/2024 8:56 PM CDT [facility] BUN CREATININE RATIO 5.5(L) 6 - 26 09/05/2024 8:56 PM CDT [facility] A/G RATIO 1.1 1.0 - 2.0 RATIO 09/05/2024 8:56 PM CDT [facility] GFR ESTIMATE 85(L) >90 ML/MIN/1.7 3 M2 09/05/2024 8:56 PM CDT [facility] Comment: NOTE: eGFR is not calculated for patients <18 years of age. This is an estimated GFR calculation using the new CKD EPI creatinine equation without race and so does not require a correction factor for race. This estimated GFR should not be used for calculating drug doses. 09/05/2024 8:22 PM CDT us Deepak Rodriguez MD LABORATORY Final Resul t [facility] [address] [place] [address], * CBC W/DIFF AUTOMATED (09/05/2024 8:22 PM CDT) Only the most recent of8 resultswithin the time period is included. WBC 7.93 4.4 - 11.0 x10'3/uL 09/05/2024 8:29 PM CDT [facility] RBC 4.76 4.50 - 5.90 x10'6/uL 09/05/2024 8:29 PM CDT [facility] HGB 14.8 14.0 - 17.5 G/DL 09/05/2024 8:29 PM CDT [facility] HCT 43.5 41.5 - 50.4 % 09/05/2024 8:29 PM T [facility] MCV 91.4 80.0 - 96.0 FL 09/05/2024 8:29 PM CDT [facility] MCH 31.1 26.5 - 31.4 PG 09/05/2024 8:29 PM T [facility] MCHC 34.0 31.9 - 34.8 G/DL 09/05/2024 8:29 PM T [facility] RDW 13.1 12.3 - 14.3 % 09/05/2024 8:29 PM T [facility] PLT 205 151 - 353 x10'3/uL 09/05/2024 8:29 PM T [facility] MPV 10.3 9.7 - 11.9 FL 09/05/2024 8:29 PM T [facility] RBC MORPHOLOGY NORMAL 09/05/2024 8:29 PM T [facility] PLT MORPH. NORMAL 09/05/2024 8:29 PM T [facility] WBC MORPHOLOGY NORMAL 09/05/2024 8:29 PM T [facility] LYMPHOCYTES % 27.9 15.8 - 45.0 % 09/05/2024 8:29 PM T [facility] NEUTROPHILS % 64.7 42.1 - 71.9 % 09/05/2024 8:29 PM T [facility] MONOCYTES % 6.1 5.7 - 12.5 % 09/05/2024 8:29 PM T [facility] EOSINOPHILS 0.6 0.0 - 5.6 % 09/05/2024 8:29 PM CDT [facility] BASOPHILS 0.4 0.0 - 1.3 % 09/05/2024 8:29 PM CDT [facility] ABS. NEUTROPHILS 5.14 1.40 - 6.00 x10'3/uL 09/05/2024 8:29 PM CDT [facility] IMMATURE GRANS % 0.3 0.0 - 0.5 % 09/05/2024 8:29 PM CDT [facility] ABS. LYMPHOCYTES 2.21 0.80 - 4.70 x10'3/uL 09/05/2024 8:29 PM CDT [facility] 09/05/2024 8:22 PM CDT us Deepak Rodriguez MD LABORATORY Final Resul t Performing Organization Address City/[facility]/ZIP Co de Phone Number [facility] [address] [place] [address], [place] [phone] * (ABNORMAL) LIPASE (09/05/2024 8:22 PM CDT) Only the most recent of6 resultswithin the time period is included. LIPASE 708(H) 16 - 77 UNITS/L 09/05/2024 8:56 PM CDT [facility] 09/05/2024 8:22 PM CDT us Deepak Rodriguez MD LABORATORY Final Resul t Performing Organization Address [facility]/ZIP Co de Phone Number [facility] [address] [place] [address], [place] [phone] * XR THOR SPINE 3V (08/13/2024 1:19 PM CDT) Anatomical Region Laterality Modality Spine Radiographic Olive ging 08/13/2024 1:18 PM CDT Narrative 08/14/2024 4:34 AM CDT [facility] [place] [address] Examination: XR THOR SPINE 3V Exam time: 08/13/2024 1:18 PM Clinical history: Back pain radiating to the abdomen Comparison: 01/08/2022 chest x-ray Technique: 3 views of the thoracic spine were obtained. Findings: Mild scoliotic curvature of the thoracic spine oriented to the right. Mild degenerative changes at the disc and endplates. No subluxation or dislocation. No compression fracture. IMPRESSION: No acute findings. Referred By: Interpreted By: Keith Cooper MD, 08/14/2024 4:33 AM Procedure Note Keith Cooper MD - 08/14/2024 [facility] [place] [id number] Examination: XR THOR SPINE 3V Exam time: 08/13/2024 1:18 PM Clinical history: Back pain radiating to the abdomen Comparison: 01/08/2022 chest x-ray Technique: 3 views of the thoracic spine were obtained. Findings: Mild scoliotic curvature of the thoracic spine oriented to theright. Mild degenerative changes at the disc and endplates. Nosubluxation or dislocation. No compression fracture. IMPRESSION: No acute findings. Referred By: Interpreted By: Keith Cooper MD, 08/14/2024 4:33 AM us Ani Ellsworth NP GENERAL IMAGING Final Res ult * XR ABD KUB (08/13/2024 1:19 PM CDT) Anatomical Region Laterality Modality Abdomen Radiographic Olive ging 08/13/2024 1:18 PM CDT Narrative 08/14/2024 4:35 AM CDT [facility] [place] [id number] Examination: XR ABD KUB Exam time: 08/13/2024 1:18 PM Clinical history: Abdominal pain, constipation, nausea, pain with eating Comparison: 08/12/2024 Technique: 1 view of the abdomen obtained. Findings: No stomach or bowel obstruction. No stomach dilation. Fecal burden is mild. No free air. No urinary stone calcifications. Bony structures are grossly intact. IMPRESSION: No acute abnormality. Referred By: Interpreted By: Keith Cooper MD, 08/14/2024 4:35 AM Procedure Note Keith Cooper MD - 08/14/2024 [facility] Internal [address] [address] Examination: XR ABD KUB Exam time: 08/13/2024 1:18 PM Clinical history: Abdominal pain, constipation, nausea, pain with eating Comparison: 08/12/2024 Technique: 1 view of the abdomen obtained. Findings: No stomach or bowel obstruction. No stomach dilation. Fecal burden ismild. No free air. No urinary stone calcifications. Bony structures aregrossly intact. IMPRESSION: No acute abnormality. Referred By: Interpreted By: Keith Cooper MD, 08/14/2024 4:35 AM us Ani Ellsworth NP GENERAL IMAGING Final Res ult * CT ABD+PEL W CON (08/12/2024 11:11 AM CDT) Only the most recent of3 resultswithin the time period is included. Anatomical Region Laterality Modality Abdomen Computed Tomogra phy 08/12/2024 11:2 5 AM CDT Impressions 08/12/2024 11:30 AM CDT Impression: 1. 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 No convincing peripancreatic inflammatory changes. 2. No acute findings within the abdomen or pelvis. 3. Moderate colonic stool burden. 4. Additional chronic findings, as described above. Referred By: Interpreted By: Emigdio Xie MD, 08/12/2024 11:25 AM Narrative 08/12/2024 11:30 AM CDT [facility] [address] [place] [address] CT abdomen and pelvis with IV contrast Comparison: CT abdomen and pelvis 08/11/2024.. Indication: Periumbilical pain. Technique: CT imaging was performed of the abdomen and pelvis following the administration of intravenous contrast. Iodinated contrast was used due to the indications for the examination, to improve disease detection and further define anatomy. Coronal and sagittal reformatted images were generated and reviewed. A dose lowering technique was utilized for this procedure which may include but is not limited to dose reduction techniques, automated exposure control, and/or the use of iterative reconstruction in accordance with ALARA principle. Findings: - Lower Thorax: No suspicious pulmonary abnormalities. No pleural or pericardial effusions. - Liver: Normal in morphology and enhancement. Tiny hypodensity at the inferior hepatic lobe which is too small to characterize by any imaging modality. The portal and hepatic veins are patent. - Biliary and Gallbladder: No intrahepatic or extrahepatic biliary ductal dilatation. The gallbladder is unremarkable. - Spleen: Normal in appearance. - Pancreas: Multiple cystic lesions in the pancreatic tail, for reference measuring 2.4 cm on series 2 image 36. These are favored to reflect pseudocysts. No convincing peripancreatic inflammatory changes. - Adrenal Glands: Normal in appearance. - Kidneys: Symmetric in size and enhancement. No suspicious renal lesions. No hydronephrosis. - Abdominal and Pelvic Vasculature: No abdominal aortic aneurysm. - Gastrointestinal Tract: No abnormal dilation or wall thickening. Moderate colonic stool burden. The appendix is within normal limits. - Peritoneum/Mesentery/Retroperitoneum: No free fluid. No free intraperitoneal air. - Lymph Nodes: No retroperitoneal, mesenteric, or pelvic lymphadenopathy. - Bladder: Normal in appearance. - Pelvic Organs: Mild prostatomegaly. - Body Wall: Unremarkable. - Musculoskeletal: No aggressive appearing osseous lesions. Moderate degenerative changes greatest at L5-S1. Procedure Note Emigdio Xie MD - 08/12/2024 [facility] [address] [place] [address] CT abdomen and pelvis with IV contrast Comparison: CT abdomen and pelvis 08/11/2024.. Indication: Periumbilical pain. Technique: CT imaging was performed of the abdomen and pelvis followingthe administration of intravenous contrast. Iodinated contrast was useddue to the indications for the examination, to improve disease detectionand further define anatomy. Coronal and sagittal reformatted images weregenerated and reviewed. A dose lowering technique was utilized for thisprocedure which may include but is not limited to dose reductiontechniques, automated exposure control, and/or the use of iterativereconstruction in accordance with ALARA principle. Findings: - Lower Thorax: No suspicious pulmonary abnormalities. No pleural orpericardial effusions. - Liver: Normal in morphology and enhancement. Tiny hypodensity at theinferior hepatic lobe which is too small to characterize by any imagingmodality. The portal and hepatic veins are patent. - Biliary and Gallbladder: No intrahepatic or extrahepatic biliary ductaldilatation. The gallbladder is unremarkable. - Spleen: Normal in appearance. - Pancreas: Multiple cystic lesions in the pancreatic tail, for referencemeasuring 2.4 cm on series 2 image 36. These are favored to reflectpseudocysts. No convincing peripancreatic inflammatory changes. - Adrenal Glands: Normal in appearance. - Kidneys: Symmetric in size and enhancement. No suspicious renallesions. No hydronephrosis. - Abdominal and Pelvic Vasculature: No abdominal aortic aneurysm. - Gastrointestinal Tract: No abnormal dilation or wall thickening.Moderate colonic stool burden. The appendix is within normal limits. - Peritoneum/Mesentery/Retroperitoneum: No free fluid. No freeintraperitoneal air. - Lymph Nodes: No retroperitoneal, mesenteric, or pelviclymphadenopathy. - Bladder: Normal in appearance. - Pelvic Organs: Mild prostatomegaly. - Body Wall: Unremarkable. - Musculoskeletal: No aggressive appearing osseous lesions. Moderatedegenerative changes greatest at L5-S1. Impression: 1. Similar cystic lesions in the pancreatic tail, favored to reflectpseudocysts. No convincing peripancreatic inflammatory changes. 2. No acute findings within the abdomen or pelvis. 3. Moderate colonic stool burden. 4. Additional chronic findings, as described above. Referred By: Interpreted By: Emigdio Xie MD, 08/12/2024 11:25 AM us Tommy Shepard MD CT Final Result * LACTIC ACID W REFLEX (SEPSIS) (08/12/2024 9:59 AM CDT) LACTIC ACID VENOUS 1.6 0.4 - 2.0 MMOL/L 08/12/2024 10:25 AM CDT [facility] 08/12/2024 9:59 AM CDT us Tommy Shepard MD LABORATORY Final Result Performing Organization Address City/[facility]/ZIP Co de Phone Number [facility] [address] [place] [address], [place] [phone] * PARTIAL THROMBOPLASTIN TIME,PTT (08/12/2024 9:59 AM CDT) PTT 33.5 25.1 - 36.5 SEC 08/12/2024 10:13 AM CDT [facility] 08/12/2024 9:59 AM CDT us Tommy Shepard MD LABORATORY Final Result Performing Organization Address City/[facility]/ZIP Co de Phone Number [facility] [address] [place] [address], [place] [phone] * PROTIME/INR, VENOUS (08/12/2024 9:59 AM CDT) Only the most recent of2 resultswithin the time period is included. PROTIME 11.7 9.1 - 12.4 SEC 08/12/2024 10:13 AM CDT [facility] INR 1.0 08/12/2024 10:13 AM CDT [facility] Comment: Recommend INR ranges for Oral Anticoagulant Therapy: Mechanical Cardiac Values 2.5-3.5 All others indication 2.0-3.0 08/12/2024 9:59 AM CDT us Tommy Shepard MD LABORATORY Final Result Performing Organization Address City/[facility] Co de Phone Number [facility] [address] [place] [address], [place] [phone] * MAGNESIUM (08/12/2024 9:59 AM CDT) Only the most recent of3 resultswithin the time period is included. MAGNESIUM 2.0 1.8 - 2.4 MG/DL 08/12/2024 10:45 AM CDT [facility] 08/12/2024 9:59 AM CDT us Tommy Shepard MD LABORATORY Final Result Performing Organization Address [facility] de Phone Number [facility] [address] [place] [address], [place] [phone] * CTA ABD+PEL (08/11/2024 1:39 PM CDT) Anatomical Region Laterality Modality Abdomen, Pelvis Computed Tomogra phy 08/11/2024 2:25 PM CDT Impressions 08/11/2024 2:38 PM CDT IMPRESSION: 1. The celiac trunk median arcuate ligament morphology with steep downward course of the proximal segment with severe focal stenosis and mild postnecrotic dilatation. 2. Otherwise Unremarkable CTA abdomen pelvis study: No findings of mesenteric ischemia or other additional acute or chronic vascular pathology 2. Resolution of peripancreatic inflammation on imaging; the stable 2 small suspected pseudocysts abutting the anterior pancreatic tail. 3. Please refer to the report body for additional details regarding other nonacute, incidental and chronic stable findings. Referred By: SRIRAM JUARES Interpreted By: Adán Galvan MD, 08/11/2024 2:25 PM Narrative 08/11/2024 2:38 PM CDT [facility] [address] [place], [place] [address] Study: Computed angiography abdomen and pelvis Exam Date/Time: 08/11/2024 1:27 PM Indication: 3 male. Abdominal pain out of proportion. Evaluation for mesenteric ischemia. Comparison: CT abdomen pelvis 08/07/2024 and 07/25/2024 Technique: Computed tomography of abdomen and pelvis performed. Noncontrast images acquired through the abdomen pelvis followed by postcontrast arterial phase images following IV administration of 100 mL Isovue-370 contrast. 3-D reconstructions and postprocessing performed independently on a separate dedicated 3-D workstation. A dose lowering technique was used for this procedure, which may include, but is not limited to, dose reduction technique, automated exposure control, the use of iterative reconstruction, and ALARA (As Low As Reasonably Achievable) / Image Gently techniques. CT angiography findings: VASCULAR: Limited evaluation of the viscera, bowel, and pelvic structures due to non- contrast and arterial contrast phase acquisition is normal. Aorta: Images distal thoracic aorta and the abdominal aorta is unremarkable. No atherosclerosis, dissection, aneurysm, pseudoaneurysm or penetrating ulcer.. Celiac artery: Patent. Median arcuate ligament morphology. Severe proximal segment stenosis with downward contour and postnecrotic dilatation. The celiac axis gives rise to the splenic artery, common hepatic artery, and left gastric artery. Superior mesenteric artery: Patent without stenosis. Inferior mesenteric artery: Patent without stenosis. Right renal artery: Single vessel without stenosis. Left renal artery: Single vessel without stenosis. Pelvic vessels: Bilateral common iliac, external iliac and internal iliac arteries are normal. No atherosclerosis or other finding. NON-VASCULAR FINDINGS: Bibasilar dependent and streaky subsegmental atelectasis. Normal cardiac size. No pericardial or pleural effusion. Stable the unremarkable appearance of the liver, spleen,, gallbladder, adrenals and kidneys. Convincing peripancreatic inflammatory changes seen on the current study. Stable size of 2 small cystic foci are abutting the anterior aspect of the pancreatic tail, better delineated on prior routine contrast studies, that likely represent pseudocysts. No new collection. No abdominopelvic adenopathy. No free fluid or free air. The distal esophageal mild mural thickening may be reflux related. Otherwise normal bowel caliber and thickness. Prostate seminal vesicles within normal limits. Unremarkable thin-walled urinary bladder. L5-S1 the prominent disc degeneration. Remainder lumbar spine grossly unremarkable. Mild/moderate lower thoracic spine disc and endplate degenerative change no concerning focal lytic or blastic lesion. Procedure Note Adán Galvan MD - 08/11/[address] [address] Study: Computed angiography abdomen and pelvis Exam Date/Time: 08/11/2024 1:27 PM Indication: 3 male. Abdominal pain out of proportion. Evaluation formesenteric ischemia. Comparison: CT abdomen pelvis 08/07/2024 and 07/25/2024 Technique: Computed tomography of abdomen and pelvis performed.Noncontrast images acquired through the abdomen pelvis followed bypostcontrast arterial phase images following IV administration of 100 mLIsovue-370 contrast. 3-D reconstructions and postprocessing performedindependently on a separate dedicated 3-D workstation. A dose loweringtechnique was used for this procedure, which may include, but is notlimited to, dose reduction technique, automated exposure control, the useof iterative reconstruction, and ALARA (As Low As Reasonably Achievable) /Image Gently techniques. CT angiography findings: VASCULAR: Limited evaluation of the viscera, bowel, and pelvic structures due tonon- contrast and arterial contrast phase acquisition is normal. Aorta: Images distal thoracic aorta and the abdominal aorta isunremarkable. No atherosclerosis, dissection, aneurysm, pseudoaneurysm orpenetrating ulcer.. Celiac artery: Patent. Median arcuate ligament morphology. Severeproximal segment stenosis with downward contour and postnecroticdilatation. The celiac axis gives rise to the splenic artery, commonhepatic artery, and left gastric artery. Superior mesenteric artery: Patent without stenosis. Inferior mesenteric artery: Patent without stenosis. Right renal artery: Single vessel without stenosis. Left renal artery: Single vessel without stenosis. Pelvic vessels: Bilateral common iliac, external iliac and internal iliacarteries are normal. No atherosclerosis or other finding. NON-VASCULAR FINDINGS: Bibasilar dependent and streaky subsegmental atelectasis. Normal cardiacsize. No pericardial or pleural effusion. Stable the unremarkable appearance of the liver, spleen,, gallbladder,adrenals and kidneys. Convincing peripancreatic inflammatory changes seen on the current study.Stable size of 2 small cystic foci are abutting the anterior aspect ofthe pancreatic tail, better delineated on prior routine contrast studies,that likely represent pseudocysts. No new collection. No abdominopelvic adenopathy. No free fluid or free air. The distal esophageal mild mural thickening may be reflux related.Otherwise normal bowel caliber and thickness. Prostate seminal vesicleswithin normal limits. Unremarkable thin-walled urinary bladder. L5-S1 the prominent disc degeneration. Remainder lumbar spine grosslyunremarkable. Mild/moderate lower thoracic spine disc and endplatedegenerative change no concerning focal lytic or blastic lesion. IMPRESSION: 1. The celiac trunk median arcuate ligament morphology with steepdownward course of the proximal segment with severe focal stenosis andmild postnecrotic dilatation. 2. Otherwise Unremarkable CTA abdomen pelvis study: No findings ofmesenteric ischemia or other additional acute or chronic vascularpathology 2. Resolution of peripancreatic inflammation on imaging; the stable 2small suspected pseudocysts abutting the anterior pancreatic tail. 3. Please refer to the report body for additional details regarding othernonacute, incidental and chronic stable findings. Referred By: SRIRAM JUARES Interpreted By: Adán Galvan MD, 08/11/2024 2:25 PM Lorena Murillo MD CT Final Resu lt * (ABNORMAL) BASIC METABOLIC PANEL (08/11/2024 5:54 AM CDT) Only the most recent of4 resultswithin the time period is included. GLUCOSE 102(H) 70 - 99 MG/DL 08/11/2024 6:45 AM CDT [facility] BUN 5(L) 7 - 18 MG/DL 08/11/2024 6:45 AM T [facility] CREATININE S/P/B 1.07 0.7 - 1.3 MG/DL 08/11/2024 6:45 AM T [facility] SODIUM S/P/B 139 136 - 145 MMOL/L 08/11/2024 6:45 AM CDT [facility] POTASSIUM S/P/B 3.5 3.5 - 5.1 MMOL/L 08/11/2024 6:45 AM T [facility] CHLORIDE S/P/B 104 97 - 115 MMOL/L 08/11/2024 6:45 AM T [facility] CO2 30.3 21 - 32 MMOL/L 08/11/2024 6:45 AM T [facility] CALCIUM S/P/B 9.6 8.5 - 10.1 MG/DL 08/11/2024 6:45 AM T [facility] ANION GAP 4.7 2 - 10 MMOL/L 08/11/2024 6:45 AM T [facility] BUN CREATININE RATIO 4.7(L) 6 - 26 08/11/2024 6:45 AM T [facility] GFR ESTIMATE 87(L) >90 ML/MIN/1.7 3 M2 08/11/2024 6:45 AM T [facility] Comment: NOTE: eGFR is not calculated for patients <18 years of age or gender unknown. This is an estimated GFR calculation using the new CKD EPI creatinine equation without race and so does not require a correction factor for race. This estimated GFR should not be used for calculating drug doses. 08/11/2024 5:54 AM CDT us Baltazar Stu Diaz MD LABORATORY Final R esult [facility] [address] [place] [address], * CBC, AUTO, NO DIFF (08/11/2024 5:54 AM CDT) Only the most recent of3 resultswithin the time period is included. WBC 5.22 4.5 - 11.0 x10'3/uL 08/11/2024 6:28 AM CDT [facility] RBC 4.70 4.70 - 6.10 x10'6/uL 08/11/2024 6:28 AM CDT [facility] HGB 14.4 14.0 - 18.0 G/DL 08/11/2024 6:28 AM CDT [facility] HCT 43.1 43.0 - 54.0 % 08/11/2024 6:28 AM CDT [facility] MCV 91.7 80.0 - 94.0 FL 08/11/2024 6:28 AM CDT [facility] MCH 30.6 27.0 - 31.0 PG 08/11/2024 6:28 AM CDT [facility] MCHC 33.4 32.0 - 36.0 G/DL 08/11/2024 6:28 AM CDT [facility] RDW 12.9 11.5 - 14.5 % 08/11/2024 6:28 AM CDT [facility] PLT 244 130 - 400 x10'3/uL 08/11/2024 6:28 AM CDT [facility] MPV 10.2 9.3 - 12.2 FL 08/11/2024 6:28 AM CDT [facility] 08/11/2024 5:54 AM CDT us Baltazar Perales MD LABORATORY Final R esult Performing Organization Address City/[facility] Co de Phone Number [facility] [address] [place] [address], [place] [phone] * (ABNORMAL) POCT glucose (08/10/2024 5:28 AM CDT) Only the most recent of2 resultswithin the time period is included. GLUCOSE POC 149(H) 70 - 99 mg/dL 08/10/2024 5:34 AM CDT [facility] 08/10/2024 5:28 AM CDT us Baltazar Perales MD POCT ORDERABLES - DEVIC E Final Result Performing Organization Address City/[facility] Co de Phone Number [facility] [address] [place] [address], [place] [phone] * US ABD LIMITED (08/08/2024 12:03 PM CDT) Anatomical Region Laterality Modality Abdomen Ultrasound 08/10/2024 5:54 AM CDT Impressions 08/10/2024 6:01 AM CDT IMPRESSION: ===== 1. No acute abnormalities in the right upper quadrant. Referred By: SRIRAM JUARES Interpreted By: Casey Tomas MD, 08/10/2024 5:54 AM Narrative 08/10/2024 6:01 AM CDT [facility] [address] [place], [place] [address] Exam: Right upper quadrant abdominal ultrasound Exam Date/Time: 08/08/2024 10:48 AM Reason For Exam: Abdominal pain Epigastric pain and right upper quadrant abdominal pain. Recurrent pancreatitis. Comparison: 08/07/2024 CT abdomen and pelvis Technique: Ultrasound evaluation of the right upper quadrant abdominal contents was performed for analysis of grayscale and color Doppler imaging characteristics. Findings: The liver is normal in size and surface contour. There are no abnormal echogenic hepatic lesions. Small cysts in the inferior liver corresponding to findings on CT. No abnormal fluid collections surrounding the liver. A portion of the pancreas is visualized and has normal grayscale appearance. Portions of the head and tail are obscured. Portal vein is patent and shows normal directional and waveform flow on Doppler imaging. The IVC is patent. The gallbladder is free of stones, sludge, and pericholecystic fluid. The gallbladder wall is not thickened. Gallbladder wall measures 2.0 mm. Common bile duct is not dilated and measures up to 2.7 mm. Visualized portion of right kidney is unremarkable. No probe tenderness reported on evaluation. ===== Procedure Note Casey Tomas MD - 08/10/[address] [address] Exam: Right upper quadrant abdominal ultrasound Exam Date/Time: 08/08/2024 10:48 AM Reason For Exam: Abdominal pain Epigastric pain and right upper quadrant abdominal pain. Recurrentpancreatitis. Comparison: 08/07/2024 CT abdomen and pelvis Technique: Ultrasound evaluation of the right upper quadrant abdominalcontents was performed for analysis of grayscale and color Doppler imagingcharacteristics. Findings: The liver is normal in size and surface contour. There are noabnormal echogenic hepatic lesions. Small cysts in the inferior livercorresponding to findings on CT. No abnormal fluid collectionssurrounding the liver. A portion of the pancreas is visualized and hasnormal grayscale appearance. Portions of the head and tail are obscured.Portal vein is patent and shows normal directional and waveform flow onDoppler imaging. The IVC is patent. The gallbladder is free of stones,sludge, and pericholecystic fluid. The gallbladder wall is notthickened. Gallbladder wall measures 2.0 mm. Common bile duct is notdilated and measures up to 2.7 mm. Visualized portion of right kidney isunremarkable. No probe tenderness reported on evaluation. ===== IMPRESSION: ===== 1. No acute abnormalities in the right upper quadrant. Referred By: SRIRAM JUARES Interpreted By: Casey Tomas MD, 08/10/2024 5:54 AM us Nick Lubin MD ULTRASOUND Final Resul t * (ABNORMAL) HEMOGLOBIN, GLYCATED (08/08/2024 6:00 AM CDT) HGB A1C 6.1(H) <5.7 % 08/08/2024 9:30 AM CDT [facility] Comment: ADA GUIDELINES 2010 5.7 TO 6.4% INCREASED RISK OF DIABETES > OR = 6.5% CONSISTENT WITH DIABETES ESTIMATED AVG GLUCOSE 128 mg/dL 08/08/2024 9:30 AM CDT [facility] 08/08/2024 6:00 AM CDT us Nick Lubin MD LABORATORY Final Resul t [facility] [address] [place] [address], [place] [phone] * (ABNORMAL) LIPID PANEL (08/08/2024 6:00 AM CDT) CHOLESTEROL 156 <200 MG/DL 08/08/2024 7:11 AM CDT [facility] TRIGLYCERIDES 136 <150 MG/DL 08/08/2024 7:11 AM CDT [facility] HDL 28(L) >40.0 MG/DL 08/08/2024 7:11 AM CDT [facility] LDL (CALCULATED) 101(H) <100 MG/DL 08/08/2024 7:11 AM CDT [facility] NON HDL CHOLESTEROL 128 <130 MG/DL 08/08/2024 7:11 AM CDT [facility] CHOL/HDL RATIO 5.6(H) 0.0 - 4.5 08/08/2024 7:11 AM CDT [facility] VLDL CALCULATION 27 5 - 55 MG/DL 08/08/2024 7:11 AM CDT [facility] LIPID INTERPRETATION 08/08/2024 7:11 AM CDT [facility] Comment: [facility] CONCENSUS REPORT RECOMMENDATIONS: ADULT CHILD LOW RISK: CHOLESTEROL <200 <170 TRIGLYCERIDE <150 --- HDL >=60 --- LDL <100 <110 BORDERLINE: CHOLESTEROL 200-239 170-199 TRIGLYCERIDE 150-199 --- HDL 40-59 --- LDL 100-159 110-129 HIGH RISK: CHOLESTEROL >=240 >=200 TRIGLYCERIDE >=200 --- HDL <40 --- LDL >=160 >=130 08/08/2024 6:00 AM CDT us Nick Lubin MD LABORATORY Final Resul t [facility] [address] [place] [address], * THYROID STIM HORMONE, TSH (08/08/2024 6:00 AM CDT) TSH 2.200 0.358 - 3.74 uIU/ML 08/08/2024 7:11 AM CDT [facility] Comment: HIGH DOSES OF BIOTIN MAY INTERFERE WITH THIS TEST RESULT. CORRELATION TO CLINICAL HISTORY AND PRESENTATION RECOMMENDED. 08/08/2024 6:00 AM CDT us Nick Lubin MD LABORATORY Final Resul t [facility] [address] [place] [address], [place] [phone] * URINALYSIS, AUTO, COMPLETE (07/25/2024 5:29 PM CDT) COLOR (U) YELLOW 07/25/2024 5:49 PM CDT [facility] TRANSPARENCY CLOUDY 07/25/2024 5:49 PM CDT [facility] SPECIFIC GRAVITY (U) 1.025 1.000 - 1.030 07/25/2024 5:49 PM CDT [facility] U PH 6.0 5.0 - 9.0 07/25/2024 5:49 PM CDT [facility] LEUKOCYTES (U) NEGATIVE NEGATIVE 07/25/2024 5:49 PM CDT [facility] NITRITES NEGATIVE NEGATIVE 07/25/2024 5:49 PM CDT [facility] PROTEIN RANDOM (U) NEGATIVE NEGATIVE 07/25/2024 5:49 PM CDT [facility] GLUCOSE (U) NEGATIVE NEGATIVE 07/25/2024 5:49 PM CDT [facility] KETONES MG/DL (U) NEGATIVE NEGATIVE 07/25/2024 5:49 PM CDT [facility] BILIRUBIN (U) NEGATIVE NEGATIVE 07/25/2024 5:49 PM CDT [facility] BLOOD (U) NEGATIVE NEGATIVE 07/25/2024 5:49 PM CDT [facility] WBC/HPF 0-5 0 - 5 /HPF 07/25/2024 5:49 PM CDT [facility] RBC/HPF 0-5 0 - 5 /HPF 07/25/2024 5:49 PM CDT [facility] EPI/HPF FEW /HPF 07/25/2024 5:49 PM CDT [facility] BACTERIA (U) FEW /HPF 07/25/2024 5:49 PM CDT [facility] URINE ALMOD[facility] FEW 07/25/2024 5:49 PM CDT [facility] Comment:MUCOUS URINE SPECIMEN OBTAINED BY CLEAN CATCH PROCEDURE / Unknown 07/25/2024 5:29 PM CDT us Amena Bull MD URINE ORDERABLES Final Res ult [facility] [address] [place] [address], [place] [phone] * XR KNEE LT 3V (07/19/2024 2:40 PM CDT) Anatomical Region Laterality Modality Knee Radiographic Olive ging 07/19/2024 2:29 PM CDT Narrative 07/20/2024 5:14 AM CDT [facility] [address] [address] Examination: XR KNEE LT 3V Exam time: 07/19/2024 2:29 PM Clinical history: Left knee pain. Comparison: No comparison. Technique: 3 views of the left knee. Findings: No fracture or dislocation is seen. Joint spaces appear preserved. No destructive bone process is identified. No joint effusion distinct soft tissue abnormality. IMPRESSION: No acute osseous abnormality identified. Referred By: Interpreted By: Chuy London MD, 07/20/2024 5:12 AM Procedure Note Chuy London MD - 07/20/2024 [facility] - [address] [address] Examination: XR KNEE LT 3V Exam time: 07/19/2024 2:29 PM Clinical history: Left knee pain. Comparison: No comparison. Technique: 3 views of the left knee. Findings: No fracture or dislocation is seen. Joint spaces appear preserved. Nodestructive bone process is identified. No joint effusion distinct softtissue abnormality. IMPRESSION: No acute osseous abnormality identified. Referred By: Interpreted By: Chuy London MD, 07/20/2024 5:12 AM Ani Ellsworth [facility] Final Res ult * HEPATITIS C ANTIBODY (06/29/2023 9:04 AM CDT) HEPATITIS C AB NON-REACTI VE NON-REACT NATONI 06/29/2023 6:33 PM CDT [facility] Comment: ANTIBODIES TO HCV NOT DETECTED. DOES NOT EXCLUDE THE POSSIBILITY OF EXPOSURE TO HCV. 06/29/2023 9:04 AM CDT Ani Ellsworth [facility] Final Res ult [facility] [address] [place] [address], [id number] from Last 3 Months or Most Recently Relevant to Health Maintenance Insurance [employer] Advance Directives * Full Code (Latest Code Status on File) Date Activated Date Inactivated Comments 08/08/2024 5:27 AM 08/12/2024 8:05 AM * Full Code Date Activated Date Inactivated Comments 07/25/2024 6:46 PM 07/29/2024 6:12 PM * Full Code Date Activated Date Inactivated Comments 05/30/2024 6:48 PM 06/05/2024 1:33 PM * Full Code Date Activated Date Inactivated Comments 03/14/2024 12:50 AM 03/16/2024 11:58 AM * Full Code Date Activated Date Inactivated Comments 01/06/2024 6:55 PM 01/11/2024 2:03 PM Care 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
--- OUTSIDE RECORDS SUMMARY | 2024-09-28 16:42 | XMS_ITS | Encounter Summary ---
Author Organization [facility] Address [address] [place] [id number] Care Team Providers [employer] Workflow Consultant Name Role Phone Ani Ellsworth NP Primary Care Provider [phone] Encounter Details Date Type Department Care Team (Late st Contact Info) Description 11/15/2023 BeLocal Message Enc [facility] [address] [place] [id number] [employer] [facility] Provider results. Social History Tobacco Use Types [...] How often do you attend chur or mosque services? Never 10/03/2023 Do you belong to any clubs o r organizations such as rastafarian groups, unions, fraternal or athletic groups, or [...] 10/03/2023 [facility] Occupat ional Health - Occupational Stress [...] any time in the past 12 m [facility], were you homeless or living in a [...] Rule Out 03/16/2024 03/16/2024 03/16/2024 1:26 PM AEMT Assessment Noted Time PHQ-9 Depression Total Score: 13 04/ 024 1:09 PM CDT documented as of this encounter [employer] Workflow Consultant Relationship Specialty Start Date End Date Ani Ellsworth NP [address] [place] [address] PCP - General NURSE PRACTITIONER 06/13/23 documented as of this encounter
--- OUTSIDE RECORDS SUMMARY | 2024-09-28 16:42 | XMS_ITS | Data Portability ---
Author Organization [facility] Sensorion, Main Office Address [address] [place] [address] Care Team Providers Care Frame Table Operator Helper Name Role Phone STAN COOPER Primary Care Provider [phone] Assessment Encounter Date Assessment Date Assessment LastModified [...] per schedule. Cont f/u with Uro at [facility] as per schedule. Cont f/u with ENT as per schedule. Cont f/u with Neuro at [facility] as per schedule. Cont f/u with Cardio at [facility] as per schedule. Cont f/u with Dentist as per schedule. Pt has done PT in the past. Pt got s/e from Citalopram, Sertraline, Buspirone. HM: Flu - Pt declined. Tdap, Hep B - At [facility]. F/u in 1-1.5 months. Lipids, A1c, T-level before next visit. Annual labs in 06/04. Not available 12/23/2022 16:59:08 01/24/2023 01/24/2023 42 [...] per schedule. Cont f/u with Uro at [facility] as per schedule. Cont f/u with ENT as per schedule. Cont f/u with Neuro at [facility] as per schedule. Cont f/u with Cardio at [facility] as per schedule. Cont f/u with Dentist as per schedule. Pt has done PT in the past. Pt got s/e from Citalopram, Sertraline, Buspirone. HM: Flu - Pt declined. Tdap, Hep B - At [facility]. F/u in 1-2 months. T-level before next visit. Annual labs in 06/04. [email or web address] Not available 01/24/2023 12:18:50 02/21/2023 02/21/2023 42 [...] per schedule. Cont f/u with Uro at [facility] as per schedule. Cont f/u with ENT as per schedule. Cont f/u with Neuro at [facility] as per schedule. Cont f/u with Cardio at [facility] as per schedule. Cont f/u with Dentist as per schedule. Pt has done PT in the past. Pt got s/e from Citalopram, Sertraline, Buspirone. HM: Flu - Pt declined. Tdap, Hep B - At HD. F/u in 3 months. T-level before next visit. Annual labs in 06/04. [email or web address] Not available 02/21/2023 13:08:44 Plan of Treatment Reminders Order Date Submit Date Provider Last Modified By Organization Details Last Modified Time Details Appointments None recorded. Lab glycohemogl obin, total, blood 2022 023 [facility] (Lab), [address] [place], [address], 16:24:24 lipid panel, serum 2022 023 [facility] (Lab), [address] [place], [address], 14:32:10 testosteron e, free + total, serum [address] (Lab), [address] [place], [address], 09:27:46 Referral pain management referral 2022 023 [email or web address] 3 [facility], [address], [address], [place], [address], 3 08:32:37 Procedures None recorded. Surgeries None recorded. Imaging None recorded. Medication Orders amoxicillin 500 mg capsule 2023 024 [facility] [address], [place], [address], 4 12:21:07 famotidine 20 mg tablet 2022 023 [email or web address] [address], [address], 4 11:48:43 rosuvastati n 5 mg tablet 2022 023 [email or web address] [address], [address], 4 11:49:37 famotidine 20 mg tablet 2022 023 [email or web address] [address], [address], 4 11:48:43 rosuvastati n 5 mg tablet 2022 023 [email or web address] [address], [address], 4 11:49:37 ondansetron 4 mg disintegrat ing tablet 2022 023 [email or web address] [address], [address], 4 11:49:28 famotidine 20 mg tablet 2022 023 [email or web address] [address], [address], 4 11:48:43 Patient TargetsNo targets recorded. Patient InstructionsNo instructions recorded. Reason for Referral Pain Management Referral for Chronic low back pain Referring Physician: Stan Cooper, Family Medicine, Encounter Date: 12/23/2022 Results Created Date Observation Date Name Description Value Unit Range Abnormal Flag Note LastModifiedBy Organization Detail LastModifiedTime 12/30/1912/29/2022 TEST NOT PERFO RMED test not performed COMMEN T sampl e was qns for testi ng Conta cted B Cooper Offic e 12/29 1240 jf Not Available [facility] (Lab) [address] [place], [address], 12/29/2022 13:41:11 12/30/1912/29/2022 LIPID PANEL cholesterol 204 mg/dL 140-19 9 high NIH ANIBAL NSUS RECOM MENDA TION FOR MICHOACANO STERO L: ADULT CHILD LOW RISK: <200 <170 BORDE RLINE : <200- 239 ----- HIGH RISK: >240 >200 Not Available [facility] (Lab) [address] [place], [address], 12/29/2022 14:32:10 12/30/1912/29/2022 LIPID PANEL triglyceride s 215 mg/dL 0-150 high NIH ANIBAL NSUS REPOR T RECOM MENDA TION FOR TRIGL YCERI FAB: ADULT CHILD LOW RISK: <150 ----- BODER LINE: 150-1 99 ----- HIGH RISK: >200 ----- Not Available [facility] (Lab) [address] [place], [address], 12/29/2022 14:32:10 12/30/1912/29/2022 LIPID PANEL HDL cholesterol 32 mg/dL 40- low Not Available [facility] (Lab) [address] [place], [address], 12/29/2022 14:32:10 12/30/1912/29/2022 LIPID PANEL LDL cholesterol, [...] WILL NOT BE REPOR CELIO. Not Available [facility] (Lab) [address] [place], [address], 12/29/2022 14:32:10 12/30/1912/29/2022 HEMOG LOBIN A1C HA1C 5.8 % 4.0-6. 0 Diabe danny Scree bertha Crite klaudia: <5.7% Consi stent with absen ce of diabe danny 5.7-6 .4% Consi stent with incre ased risk for diabe danny (pred iabet es) >OR=6 .5% Consi stent with diabe danny REFER ENCE: Diabe danny Care 2016, 39(Campbell ppl.1 ):s13 -s22 Not Available [facility] (Lab) [address] [place], [address], 12/29/2022 16:24:24 01/06/20 23 01/05/2023 XR, chest , 2 view No observ ation record ed. [email or web address] [address], [address], 01/24/2023 11:55:30 Result Notes None recorded. Problems Name Problem SNOMED Code Status Onset Date Resolution Date Notes Provider Name and Address Organization Details Recorded Time Anxiety disorder 792658974 Active 2019 Not Available [facility] 3 04:46:54 Overweight 384844535 Active 2019 Not Available [facility] 3 04:46:55 Depressive disorder 16176814 Active 2019 Not Available [facility] 3 04:46:55 Anxiety 19011266 Completed 201912/19/2019 Not Available [facility] 3 04:46:56 Ex-smoker 1590732 Active 2019 Not Available [facility] 3 04:46:56 Absent testes 667154324 Completed 201904/14/2020 Not Available [facility] 3 04:46:55 Hypertrigl yceridemia 743463597 Active 2019 Not Available [facility] 3 04:46:55 Hyperlipid emia 38800933 Active 2019 Not Available [facility] 3 04:46:56 Liver enzymes level above reference range 104156061 Active 2019 Not Available [facility] 3 04:46:56 Fatigue 01166050 Active 2019 Not Available [facility] 3 04:46:56 Paresthesi a 95008510 Active 2019 Not Available [facility] 3 04:46:56 Dizziness of unknown cause 898214677 Active 2019 Not Available [facility] 3 04:46:55 Chronic insomnia 831919335 Active 2019 Not Available [facility] 3 04:46:56 Undescende d testicle 076846133 Active 2020 Not Available [facility] 3 04:46:55 Chronic low back pain 616825066 Active 2020 Not Available [facility] 3 04:46:55 Degenerati on of lumbar interverte bral disc 63231137 Active 2020 Not Available [facility] 3 04:46:55 Atypical chest pain 562328853 Active 2020 Not Available [facility] 3 04:46:54 Gastro-eso phageal reflux disease with esophagiti s 314378239 Active 2020 Not Available [facility] 3 04:46:55 Gastritis 7046874 Active 2020 Not Available [facility] 3 04:46:55 Toothache 30819474 Active 2021 Not Available [facility] 3 04:46:55 Dental caries 44814982 Active 2021 Not Available [facility] 3 04:46:56 Sore throat 470962312 Active 2021 Not Available [facility] 3 04:46:55 Neck pain 96285638 Active 2021 Not Available [facility] 3 04:46:56 Eruption 239081114 Active 2022 Stan Cooper MD [address], [address], [place], [address] , [employer] 3 12:51:37 Allergic contact dermatitis 126923191 Active 2022 Stan Cooper MD [address], [address], [place], [address] , [employer] 3 12:51:52 Folliculit is 82588382 Active 2022 Stan Cooper MD [address], [address], [place], [address] , [employer] [facility] [employer] 3 09:45:24 Right upper quadrant pain 432607333 Active 2022 Stan Cooper MD [address], [place], [address] , [employer] 3 09:47:11 Prediabete s 247796728 Active 2022 Stan Cooper MD [address], [address], [place], [address] , [employer] [facility] 3 12:33:51 Recurrent pancreatit is 244655778 Active 2022 Stan Cooper MD [address], [address], [place], [address] , [employer] [facility] 3 11:42:03 Harmful pattern of use of alcohol 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 Active 2022 Stan Cooper MD [address], [place], [address] , [employer] 3 11:42:17 Cellulitis of skin 060931979 Active 2022 Stan Cooper MD [address], [address], [place], [address] , [facility] 3 12:02:31 Chronic idiopathic constipati on 60045249 Active 2022 Stan Cooper MD [address] [facility], [place], [address] , [employer] 3 12:16:32 Epigastric pain 31620501 Active 2022 Stan Cooper MD [address] [facility] [address], [place], [address] , [employer] 3 16:29:55 Pancreatit is 01615275 Active 2022 Stan Cooper MD [address], [address] [address], [place], [address] , [employer] 3 16:30:50 Nausea 360752829 Active 2022 Stan Cooper MD [address], [address] [address], [place], [address] , [employer] 3 16:30:57 Infection of tooth 446467987 Active 2023 MARYSE Lieberman [address] [facility], [place], [address] , [employer] 4 12:16:24 Problem Notes None recorded. Medical Equipment None Reported. Allergies Allergen ID Allergen Name Allergen Category Reaction Reaction Severity Criticality Documentation Date Start Date Code Code System Note Provider Name and Address Organization Details Recorded Time 7024 citalopra m medicatio n other severe Not available 05/12/2022 2556 RxNorm Pares thesi a of whole body Estrella Chacko RN [facility], [facility] 4 11:47:39 7025 cephalexi n medicatio n nausea severe Not available 05/12/2022 2231 RxNorm Estrella Chacko RN null, [place] [facility] 4 11:47:47 7026 aspirin medicatio n Not available Not available Not available 05/12/2022 1191 RxNorm Not Available [facility] 3 04:53:59 Medications Name Sig [...] in Arterial blood by Pulse oximetry Systolic And Diastolic Provider Name and Address Organization Details Last Updated DateTime 4 195.58 cm 27.6 kg/m2 036758. 58 g 97.9 [degF] 74 /min 24 /min 97 % 97 % 170/110 mm[Hg] Estrella Chacko RN [facility] 4 11:52:38 Date Recorded Body height Body mass index (BMI) Body weight Body temperature Heart rate Respiratory rate Heart rate Oxygen saturation Oxygen saturation in Arterial blood by Pulse oximetry Systolic And Diastolic Provider Name and Address Organization Details Last Updated DateTime 3 195.58 cm 26.7 kg/m2 716519. 98 g 98.1 [degF] 62 /min 16 /min 68 /min 99 % 99 % 120/82 mm[Hg] Jaylon [facility] 3 16:25:29 Date Recorded Body height Provider Name an d Address Organization Details Last Updated DateTime 12/29/2022 195.58 cm Jaylon Samuels [facility] 01/06/2023 08:46:53 Date Recorded Body height Body mass index (BMI) Body weight Body temperature Heart rate Heart rate Respiratory rate Oxygen saturation Oxygen saturation in Arterial blood by Pulse oximetry Systolic And Diastolic Provider Name and Address Organization Details Last Updated DateTime 3 195.58 cm 26.7 kg/m2 179276. 63 g 98.1 [degF] 70 /min 60 /min 16 /min 99 % 99 % 126/78 mm[Hg] Jaylon [facility] 3 11:50:30 Date Recorded Body height Body mass index (BMI) Body weight Body temperature Heart rate Respiratory rate Oxygen saturation Oxygen saturation in Arterial blood by Pulse oximetry Systolic And Diastolic Provider Name and Address Organization Details Last Updated DateTime 3 195.58 cm 27.7 kg/m2 705214. 82 g 97.3 [degF] 65 /min 20 /min 98 % 98 % 122/72 mm[Hg] Jaylon Samuels [facility] 3 12:06:04 Social History Question Answer Notes LastModified by Organizat ion Details LastModified Time Tobacco Smoking Status Former Smoker Quit 08/2019 Not Available [facility] 05/12/2022 04:35:24 Do You Have An Advance Directive? No MIGRATION.72016 [id number] Information not available 05/12/2022 Do You Wear A Helmet When Biking? No MIGRATION.63747 09108 Information not available 05/12/2022 In The 14 Days Before Symptom Onset, Have You Had Close Contact With A Laboratory-confi rmed COVID-19 While That Case Was Ill? No MIGRATION.26757 57911 Information not available 05/12/2022 In The 14 Days Before Symptom Onset, Have You Had Close Contact With A Person Who Is Under Investigation For COVID-19 While That Person Was Ill? No MIGRATION.39643 35855 Information not available 05/12/2022 What Type Of Diet Are You Following? REGULAR TRYING TO STAY AWAY FROM NO FRIED FOODS NO DARK SODAS NO SWEETS MIGRATION.49184 26625 Information not available 05/12/2022 What Is The Highest Grade Or Level Of School You Have Completed Or The Highest Degree You Have Received? [id number] MIGRATION.11472 85852 Information not available 05/12/2022 Have There Been Any Changes To Your Family Or Social Situation? No MIGRATION.83879 70596 Information not available 05/12/2022 Do You Use Insect Repellent Routinely? No MIGRATION.24018 11374 Information not available 05/12/2022 Where Do You Live? [place] MIGRATION.35240 32875 Information not available 05/12/2022 Do You Have A Medical Power Of Nca Certified Concierge? No MIGRATION.40785 97867 Information not available 05/12/2022 Have You Ever Been Counseled For Unhealthy Alcohol Use? No MIGRATION.22497 00582 Information not available 05/12/2022 Do You Have Any Pets? No MIGRATION.89481 21779 Information not available 05/12/2022 What Is Your Relationship Status? Single MIGRATION.56096 26101 Information not available 05/12/2022 Do You Use Your Seat Belt Or Car Seat Routinely? Yes MIGRATION.55709 97457 Information not available 05/12/2022 Do You Have Smoke And Carbon Monoxide Detectors In Your Home? Yes MIGRATION.19310 62979 Information not available 05/12/2022 Are You Passively Exposed To Smoke? No MIGRATION.48811 69642 Information not available 05/12/2022 Are There Any Smokers In Your House? No MIGRATION.34642 32519 Information not available 05/12/2022 Do You Participate In Social Media? No MIGRATION.56647 16899 Information not available 05/12/2022 Do You Use Sunscreen Routinely? No MIGRATION.41758 80354 Information not available 05/12/2022 Has Tobacco Cessation Counseling Been Provided? No MIGRATION.57211 13231 Information not available 05/12/2022 Have You Recently Traveled Abroad? No MIGRATION.19062 02734 Information not available 05/12/2022 Are You Currently In School? No MIGRATION.35992 34800 Information not available 05/12/2022 Do You Have Any Dietary Restrictions? No MIGRATION.58590 11936 Information not available 05/12/2022 Sex: Male Functional Status Question Answer Note LastModified by Organizat [employer] Details LastModified Time Do you use any illicit or recreational drugs? No MIGRATION.9506667 026 Information not available 05/12/2022 Do you or have you ever used any other forms of tobacco or nicotine? No MIGRATION.0797533 026 Information not available 05/12/2022 What is your level of alcohol consumption? Occasional MIGRATION.8903403 026 Information not available 05/12/2022 What is your exercise level? Occasional MIGRATION.1765548 026 Information not available 05/12/2022 Mental Status Question Answer Note LastModified by Organizat ion Details LastModified Time Do you feel stressed (tense, restless, nervous, or anxious, or unable to sleep at night)? [id number] CANT SLEEP AT NIGHT MIGRATION.5552389 026 Information not available 05/12/2022 Family History Relationship Description Onset Age of this Age Resolved Age Notes LastModified by Organization Details LastModified Time Father No current problems or disability MIGRATION.931 [id number] Not available 05/12/2022 04:42:10 Mother No current problems or disability MIGRATION.737 [id number] Not available 05/12/2022 04:42:10 Medical History Condition Response BLINDNESS N RHEUMATIC FEVER N BLADDER PROBLEMS N KIDNEY STONES N MRSA N OTHER # 1 N POLIO N LUNG DISEASE/DISORDER N RADIATION / CHEMOTHERAPY N COPD N Other # 2 N BLOOD DISEASES N SURGERY N EAR OR HEARING PROBLEMS N MUMPS N BOWEL PROBLEMS N DEPRESSION (INCLUDING POST ) N FEMALE PROBLEMS / INFECTIONS N STROKE/TIA N THYROID DISEASE N ULCERS [...] N CHRONIC PAIN SYNDROME N HYPOTHYROIDISM N CAROTID BLOCKAGE N CONSTIPATION N BACK / NECK PROBLEMS N HAVE YOU BEEN HOSPITALIZED OR SEEN IN [facility] IN THE PAST YEAR ? Y [...] SNOMED-CT Code Diagnosis ICD10 Code Diagnosis Note [id number] Stan Cooper MD [address] [address] 06/26/2020 00:00:00 06/26/2020 11:32:00 [id number] Stan Cooper MD [address] [address] 07/18/2020 00:00:00 07/18/2020 11:35:23 [id number] Stan Cooper MD [facility] [address] [place] [address] 07/24/2020 00:00:00 07/24/2020 12:08:31 [id number] [facility] [address] [place] [address] 08/14/2020 00:00:00 08/14/2020 12:58:38 [id number] [facility] [address] [place] [address] 09/11/2020 00:00:00 09/11/2020 11:23:38 [id number] Stan Cooper MD [facility] [address] [place] [address] 10/14/2020 00:00:00 10/14/2020 10:01:57 [id number] Stan Cooper MD [facility] [address] [place] [address] 10/16/2020 00:00:00 10/16/2020 11:20:30 [id number] Stan Cooper MD [facility] [address] [place] [address] 01/14/2021 00:00:00 01/14/2021 09:24:39 [id number] Stan Cooper MD [facility] [address] [place] [address] 01/21/2021 00:00:00 01/21/2021 15:45:34 [id number] Stan Cooper MD [facility] [address] [place] [address] 02/10/2021 00:00:00 02/10/2021 10:49:11 [id number] Stan Cooper MD [address] [address] 07/27/2021 00:00:00 07/27/2021 17:28:25 [id number] Stan Cooper MD [address] [address] 07/28/2021 00:00:00 07/28/2021 09:10:49 [id number] Stan Cooper MD [address] [address] 11/02/2021 00:00:00 11/02/2021 12:48:27 [id number] Stan Cooper MD [address] [address] 05/12/2022 12:38:55 05/12/2022 13:06:24 Eruption 318583288 R21 Allergic c ontact dermatitis 121768733 L23.9 Overweight 829390100 E66 .3 Chronic low back pain 27 2868851 M54.50 Depressive disorder 3548 9007 F32.A Gastro-eso phageal reflux disease with esophagitis 008247006 K21.00 [id number] Stan Cooper MD [address] [address] 05/26/2022 09:30:55 05/26/2022 10:06:18 Adult health examination 351358443 Z00.00 Overweight 688538437 E66 .3 Fatigue 38384825 R53.83 Chronic low back pain 27 9595886 M54.50 Ex-smoker 4976209 Z87.89 1 Folliculitis 60999573 L7 3.9 Right uppe r quadrant pain 674912106 R10.11 [id number] Stan Cooper MD [address] [address] 06/09/2022 12:23:09 06/09/2022 12:39:44 Overweight 275715608 E66.3 Fatigue 94623984 R53.83 Chronic low back pain 27 2437501 M54.50 Right uppe r quadrant pain 764720191 R10.11 Hyperlipidemia 57503646 E78.5 Prediabetes 280435317 R7 3.03 [id number] Stan Cooper MD [address] [address] 08/31/2022 11:23:14 08/31/2022 12:18:31 Hospital inpatient stay within past 30 days 6985415943 106 Z76.89 Recurrent pancreatitis 957384449 K86.1 Harmful pa ttern of use of alcohol 19260080 F10.10 Bite of spider 568857198 W57.XXXA Cellulitis of skin 74403 1002 L03.90 Rt thigh Gastro-eso phageal reflux disease with esophagitis 790892328 K21.00 [id number] Stan Cooper MD [address] [address] 09/09/2022 11:50:36 09/09/2022 12:30:12 Recurrent pancreatitis 575900415 K86.1 Harmful pa ttern of use of alcohol 17040510 F10.10 Bite of spider 496858903 W57.XXXA resolved Gastro-eso phageal reflux disease with esophagitis 041768209 K21.00 Right uppe r quadrant pain 913394403 R10.11 Chronic id iopathic constipation 32963892 K59.04 [id number] Estrella Guzman NP [address] [address] 10/06/2022 13:59:22 10/06/2022 17:57:59 [id number] Stan Cooper MD [address] [address] 12/23/2022 16:15:52 12/23/2022 17:00:17 Epigastric pain 76768663 R10.13 Chronic low back pain 27 5335177 M54.50 Pancreatitis 06044617 K8 5.90 Nausea 847894334 R11.0 Gastritis 9690209 K29.70 Hyperlipidemia 83121845 E78.5 Hypertriglyceridemia 302 330319 E78.2 Prediabetes 474461711 R7 3.03 Fatigue 18514815 R53.83 [id number] Estrella Guzman NP [address] [address] 12/29/2022 09:01:39 12/29/2022 09:45:14 [id number] Stan Cooper MD [address] [address] 01/24/2023 11:43:48 01/24/2023 12:20:42 Chronic low back pain 453139793 M54.50 Pancreatitis 42276850 K8 5.90 Gastritis 1326059 K29.70 Hyperlipidemia 72846981 E78.5 Hypertriglyceridemia 302 050436 E78.2 Prediabetes 207143774 R7 3.03 Improved Fatigue 00623394 R53.83 [id number] Stan Cooper MD [address] [address] 02/21/2023 11:59:34 02/21/2023 13:54:33 Prediabetes 385688940 R73.03 Improved Hyperlipidemia 46612342 E78.5 Hypertriglyceridemia 302 474445 E78.2 Chronic low back pain 27 6923055 M54.50 Pancreatitis 45684414 K8 5.90 Gastritis 2565618 K29.70 Fatigue 98884573 R53.83 [id number] Stan Cooper MD [address] [address] 06/03/2023 11:22:47 06/03/2023 12:39:28 Pancreatitis 77867846 K85.90 Continue follow up with GI Epigastric pain 24131568 R10.13 Infection of tooth 57433 5740 K04.7 please consult Health Concerns Section Related Observation LastModified by Organization Detai ls LastModified Time None Recorded Concern Status LastModified by Organization Details LastModified Time None Recorded Advance Directives Directive N: Payers Insurance Date Sequence Insurance Name Policy Number Policy Salmeron Covered Member ID Salmeron Member ID Guarantor Name 06/03/2023 1 [facility] (MEDICAID HMO) [id number] Raoul Goode [id number] Raoul Goode Notes Date Note Type Note [...] visit in 06/03. Stan Cooper MD [address], [place], [address], [employer] 12/23/2022 16:59:27 01/24/2023 text/html Pt is here [...] visit in 06/03. Stan Cooper MD [address], [place], [address], [employer] 01/24/2023 12:19:27 02/21/2023 text/html Pt is here [...] any bowel/bladder incontinence. Stan Cooper MD [address], [place], [address], [facility] 02/21/2023 13:09:07 06/03/2023 text/html Raoul Goode is a 42 year old male patient of Dr. Cooper here today for pain. He states I need pain meds and amoxicillin. He was admitted to [facility] last week for pancreatitis.He has pain in the upper right quadrant, lower left quadrant, and in his upper molar. At [facility] they did CT scans, labs, and US per pt. He has not seen dentist in many years, but has infected tooth and needs to see oral surgeon. He has some left over antibiotics that he takes as needed. MARYSE Lieberman [address], [place], [address], [employer] 06/03/2023 12:33:52
--- OUTSIDE RECORDS SUMMARY | 2024-09-28 16:42 | XMS_ITS | Encounter Summary ---
Author Organization [facility] Address [address] [place] [address] Care Team Providers Care Drying Oven Attendant Name Role Phone Ani Ellsworth NP Primary Care Provider +1 [phone] Encounter Details Date Type Department Care Team (Late st Contact Info) Description 11/15/2023 Bildero Message Enc [facility] Medical Group Family Medicine [facility] [address] [address] [place], [facility] Provider xrays Social History Tobacco Use [...] from your doctor or pharmacy? Never 10/03/2023 [facility] Utilities Answer Date Recorded In [...] How often do you attend chur or temple services? Never 10/03/2023 Do you belong to any clubs o r organizations such as latter-day groups, unions, fraternal or athletic groups, or [...] Recorded Patient Health Questionnaire-2 Score 0 10/03/2023 [facility] [place] of Occupat ional Health - Occupational Stress [...] place to sleep or slept in a penitentiary (including now)? No 06/13/2023 Housing Stability Vital Sign Answer Ciro e Recorded In the last 12 months, was t here a time when you were not able to pay the mortgage or rent on time? No 10/03/2023 In the past 12 months, how m any times have you moved where you were living? 1 10/03/2023 At any time in the past 12 m [facility], were you homeless or living in a penitentiary (including now)? No 10/03/2023 Sex and Gender [...] Rule Out 03/16/2024 03/16/2024 03/16/2024 1:26 PM AWAKE OVERNIGHT COUNSELOR Assessment Noted Time PHQ-9 Depression Total Score: 13 024 1:09 PM CDT documented as of this encounter Care Teams Drying Oven Attendant Relationship Specialty Start Date End Date Ani Ellsworth NP [facility] [place] [address] PCP - General NURSE PRACTITIONER 06/13/23 documented as of this encounter
--- OUTSIDE RECORDS SUMMARY | 2024-09-28 16:42 | XMS_ITS | Encounter Summary ---
Author Organization [facility] Address [address] [place] [address] Care Team Providers Care Restaurant Hourly Manager Name Role Phone Ani Ellsworth NP Primary Care Provider +1 [phone] Encounter Details Date Type Department Care Team (Late st Contact Info) Description 01/27/2024 Jellyvision Message Enc [facility] Medical Group Family Medicine [facility] [address] [place] [address] HashParademichael, [facility] Provider Endo Referral Social History Tobacco Use [...] from your doctor or pharmacy? Never 10/03/2023 [facility] Utilities Answer Date Recorded In the [...] Never 01/06/2024 How often do you attend jainism or mosque serv ices? Never 01/06/2024 Do you belong to any clubs o r organizations such as jainism groups, unions, fraternal or athletic groups, or [...] Recorded Patient Health Questionnaire-2 Score 1 01/31/2024 [facility] - Occupational Stress Questionnaire Answer [...] place to sleep or slept in a fci (including now)? No 06/13/2023 Housing Stability Vital [...] were you homeless or living in a fci (including now)? No 01/06/2024 Sex and Gender [...] Out 03/16/2024 03/16/2024 03/16/2024 1:26 PM DIRECTOR BUSINESS TRAVEL Assessment Noted Time PHQ-9 Depression Total Score: 13 024 1:09 PM CDT documented as of this encounter Care Teams Restaurant Hourly Manager Relationship Specialty Start Date End Date Ani Ellsworth NP [address] [place] [address] PCP - General NURSE PRACTITIONER 06/13/23 documented as of this encounter
--- OUTSIDE RECORDS SUMMARY | 2024-09-28 16:42 | XMS_ITS | Encounter Summary ---
Author Organization [facility] Address [address] [place] [address] Care Team Providers Care Engineer Gas Pumping Station Name Role Phone Ani Ellsworth NP Primary Care Provider [phone] [phone] Encounter Details Date Type Department Care Team (Late st Contact Info) Description 04/10/2024 [employer] Message Enc [facility] Medical Group Multispecialty Care - [address], [address] [place] [address] [facility] Provider MRCP Social History Tobacco [...] your doctor or pharmacy? Never 10/03/2023 [facility] Utilities Answer Date Recorded In the [...] Never 01/06/2024 How often do you attend worship or caodaism serv ices? Never 01/06/2024 Do you belong to any clubs o r organizations such as worship groups, unions, fraternal or athletic groups, or [...] Patient Health Questionnaire-2 Score 1 01/31/2024 [facility] [place] of Occupat ional Health - Occupational Stress [...] place to sleep or slept in a care home (including now)? No 06/13/2023 Housing Stability [...] time in the past 12 m [facility], were you homeless or living in a care home (including now)? No 03/14/2024 Sex and Gender [...] documented as of this encounter Care Teams Engineer Gas Pumping Station Relationship Specialty Start Date End Date Ani Ellsworth NP [facility] [place] [address] PCP - General NURSE PRACTITIONER 06/13/23 documented as of this encounter
[2024-09-28 19:22] LABS: Hematocrit 45.8 % (42.0-52.0); Hemoglobin 15.2 g/dL (14.0-18.0); Immature Granulocyte Percent A 0.2 % (0-0.5); Lymphocytes Absolute Auto 2.11 K/mm3 (0.9-3.2); Mean Corpuscular HGB Conc 33.2 g/dl (32-36); Mean Corpuscular Hemoglobin 30.3 pg (26-34); Mean Corpuscular Volume 91.2 fl (80-100); Nucleated Red Blood Cells Absolute Auto 0.000 K/mm3 (0.0-0.012); Nucleated Red Blood Cells Perc 0.0 % (0.0-0.2); Platelet Count Result 243 k/mm3 (150-375); Red Blood Count 5.02 M/mm3 (4.6-6.20); White Blood Count 8.5 K/mm3 (4.5-10.0)
[2024-09-28] MEDS: HYDROmorphone HCL INJ (*CRX) 2 MG/ML VIAL 0.5 MG IV PUSH ×2 (19:29→23:38)
--- OUTSIDE RECORDS SUMMARY | 2024-09-28 19:30 | XMS_ITS | Encounter Summary ---
Author Organization [facility] Address [address] [place] [address] Care Team Providers Care Professor Of Genetics Name Role Phone Ani Ellsworth NP Primary Care Provider [phone] [phone] Encounter Details Date Type Department Care Team (Late st Contact Info) Description 02/24/2024 [employer] Message Enc [facility] Medical Group Family Medicine - [place] [address] [place] [address] [phone] Michelle Cook MD [address] [place] [address] [id number] Pain Social History Tobacco Use Types Packs/Day [...] doctor or pharmacy? Never 10/03/2023 [facility] Utilities Answer Date Recorded In the [...] How often do you attend gnosticism or adventism serv ices? Never 01/06/2024 Do you belong [...] Recorded Patient Health Questionnaire-2 Score 1 01/31/2024 [facility] [place] of Occupat ional Health - Occupational Stress [...] any time in the past [address] [facility], were you homeless or living in a retirement (including now)? No 01/06/2024 Sex and Gender [...] Reina Sadaf Owens, R N Active * Do you [...] he needs to go to the ER. GE CONSULTANT documented in this encounter Plan of Treatment [...] Rule Out 03/16/2024 03/16/2024 03/16/2024 1:26 PM CHANGE CONSULTANT Assessment Noted Time PHQ-9 Depression Total Score: 13 04/04/2 024 1:09 PM CDT documented as of this encounter Care Teams Professor Of Genetics Relationship Specialty Start Date End Date Ani Ellsworth NP [address] [place] [address] PCP - General NURSE PRACTITIONER 06/13/23 documented as of this encounter
--- OUTSIDE RECORDS SUMMARY | 2024-09-28 19:30 | XMS_ITS | Encounter Summary ---
Author Organization [facility] Address [address] [place] [address] Care Team Providers Care Planer Feeder Name Role Phone Ani Ellsworth NP Primary Care Provider +1 [phone] Encounter Details Date Type Department Care Team (Late st Contact Info) Description 11/15/2023 [employer] Message Enc [facility] Medical Group Multispecialty Care - [address], [address] [place] [address] [place], [facility] Provider reschedule Social History Tobacco [...] doctor or pharmacy? Never 10/03/2023 [facility] Utilities Answer Date Recorded In the past [...] Recorded Patient Health Questionnaire-2 Score 0 10/03/2023 [facility] [place] of Occupat ional Health - Occupational Stress [...] in a halfway (including now)? No 06/13/2023 Housing Stability Vital Sign Answer Ciro e Recorded In the last 12 months, was t here a time when you were not able to pay the mortgage or rent on time? No 10/03/2023 In the past 12 months, how m any times have you moved where you were living? 1 10/03/2023 At any time in the past 12 m [facility], were you homeless or living in a halfway (including now)? No 10/03/2023 Sex and Gender [...] Rule Out 03/16/2024 03/16/2024 03/16/2024 1:26 PM DEPUTY DIRECTOR Assessment Noted Time PHQ-9 Depression Total Score: 13 06/15/ 024 1:09 PM CDT documented as of this encounter Care Teams Planer Feeder Relationship Specialty Start Date End Date Ani Ellsworth NP [address] [place] [address] PCP - General NURSE PRACTITIONER 06/13/23 documented as of this encounter
--- OUTSIDE RECORDS SUMMARY | 2024-09-28 19:30 | XMS_ITS | Encounter Summary ---
Author Organization [facility] Address [address] [place] [address] Care Team Providers Care Parachute Panel Joiner Name Role Phone Ani Ellsworth NP Primary Care Provider [phone] [phone] Encounter Details Date Type Department Care Team (Late st Contact Info) Description 11/15/2023 [employer] Message Enc [facility] Medical Group Family Medicine [facility] [address] [address] [place], [facility] Provider xrays Social History Tobacco Use Types [...] from your doctor or pharmacy? Never 10/03/2023 [facility] Utilities Answer Date Recorded In the [...] How often do you attend chur or restoration services? Never 10/03/2023 Do you belong to any clubs o r organizations such as gnosticist groups, unions, fraternal or athletic groups, or [...] Recorded Patient Health Questionnaire-2 Score 0 10/03/2023 [facility] [place] of Occupat ional Health - Occupational Stress [...] place to sleep or slept in a usp (including now)? No 06/13/2023 Housing Stability Vital [...] were you homeless or living in a usp (including now)? No 10/03/2023 Sex and Gender [...] Rule Out 03/16/2024 03/16/2024 03/16/2024 1:26 PM TELESALES SUPERVISOR Assessment Noted Time PHQ-9 Depression Total Score: 13 024 1:09 PM CDT documented as of this encounter Care Teams Parachute Panel Joiner Relationship Specialty Start Date End Date Ani Ellsworth NP [facility] [place] [address] PCP - General NURSE PRACTITIONER 06/13/23 documented as of this encounter
--- OUTSIDE RECORDS SUMMARY | 2024-09-28 19:30 | XMS_ITS | Encounter Summary ---
Author Organization [facility] Address [address] [place] [address] Care Team Providers Care Oracle Ebs Architect Name Role Phone Ani Ellsworth NP Primary Care Provider [phone] [phone] Encounter Details Date Type Department Care Team (Late st Contact Info) Description 11/17/2023 [employer] Message Enc [facility] Medical Group Multispecialty Care - [address], [address] [place] [address] Spenser, [facility] Provider Reschedule Social History Tobacco Use Types [...] doctor or pharmacy? Never 10/03/2023 [facility] Utilities Answer Date Recorded In [...] How often do you attend chur or anabaptism services? Never 10/03/2023 Do you belong to any clubs o r organizations such as baptism groups, unions, fraternal or athletic groups, or [...] Recorded Patient Health Questionnaire-2 Score 0 10/03/2023 [facility] [place] of Occupat ional Health - Occupational Stress [...] in a intermediate (including now)? No 06/13/2023 Housing Stability Vital [...] time in the past 12 m [facility], were you homeless or living in a intermediate (including now)? No 10/03/2023 Sex and Gender [...] Rule Out 03/16/2024 03/16/2024 03/16/2024 1:26 PM PRODUCTION CHECKER Assessment Noted Time PHQ-9 Depression Total Score: 13 06/15/ 024 1:09 PM CDT documented as of this encounter Care Teams Oracle Ebs Architect Relationship Specialty Start Date End Date Ani Ellsworth NP [address] [place] [address] PCP - General NURSE PRACTITIONER 06/13/23 documented as of this encounter
--- OUTSIDE RECORDS SUMMARY | 2024-09-28 19:30 | XMS_ITS | Encounter Summary ---
Author Organization [facility] Address [address] [place] [address] Care Team Providers Care Spring Crater Name Role Phone Ani Ellsworth NP Primary Care Provider +1 [phone] Encounter Details Date Type Department Care Team (Late st Contact Info) Description 04/06/2024 [employer] Message Enc [facility] Medical Group Multispecialty Care - [address], [address] [place] [address] Sp[facility]er [facility] Provider MRCP Social History Tobacco Use [...] from your doctor or pharmacy? Never 10/03/2023 [facility] Utilities Answer Date Recorded [...] Never 01/06/2024 How often do you attend judaism or mormon serv ices? Never 01/06/2024 Do you belong to any clubs o r organizations such as judaism groups, unions, fraternal or athletic groups, or [...] Recorded Patient Health Questionnaire-2 Score 1 01/31/2024 [facility] [place] of Occupat ional Health - Occupational Stress [...] place to sleep or slept in a nursing home (including now)? No 06/13/2023 Housing Stability [...] were you homeless or living in a nursing home (including now)? No 03/14/2024 Sex and [...] documented as of this encounter Care Teams Spring Crater Relationship Specialty Start Date End Date Ani Ellsworth [place] [address] PCP - General NURSE PRACTITIONER 06/13/23 documented as of this encounter
--- OUTSIDE RECORDS SUMMARY | 2024-09-28 19:30 | XMS_ITS | Clinical Summary ---
Author Organization [facility] Address [address] [place] [address] Care Team Providers Care Central Supply Worker Name Role Phone Ani Ellsworth NP Primary Care Provider [phone] Allergies Active Allergy Reactions Criticality Noted Date Comments Bee Venom Hives 09/05/2024 Wasp Venom Hives 09/05/2024 Medications pancrelipase, Lpq-Xgyw-Jdtu, (ZENPEP) 30624-20640 units capsuleIndication s:Chronic pancreatitis, unspecified pancreatitis type ([facility]/HCC [facility]) Take 1 capsule (10,000 units of lipase total) by mouth 3 (three) times daily with meals. 30 capsule 09/06/19 25 Active HYDROcodone-aceta minophen (NORCO) 5-325 MG tabletIndications :Acute Pain < 3 Day Supply Take 1 tablet by mouth every 6 (six) hours as needed for Pain. Indication s: Acute Pain < 3 Day Supply 12 tablet 09/06/19 25 Active pancrelipase, Wzt-Zbny-Ktlt, (ZENPEP) 03810-94466 units capsule Take 1 capsule (10,000 units [...] to schedule MRI but has not called [facility] yet. Pt was also given phone number to endo to schedule his apt as he has lab work/physical findings suggestive of Klinefelters syndrome. He also has not scheduled. He also tells me he has noticed changes in his peripheral vision. Assessment & Plan (02/15/2024 1:50 PM LOG HAULER): Pt again informed to schedule his brain [...] Abdominal pain 07/03/2023 Acute on chronic pancreatitis ([facility]/HCC [facility]) 05/21/2023 Acute pancreatitis ([facility]) 04/12/2023 Chronic idiopathic constipation 09/09/2022 Alcohol abuse 08/31/2022 Pancreatitis ([facility]) 08/13/2022 Prediabetes 06/09/2022 Folliculitis 05/26/2022 Right upper [...] locations, and numbers to local Chiropractor and Administration Professional. Follow up in: within a month Undescended [...] from his past job he worked from [id number]. Had taken Escitalopram in the past but weaned himself off. Was started on Wellbutrin in the ER but never started Was provided prazosin by my college to help with his nightmares/insomnia but also never started. Does not see a psychiatrist or a therapist. Pt would be interested to see a psychiatrist. Assessment & Plan (02/15/2024 1:55 PM LOG HAULER): Referral to psychiatry placed.Encourage CBT as well. Would recommend starting the prazosin to help with his nightmares. Resolved Problems Problem Noted Date Diagnosed Date Resolved Date Atypical chest pain 01/21/2021 07/18/19 24 Palpitations 06/14/2016 07/18/2023 Chronic cough 06/14/2016 07/18/2023 Encounters Date Type Department Care Team Description 09/05/2024 7:58 PM CDT - 09/05/2024 9:27 PM CDT Emergency [facility] Emergency Room [address] [place] [address] Deepak Rodriguez MD Abdominal Pain Discharge Disposition: Home or Self Care (Routine Discharge) 09/05/2024 1:20 PM CDT Office Visit [facility] - [place] [address] [place] [address] Ani Ellsworth NP Annual (Patient presents for an adult routine exam) 09/05/2024 Travel 08/16/2024 Orders Only [address] [place] [address] Ashely Allen MA 08/14/2024 Telephone [facility], [address] [address] Paresh Mejia MD Appointment Reminder 08/14/2024 Orders Only [address] [address] Vero Arango LPN 08/14/[address] [address] Ani Ellsworth NP Referral Request 08/14/2024 Results Follow-Up [address] [address] Ani Ellsworth NP XR THOR SPINE 3V, XR ABD KUB 08/14/2024 Hospital Follow-up Call [facility] [place] [address] Angela Tucker LPN Follow Up Call (KALLI 08/08-08/12/24) 08/13/2024 12:20 PM CDT Office Visit [address] [address] Ani Ellsworth NP Abdominal Pain 08/13/[address] [address] Ani Ellsworth NP Medication 08/12/2024 11:22 PM CDT - 08/13/2024 12:13 AM CDT Emergency [facility] Emergency Room [address] [place] [id number] Sriram Juares MD Abdominal Pain Discharge Disposition: Home or Self Care (Routine Discharge) 08/12/2024 9:33 AM CDT - 08/12/2024 5:20 PM CDT Emergency [facility] Emergency Room [address] [place] [address] Tommy Shepard MD Abdominal Pain Discharge Disposition: Home or Self Care (Routine Discharge) 08/12/2024 Travel 08/09/[address] [address] Ani Ellsworth NP Information 08/08/2024 4:52 AM CDT - 08/12/2024 4:21 AM CDT Hospital Encounter [facility] Med/Surg 5th [place] [address] Nick Lubin MD Suresh, Aditya Krishna, MD Lamonica, Kandace C, MD Discharge Disposition: Home or Self Care (Routine Discharge) 08/07/2024 9:30 PM CDT - 08/08/2024 3:15 AM CDT Emergency [facility] Emergency Room [id number] [place] [address] Sriram Juares MD Abdominal Pain (Chronic pancreatitis) Discharge Disposition: Transfer to Acute Care Hospital 08/07/2024 Travel 07/30/[address] [address] Ani Ellsworth NP Follow Up Call 07/27/[address] [address] Ani Ellsworth NP Medication Problem 07/25/2024 5:01 PM CDT - 07/29/2024 4:06 PM CDT Hospital Encounter [facility] Med/Surg [id number] [place] [address] Amena Bull MD Mahtani, Andrew, MD Harris, Michael, MD Rodenberg, Ani L, IMPORT/EXPORT ADMINISTRATOR Abdominal Pain Discharge Disposition: Home or Self Care (Routine Discharge) 07/25/2024 Travel 07/20/2024 Results Follow-Up [facility] [address] [place] [address] [address] [place] [address] Ani Ellsworth NP XR KNEE LT 3V 07/19/2024 1:40 PM CDT Office Visit [facility] [address] [facility] [address] [place] [address] Ani Ellsworth NP Knee Pain (Patient presents with c/o left knee pain x Tuesday NKI) 07/19/2024 Travel 07/05/2024 8:00 AM CDT [facility] - [address], [address] [place] [address] Fatmata Wilhelm NP Follow Up (F/u ) [...] your doctor or pharmacy? Never 10/03/2023 [facility] Utilities Answer Date Recorded In the [...] Never 01/06/2024 How often do you attend jew or hoahaoism serv ices? Never 01/06/2024 Do you belong to any clubs o r organizations such as jew groups, unions, fraternal or athletic groups, or [...] Recorded Patient Health Questionnaire-2 Score 0 07/05/2024 [facility] - Occupational Stress [...] any time in the past 12 m [facility], were you homeless or living in a usp (including now)? No 08/08/2024 Sex and Gender [...] 07/21/2014 Hepatitis C Completed 06/29/2023 PHQ-2 (Phys[facility] [place]) Completed 07/05/2024 HPV Vaccines Aged Out No [...] Corona RN Medical Devices Implanted Type Area Basketball Scout Device Identifier Shelf Expiration Date Model / [...] 8:53 PM Narrative 09/05/2024 8:56 PM CDT [address] [place] [address] EXAMINATION: XR ABD FLAT+UPRIGHT HISTORY: Abdominal pain, constipation DATE: 09/05/2024 8:37 PM COMPARISON: August 13, 2024 TECHNIQUE: Supine and upright AP views of the abdomen FINDINGS: Nonobstructed gas pattern. Moderate amount of stool density. No free air. No acute osseous abnormality. Procedure Note Franco Phelps MD - 09/05/[address] [place] [address] EXAMINATION: XR ABD FLAT+UPRIGHT HISTORY: Abdominal pain, constipation DATE: 09/05/2024 8:37 PM COMPARISON: August 13, 2024 TECHNIQUE: Supine and upright AP views of the abdomen FINDINGS: Nonobstructed gas pattern. Moderate amount of stool density.No free air. No acute osseous abnormality. IMPRESSION: Nonobstructed gas pattern. Referred By: Interpreted By: Franco Phelps MD, 09/05/2024 8:53 PM Deepak Rodriguez MD GENERAL IMAGING Final Resul t * (ABNORMAL) COMPREHENSIVE METABOLIC PANEL (09/05/2024 8:22 PM CDT) Only the most recent of7 resultswithin the time period is included. [facility] GLUCOSE 97 70 - 99 MG/DL 09/05/2024 8:56 PM CDT [facility] BUN 6(L) 7 - 18 MG/DL 09/05/2024 8:56 PM T [facility] CREATININE S/P/B 1.09 0.7 - 1.3 MG/DL 09/05/2024 8:56 PM T [facility] SODIUM S/P/B 137 136 - 145 MMOL/L 09/05/2024 8:56 PM T [facility] POTASSIUM S/P/B 3.9 3.5 - 5.1 MMOL/L 09/05/2024 8:56 PM T [facility] CHLORIDE S/P/B 102 100 - 108 MMOL/L 09/05/2024 8:56 PM T [facility] CO2 23.6 21 - 32 MMOL/L 09/05/2024 8:56 PM T [facility] CALCIUM S/P/B 9.2 8.5 - 10.1 MG/DL 09/05/2024 8:56 PM T [facility] BILIRUBIN TOTAL S/P/B 0.7 0.2 - 1.2 MG/DL 09/05/2024 8:56 PM T [facility] TOTAL PROTEIN S/P/B 7.5 6.4 - 8.2 G/DL 09/05/2024 8:56 PM T [facility] ALBUMIN S/P/B 4.0 3.4 - 5.0 G/DL 09/05/2024 8:56 PM T [facility] AST 20 15 - 37 U/L 09/05/2024 8:56 PM CDT [facility] ALT 37 16 - 60 U/L 09/05/2024 8:56 PM CDT [facility] ALKALINE PHOSPHATASE S/P/B 94 50 - 136 U/L 09/05/2024 8:56 PM CDT [facility] ANION GAP 11.4 5 - 15 MMOL/L 09/05/2024 8:56 PM CDT [facility] BUN CREATININE RATIO 5.5(L) 6 - 26 09/05/2024 8:56 PM CDT [facility] A/G RATIO 1.1 1.0 - 2.0 RATIO 09/05/2024 8:56 PM CDT [facility] GFR ESTIMATE 85(L) >90 ML/MIN/1.7 3 M2 09/05/2024 8:56 PM CDT [facility] Comment: NOTE: eGFR is not calculated for patients <18 years of age. This is an estimated GFR calculation using the new CKD EPI creatinine equation without race and so does not require a correction factor for race. This estimated GFR should not be used for calculating drug doses. 09/05/2024 8:22 PM CDT us Deepak Rodriguez MD LABORATORY Final Resul t [facility] [address] [place] [address], * CBC W/DIFF AUTOMATED (09/05/2024 8:22 PM CDT) Only the most recent of8 resultswithin the time period is included. WBC 7.93 4.4 - 11.0 x10'3/uL 09/05/2024 8:29 PM CDT [facility] RBC 4.76 4.50 - 5.90 x10'6/uL 09/05/2024 8:29 PM CDT [facility] HGB 14.8 14.0 - 17.5 G/DL 09/05/2024 8:29 PM CDT [facility] HCT 43.5 41.5 - 50.4 % 09/05/2024 8:29 PM T [facility] MCV 91.4 80.0 - 96.0 FL 09/05/2024 8:29 PM CDT [facility] MCH 31.1 26.5 - 31.4 PG 09/05/2024 8:29 PM T [facility] MCHC 34.0 31.9 - 34.8 G/DL 09/05/2024 8:29 PM T [facility] RDW 13.1 12.3 - 14.3 % 09/05/2024 8:29 PM T [facility] PLT 205 151 - 353 x10'3/uL 09/05/2024 8:29 PM T [facility] MPV 10.3 9.7 - 11.9 FL 09/05/2024 8:29 PM T [facility] RBC MORPHOLOGY NORMAL 09/05/2024 8:29 PM T [facility] PLT MORPH. NORMAL 09/05/2024 8:29 PM T [facility] WBC MORPHOLOGY NORMAL 09/05/2024 8:29 PM T [facility] LYMPHOCYTES % 27.9 15.8 - 45.0 % 09/05/2024 8:29 PM T [facility] NEUTROPHILS % 64.7 42.1 - 71.9 % 09/05/2024 8:29 PM T [facility] MONOCYTES % 6.1 5.7 - 12.5 % 09/05/2024 8:29 PM T [facility] EOSINOPHILS 0.6 0.0 - 5.6 % 09/05/2024 8:29 PM CDT [facility] BASOPHILS 0.4 0.0 - 1.3 % 09/05/2024 8:29 PM CDT [facility] ABS. NEUTROPHILS 5.14 1.40 - 6.00 x10'3/uL 09/05/2024 8:29 PM CDT [facility] IMMATURE GRANS % 0.3 0.0 - 0.5 % 09/05/2024 8:29 PM CDT [facility] ABS. LYMPHOCYTES 2.21 0.80 - 4.70 x10'3/uL 09/05/2024 8:29 PM CDT [facility] 09/05/2024 8:22 PM CDT us Deepak Rodriguez MD LABORATORY Final Resul t Performing Organization Address [facility]/ZIP Co de Phone Number [facility] [address] [place] [address], [place] [phone] * (ABNORMAL) LIPASE (09/05/2024 8:22 PM CDT) Only the most recent of6 resultswithin the time period is included. LIPASE 708(H) 16 - 77 UNITS/L 09/05/2024 8:56 PM CDT [facility] 09/05/2024 8:22 PM CDT us Deepak Rodriguez MD LABORATORY Final Resul t Performing Organization Address [facility]/ZIP Co de Phone Number [facility] [address] [place] [address], [place] [phone] * XR THOR SPINE 3V (08/13/2024 1:19 PM CDT) Anatomical Region Laterality Modality Spine Radiographic Olive ging 08/13/2024 1:18 PM CDT Narrative 08/14/2024 4:34 AM CDT [facility] [place] [address] Examination: XR THOR SPINE 3V Exam time: [...] Procedure Note Keith Cooper MD - 08/14/2024 [facility] [place] [id number] Examination: XR THOR SPINE 3V Exam time: [...] PM CDT Narrative 08/14/2024 4:35 AM CDT [facility] Internal [place] [id number] Examination: XR ABD KUB Exam time: 08/13/2024 [...] Procedure Note Keith Cooper MD - 08/14/2024 [facility] Internal [address] [address] Examination: XR ABD KUB Exam time: 08/13/2024 [...] 11:25 AM Narrative 08/12/2024 11:30 AM CDT [facility] [address] [place] [address] CT abdomen and pelvis with IV contrast [...] Procedure Note Emigdio Xie MD - 08/12/2024 [facility] [address] [place] [address] CT abdomen and pelvis with IV contrast [...] - 2.0 MMOL/L 08/12/2024 10:25 AM CDT [facility] 08/12/2024 9:59 AM CDT us Tommy Shepard MD LABORATORY Final Result Performing Organization Address [facility]/ZIP Co de Phone Number [facility] [address] [place] [address], [place] [phone] * PARTIAL THROMBOPLASTIN TIME,PTT (08/12/2024 9:59 AM CDT) PTT 33.5 25.1 - 36.5 SEC 08/12/2024 10:13 AM CDT [facility] 08/12/2024 9:59 AM CDT us Tommy Shepard MD LABORATORY Final Result Performing Organization Address [facility]/ZIP Co de Phone Number [facility] [address] [place] [address], [place] [phone] * PROTIME/INR, VENOUS (08/12/2024 9:59 AM CDT) Only the most recent of2 resultswithin the time period is included. PROTIME 11.7 9.1 - 12.4 SEC 08/12/2024 10:13 AM CDT [facility] INR 1.0 08/12/2024 10:13 AM CDT [facility] Comment: Recommend INR ranges for Oral Anticoagulant Therapy: Mechanical Cardiac Values 2.5-3.5 All others indication 2.0-3.0 08/12/2024 9:59 AM CDT us Tommy Shepard MD LABORATORY Final Result Performing Organization Address [facility] Co de Phone Number [facility] [address] [place] [address], [place] [phone] * MAGNESIUM (08/12/2024 9:59 AM CDT) Only the most recent of3 resultswithin the time period is included. MAGNESIUM 2.0 1.8 - 2.4 MG/DL 08/12/2024 10:45 AM CDT [facility] 08/12/2024 9:59 AM CDT us Tommy Shepard MD LABORATORY Final Result Performing Organization Address [facility] de Phone Number [facility] [address] [place] [address], [place] [phone] * CTA ABD+PEL (08/11/2024 1:39 PM CDT) [...] 2:25 PM Narrative 08/11/2024 2:38 PM CDT [facility] [address] [place], [place] [address] Study: Computed angiography abdomen and pelvis Exam [...] Procedure Note Adán Galvan MD - 08/11/[address] [address] Study: Computed angiography abdomen and pelvis Exam [...] - 99 MG/DL 08/11/2024 6:45 AM CDT [facility] BUN 5(L) 7 - 18 MG/DL 08/11/2024 6:45 AM T [facility] CREATININE S/P/B 1.07 0.7 - 1.3 MG/DL 08/11/2024 6:45 AM T [facility] SODIUM S/P/B 139 136 - 145 MMOL/L 08/11/2024 6:45 AM CDT [facility] POTASSIUM S/P/B 3.5 3.5 - 5.1 MMOL/L 08/11/2024 6:45 AM T [facility] CHLORIDE S/P/B 104 97 - 115 MMOL/L 08/11/2024 6:45 AM T [facility] CO2 30.3 21 - 32 MMOL/L 08/11/2024 6:45 AM T [facility] CALCIUM S/P/B 9.6 8.5 - 10.1 MG/DL 08/11/2024 6:45 AM T [facility] ANION GAP 4.7 2 - 10 MMOL/L 08/11/2024 6:45 AM T [facility] BUN CREATININE RATIO 4.7(L) 6 - 26 08/11/2024 6:45 AM T [facility] GFR ESTIMATE 87(L) >90 ML/MIN/1.7 3 M2 08/11/2024 6:45 AM T [facility] Comment: NOTE: eGFR is not [...] Stu Diaz MD LABORATORY Final R esult [facility] [address] [place] [address], * CBC, AUTO, NO DIFF (08/11/2024 5:54 AM CDT) Only the most recent of3 resultswithin the time period is included. WBC 5.22 4.5 - 11.0 x10'3/uL 08/11/2024 6:28 AM CDT [facility] RBC 4.70 4.70 - 6.10 x10'6/uL 08/11/2024 6:28 AM CDT [facility] HGB 14.4 14.0 - 18.0 G/DL 08/11/2024 6:28 AM CDT [facility] HCT 43.1 43.0 - 54.0 % 08/11/2024 6:28 AM CDT [facility] MCV 91.7 80.0 - 94.0 FL 08/11/2024 6:28 AM CDT [facility] MCH 30.6 27.0 - 31.0 PG 08/11/2024 6:28 AM CDT [facility] MCHC 33.4 32.0 - 36.0 G/DL 08/11/2024 6:28 AM CDT [facility] RDW 12.9 11.5 - 14.5 % 08/11/2024 6:28 AM CDT [facility] PLT 244 130 - 400 x10'3/uL 08/11/2024 6:28 AM CDT [facility] MPV 10.2 9.3 - 12.2 FL 08/11/2024 6:28 AM CDT [facility] 08/11/2024 5:54 AM CDT us Baltazar Perales MD LABORATORY Final R esult Performing Organization Address [facility] Co de Phone Number [facility] [address] [place] [address], [place] [phone] * (ABNORMAL) POCT glucose (08/10/2024 5:28 AM CDT) Only the most recent of2 resultswithin the time period is included. GLUCOSE POC 149(H) 70 - 99 mg/dL 08/10/2024 5:34 AM CDT [facility] 08/10/2024 5:28 AM CDT us Baltazar Perales MD POCT ORDERABLES - DEVIC E Final Result Performing Organization Address [facility] Co de Phone Number [facility] [address] [place] [address], [place] [phone] * US ABD LIMITED (08/08/2024 12:03 PM CDT) Anatomical Region Laterality Modality Abdomen Ultrasound 08/10/2024 5:54 AM CDT Impressions 08/10/2024 6:01 AM CDT IMPRESSION: ===== 1. No acute abnormalities in the right upper quadrant. Referred By: SRIRAM JUARES Interpreted By: Casey Tomas MD, 08/10/2024 5:54 AM Narrative 08/10/2024 6:01 AM CDT [facility] [address] [place], [place] [address] Exam: Right upper quadrant abdominal ultrasound Exam [...] Procedure Note Casey Tomas MD - 08/10/[address] [address] Exam: Right upper quadrant abdominal ultrasound Exam [...] 6.1(H) <5.7 % 08/08/2024 9:30 AM CDT [facility] Comment: ADA GUIDELINES 2010 5.7 TO 6.4% INCREASED RISK OF DIABETES > OR = 6.5% CONSISTENT WITH DIABETES ESTIMATED AVG GLUCOSE 128 mg/dL 08/08/2024 9:30 AM CDT [facility] 08/08/2024 6:00 AM CDT us Nick Lubin MD LABORATORY Final Resul t [facility] [address] [place] [address], [place] [phone] * (ABNORMAL) LIPID PANEL (08/08/2024 6:00 AM CDT) CHOLESTEROL 156 <200 MG/DL 08/08/2024 7:11 AM CDT [facility] TRIGLYCERIDES 136 <150 MG/DL 08/08/2024 7:11 AM CDT [facility] HDL 28(L) >40.0 MG/DL 08/08/2024 7:11 AM CDT [facility] LDL (CALCULATED) 101(H) <100 MG/DL 08/08/2024 7:11 AM CDT [facility] NON HDL CHOLESTEROL 128 <130 MG/DL 08/08/2024 7:11 AM CDT [facility] CHOL/HDL RATIO 5.6(H) 0.0 - 4.5 08/08/2024 7:11 AM CDT [facility] VLDL CALCULATION 27 5 - 55 MG/DL 08/08/2024 7:11 AM CDT [facility] LIPID INTERPRETATION 08/08/2024 7:11 AM CDT [facility] Comment: NIH CONCENSUS REPORT RECOMMENDATIONS: ADULT CHILD LOW RISK: CHOLESTEROL <200 <170 TRIGLYCERIDE <150 --- HDL >=60 --- LDL <100 <110 BORDERLINE: CHOLESTEROL 200-239 170-199 TRIGLYCERIDE 150-199 --- HDL 40-59 --- LDL 100-159 110-129 HIGH RISK: CHOLESTEROL >=240 >=200 TRIGLYCERIDE >=200 --- HDL <40 --- LDL >=160 >=130 08/08/2024 6:00 AM CDT us Nick Lubin MD LABORATORY Final Resul t [facility] [address] [place] [address], * THYROID STIM HORMONE, TSH (08/08/2024 6:00 AM CDT) TSH 2.200 0.358 - 3.74 uIU/ML 08/08/2024 7:11 AM CDT [facility] Comment: HIGH DOSES OF BIOTIN MAY INTERFERE WITH THIS TEST RESULT. CORRELATION TO CLINICAL HISTORY AND PRESENTATION RECOMMENDED. 08/08/2024 6:00 AM CDT us Nick Lubin MD LABORATORY Final Resul t [facility] [address] [place] [address], [place] [phone] * URINALYSIS, AUTO, COMPLETE (07/25/2024 5:29 PM CDT) COLOR (U) YELLOW 07/25/2024 5:49 PM CDT [facility] TRANSPARENCY CLOUDY 07/25/2024 5:49 PM CDT [facility] SPECIFIC GRAVITY (U) 1.025 1.000 - 1.030 07/25/2024 5:49 PM CDT [facility] U PH 6.0 5.0 - 9.0 07/25/2024 5:49 PM CDT [facility] LEUKOCYTES (U) NEGATIVE NEGATIVE 07/25/2024 5:49 PM CDT [facility] NITRITES NEGATIVE NEGATIVE 07/25/2024 5:49 PM CDT [facility] PROTEIN RANDOM (U) NEGATIVE NEGATIVE 07/25/2024 5:49 PM CDT [facility] GLUCOSE (U) NEGATIVE NEGATIVE 07/25/2024 5:49 PM CDT [facility] KETONES MG/DL (U) NEGATIVE NEGATIVE 07/25/2024 5:49 PM CDT [facility] BILIRUBIN (U) NEGATIVE NEGATIVE 07/25/2024 5:49 PM CDT [facility] BLOOD (U) NEGATIVE NEGATIVE 07/25/2024 5:49 PM CDT [facility] WBC/HPF 0-5 0 - 5 /HPF 07/25/2024 5:49 PM CDT [facility] RBC/HPF 0-5 0 - 5 /HPF 07/25/2024 5:49 PM CDT [facility] EPI/HPF FEW /HPF 07/25/2024 5:49 PM CDT [facility] BACTERIA (U) FEW /HPF 07/25/2024 5:49 PM CDT [facility] URINE ALMODOVAR FEW 07/25/2024 5:49 PM CDT [facility] Comment:MUCOUS URINE SPECIMEN OBTAINED BY CLEAN CATCH PROCEDURE / Unknown 07/25/2024 5:29 PM CDT us Amena Bull MD URINE ORDERABLES Final Res ult [facility] [address] [place] [address], [place] [phone] * XR KNEE LT 3V (07/19/2024 2:40 PM CDT) Anatomical Region Laterality Modality Knee Radiographic Olive ging 07/19/2024 2:29 PM CDT Narrative 07/20/2024 5:14 AM CDT [facility] [address] [address] Examination: XR KNEE LT 3V Exam time: [...] Procedure Note Chuy London MD - 07/20/2024 [facility] - [address] [address] Examination: XR KNEE LT 3V Exam time: [...] London MD, 07/20/2024 5:12 AM Ani Ellsworth [employer] GENERAL IMAGING Final Res ult * HEPATITIS C ANTIBODY (06/29/2023 9:04 AM CDT) HEPATITIS C AB NON-REACTI VE NON-REACT ANTONI 06/29/2023 6:33 PM CDT [facility] Comment: ANTIBODIES TO HCV NOT DETECTED. DOES NOT EXCLUDE THE POSSIBILITY OF EXPOSURE TO HCV. 06/29/2023 9:04 AM CDT Ani Ellsworth [employer] [facility] Final Res ult [facility] [address] [place] [address], [id number] from Last 3 Months or Most Recently [...] 6:55 PM 01/11/2024 2:03 PM Care Teams Central Supply Worker Relationship Specialty Start Date End Date Ani Ellsworth NP [address] [place] [id number] PCP - General NURSE PRACTITIONER 06/13/23
--- OUTSIDE RECORDS SUMMARY | 2024-09-28 19:30 | XMS_ITS | Encounter Summary ---
Author Organization [facility] - [facility] Address [address] [place] [address] Care Team Providers Care Signs Sales Representative Name Role Phone Ani Ellsworth NP Primary Care Provider [phone] [phone] Encounter Details Date Type Department Care Team (Late st Contact Info) Description 06/24/2023 [employer] Message Enc [facility] Medical Group Multispecialty Care - [place] [address] [address] [place] [address] [place] [address] [place] [address] [address] [place], [place] [id number] [employer]co Social History Tobacco Use Types Packs/Day Years Used Date Smoking Tobacco: Former Cigarettes 2 26 0 08/24/1993 - 08/25/2019 Passive Smoke Exposure: Past Smokeless Tobacco: Never Alcohol Use Standard Drinks/Week Comments Yes 0 (1 standard drink = 0.6 oz pur e alcohol) rare [facility] Utilities Answer Date Recorded In the [...] How often do you attend chur or church services? Never 05/21/2023 Do you belong to any clubs o r organizations such as buddhism groups, unions, fraternal or athletic groups, or [...] Recorded Patient Health Questionnaire-2 Score 0 06/24/2023 [facility] - Occupational Stress Questionnaire Answer Date [...] place to sleep or slept in a [place] health care facility (including now)? No 06/13/2023 Sex and Gender [...] Rule Out 03/16/2024 03/16/2024 03/16/2024 1:26 PM SURFACING TECHNICIAN Assessment Noted Time PHQ-9 Depression Total Score: 13 024 1:09 PM CDT documented as of this encounter Care Teams Signs Sales Representative Relationship Specialty Start Date End Date Ani Ellsworth NP [address] [place] [address] PCP - General NURSE PRACTITIONER 06/13/23 documented as of this encounter
--- OUTSIDE RECORDS SUMMARY | 2024-09-28 19:30 | XMS_ITS | Encounter Summary ---
Author Organization [facility] Address [address] [place] [address] Care Team Providers Care Clinical Laboratory Assistant Name Role Phone Ani Ellsworth NP Primary Care Provider [phone] [phone] Encounter Details Date Type Department Care Team (Latest Contact Info) Description 12/21/2023 [employer] Message Enc [facility] Family Medicine - [place] [address] [facility] [address] [place] [address] Ani Ellsworth NP [address] [place] [address] follow up on endocrinology referral Social History [...] from your doctor or pharmacy? Never 10/03/2023 [facility] Utilities Answer Date Recorded [...] often do you attend chur ch or samaritan services? Never 10/03/2023 Do you belong to [...] Recorded Patient Health Questionnaire-2 Score 0 10/03/2023 [facility] [place] of Occupat ional Health - Occupational Stress [...] to sleep or slept in a senior care (including now)? No 06/13/2023 Housing Stability Vital Sign Answer Ciro e Recorded In the last 12 months, was t here a time when you were not able to pay the mortgage or rent on time? No 10/03/2023 In the past 12 months, how m any times have you moved where you were living? 1 10/03/2023 At any time in the past 12 m [facility], were you homeless or living in a senior care (including now)? 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
--- OUTSIDE RECORDS SUMMARY | 2024-09-28 19:30 | XMS_ITS | Encounter Summary ---
Author Organization [facility] Address [address] [place] [address] Care Team Providers Care Customer Experience Strategist Name Role Phone Ani Ellsworth NP Primary Care Provider [phone] [phone] Encounter Details Date Type Department Care Team (Late st Contact Info) Description 06/20/2023 [employer] Message Enc [facility] Medical Group Family Medicine - [place] [address] [facility] [address] [place] [address] Ani Ellsworth NP [address] [place] [address] Follow up Social History Tobacco Use Types Packs/Day Years Used Date Smoking Tobacco: Former Cigarettes 2 26 0 08/24/1993 - 08/25/2019 Passive Smoke Exposure: Past Smokeless Tobacco: Never Alcohol Use Standard Drinks/Week Comments Yes 0 (1 standard drink = 0.6 oz pur e alcohol) rare [facility] Utilities Answer Date Recorded In the past 12 months has e Free Flow Power, gas, oil, or water [employer] threatened to shut off services in your [...] How often do you attend chur or sabianism services? Never 05/21/2023 Do you belong to any clubs o r organizations such as taoism groups, unions, fraternal or athletic groups, or [...] Recorded Patient Health Questionnaire-2 Score 0 06/24/2023 [facility] ionnd Health - Occupational Stress Questionnaire Answer Date [...] a senior living (including now)? 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
--- OUTSIDE RECORDS SUMMARY | 2024-09-28 19:30 | XMS_ITS | Clinical Summary ---
Author Organization [facility] Address [address] [place] [address] Care Team Providers Care Employment Appeals Examiner Name Role Phone Stan Cooper Primary Care Provider Unavailab le Source Comments [facility],non-owned Affiliates and Associated Physician Practices is amultiple site organization consisting of ambulatory clinics and hospital sitesin [place], [place], [place] and [place]. This disclosure is being madepursuant to the Care Everywhere program and may not contain all information available regarding this patient. Last updated 17.[facility] Allergies Active Allergy Reactions Criticality Noted Date Comments Aspirin Rash Medium 09/03/2018 Medications * Be aware that medications may not be up to date on this document. Alwaysverify current medications with the patient. fenofibrate (LOFIBRA) 54 MG tablet TAKE 1 TABLET BY MOUTH EVERY DAY IN THE MORNING 06/26/2020 Active Encounters Date Type Department Care Team Description 08/14/2024 Telephone [facility] Pain Care [address] [place] [address] Dana Mccormack, CANCELLATION CLERK-WOUND TREATMENT RN Appointment 07/26/2024 Telephone [facility] ENDOSCOPY [address] [place] [address] Kaci Martinez Procedure (Eus Needed) from Last 3 Months Social History Tobacco Use Types Packs/Day Years Used Date Smoking Tobacco: Former Smokeless Tobacco: Never Alcohol Use Standard Drinks/Week Comments Yes 0 (1 standard drink = 0.6 oz pur e alcohol) Sex and Gender Information Value Date Recorded Sex Assigned at Not on file Legal Sex Male 2:56 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
--- OUTSIDE RECORDS SUMMARY | 2024-09-28 19:30 | XMS_ITS | Encounter Summary ---
Author Organization [facility] Address [address] [place] [address] Care Team Providers Care Mailing Machine Operator Name Role Phone Ani Ellsworth NP Primary Care Provider [phone] [phone] Encounter Details Date Type Department Care Team (Late st Contact Info) Description 04/10/2024 HowAboutWe Message Enc [facility] Medical Group Multispecialty Care - [address], [address] [place] [address] [facility] Provider MRCP Social [...] from your doctor or pharmacy? Never 10/03/2023 [facility] Utilities Answer Date Recorded In the [...] Never 01/06/2024 How often do you attend tenriism or holiness serv ices? Never 01/06/2024 Do you belong to any clubs o r organizations such as tenriism groups, unions, fraternal or athletic groups, or [...] Recorded Patient Health Questionnaire-2 Score 1 01/31/2024 [facility] [place] of Occupat ional Health - Occupational Stress [...] place to sleep or slept in a chcf (including now)? No 06/13/2023 Housing Stability Vital Sign Answer Ciro e Recorded In the last 12 months, was t here a time when you were not able to pay the mortgage or rent on time? No 03/14/2024 In the past 12 months, how m any times have you moved where you were living? 0 03/14/2024 At any time in the past 12 m [facility], were you homeless or living in a chcf (including now)? No 03/14/2024 Sex and Gender [...] documented as of this encounter Care Teams Mailing Machine Operator Relationship Specialty Start Date End Date Ani Ellsworth NP [facility] [place] [address] PCP - General NURSE PRACTITIONER 06/13/23 documented as of this encounter
--- OUTSIDE RECORDS SUMMARY | 2024-09-28 19:30 | XMS_ITS | Encounter Summary ---
Author Organization [facility] Address [address] [place] [address] Care Team Providers Care Transportation Engineering Technician Name Role Phone Ani Ellsworth NP Primary Care Provider [phone] [phone] Encounter Details Date Type Department Care Team (Late st Contact Info) Description 11/15/2023 [employer] Message Enc [facility] Medical Group Family Medicine [facility] [address] [place] [address] [employer], [facility] Provider results. Social History Tobacco Use [...] you attend chur or church services? Never 10/03/2023 Do you belong to any clubs o r organizations such as episcopal groups, unions, fraternal or athletic groups, or [...] Recorded Patient Health Questionnaire-2 Score 0 10/03/2023 [facility] [place] of Occupat ional Health - Occupational Stress [...] place to sleep or slept in a residential (including now)? No 06/13/2023 Housing Stability Vital [...] were you homeless or living in a residential (including now)? No 10/03/2023 Sex and Gender [...] Rule Out 03/16/2024 03/16/2024 03/16/2024 1:26 PM VIBRATOR EQUIPMENT TESTER Assessment Noted Time PHQ-9 Depression Total Score: 13 04/ 024 1:09 PM CDT documented as of this encounter Care Teams Transportation Engineering Technician Relationship Specialty Start Date End Date Ani Ellsworth NP [address] [place] [address] PCP - General NURSE PRACTITIONER 06/13/23 documented as of this encounter
--- OUTSIDE RECORDS SUMMARY | 2024-09-28 19:30 | XMS_ITS | Encounter Summary ---
Author Organization [facility] Address [address] [place] [address] Care Team Providers Care Talk Show Host Name Role Phone Ani Ellsworth NP Primary Care Provider [phone] [phone] Encounter Details Date Type Department Care Team (Late st Contact Info) Description 01/27/2024 [employer] Message Enc [facility] Medical Group Family Medicine [facility] [address] [place] [address] [place], [facility] Provider Endo Referral Social History Tobacco [...] from your doctor or pharmacy? Never 10/03/2023 [facility] Utilities Answer Date Recorded In [...] Never 01/06/2024 How often do you attend christian or congregational serv ices? Never 01/06/2024 Do you belong to any clubs o r organizations such as christian groups, unions, fraternal or athletic groups, or [...] Recorded Patient Health Questionnaire-2 Score 1 01/31/2024 [facility] - Occupational Stress Questionnaire [...] time in the past 12 m [facility], were you homeless or living in a chcf (including now)? No 01/06/2024 Sex and Gender [...] Rule Out 03/16/2024 03/16/2024 03/16/2024 1:26 PM ENTERPRISE ACCOUNT MANAGER Assessment Noted Time PHQ-9 Depression Total Score: 13 024 1:09 PM CDT documented as of this encounter Care Teams Talk Show Host Relationship Specialty Start Date End Date Ani Ellsworth NP [address] [place] [address] PCP - General NURSE PRACTITIONER 06/13/23 documented as of this encounter
--- NOTE | 2024-09-28 19:38 | ECG_ITS ---
Test Date: 2024-09-28 20:42:48 Measurements Intervals [place] Rate: 49 P: 6 ND: 175 QRS: 22 QRSD: 88 T: 5 QT: 403 QTc: 365 Interpretive Statements SINUS BRADYCARDIA OTHERWISE NORMAL ELECTROCARDIOGRAM Compared to ECG 06/17/2024 18:31:35 No significant changes Electronically Signed On 09-29-2024 08:49:53 CDT by Chaim Martinez M.D.
[2024-09-28 19:43] LABS: Alanine Aminotransferase 33 U/L (6-50); Albumin Level 4.1 g/dL (3.5-5.1); Alkaline Phosphatase 68 U/L (38-126); Anion Gap 9 mmol/L (4-12); Aspartate Amino Transferase 26 U/L (17-59); Bilirubin,Total 0.5 mg/dL (0.2-1.3); Blood Urea Nitrogen 16 mg/dL (9-20); Calcium 9.7 mg/dL (8.4-10.2); Carbon Dioxide 22 mmol/L (22-30); Chloride 112 mmol/L (98-107); Estimated CRCL calculation 97 ml/min; Estimated Glomerular Filt Rate > 60; Glucose 97 mg/dL (65-110); Potassium 4.6 mmol/L (3.4-5.0); Sodium 143 mmol/L (137-145); Total Protein 7.2 g/dL (6.3-8.2)
--- NOTE | 2024-09-28 20:19 | ED.ABDPAIN ---
HPI - Abdominal Pain General Chief Complaint: Abdominal Pain <Trudy Sanon APRN - Last Filed: 09/28/24 23:54> Stated Complaint: abd pain, hematuria x 3 days <Trudy Sanon APRN - Last Filed: 09/28/24 23:54> Time Seen by Provider: 09/28/24 18:59 <Trudy Sanon APRN - Last Filed: 09/28/24 23:54> History of Present Illness HPI narrative: Patient is a 43-year-old male who presents to the ER with generalized abdominal pain. He reports his pain started approximately 3 days ago. Patient reports he was first diagnosed with pancreatitis approximately one and half years ago. He reports he has not consumed alcohol since then. Patient reports his abdominal pain is ?sharp and stabbing. He also endorses right flank pain and hematuria 3 days ago, which has now resolved. Patient denies any recent fevers, chest pain, shortness of breath, or abnormal bowel movements. He denies any other medical history relevant to this ER visit. <Trudy Sanon APRN - Last Filed: 09/28/24 23:54> Related Data Home Medications: Home Medications ?Medication ?Instructions ?Recorded ?Confirmed ?Last Taken ?Type ezolmt-phynmkpm-yhcvnac 1 cap PO TID 09/29/24 09/29/24 Unknown History 10,000-32,000-42,000 unit capsule,delayed rel (Zenpep) <Trudy Sanon APRN - Last Filed: 09/28/24 23:54> Allergies/Adverse Reactions: Allergies Allergy/AdvReac Type Severity Reaction Status Date / Time bee venom protein (honey Allergy Swelling Verified 06/17/24 15:51 bee) (bees) wasp Allergy Swelling Uncoded 06/17/24 15:51 yellow jackets Allergy Swelling Uncoded 06/17/24 15:51 <Trudy Sanon APRN - Last Filed: 09/28/24 23:54> Review of Systems Review of Systems: All systems reviewed & are unremarkable except as noted in HPI and below <Trudy Sanon APRN - Last Filed: 09/28/24 23:54> PMFSH Past Medical History Medical History: Medical History Acute on chronic pancreatitis Alcoholic pancreatitis Sleep apnea Depressive disorder, not elsewhere classified Infertility Hyperlipidemia Smoking Cardiac arrhythmia History of migraine headaches Blackout Dizziness and giddiness Chest pain Back pain <Trudy Sanon APRN - Last Filed: 09/28/24 23:54> Surgical History Surgical History: Surgical History No pertinent past surgical history <Trudy Sanon APRN - Last Filed: 09/28/24 23:54> Family History Family History: Family History Sibling Autoimmune disease <Trudy Sanon APRN - Last Filed: 09/28/24 23:54> Social History Social History: Social History Social History: former smoker. The patient has a significant Other. The patient recently lost his job. He is not currently working. The patient states that he drinks heavily at least 2-3 days a week which is more than 6 drinks at a time. Reports no alcohol since episode of pancreatitis in July 2022. States employed at present time. Code status full code Smoking status: Former smoker Alcohol intake: former Alcohol use details: reports no alcohol since episode of pancreatitis Substance use: never Substance use type: does not use Other substance usage details: QUIT 9 MONTHS AGO Do You Feel Safe in your Home?: Yes Lack of Transportation: No Lack of Food: Never True Current Housing: I Have Housing Concerned About Future Housing: No Difficulty Paying Gas/Electric Bills: YES Difficulty Paying for Meds: No Currently Unemployed: No Education: Associate Degree Difficulty w/ Childcare or Family Care: No Gender identity (if verbalized by the patient): Male Spiritual care concerns: No <Trudy Sanon APRN - Last Filed: 09/28/24 23:54> Exam Narrative: GENERAL: Well appearing, well-nourished, non-toxic, in acute distress d/t pain. HEAD: Normocephalic, atraumatic. NECK: Supple. No adenopathy, no masses. RESPIRATORY: Airway patent, respirations nonlabored. Clear to auscultation bilaterally, no rales, rhonchi, wheezing. CARDIOVASCULAR: Regular rate and rhythm without murmurs, rubs, or gallops. Peripheral pulses 2+ and equal bilaterally. ABDOMINAL: Soft, tender bilateral upper quadrants, nondistended, no hepatosplenomegaly. Normoactive BS. MUSCULOSKELETAL: Moves all extremities. Strength/ROM intact without gross deformities. SKIN: Warm, dry, normal color. No rashes. NEURO: A&O X3. Speech clear. Cranial nerves II-XII intact. No ataxic movements. <Trudy Sanon APRN - Last Filed: 09/28/24 23:54> Course ENGINEER THIRD ASSISTANT/PA Physician Supervision This visit was performed by both a physician and an APC. I performed all aspects of the MDM as documented. <Kermit Glass MD - Last Filed: 09/29/24 04:32> Vital Signs Vital signs: Vital Signs Temperature 36.6 C 09/28/24 16:41 Pulse Rate 79 09/28/24 16:41 Respiratory Rate 20 09/28/24 16:41 Blood Pressure 137/71 09/28/24 16:41 Pulse Oximetry 100 09/28/24 16:41 Oxygen Delivery Room Air 09/28/24 16:41 Temperature 36.8 C 09/29/24 02:00 Pulse Rate 59 L 09/29/24 02:00 Respiratory Rate 18 09/29/24 02:00 Blood Pressure 137/78 09/29/24 02:00 Pulse Oximetry 100 09/29/24 02:00 Oxygen Delivery Room Air 09/29/24 02:25 <Trudy Sanon APRN - Last Filed: 09/28/24 23:54> Vital Signs Temperature 36.6 C 09/28/24 16:41 Pulse Rate 79 09/28/24 16:41 Respiratory Rate 20 09/28/24 16:41 Blood Pressure 137/71 09/28/24 16:41 Pulse Oximetry 100 09/28/24 16:41 Oxygen Delivery Room Air 09/28/24 16:41 Temperature 36.8 C 09/29/24 02:00 Pulse Rate 59 L 09/29/24 02:00 Respiratory Rate 18 09/29/24 02:00 Blood Pressure 137/78 09/29/24 02:00 Pulse Oximetry 100 09/29/24 02:00 Oxygen Delivery Room Air 09/29/24 02:25 <Kermit Glass MD - Last Filed: 09/29/24 04:32> MDM - Abdominal Pain MDM Narrative Medical decision making narrative: Patient is a 43-year-old male who presents to the ER with generalized abdominal pain. He reports his pain started approximately 3 days ago. Patient reports he was first diagnosed with pancreatitis approximately one and half years ago. He reports he has not consumed alcohol since then. Patient reports his abdominal pain is ?sharp and stabbing. He also endorses right flank pain and hematuria 3 days ago, which has now resolved. Patient denies any recent fevers, chest pain, shortness of breath, or abnormal bowel movements. He denies any other medical history relevant to this ER visit. Labs Ordered: CBC, CMP, coags, lactic acid, UA, UDS, alcohol level Imaging Ordered: CT abdomen pelvis Medications Ordered: 1 L normal saline IV bolus x 3, Toradol 15 mg IV, Dilaudid 0.5 mg x 2 Results: Pt's CT scan indicates Lower thorax: Unremarkable Liver: Normal. Stable 11 mm right lobe cyst or hemangioma. Biliary/Gallbladder: Gallbladder is normal. No bile duct dilation. Pancreas: Multilobulated peripancreatic fluid collection unchanged. New peripancreatic edema and fluid surrounding the pancreatic body. Persistent or recurrent fluid and edema at the pancreatic head Mild hypoenhancement in the pancreatic body likely representing edema.. Spleen: Normal. Adrenals:No mass. Kidneys: No suspicious mass, obstructing stone, or hydronephrosis. GI tract: No small or large bowel dilation. Normal appendix. Mesentery/Peritoneum: No ascites, mass, or free air. Retroperitoneum: No mass. Pelvis: Mild urinary bladder wall thickening in a partially distended urinary bladder. Prostatomegaly. Soft Tissues: Small fat-containing uncomplicated umbilical hernia. Bones: No acute osseous finding. Patient's lipase is 5726. His other lab work is unremarkable for any acute abnormalities. Diagnosis: Acute on chronic pancreatitis Patient Education/Shared MDM: Results of lab work and imaging shared with patient. He endorses continuation of unmanageable pain following medication administration. Patient reports his pain cannot be managed at home and he would like to be admitted to the hospital. [id number]- Spoke with hospitalist, Dr. Erickson, who was in agreement with plan for admission. Patient will be admitted to the med/surg floor. <Trudy Sanon APRN - Last Filed: 09/28/24 23:54> Differential Diagnosis Differential diagnosis: Likely abdominal pain, calculus of kidney and pancreatitis <Trudy Sanon APRN - Last Filed: 09/28/24 23:54> Lab Data Attestation: I reviewed the patient's lab results. <Trudy Sanon [employer]ER - Last Filed: 09/28/24 23:54> Result diagrams: 09/28/24 19:14 09/28/24 19:14 <Trudy Sanon APRN - Last Filed: 09/28/24 23:54> Labs: Lab Results 09/28/24 09/28/24 09/28/24 Range/Units 19:14 20:40 20:41 WBC 8.5 (4.5-10.0) K/mm3 RBC 5.02 (4.6-6.20) M/mm3 Hgb 15.2 (14.0-18.0) g/dL Hct 45.8 (42.0-52.0) % MCV 91.2 (80-100) fl MCH 30.3 (26-34) pg MCHC 33.2 (32-36) g/dl RDW 13.4 (11.5-14.5) % Plt Count 243 (150-375) k/mm3 MPV 10.4 (7.4-10.4) fl Immature Gran % (Auto) 0.2 (0-0.5) % Neut % (Auto) 65.9 (45.5-73.1) % Lymph % (Auto) 25.0 (18.3-44.2) % [place] % (Auto) 7.7 (2.6-8.5) % Eos % (Auto) 0.7 (0-4.4) % Baso % (Auto) 0.5 (0.2-1.2) % Lymph # (Auto) 2.11 (0.9-3.2) K/mm3 [place] # (Auto) 0.7 H (0.1-0.6) K/mm3 Eos # (Auto) 0.1 (0-0.3) K/mm3 Baso # (Auto) 0.0 (0.0-0.1) K/mm3 Abs Immat Gran (auto) 0.02 (0.00-0.031) K/mm3 Absolute Neuts (auto) 5.6 (1.3-6.7) K/mm3 Absolute Nucleated RBC 0.000 (0.0-0.012) K/mm3 Nucleated RBC % 0.0 (0.0-0.2) % PT 13.7 (11.1-14.7) Seconds INR 1.0 APTT 24.6 (22.3-36.8) Seconds Sodium 143 (137-145) mmol/L Potassium 4.6 (3.4-5.0) mmol/L Chloride 112 H (98-107) mmol/L Carbon Dioxide 22 (22-30) mmol/L Anion Gap 9 (4-12) mmol/L BUN 16 (9-20) mg/dL Creatinine 0.93 (0.7-1.3) mg/dL Estim Creat Clear Calc 97 ml/min Estimated GFR > 60 (59 - ) Glucose 97 (65-110) mg/dL Lactic Acid 0.7 (0.7-2.0) mmol/L Calcium 9.7 (8.4-10.2) mg/dL Total Bilirubin 0.5 (0.2-1.3) mg/dL AST 26 (17-59) U/L ALT 33 (6-50) U/L Alkaline Phosphatase 68 (38-126) U/L Troponin I < 0.012 (0.000-0.034) ng/mL Total Protein 7.2 (6.3-8.2) g/dL Albumin 4.1 (3.5-5.1) g/dL Lipase 5726 H (23-300) U/L Urine Color Yellow (Yellow) Urine Appearance Clear (Clear) Urine pH 6.0 (5.0-9.0) Ur Specific [place] 1.022 (1.001-1.035) Urine Protein Negative (Negative) mg/dL Urine Glucose (UA) Negative (Negative) mg/dL Urine Ketones Trace H (Negative) mg/dL Ur Blood (Man) Negative (Negative) Urine Nitrate Negative (Negative) Urine Bilirubin Negative (Negative) Urine Urobilinogen 0.2 (<2.0) mg/dL Leukocyte Esterase Rfl Negative (Negative) MARCELO/UL Urine Opiates Screen Negative (Negative) Urine Methadone Screen Negative (Negative) Ur Barbiturates Screen Negative (Negative) Ur Phencyclidine Scrn Negative (Negative) Ur Amphetamine Screen Negative (Negative) U Benzodiazepines Scrn Negative (Negative) Urine Cocaine Screen Negative (Negative) U Cannabinoids Screen Negative (Negative) Ethyl Alcohol < 10 (<10) mg/dL <Trudy Sanon, [employer] - Last Filed: 09/28/24 23:54> Lab Results 09/28/24 09/28/24 09/28/24 Range/Units 19:14 20:40 20:41 WBC 8.5 (4.5-10.0) K/mm3 RBC 5.02 (4.6-6.20) M/mm3 Hgb 15.2 (14.0-18.0) g/dL Hct 45.8 (42.0-52.0) % MCV 91.2 (80-100) fl MCH 30.3 (26-34) pg MCHC 33.2 (32-36) g/dl RDW 13.4 (11.5-14.5) % Plt Count 243 (150-375) k/mm3 MPV 10.4 (7.4-10.4) fl Immature Gran % (Auto) 0.2 (0-0.5) % Neut % (Auto) 65.9 (45.5-73.1) % Lymph % (Auto) 25.0 (18.3-44.2) % [place] % (Auto) 7.7 (2.6-8.5) % Eos % (Auto) 0.7 (0-4.4) % Baso % (Auto) 0.5 (0.2-1.2) % Lymph # (Auto) 2.11 (0.9-3.2) K/mm3 [place] # (Auto) 0.7 H (0.1-0.6) K/mm3 Eos # (Auto) 0.1 (0-0.3) K/mm3 Baso # (Auto) 0.0 (0.0-0.1) K/mm3 Abs Immat Gran (auto) 0.02 (0.00-0.031) K/mm3 Absolute Neuts (auto) 5.6 (1.3-6.7) K/mm3 Absolute Nucleated RBC 0.000 (0.0-0.012) K/mm3 Nucleated RBC % 0.0 (0.0-0.2) % PT 13.7 (11.1-14.7) Seconds INR 1.0 APTT 24.6 (22.3-36.8) Seconds Sodium 143 (137-145) mmol/L Potassium 4.6 (3.4-5.0) mmol/L Chloride 112 H (98-107) mmol/L Carbon Dioxide 22 (22-30) mmol/L Anion Gap 9 (4-12) mmol/L BUN 16 (9-20) mg/dL Creatinine 0.93 (0.7-1.3) mg/dL Estim Creat Clear Calc 97 ml/min Estimated GFR > 60 (59 - ) Glucose 97 (65-110) mg/dL Lactic Acid 0.7 (0.7-2.0) mmol/L Calcium 9.7 (8.4-10.2) mg/dL Total Bilirubin 0.5 (0.2-1.3) mg/dL AST 26 (17-59) U/L ALT 33 (6-50) U/L Alkaline Phosphatase 68 (38-126) U/L Troponin I < 0.012 (0.000-0.034) ng/mL Total Protein 7.2 (6.3-8.2) g/dL Albumin 4.1 (3.5-5.1) g/dL Lipase 5726 H (23-300) U/L Urine Color Yellow (Yellow) Urine Appearance Clear (Clear) Urine pH 6.0 (5.0-9.0) Ur Specific [place] 1.022 (1.001-1.035) Urine Protein Negative (Negative) mg/dL Urine Glucose (UA) Negative (Negative) mg/dL Urine Ketones Trace H (Negative) mg/dL Ur Blood (Man) Negative (Negative) Urine Nitrate Negative (Negative) Urine Bilirubin Negative (Negative) Urine Urobilinogen 0.2 (<2.0) mg/dL Leukocyte Esterase Rfl Negative (Negative) MARCELO/UL Urine Opiates Screen Negative (Negative) Urine Methadone Screen Negative (Negative) Ur Barbiturates Screen Negative (Negative) Ur Phencyclidine Scrn Negative (Negative) Ur Amphetamine Screen Negative (Negative) U Benzodiazepines Scrn Negative (Negative) Urine Cocaine Screen Negative (Negative) U Cannabinoids Screen Negative (Negative) Ethyl Alcohol < 10 (<10) mg/dL <Kermit Glass MD - Last Filed: 09/29/24 04:32> Imaging Data Attestation: I personally reviewed and interpreted this imaging study as follows: <Trudy Sanon APRN - Last Filed: 09/28/24 23:54> Radiologist's impression: ITS Impressions Abdomen/Pelvis CT 09/28/24 20:09 IMPRESSION: Acute on chronic pancreatitis. Stable pancreatic pseudocysts. Urinary bladder wall thickening may be secondary to incomplete distention, cystitis, or chronic outlet obstruction. <Trudy Sanon APRN - Last Filed: 09/28/24 23:54> ITS Impressions Abdomen/Pelvis CT 09/28/24 20:09 IMPRESSION: Acute on chronic pancreatitis. Stable pancreatic pseudocysts. Urinary bladder wall thickening may be secondary to incomplete distention, cystitis, or chronic outlet obstruction. <Kermit Glass MD - Last Filed: 09/29/24 04:32> Discharge Plan Discharge Clinical Impression: Acute on chronic pancreatitis, Elevated lipase <Trudy Sanon APRN - Last Filed: 09/28/24 23:54> Patient Disposition: Still a Patient <Trudy Sanon APRN - Last Filed: 09/28/24 23:54> Condition: Stable <Trudy Sanon APRN - Last Filed: 09/28/24 23:54>
[2024-09-28] MEDS: SODIUM CHLORIDE 0.9% IV 1,000 ML 999 ML IV CONT ×2 (20:23→20:24)
[2024-09-28] MEDS: KETOROLAC 15 MG/ML VIAL (*BKC) IV PUSH (20:24)
[2024-09-28] MEDS: SODIUM CHLORIDE 0.9% IV 900 ML 999 ML IV CONT (20:25)
[2024-09-28 20:51] LABS: Add Urine Microscopic? NO; Appearance Urine Clear (Clear); Glucose Urine UA Negative (Negative); Leukocyte Esterase Ur Negative LEU/UL (Negative); Nitrate Urine Negative (Negative); Specific Grav Ur 1.022 (1.001-1.035)
[2024-09-28 21:06] LABS: Cannabinoid Screen Urine Negative (Negative)
[2024-09-28 21:09] LABS: Lipase 5726 U/L (23-300)
[2024-09-28 21:12] LABS: INR 1.0; Prothrombin Time 13.7 Seconds (11.1-14.7)
[2024-09-28 21:13] LABS: Partial Thromboplastin Time 24.6 Seconds (22.3-36.8)
[2024-09-28 21:24] LABS: Troponin I < 0.012 ng/mL (0.000-0.034)
--- NOTE | 2024-09-29 00:27 | PM.IMHP ---
H&P: HPI History of Present Illness Date/Time: 09/29/24 00:27 Chief Complaint: Abdominal pain Narrative: 43-year-old male with history of prior alcohol use disorder, chronic pancreatitis presents with abdominal pain. He presents to [facility] on 09/28/2024 and states about a week prior he visited another hospital. He says since he was discharged his pain has become gradually worse. Believes he has pancreatitis. Denies illicit drug use, alcohol use. The pain was very sharp generalize, a bit greater on the right. Believes his abdomen is more distended than usual. He denies shortness of breath, vomiting, diarrhea, fever, chest pain. Blood pressure 142/100. Saturating well on room air. WBC 8.5, hemoglobin 15.2. INR 1.0. Serum creatinine 0.93. BUN 16. Lactic acid 0.7. Total bilirubin 0.5. Troponin negative x1. Albumin 4.1. Lipase 5700. Previous lipase values range anywhere from very high near 20,000 in 2022 and as low as [address] abdomen pelvis then demonstrated acute on chronic pancreatitis was stable pancreatic pseudocyst. Urinary bladder wall thickening. Urinalysis not indicative of UTI. Patient denies urinary frequency burning or change in urine. Drug screen and alcohol level within normal limits. After the ER pain medication administrations the patient reports greatly improved pain scale. However, he believes he would not do well at home with p.o. pain medications. Request to be admitted. Upon further evaluation, patient reports he is loopy, he can barely remember what day it is. Albeit, he carries a coherent conversation and believes his altered state is from the pain meds or pain itself. Shared decision making was held and the patient declines to move forward with further evaluation including CT of the head. He would like to monitor symptoms and forego any further evaluation. He is able to carry a conversation and is fully aware of his medical condition and hospital course. Review of Systems Review of Systems: All systems reviewed & are unremarkable except as noted in HPI and below (Subjective/HPI) [facility] Past Medical History Medical History Acute on chronic pancreatitis Alcoholic pancreatitis Sleep apnea Depressive disorder, not elsewhere classified Infertility Hyperlipidemia Smoking Cardiac arrhythmia History of migraine headaches Blackout Dizziness and giddiness Chest pain Back pain Surgical History Surgical History No pertinent past surgical history Family History Family History Sibling Autoimmune disease Social History Social History Social History: former smoker. The patient has a significant Other. The patient recently lost his job. He is not currently working. The patient states that he drinks heavily at least 2-3 days a week which is more than 6 drinks at a time. Reports no alcohol since episode of pancreatitis in July 2022. States employed at present time. Code status full code Smoking status: Former smoker Alcohol intake: former Alcohol use details: reports no alcohol since episode of pancreatitis Substance use type: does not use Other substance usage details: QUIT 9 MONTHS AGO Do You Feel Safe in your Home?: Yes Lack of Transportation: No Lack of Food: Never True Current Housing: I Have Housing Concerned About Future Housing: No Difficulty Paying Gas/Electric Bills: No Difficulty Paying for Meds: No Currently Unemployed: YES Education: High School Diploma/GED Difficulty w/ Childcare or Family Care: No Gender identity (if verbalized by the patient): Male Spiritual care concerns: No Meds Home Medications and Allergies Home Medications ?Medication ?Instructions ?Recorded ?Confirmed ?Type gabapentin 300 mg capsule 300 mg PO TID 11/15/23 06/17/24 History gabapentin 100 mg capsule 100 mg PO Q8H 06/17/24 06/17/24 History calcium carbonate 200 mg (0.4 x 500 mg calcium 06/23/24 Rx (1,250 mg)) PO Q6H PRN Indigestion #30 tabs hydrocodone 5 mg-acetaminophen 300 1 tablet PO Q8H PRN pain #10 tabs 06/23/24 Rx mg tablet jxietr-[id number]-putbgpf 3 cap PO TIDWM #30 caps 06/23/24 Rx 12,000-38,000-60,000 unit capsule,delayed rel (Creon) pantoprazole 40 mg tablet,delayed 40 mg PO QAM #30 tabs 06/23/24 Rx release Allergies Allergy/AdvReac Type Severity Reaction Status Date / Time bee venom protein (honey Allergy Swelling Verified 06/17/24 15:51 bee) (bees) wasp Allergy Swelling Uncoded 06/17/24 15:51 yellow jackets Allergy Swelling Uncoded 06/17/24 15:51 Vital Signs Vital Signs - 24 hr 09/28/24 16:41 09/28/24 19:30 09/28/24 20:30 Temperature 97.9 F 98.0 F Pulse Rate 79 62 54 L Respiratory Rate 20 18 18 Blood Pressure 137/71 142/100 H 129/50 L Pulse Oximetry 100 99 98 Oxygen Delivery Room Air 09/28/24 21:00 09/28/24 21:30 Temperature Pulse Rate 53 L 51 L Respiratory Rate 18 18 Blood Pressure 126/71 117/77 Pulse Oximetry 98 100 Oxygen Delivery Exam Const: General: comfortable and no acute distress Other: A&O times 2-3 HENMT: Mouth: Yes moist mucous membranes Eyes: Pupils: Equal, round and reactive pupils present Neck: Neck: supple Resp: Effort & Inspection: normal respiratory effort Auscultation: clear to auscultation bilaterally Cardio: Rate: regular rate Rhythm: regular rhythm GI: Auscultation: normal bowel sounds Other: Slight distension, tender to deep palpation of the right lower and upper quadrant. : General: Yes bladder normal to palpation Neuro: General: deep tendon reflexes 2+ bilaterally Speech: normal speech Motor exam (neuro): 5/5 motor strength present throughout Sensory Exam: normal sensation Extrem: General: no edema H&P: Results Labs Labs: Short CBC 09/28/24 Range/Units 19:14 WBC 8.5 (4.5-10.0) K/mm3 Hgb 15.2 (14.0-18.0) g/dL Hct 45.8 (42.0-52.0) % Plt Count 243 (150-375) k/mm3 [facility] 09/28/24 19:14 Sodium 143 Potassium 4.6 Chloride 112 H Carbon Dioxide 22 BUN 16 Creatinine 0.93 Glucose 97 Calcium 9.7 Cardiac Enzymes 09/28/24 Range/Units 20:41 Troponin I < 0.012 (0.000-0.034) ng/mL Liver Function 09/28/24 Range/Units 19:14 Total Bilirubin 0.5 (0.2-1.3) mg/dL AST 26 (17-59) U/L ALT 33 (6-50) U/L Alkaline Phosphatase 68 (38-126) U/L Albumin 4.1 (3.5-5.1) g/dL Urine 09/28/24 Range/Units 20:40 Urine Color Yellow (Yellow) Urine Appearance Clear (Clear) Urine pH 6.0 (5.0-9.0) Ur Specific [place] 1.022 (1.001-1.035) Urine Protein Negative (Negative) mg/dL Urine Glucose (UA) Negative (Negative) mg/dL Assessment and Plan Assessment and plan (1) Acute on chronic pancreatitis: Code(s): K85.90 - Acute pancreatitis without necrosis or infection, unspecified; K86.1 - Other chronic pancreatitis Status: Acute Plan 43-year-old male with history of prior alcohol use disorder, chronic pancreatitis presents with abdominal pain. He presents to [facility] on 09/28/2024 and states about a week prior he visited another hospital. He says since he was discharged his pain has become gradually worse. Believes he has pancreatitis. Denies illicit drug use, alcohol use. The pain was very sharp generalize, a bit greater on the right. Believes his abdomen is more distended than usual. He denies shortness of breath, vomiting, diarrhea, fever, chest pain. Blood pressure 142/100. Saturating well on room air. WBC 8.5, hemoglobin 15.2. INR 1.0. Serum creatinine 0.93. BUN 16. Lactic acid 0.7. Total bilirubin 0.5. Troponin negative x1. Albumin 4.1. Lipase 5700. Previous lipase values range anywhere from very high near 20,000 in 2022 and as low as [address] abdomen pelvis then demonstrated acute on chronic pancreatitis was stable pancreatic pseudocyst. Urinary bladder wall thickening. Urinalysis not indicative of UTI. Patient denies urinary frequency burning or change in urine. Drug screen and alcohol level within normal limits. After the ER pain medication administrations the patient reports greatly improved pain scale. However, he believes he would not do well at home with p.o. pain medications. Request to be admitted. Upon further evaluation, patient reports he is loopy, he can barely remember what day it is. Albeit, he carries a coherent conversation and believes his altered state is from the pain meds or pain itself. Shared decision making was held and the patient declines to move forward with further evaluation including CT of the head. He would like to monitor symptoms and forego any further evaluation. He is able to carry a conversation and is fully aware of his medical condition and hospital course. ----- Continue normal saline at 125 cc/hour, Zofran, Toradol, Dilaudid p.r.n.. Patient denies respiratory conditions. Bowel rest. Advanced diet as tolerated. Check morning labs. Monitor mental status. Patient wishes to be full code. Lovenox. Normal saline infusion. Hospitalist MIPS Advance Care Plan I have confirmed that the patient's Advanced Care Plan is present, code status is documented, or surrogate decision maker is listed in patient medical record.: Yes Medication Reconciliation I have utilized all available resources to obtain, update and review the patients current medications (includes all prescriptions, OTC, herbals, cannabis, and nutritional supplements).: Yes
[2024-09-29 00:30] VITALS: BP 123/58; PULSE 50; RESP 20; O2SAT 98
[2024-09-29 01:10] VITALS: BP 120/62; PULSE 50; RESP 18; O2SAT 99
[2024-09-29 01:47] VITALS: BMI 24.7
[2024-09-29] MEDS: SODIUM CHLORIDE 0.9% IV 1,000 ML 125 ML IV CONT ×3 (01:53→16:48)
--- NOTE | 2024-09-29 01:58 | ADMGEN ---
This patient, Raoul Goode, was admitted to 2 Medical Room 260-01. Patient/family oriented to hospital policies and general routines including ID bracelet, bed and alarms, visiting hours, pain management, procedures, bathroom and other care routines, personal items, smoking policy, room service/diet, and visiting hours. Information on how to activate the Rapid Response Team has been discussed. Patient/Family are encouraged to report perceived risks to care and to ask questions if they do not understand what they are told or what they should do.
[2024-09-29 02:00] VITALS: BP 137/78; PULSE 59; RESP 18; TEMP 36.8; O2SAT 100
[2024-09-29] MEDS: KETOROLAC 30 MG/ML VIAL (*BKC) IV PUSH ×2 (02:15→11:23)
[2024-09-29] MEDS: HYDROmorphone HCL INJ (*CRX) 2 MG/ML VIAL 0.5 MG IV PUSH ×2 (04:51→08:53)
[2024-09-29] MEDS: ONDANSETRON INJ 4 MG/2 ML VIAL IV PUSH (04:57)
[2024-09-29 05:16] LABS: Hematocrit 40.7 % (42.0-52.0); Hemoglobin 13.3 g/dL (14.0-18.0); Immature Granulocyte Percent A 0.4 % (0-0.5); Lymphocytes Absolute Auto 2.87 K/mm3 (0.9-3.2); Mean Corpuscular HGB Conc 32.7 g/dl (32-36); Mean Corpuscular Hemoglobin 30.5 pg (26-34); Mean Corpuscular Volume 93.3 fl (80-100); Nucleated Red Blood Cells Absolute Auto 0.000 K/mm3 (0.0-0.012); Nucleated Red Blood Cells Perc 0.0 % (0.0-0.2); Platelet Count Result 193 k/mm3 (150-375); Red Blood Count 4.36 M/mm3 (4.6-6.20); White Blood Count 8.0 K/mm3 (4.5-10.0)
[2024-09-29 05:22] VITALS: BP 111/53; PULSE 50; RESP 17; TEMP 36.8; O2SAT 99
[2024-09-29 05:32] LABS: Alanine Aminotransferase 25 U/L (6-50); Albumin Level 3.4 g/dL (3.5-5.1); Alkaline Phosphatase 67 U/L (38-126); Anion Gap 6 mmol/L (4-12); Aspartate Amino Transferase 23 U/L (17-59); Bilirubin,Total 0.4 mg/dL (0.2-1.3); Blood Urea Nitrogen 12 mg/dL (9-20); Calcium 8.5 mg/dL (8.4-10.2); Carbon Dioxide 24 mmol/L (22-30); Chloride 109 mmol/L (98-107); Estimated CRCL calculation 128 ml/min; Estimated Glomerular Filt Rate > 60; Glucose 100 mg/dL (65-110); Magnesium 1.9 mg/dL (1.6-2.3); Potassium 4.0 mmol/L (3.4-5.0); Sodium 139 mmol/L (137-145); Total Protein 6.0 g/dL (6.3-8.2)
[2024-09-29 10:25] LABS: Lipase 2854 U/L (23-300)
[2024-09-29] MEDS: PANTOPRAZOLE 40 MG TABLET PO (11:22)
[2024-09-29] MEDS: LIPASE/AMYLASE/PROTEASE 12,000 UNITS CAP 1 CAP PO ×3 (11:22→16:45)
--- NOTE | 2024-09-29 11:34 | PCDIET ---
Pt states he doesn't want to zulma the lovenox injection because it gives him an anxiety attack. He also said he doesn't want to take the Creon unless he eats. I explained that he can now eat a Clear Liquid Diet. He said he will take the medication later. He complains that he has severe pain whenever he moves.
--- NOTE | 2024-09-29 13:08 | P.PNCROSS_ITS ---
Event Note Event Note Event Note: Patient is a 43-year-old male who was admitted overnight seen assessed by pre vious provider same day due to acute on chronic pancreatitis. patient's labs unremarkable other than elevated lipase which on admission was 5726. patient was started on aggressive IV fluids the ED, Toradol, Dilaudid and I transitioned to a clear liquid diet from NPO. patient was just recently treated at [facility] for his GI provider is located at which time they did do a ERCP and HIDA scan no stones were noted. patient still with moderate to severe abdominal pain lipase is trending down will increase his pain medication continue with IV fluids and Toradol advance diet as tolerated plan to follow-up with his GI doctor outpatient. CT abdomen showing acute on chronic pancreatitis with stable pancreatic pseudocyst. patient denied any chest pain, shortness a breath no nausea no vomiting, fever chills will continue with current treatment plan and reassess for improvement tomorrow.
[2024-09-29] MEDS: HYDROmorphone HCL INJ (*CRX) 2 MG/ML VIAL IV PUSH ×3 (13:31→22:18)
[2024-09-29 13:54] VITALS: BP 115/61; PULSE 60; RESP 18; TEMP 36.5; O2SAT 97
[2024-09-29 21:03] VITALS: BP 108/61; PULSE 50; RESP 18; TEMP 36.3; O2SAT 93
--- NOTE | 2024-09-29 22:30 | PC.NURSE ---
When RN came to give Dilaudid PRN to pt, pt asked if it was possible for RN to push med faster to which the RN educated pt that pain meds are to be pushed slowly.
[2024-09-30] MEDS: HYDROmorphone HCL INJ (*CRX) 2 MG/ML VIAL IV PUSH ×5 (02:22→22:17)
[2024-09-30] MEDS: ONDANSETRON INJ 4 MG/2 ML VIAL IV PUSH ×3 (04:22→20:28)
--- NOTE | 2024-09-30 05:00 | PC.NURSE ---
Pt requested RN to come to room, pt exhibiting very emotional liable behavior, stated he felt disorientated, and nauseous, would stop talking to RN, state that he is nodding off. RN witnessed pt close his eyes and open them back up to continue talking. RN got a set of VS that were stable. Tried to reassure patient that he was safe, gave PRN nausea medicine. Charge Nurse, Kasandra went into room shortly after to talk with pt. Pt able to have fully orientated conversation, pt was not nodding off while she was present in the room. RN was in the hallway when Lab went in the room. Pt having a fully orientated conversation with echocardiography tech, and displaying no symptoms that he was displaying when RN was present in the room. RN went back into patients room and patient begin these behaviors and complaints once more.
[2024-09-30 05:02] LABS: Hematocrit 41.3 % (42.0-52.0); Hemoglobin 13.4 g/dL (14.0-18.0); Mean Corpuscular HGB Conc 32.4 g/dl (32-36); Mean Corpuscular Hemoglobin 30.9 pg (26-34); Mean Corpuscular Volume 95.2 fl (80-100); Platelet Count Result 201 k/mm3 (150-375); Red Blood Count 4.34 M/mm3 (4.6-6.20); White Blood Count 6.1 K/mm3 (4.5-10.0)
[2024-09-30 05:30] LABS: Alanine Aminotransferase 21 U/L (6-50); Albumin Level 3.6 g/dL (3.5-5.1); Alkaline Phosphatase 75 U/L (38-126); Anion Gap 7 mmol/L (4-12); Aspartate Amino Transferase 21 U/L (17-59); Bilirubin,Total 0.4 mg/dL (0.2-1.3); Blood Urea Nitrogen 9 mg/dL (9-20); Calcium 8.7 mg/dL (8.4-10.2); Carbon Dioxide 23 mmol/L (22-30); Chloride 105 mmol/L (98-107); Estimated CRCL calculation 116 ml/min; Estimated Glomerular Filt Rate > 60; Glucose 92 mg/dL (65-110); Magnesium 1.9 mg/dL (1.6-2.3); Potassium 3.9 mmol/L (3.4-5.0); Sodium 135 mmol/L (137-145); Total Protein 6.4 g/dL (6.3-8.2)
[2024-09-30 05:50] VITALS: BP 118/60; PULSE 67; RESP 18; TEMP 36.1; O2SAT 97
[2024-09-30] MEDS: PANTOPRAZOLE 40 MG TABLET PO (08:35)
[2024-09-30 08:37] LABS: Lipase 557 U/L (23-300)
[2024-09-30] MEDS: SODIUM CHLORIDE 0.9% IV 1,000 ML 125 ML IV CONT ×2 (08:42→16:18)
--- NOTE | 2024-09-30 10:23 | PC.NURSE ---
One Creon capsule found on bedside table & one on the floor--disposed of them. Pt not taking Creon when administered. Says he can't take it because he can't eat, or he ate a half hour ago.
[2024-09-30] MEDS: KETOROLAC 30 MG/ML VIAL (*BKC) IV PUSH ×2 (10:46→16:22)
[2024-09-30] MEDS: LIPASE/AMYLASE/PROTEASE 12,000 UNITS CAP 1 CAP PO ×2 (12:21→16:20)
--- NOTE | 2024-09-30 12:52 | P.PNIM_ITS ---
Progress Note: A&P Assessment and Plan (1) Acute on chronic pancreatitis: Code(s): K85.90 - Acute pancreatitis without necrosis or infection, unspecified; K86.1 - Other chronic pancreatitis Status: Acute Assessment and Plan: Patient is a 43-year-old male who was admitted due to acute on chronic pancreatitis. patient's labs unremarkable other than elevated lipase which on admission was 5726. patient was started on aggressive IV fluids, Toradol, and analgesics patient was just recently treated at [facility] for his GI provider is located at which time they did do a ERCP and HIDA scan GI doctor outpatient. CT abdomen showing acute on chronic pancreatitis with stable pancreatic pseudocyst. * IV fluids * Lipase trending down * Liver enzymes normal * Advance diet to full today * analgesics PRN * Continued his creon * Conitnue PPI * Will plan follow-up with GI provider at [facility] (2) Median arcuate ligament syndrome: Code(s): I77.4 - Celiac artery compression syndrome Status: Acute Assessment and Plan: OF Note Patient reports he was recently diagnosed at [facility] attempting to schedule surgery outpatient. Plan Code status: Full code per patient DVT prophylaxis: Lovenox Stress ulcer prophylaxis: Protonix 40 daily PT/OT notes: Ambulatory Disposition: patient continues admission to medical unit for further treatment of acute continue with current treatment plan if lipase to normal tomorrow we can discharge home. Time Spent With Patient Time with patient: 15 - 25 minutes Subjective Date/time seen: 09/30/24 12:52 Interval history: Patient is a 43-year-old male who was admitted overnight seen assessed by previous provider same day due to acute on chronic pancreatitis. patient's labs unremarkable other than elevated lipase which on admission was 5726. 09/30/2024: Review of Systems Review of Systems: All systems reviewed & are unremarkable except as noted in HPI and below (Subjective/HPI) Exam Const: General: comfortable and no acute distress Other: A&O times 2-3 HENMT: Mouth: Yes moist mucous membranes Eyes: Pupils: Equal, round and reactive pupils present Neck: Neck: supple Resp: Effort & Inspection: normal respiratory effort Auscultation: clear to auscultation bilaterally Cardio: Rate: regular rate Rhythm: regular rhythm GI: Auscultation: normal bowel sounds Other: Slight distension, tender to deep palpation of the right lower and upper quadrant. : General: Yes bladder normal to palpation Neuro: General: deep tendon reflexes 2+ bilaterally Cranial nerves: Yes Equal, round and reactive pupils present Speech: normal speech Motor exam (neuro): 5/5 motor strength present throughout Sensory Exam: normal sensation Extrem: General: no edema Objective Data Vital Signs Vital Signs: Vital Signs - 24 hr 09/29/24 13:54 09/29/24 20:00 09/29/24 21:03 Temperature 97.7 F 97.4 F L Pulse Rate 60 50 L Respiratory Rate 18 18 Blood Pressure 115/61 108/61 Pulse Oximetry 97 93 Oxygen Delivery Room Air 09/30/24 05:50 09/30/24 08:00 Temperature 97 F L Pulse Rate 67 Respiratory Rate 18 Blood Pressure 118/60 Pulse Oximetry 97 Oxygen Delivery Room Air Intake/Output Intake/Output: Intake & Output 09/27/24 09/28/24 09/29/24 09/30/24 23:59 23:59 23:59 23:59 Intake Total 2900 2394.6 2080 Output Total 1900 Balance 2900 494.6 2080 Meds/Results Medications: Active Medications Generic Name Dose Route Start Last Admin Trade Name Freq PRN Reason Stop Dose Admin Lipase/Protease/Amylase 1 cap 09/29/24 09:35 09/30/24 12:21 Lipase/Amylase/Protease 12,000 Units Cap PO 10/29/24 09:34 1 cap TID OSCAR Administration Diphenhydramine HCl 25 mg 09/29/24 15:15 09/29/24 23:21 Diphenhydramine Hcl Inj 50 Mg/Ml Vial IV PUSH 25 mg Q4H PRN Administration Itching Enoxaparin Sodium 40 mg 09/29/24 09:00 09/30/24 10:45 Enoxaparin 40 Mg/0.4 Ml Syringe SUB-Q Not Given DAILY OSCAR Hydromorphone HCl 2 mg 09/29/24 12:20 09/30/24 08:35 Hydromorphone Hcl Inj (*Crx) 2 Mg/Ml Vial IV PUSH 2 mg Q4H PRN Administration Pain Rated 7-10 Hydroxyzine HCl 25 mg 09/29/24 15:15 09/30/24 04:53 Hydroxyzine Hcl 25 Mg Tablet PO 25 mg Q6H PRN Administration Itching Sodium Chloride 1,000 mls @ 125 mls/hr 09/28/24 23:55 09/30/24 08:42 Normal Saline Iv IV CONT 125 mls/hr .Q8H OSCAR Administration Ketorolac Tromethamine 30 mg 09/28/24 23:52 09/30/24 10:46 Ketorolac 30 Mg/Ml Vial (*Bkc) IV PUSH 10/03/24 23:51 30 mg Q6H PRN Administration Pain Rated 4-6 Ondansetron HCl 4 mg 09/28/24 23:52 09/30/24 04:22 Ondansetron Inj 4 Mg/2 Ml Vial IV PUSH 4 mg Q4H PRN Administration Nausea Pantoprazole Sodium 40 mg 09/29/24 09:00 09/30/24 08:35 Pantoprazole 40 Mg Tablet PO 40 mg QAM OSCAR Administration Radiology Results: ITS Impressions Abdomen/Pelvis CT 09/28/24 20:09 IMPRESSION: Acute on chronic pancreatitis. Stable pancreatic pseudocysts. Urinary bladder wall thickening may be secondary to incomplete distention, cy stitis, or chronic outlet obstruction. Labs Labs: Laboratory Results - last 24 hr 09/30/24 09/30/24 04:49 04:53 WBC 6.1 RBC 4.34 L Hgb 13.4 L Hct 41.3 L MCV 95.2 MCH 30.9 MCHC 32.4 RDW 13.4 Plt Count 201 MPV 9.9 Sodium 135 L Potassium 3.9 Chloride 105 Carbon Dioxide 23 Anion Gap 7 BUN 9 Creatinine 0.91 Estim Creat Clear Calc 116 Estimated GFR > 60 Glucose 92 Calcium 8.7 Magnesium 1.9 Total Bilirubin 0.4 AST 21 ALT 21 Alkaline Phosphatase 75 Total Protein 6.4 Albumin 3.6 Lipase 557 H Quality VTE Prophylaxis VTE prophylaxis: pharmacologic ordered -Patient's previous records reviewed on admission -ER notes reviewed in detail on admission -discussed all findings and current treatment plan with patient/Family/POA -Consultations reviewed for recommendations -Patient's disposition for safe discharge discussed with supervisor case loading Dictation performed by [employer] direct speech recognition software, therefore school laboratory technician variants and typographical errors may occur. Hospitalist MIPS Advance Care Plan I have confirmed that the patient's Advanced Care Plan is present, code status is documented, or surrogate decision maker is listed in patient medical record.: Yes Medication Reconciliation I have utilized all available resources to obtain, update and review the patients current medications (includes all prescriptions, OTC, herbals, cannabis, and nutritional supplements).: Yes The patient is not eligible for med reconciliation; the patient is in a emergent medical situation where delaying treatment would jeopardize the patients health.: No
[2024-09-30 14:00] VITALS: BP 118/48; PULSE 57; RESP 16; TEMP 36.6; O2SAT 98
--- NOTE | 2024-09-30 17:09 | PC.NURSE ---
Pt states, My pancreas burning. I asked patient, Has your pain improved at all since being admitted with a lipase of >5,000 & now down to 500 something? Still -12/21? Yes! My pancreas is burning! Okay, I answered. I hope the pain medicine that I just gave you helps somehow.
[2024-09-30 20:00] VITALS: PULSE 75; RESP 16; O2SAT 97
[2024-09-30 22:00] VITALS: BP 141/68; PULSE 75; RESP 16; TEMP 36.1; O2SAT 97
[2024-10-01] MEDS: SODIUM CHLORIDE 0.9% IV 1,000 ML 125 ML IV CONT (00:38)
[2024-10-01] MEDS: CALCIUM CARBONATE (TUMS) 500 MG (200 MG ELEMENTAL) PO ×2 (00:54→08:43)
[2024-10-01] MEDS: KETOROLAC 30 MG/ML VIAL (*BKC) IV PUSH ×2 (00:59→15:10)
[2024-10-01] MEDS: ONDANSETRON INJ 4 MG/2 ML VIAL IV PUSH ×3 (01:07→17:28)
[2024-10-01] MEDS: HYDROmorphone HCL INJ (*CRX) 2 MG/ML VIAL IV PUSH ×5 (03:39→21:48)
[2024-10-01 04:30] VITALS: BP 129/57; PULSE 67; RESP 16; TEMP 36.3; O2SAT 92
[2024-10-01 05:20] LABS: Hematocrit 38.6 % (42.0-52.0); Hemoglobin 12.6 g/dL (14.0-18.0); Mean Corpuscular HGB Conc 32.6 g/dl (32-36); Mean Corpuscular Hemoglobin 31.0 pg (26-34); Mean Corpuscular Volume 94.8 fl (80-100); Platelet Count Result 201 k/mm3 (150-375); Red Blood Count 4.07 M/mm3 (4.6-6.20); White Blood Count 8.0 K/mm3 (4.5-10.0)
[2024-10-01 05:52] LABS: Alanine Aminotransferase 17 U/L (6-50); Albumin Level 3.1 g/dL (3.5-5.1); Alkaline Phosphatase 64 U/L (38-126); Anion Gap 6 mmol/L (4-12); Aspartate Amino Transferase 20 U/L (17-59); Bilirubin,Total 0.3 mg/dL (0.2-1.3); Blood Urea Nitrogen 6 mg/dL (9-20); Calcium 8.7 mg/dL (8.4-10.2); Carbon Dioxide 25 mmol/L (22-30); Chloride 108 mmol/L (98-107); Estimated CRCL calculation 118 ml/min; Estimated Glomerular Filt Rate > 60; Glucose 111 mg/dL (65-110); Lipase 235 U/L (23-300); Magnesium 2.0 mg/dL (1.6-2.3); Potassium 4.1 mmol/L (3.4-5.0); Sodium 139 mmol/L (137-145); Total Protein 5.8 g/dL (6.3-8.2)
[2024-10-01] MEDS: PANTOPRAZOLE 40 MG TABLET PO (08:41)
--- NOTE | 2024-10-01 09:32 | P.CONGI_ITS ---
Assessment and Plan Assessment and plan (1) Pancreatitis: Qualifiers: Acute pancreatitis complication: no infection or necrosis Chronicity: a cute Pancreatitis type: unspecified pancreatitis type Qualified Code(s): K 85.90 - Acute pancreatitis without necrosis or infection, unspecified Code(s): K85.90 - Acute pancreatitis without necrosis or infection, unspecified Status: Acute (2) Epigastric pain: Code(s): R10.13 - Epigastric pain Status: Acute (3) History of ETOH abuse: Code(s): F10.11 - Alcohol abuse, in remission Status: Acute (4) Elevated lipase: Code(s): R74.8 - Abnormal levels of other serum enzymes Status: Acute (5) Median arcuate ligament syndrome: Code(s): I77.4 - Celiac artery compression syndrome Status: Acute Plan 1. Acute on chronic pancreatitis/elevated lipase/epigastric pain/weight loss/Hx of ETOH abuse/MALS: He presented to [facility] 09/28 with complaints of abdominal pain and was admitted for acute on chronic pancreatitis. Patient has had multiple admissions or ER visit between [facility], see below this and [facility] since January of 2023. Patient states he has been diagnosed with pancreatitis more than 12 times since then. His primary GI provider is BUBBA Wilheml. Patient diagnosed with median arcuate ligament syndrome 08/11/2024 during a [facility] hospitalization at the end of July but has followed up with BUBBA Wilhelm for more than 5 months. Patient states that he was scheduled for surgery for MALS at [facility] and [facility] but both were cancelled. Somewhat confusing history of recent hospitalizations and testing since records were not available during visit. Patient provided a picture of recent CTA done 08/11/2024 showed celiac artery patent, median arcuate ligament morphology severe proximal segment stenosis with downward contour and post necrotic dilation. During that admission an ERCP, EUS and HIDA scan were recommended but unclear if this plan was before or after CTA findings. This admission CT showing acute on chronic pancreatitis in stable pancreatic pseudocyst. Lipase has normalized since admission 5726-->235. BMP and LFTs normal. Today patient complains of epigastric pain that is worse after eating. Admits to a vomiting episodes last night, no nausea or vomiting since then. He states that he his normal recent weight is 286 lbs but according to our records his weight was 240 lbs in June and this admission 213 lbs. With the use of pancreatic enzymes he is having 2 BM's daily that are formed and nonurgent. Denies any alcohol use for 1.5 years. * Pancreatitis seems to be resolved, symptoms he is currently having is likely related to recently diagnosed MALS. * Patient will need to establish care at a tertiary center such as [facility] * continue supportive care * patient with urinary complaints and possible bladder wall thickening on CT, primary care provider to consider additional workup Thank you very much for allowing me to share in the care of this very nice patient. This report may have been done utilizing a voice recognition system. Attempts have been made to correct errors. However, there may be uncorrected grammatical, spelling, and recognition errors present. Thank you very much for allowing me to share in the care of this very nice patient. This report may have been done utilizing a voice recognition system. Attempts have been made to correct errors. However, there may be uncorrected grammatical, spelling, and recognition errors present. GI Consult Note Consult date/time: 10/01/24 09:32 Reason for consult: Acute on chronic pancreatitis, nausea, vomiting and abdominal pain HPI: Raoul Goode is a 43 year old male with PMSH of depression, pancreatitis, HLD, HTN and migraines. He presented to [facility] 09/28/2024 with complaints of abdominal pain. Patient admitted for acute on chronic pancreatitis. GI has been consulted for pancreatitis, nausea, vomiting and abdominal pain. Patient has been seen at multiple hospitals over the past few months, history of recent hospitalizations and testing somewhat unclear. He did provide a picture of a recent CTA performed 08/11/2024 during his hospitalization at [facility] which showed median arcuate ligament morphology severe proximal segment stenosis with downward contour and post necrotic dilation. Patient has not seen his primary GI provider following his admission at [facility] in June or admission and [facility] at the end of July, primary GI provider he was BUBBA Wilhelm. Patient complains of epigastric pain that is worse after eating. He also complains of bilateral pain in his flanks towards his back. He had a 1 time episode of vomiting last night but currently denies any nausea or vomiting. Denies any odynophagia, dysphagia, reflux, regurgitation, or early satiety. He states that he typically only eats 1 meal per day and has been following a low- fat diet. He admits to weight loss and review of recent records showed that in June his weight was 140 lb and this admission 213 lb. He is on pancreatic enzyme replacement and typically has 2 bowel movements daily that are formed and non urgent. He states that recently he had been experiencing change in urine color and noting blood in his urine. But today his urine is back to normal color without any noted blood. Denies diarrhea, constipation, hematochezia, or melena. Denies NSAID, aspirin, or anticoagulant use. Patient denies any alcohol use for 1.5 years. Family history negative for CRC or IBD. ENDOSCOPY HISTORY: Patient has never had an EGD or colonoscopy LABS AND STOOL STUDIES: Labs 10/01/2024: WBC 8, Hgb 13, Hct 39, MCV 95, platelets 201 Sodium 139, potassium 4.1, BUN 6, creatinine 0.90, GFR >60, calcium 8.7, magnesium 2.0 Total bilirubin 0.3, AST 20, ALT 17, Alkaline Phos 64, albumin 3.1, lipase 235 Labs 09/28/2024: WBC 9, Hgb 15, Hct 46, MCV 91, platelets 243, INR 1.0 Sodium 143, potassium 4.6, BUN 16, creatinine 0.93, GFR >60, calcium 9.7 Total bilirubin 0.5, AST 26, ALT 33, Alkaline Phos 68, albumin 4.1, lipase 5726 IMAGING: CT abd/pelvis w/contrast 09/28/2024: IMPRESSION: Acute on chronic pancreatitis. Stable pancreatic pseudocysts. Urinary bladder wall thickening may be secondary to incomplete distention, cystitis, or chronic outlet obstruction. CT abd/pelvis w/contrast 06/17/2024: IMPRESSION: Findings consistent with acute (on chronic) pancreatitis. Additional findings suggesting hypovolemia. CT abd/pelvis w/contrast 11/20/2022: IMPRESSION: Peripancreatic organized fluid collections at pancreatic body and tail, likely secondary to pancreatitis Normal appendix 8 mm hepatic cyst HIDA scan : FINDINGS: There is normal clearance of radiotracer from the blood pool. There is homogeneous tracer uptake by the liver. Activity progresses to the bowel and gallbladder. IMPRESSION: 1. Patent cystic duct and common duct. CT abd/pelvis w/contrast 08/08/2022: IMPRESSION: 1. Acute interstitial pancreatitis. Review of Systems 2 Constitutional: Constitutional: Reports as per HPI ENT: Reports as per HPI Cardiovascular: Cardiovascular: Reports as per HPI, Denies chest pain and Denies dyspnea Respiratory: Respiratory: Denies cough and Denies dyspnea Gastrointestinal: Gastrointestinal: Reports as per HPI Musculoskeletal: Musculoskeletal: Reports as per HPI Integumentary/Breasts: Skin/Breast: Reports as per HPI Psychiatric: Psychiatric: Reports as per HPI Endocrine: Endocrine: Reports no additional endocrine complaints Hematologic/Lymphatic: Hematologic/Lymphatic: Reports no additional hematologic/lymphatic complaints [facility] Past Medical History Medical History Acute on chronic pancreatitis Alcoholic pancreatitis Sleep apnea Depressive disorder, not elsewhere classified Infertility Hyperlipidemia Smoking Cardiac arrhythmia History of migraine headaches Blackout Dizziness and giddiness Chest pain Back pain Surgical History Surgical History No pertinent past surgical history Family History Family History Sibling Autoimmune disease Social History Social History Social History: former smoker. The patient has a significant Other. The patient recently lost his job. He is not currently working. The patient states that he drinks heavily at least 2-3 days a week which is more than 6 drinks at a time. Reports no alcohol since episode of pancreatitis in July 2022. States employed at present time. Code status full code Smoking status: Former smoker Alcohol intake: former Alcohol use details: reports no alcohol since episode of pancreatitis Substance use: never Substance use type: does not use Other substance usage details: QUIT 9 MONTHS AGO Do You Feel Safe in your Home?: Yes Lack of Transportation: No Lack of Food: Never True Current Housing: I Have Housing Concerned About Future Housing: No Difficulty Paying Gas/Electric Bills: YES Difficulty Paying for Meds: No Currently Unemployed: No Education: Associate Degree Difficulty w/ Childcare or Family Care: No Gender identity (if verbalized by the patient): Male Spiritual care concerns: No Meds Home Medications and Allergies Home Medications ?Medication ?Instructions ?Recorded ?Confirmed ?Type calcium carbonate 200 mg (0.4 x 500 mg calcium 06/23/24 09/29/24 Rx (1,250 mg)) PO Q6H PRN Indigestion #30 tabs pantoprazole 40 mg tablet,delayed 40 mg PO QAM #30 tabs 06/23/24 09/29/24 Rx release [id number]-[id number] 1 cap PO TID 09/29/24 09/29/24 History 10,000-32,000-42,000 unit capsule,delayed rel (Zenpep) Allergies Allergy/AdvReac Type Severity Reaction Status Date / Time bee venom protein (honey Allergy Swelling Verified 06/17/24 15:51 bee) (bees) wasp Allergy Swelling Uncoded 06/17/24 15:51 yellow jackets Allergy Swelling Uncoded 06/17/24 15:51 Vital Signs Vital Signs - 24 hr 09/30/24 14:00 09/30/24 20:00 09/30/24 22:00 Temperature 98 F 97 F L Pulse Rate 57 L 75 75 Respiratory Rate 16 16 16 Blood Pressure 118/48 L 141/68 H Pulse Oximetry 98 97 97 Oxygen Delivery Room Air 10/01/24 04:30 Temperature 97.3 F L Pulse Rate 67 Respiratory Rate 16 Blood Pressure 129/57 L Pulse Oximetry 92 Oxygen Delivery Exam 2 Const: General: cooperative, healthy appearing, comfortable, no acute distress and well developed Orientation/consciousness: oriented to person, oriented to place, oriented to time and patient oriented x3 HENMT: Head: normal to inspection, normocephalic and atraumatic Mouth: Yes Normal oral and palatal mucosa present and Yes moist mucous membranes Eyes: General: appearance normal, both eyes and all related structures C onjunctivae: conjunctivae normal Sclera: sclerae normal Pupils: Equal, round and reactive pupils present Neck: Neck: normal visual inspection Chest: Chest palpation & inspection: normal inspection of the chest Resp: Effort & Inspection: normal respiratory effort and able to speak in complete sentences Auscultation: clear to auscultation bilaterally Cardio: Jugular venous distension: no JVD Rate: regular rate Rhythm: r egular rhythm Heart sounds: S1 normal heart sound present and S2 normal heart sound present GI: Inspection: normal to inspection GI Palp: Yes Soft to palpation, Yes Tenderness to palpation present (GI) (epigastric ) and Yes No hepatosplenomegaly present Auscultation: normal bowel sounds Rectal Exam: deferred Skin: General skin exam: normal color and no rashes or lesions noted Neuro: General: oriented to person, oriented to place, oriented to time and patient oriented x3 Cranial nerves: Yes Equal, round and reactive pupils present Speech: normal speech Extrem: General: normal to inspection and no clubbing, cyanosis or edema Psych: Appearance: grossly normal and well kempt Affect: normal affect Results Labs 10/01/24 04:08 10/01/24 04:08 Labs: Short CBC 10/01/24 Range/Units 04:08 WBC 8.0 (4.5-10.0) K/mm3 Hgb 12.6 L (14.0-18.0) g/dL Hct 38.6 L (42.0-52.0) % Plt Count 201 (150-375) k/mm3 BMP 10/01/24 04:08 Sodium 139 Potassium 4.1 Chloride 108 H Carbon Dioxide 25 BUN 6 L Creatinine 0.90 Glucose 111 H Calcium 8.7 Liver Function 10/01/24 Range/Units 04:08 Total Bilirubin 0.3 (0.2-1.3) mg/dL AST 20 (17-59) U/L ALT 17 (6-50) U/L Alkaline Phosphatase 64 (38-126) U/L Albumin 3.1 L (3.5-5.1) g/dL
[2024-10-01] MEDS: SUCRALFATE SUSP 100 MG/ML 10 ML UDC 1000 MG PO ×3 (11:47→21:47)
--- NOTE | 2024-10-01 12:23 | P.PNIM_ITS ---
Progress Note: A&P Assessment and Plan (1) Acute on chronic pancreatitis: Code(s): K85.90 - Acute pancreatitis without necrosis or infection, unspecified; K86.1 - Other chronic pancreatitis Status: Acute Assessment and Plan: Patient is a 43-year-old male who was admitted due to acute on chronic pancreatitis. patient's labs unremarkable other than elevated lipase which on admission was 5726. patient was started on aggressive IV fluids, Toradol, and analgesics patient was just recently treated at [facility] for his GI provider is located at which time they did do a ERCP and HIDA scan GI doctor outpatient. CT abdomen showing acute on chronic pancreatitis with stable pancreatic pseudocyst. still unable to tolerated advancement of diet Lipase normal today 10/01/2024 * Consulted GI for evaluation or any further treatment options * Carafate added to meals * IV fluids * Lipase trending down * Liver enzymes normal * Advance diet to full today * analgesics PRN * Continued his creon * Continue PPI * Will plan follow-up with GI provider at [facility] (2) Median arcuate ligament syndrome: Code(s): I77.4 - Celiac artery compression syndrome Status: Acute Assessment and Plan: OF Note Patient reports he was recently diagnosed at [facility] attempting to schedule surgery outpatient. Plan Code status: Full code per patient DVT prophylaxis: Lovenox Stress ulcer prophylaxis: Protonix 40 daily PT/OT notes: Ambulatory Disposition: patient continues admission to medical unit for further treatment of acute continue with current treatment plan advance diet as tolerated. Time Spent With Patient Time with patient: 15 - 25 minutes Subjective Date/time seen: 10/01/24 12:23 Interval history: Patient is a 43-year-old male who was admitted overnight seen assessed by previous provider same day due to acute on chronic pancreatitis. patient's labs unremarkable other than elevated lipase which on admission was 5726. 10/01/2024: Patient still with complaints of moderate mid epigastric pain was unable to tolerate advancement of diet reported and vomit x 1 overnight when he attempted to eat. Lipase is normal on labs this morning will consult GI for evaluation and any further suggestions but likely due to his MALS added Carafate. Review of Systems Review of Systems: All systems reviewed & are unremarkable except as noted in HPI and below (Subjective/HPI) Exam Const: General: comfortable and no acute distress Other: A&O times 2-3 HENMT: Mouth: Yes moist mucous membranes Eyes: Pupils: Equal, round and reactive pupils present Neck: Neck: supple Resp: Effort & Inspection: normal respiratory effort Auscultation: clear to auscultation bilaterally Cardio: Rate: regular rate Rhythm: regular rhythm GI: Auscultation: normal bowel sounds Other: Slight distension, tender to deep palpation of the right lower and upper quadrant. : General: Yes bladder normal to palpation Neuro: General: deep tendon reflexes 2+ bilaterally Cranial nerves: Yes Equal, round and reactive pupils present Speech: normal speech Motor exam (neuro): 5/5 motor strength present throughout Sensory Exam: normal sensation Extrem: General: no edema Objective Data Vital Signs Vital Signs: Vital Signs - 24 hr 09/30/24 14:00 09/30/24 20:00 09/30/24 22:00 Temperature 98 F 97 F L Pulse Rate 57 L 75 75 Respiratory Rate 16 16 16 Blood Pressure 118/48 L 141/68 H Pulse Oximetry 98 97 97 Oxygen Delivery Room Air 10/01/24 04:30 10/01/24 08:45 Temperature 97.3 F L Pulse Rate 67 Respiratory Rate 16 Blood Pressure 129/57 L Pulse Oximetry 92 Oxygen Delivery Room Air Intake/Output Intake/Output: Intake & Output 09/28/24 09/29/24 09/30/24 10/01/24 23:59 23:59 23:59 23:59 Intake Total 2900 2394.6 3510 2060 Output Total 1900 3250 900 Balance 2900 494.6 260 1160 Meds/Results Medications: Active Medications Generic Name Dose Route Start Last Admin Trade Name Freq PRN Reason Stop Dose Admin Lipase/Protease/Amylase 1 cap 09/29/24 09:35 10/01/24 11:47 Lipase/Amylase/Protease 12,000 Units Cap PO 10/29/24 09:34 Not Given TID OSCAR Calcium Carbonate 200 mg 10/01/24 00:48 10/01/24 08:43 Calcium Carbonate (Tums) 500 Mg (200 Mg Elemental) PO 200 mg Q6H PRN Administration Indigestion Diphenhydramine HCl 25 mg 09/29/24 15:15 10/01/24 01:11 Diphenhydramine Hcl Inj 50 Mg/Ml Vial IV PUSH 25 mg Q4H PRN Administration Itching Enoxaparin Sodium 40 mg 09/29/24 09:00 10/01/24 08:47 Enoxaparin 40 Mg/0.4 Ml Syringe SUB-Q Not Given DAILY OSCAR Hydromorphone HCl 2 mg 09/29/24 12:20 10/01/24 08:42 Hydromorphone Hcl Inj (*Crx) 2 Mg/Ml Vial IV PUSH 2 mg Q4H PRN Administration Pain Rated 7-10 Hydroxyzine HCl 25 mg 09/29/24 15:15 09/30/24 04:53 Hydroxyzine Hcl 25 Mg Tablet PO 25 mg Q6H PRN Administration Itching Ketorolac Tromethamine 30 mg 09/28/24 23:52 10/01/24 00:59 Ketorolac 30 Mg/Ml Vial (*Bkc) IV PUSH 10/03/24 23:51 30 mg Q6H PRN Administration Pain Rated 4-6 Ondansetron HCl 4 mg 09/28/24 23:52 10/01/24 08:42 Ondansetron Inj 4 Mg/2 Ml Vial IV PUSH 4 mg Q4H PRN Administration Nausea Pantoprazole Sodium 40 mg 09/29/24 09:00 10/01/24 08:41 Pantoprazole 40 Mg Tablet PO 40 mg QAM OSCAR Administration Sucralfate 1,000 mg 10/01/24 11:30 10/01/24 11:47 Sucralfate Susp 100 Mg/Ml 10 Ml Udc PO 1,000 mg ACHS OSCAR Administration Radiology Results: ITS Impressions Abdomen/Pelvis CT 09/28/24 20:09 IMPRESSION: Acute on chronic pancreatitis. Stable pancreatic pseudocysts. Urinary bladder wall thickening may be secondary to incomplete distention, cystitis, or chronic outlet obstruction. Labs Labs: Laboratory Results - last 24 hr 10/01/24 04:08 WBC 8.0 RBC 4.07 L Hgb 12.6 L Hct 38.6 L MCV 94.8 MCH 31.0 MCHC 32.6 RDW 13.2 Plt Count 201 MPV 10.4 Sodium 139 Potassium 4.1 Chloride 108 H Carbon Dioxide 25 Anion Gap 6 BUN 6 L Creatinine 0.90 Estim Creat Clear Calc 118 Estimated GFR > 60 Glucose 111 H Calcium 8.7 Magnesium 2.0 Total Bilirubin 0.3 AST 20 ALT 17 Alkaline Phosphatase 64 Total Protein 5.8 L Albumin 3.1 L Lipase 235 Quality VTE Prophylaxis VTE prophylaxis: pharmacologic ordered -Patient's previous records reviewed on admission -ER notes reviewed in detail on admission -discussed all findings and current treatment plan with patient/Family/POA -Consultations reviewed for recommendations -Patient's disposition for safe discharge discussed with rn case management Dictation performed by [employer] direct speech recognition software, therefore supervisor sunglasses variants and typographical errors may occur. Hospitalist MIPS Advance Care Plan I have confirmed that the patient's Advanced Care Plan is present, code status is documented, or surrogate decision maker is listed in patient medical record.: Yes Medication Reconciliation I have utilized all available resources to obtain, update and review the patients current medications (includes all prescriptions, OTC, herbals, cannabis, and nutritional supplements).: Yes The patient is not eligible for med reconciliation; the patient is in a emergent medical situation where delaying treatment would jeopardize the patients health.: No
[2024-10-01 14:00] VITALS: BP 132/66; PULSE 57; RESP 18; TEMP 36.2; O2SAT 96
[2024-10-01 20:00] VITALS: PULSE 60; RESP 18; O2SAT 94
[2024-10-01 22:00] VITALS: BP 137/67; PULSE 70; RESP 16; TEMP 36.6; O2SAT 100
[2024-10-02] VITALS (7 sets, daily range): BP systolic 85–124; BP diastolic 37–66; PULSE 51–64; RESP 13–20; TEMP 36.1–36.8; O2SAT 92–97
[2024-10-02 04:55] LABS: Hematocrit 37.5 % (42.0-52.0); Hemoglobin 12.6 g/dL (14.0-18.0); Mean Corpuscular HGB Conc 33.6 g/dl (32-36); Mean Corpuscular Hemoglobin 31.0 pg (26-34); Mean Corpuscular Volume 92.4 fl (80-100); Platelet Count Result 183 k/mm3 (150-375); Red Blood Count 4.06 M/mm3 (4.6-6.20); White Blood Count 4.9 K/mm3 (4.5-10.0)
[2024-10-02 05:14] LABS: Alanine Aminotransferase 18 U/L (6-50); Albumin Level 3.2 g/dL (3.5-5.1); Alkaline Phosphatase 67 U/L (38-126); Anion Gap 4 mmol/L (4-12); Aspartate Amino Transferase 23 U/L (17-59); Bilirubin,Total 0.2 mg/dL (0.2-1.3); Blood Urea Nitrogen 9 mg/dL (9-20); Calcium 9.2 mg/dL (8.4-10.2); Carbon Dioxide 29 mmol/L (22-30); Chloride 103 mmol/L (98-107); Estimated CRCL calculation 114 ml/min; Estimated Glomerular Filt Rate > 60; Glucose 115 mg/dL (65-110); Magnesium 1.8 mg/dL (1.6-2.3); Potassium 4.0 mmol/L (3.4-5.0); Sodium 136 mmol/L (137-145); Total Protein 5.9 g/dL (6.3-8.2)
--- NOTE | 2024-10-02 11:55 | P.PNIM_ITS ---
Progress Note: A&P Assessment and Plan (1) Acute on chronic pancreatitis: Code(s): K85.90 - Acute pancreatitis without necrosis or infection, unspecified; K86.1 - Other chronic pancreatitis Status: Acute Assessment and Plan: Patient is a 43-year-old male who was admitted due to acute on chronic pancreatitis. patient's labs unremarkable other than elevated lipase which on admission was 5726. patient was started on aggressive IV fluids, Toradol, and analgesics patient was just recently treated at [facility] for his GI provider is located at which time they did do a ERCP and HIDA scan GI doctor outpatient. CT abdomen showing acute on chronic pancreatitis with stable pancreatic pseudocyst. still unable to tolerated advancement of diet Lipase normal today 10/01/2024 * Consulted GI for evaluation or any further treatment options * Carafate added to meals * IV fluids * Lipase trending down * Liver enzymes normal * Advance diet to full today * analgesics PRN * Continued his creon * Continue PPI * Will plan follow-up with GI provider at [facility] (2) Median arcuate ligament syndrome: Code(s): I77.4 - Celiac artery compression syndrome Status: Acute Assessment and Plan: OF Note Patient reports he was recently diagnosed at [facility] attempting to schedule surgery outpatient. Plan ? GI bleed patient complained of hematemesis yesterday, unwitnessed For EGD today Code status: Full code per patient DVT prophylaxis: Lovenox Stress ulcer prophylaxis: Protonix 40 daily PT/OT notes: Ambulatory Disposition: patient continues admission to medical unit for further treatment of acute continue with current treatment plan advance diet as tolerated. Subjective Date/time seen: 10/02/24 11:55 Interval history: Comfortable at bedside for EGD today Review of Systems Review of Systems: All systems reviewed & are unremarkable except as noted in HPI and below (Subjective/HPI) Exam Const: General: comfortable and no acute distress Other: A&O times 2-3 HENMT: Mouth: Yes moist mucous membranes Eyes: Pupils: Equal, round and reactive pupils present Neck: Neck: supple Resp: Effort & Inspection: normal respiratory effort Auscultation: clear to auscultation bilaterally Cardio: Rate: regular rate Rhythm: regular rhythm GI: Auscultation: normal bowel sounds Other: Slight distension, tender to deep palpation of the right lower and upper quadrant. : General: Yes bladder normal to palpation Neuro: General: deep tendon reflexes 2+ bilaterally Cranial nerves: Yes Equal, round and reactive pupils present Speech: normal speech Motor exam (neuro): 5/5 motor strength present throughout Sensory Exam: normal sensation Extrem: General: no edema Objective Data Vital Signs Vital Signs: Vital Signs - 24 hr 10/01/24 14:00 10/01/24 20:00 10/01/24 22:00 Temperature 97.1 F L 97.9 F Pulse Rate 57 L 60 70 Respiratory Rate 18 18 16 Blood Pressure 132/66 137/67 Pulse Oximetry 96 94 100 Oxygen Delivery Room Air 10/02/24 06:52 10/02/24 08:00 Temperature 97 F L Pulse Rate 60 Respiratory Rate 18 Blood Pressure 115/60 Pulse Oximetry 94 Oxygen Delivery Room Air Intake/Output Intake/Output: Intake & Output 09/29/24 09/30/24 10/01/24 10/02/24 23:59 23:59 23:59 23:59 Intake Total 2394.6 3510 3790 200 Output Total 1900 3250 3150 1300 Balance 494.6 260 640 -1100 Meds/Results Medications: Active Medications Generic Name Dose Route Start Last Admin Trade Name Freq PRN Reason Stop Dose Admin Lipase/Protease/Amylase 1 cap 09/29/24 09:35 10/02/24 08:13 Lipase/Amylase/Protease 12,000 Units Cap PO 10/29/24 09:34 Not Given TID OSCAR Calcium Carbonate 200 mg 10/01/24 00:48 10/01/24 08:43 Calcium Carbonate (Tums) 500 Mg (200 Mg Elemental) PO 200 mg Q6H PRN Administration Indigestion Diphenhydramine HCl 25 mg 09/29/24 15:15 10/02/24 00:49 Diphenhydramine Hcl Inj 50 Mg/Ml Vial IV PUSH 25 mg Q4H PRN Administration Itching Enoxaparin Sodium 40 mg 09/29/24 09:00 10/02/24 08:13 Enoxaparin 40 Mg/0.4 Ml Syringe SUB-Q Not Given DAILY OSCAR Hydromorphone HCl 2 mg 09/29/24 12:20 10/01/24 21:48 Hydromorphone Hcl Inj (*Crx) 2 Mg/Ml Vial IV PUSH 2 mg Q4H PRN Administration Pain Rated 7-10 Hydroxyzine HCl 25 mg 09/29/24 15:15 09/30/24 04:53 Hydroxyzine Hcl 25 Mg Tablet PO 25 mg Q6H PRN Administration Itching Ketorolac Tromethamine 30 mg 09/28/24 23:52 10/01/24 15:10 Ketorolac 30 Mg/Ml Vial (*Bkc) IV PUSH 10/03/24 23:51 30 mg Q6H PRN Administration Pain Rated 4-6 Ondansetron HCl 4 mg 09/28/24 23:52 10/01/24 17:28 Ondansetron Inj 4 Mg/2 Ml Vial IV PUSH 4 mg Q4H PRN Administration Nausea Pantoprazole Sodium 40 mg 09/29/24 09:00 10/02/24 08:13 Pantoprazole 40 Mg Tablet PO Not Given QAM OSCAR Sucralfate 1,000 mg 10/01/24 11:30 10/02/24 08:13 Sucralfate Susp 100 Mg/Ml 10 Ml Udc PO Not Given ACHS [facility] Radiology Results: ITS Impressions Abdomen/Pelvis CT 09/28/24 20:09 IMPRESSION: Acute on chronic pancreatitis. Stable pancreatic pseudocysts. Urinary bladder wall thickening may be secondary to incomplete distention, cystitis, or chronic outlet obstruction. Labs Labs: Laboratory Results - last 24 hr 10/02/24 04:11 WBC 4.9 RBC 4.06 L Hgb 12.6 L Hct 37.5 L MCV 92.4 MCH 31.0 MCHC 33.6 RDW 13.0 Plt Count 183 MPV 10.5 H Sodium 136 L Potassium 4.0 Chloride 103 Carbon Dioxide 29 Anion Gap 4 BUN 9 Creatinine 0.93 Estim Creat Clear Calc 114 Estimated GFR > 60 Glucose 115 H Calcium 9.2 Magnesium 1.8 Total Bilirubin 0.2 AST 23 ALT 18 Alkaline Phosphatase 67 Total Protein 5.9 L Albumin 3.2 L Quality VTE Prophylaxis VTE prophylaxis: pharmacologic ordered
[2024-10-02] MEDS: LACTATED RINGERS 1,000 ML 150 ML IV CONT (12:40)
[2024-10-02] MEDS: SIMETHICONE ORAL SUSPENSION 20 MG/0.3 ML 30 ML BOTTLE 1.8 ML PO (12:44)
--- NOTE | 2024-10-02 12:58 | WPDANESEPPF ---
Anes - Initial Pre Proc Eval Procedure: Operation Date: 10/02/24 13:00 Proposed Procedures p Esophagogastroduodenoscopy - Be Carranza MD Date/Time: 10/02/24 12:58 Surgeon: Milagros Erickson MD Pre Op Diagnosis: acute on chronic pancreatitis Patient Data Age: 43 Gender: M Height: 1.98 m Weight: 96.9 kg Last Vital Signs Temp 98.2 F 10/02/24 12:34 Pulse 64 10/02/24 12:34 Resp 18 10/02/24 12:34 BP 124/66 10/02/24 12:34 Pulse Ox 95 10/02/24 12:34 O2 Del Method Room Air 10/02/24 12:34 Allergies Allergy/AdvReac Type Severity Reaction Status Date / Time bee venom protein (honey Allergy Swelling Verified 06/17/24 15:51 bee) (bees) wasp Allergy Swelling Uncoded 06/17/24 15:51 yellow jackets Allergy Swelling Uncoded 06/17/24 15:51 Home Medications ?Medication ?Instructions ?Recorded ?Confirmed ?Type calcium carbonate 200 mg (0.4 x 500 mg calcium 06/23/24 09/29/24 Rx (1,250 mg)) PO Q6H PRN Indigestion #30 tabs pantoprazole 40 mg tablet,delayed 40 mg PO QAM #30 tabs 06/23/24 09/29/24 Rx release gouijq-bideosal-mctlwkj 1 cap PO TID 09/29/24 09/29/24 History 10,000-32,000-42,000 unit capsule,delayed rel (Zenpep) Laboratory Tests 10/02/24 04:11 WBC 4.9 K/mm3 (4.5-10.0) RBC 4.06 L M/mm3 (4.6-6.20) Hgb 12.6 L g/dL (14.0-18.0) Hct 37.5 L % (42.0-52.0) MCV 92.4 fl (80-100) MCH 31.0 pg (26-34) MCHC 33.6 g/dl (32-36) RDW 13.0 % (11.5-14.5) Plt Count 183 k/mm3 (150-375) MPV 10.5 H fl (7.4-10.4) Sodium 136 L mmol/L (137-145) Potassium 4.0 mmol/L (3.4-5.0) Chloride 103 mmol/L (98-107) Carbon Dioxide 29 mmol/L (22-30) Anion Gap 4 mmol/L (4-12) BUN 9 mg/dL (9-20) Creatinine 0.93 mg/dL (0.7-1.3) Estim Creat Clear Calc 114 ml/min Estimated GFR > 60 (59 - ) Glucose 115 H mg/dL (65-110) Calcium 9.2 mg/dL (8.4-10.2) Magnesium 1.8 mg/dL (1.6-2.3) Total Bilirubin 0.2 mg/dL (0.2-1.3) AST 23 U/L (17-59) ALT 18 U/L (6-50) Alkaline Phosphatase 67 U/L (38-126) Total Protein 5.9 L g/dL (6.3-8.2) Albumin 3.2 L g/dL (3.5-5.1) Patient hx anesthesia problems: none Family hx anesthesia problems: none Results Review: All pre-operative results and documents have been reviewed as part of the pre-operative evaluation. [facility] Past Medical History Medical History Acute on chronic pancreatitis Alcoholic pancreatitis Sleep apnea Depressive disorder, not elsewhere classified Infertility Hyperlipidemia Smoking Cardiac arrhythmia History of migraine headaches Blackout Dizziness and giddiness Chest pain Back pain Surgical History Surgical History No pertinent past surgical history Family History Family History Sibling Autoimmune disease Social History Social History Social History: former smoker. The patient has a significant Other. The patient recently lost his job. He is not currently working. The patient states that he drinks heavily at least 2-3 days a week which is more than 6 drinks at a time. Reports no alcohol since episode of pancreatitis in July 2022. States employed at present time. Code status full code Smoking status: Former smoker Alcohol intake: former Alcohol use details: reports no alcohol since episode of pancreatitis Substance use: never Substance use type: does not use Other substance usage details: QUIT 9 MONTHS AGO Do You Feel Safe in your Home?: Yes Lack of Transportation: No Lack of Food: Never True Current Housing: I Have Housing Concerned About Future Housing: No Difficulty Paying Gas/Electric Bills: YES Difficulty Paying for Meds: No Currently Unemployed: No Education: Associate Degree Difficulty w/ Childcare or Family Care: No Gender identity (if verbalized by the patient): Male Spiritual care concerns: No Anes - Eval Final PreProcedure Day of Procedure 10/02/24 12:58 Patient weight: normal Lungs: normal air movement Airway: Mallampati scale class II Neurological: alert and oriented Last oral intake: >/= 8 hours ASA classification: III Emergent: no Anesthetic plan: proceed Anesthesia type and monitoring: general GIVS and standard monitoring Results Review: All pre-operative results and documents have been reviewed as part of the pre-operative evaluation. Anxiety, hx of ETOH use/abuse, hyperlipidemia, BRENDA but not using CPAP. Now for eval to r/o ulcer. Informed Consent: The patient's anesthetic plan and its attendant risks and benefits were discussed with the patient/family/POA. Questions were solicited and answers provided to the satisfaction of the patient/family/POA.
--- NOTE | 2024-10-02 13:34 | WPDGIPROGNO ---
Progress Note: A&P Assessment and Plan (1) Epigastric pain: Code(s): R10.13 - Epigastric pain Status: Acute Assessment and Plan: The recent EGD revealed no abnormalities, specifically ruling out peptic ulcer disease and gastric neoplasia. Despite this, the patient's epigastric pain persists, and he has demonstrated an intolerance to a regular diet, necessitating a return to a full liquid diet. A formal referral has been initiated to [facility] to address Median Arcuate Ligament Syndrome (MALS), which appears to be a significant contributing factor to his current symptoms alongside his rtldk-ln-bndchzp pancreatitis. We do not anticipate dietary progression until his chronic pancreatitis exacerbations are comprehensively evaluated (e.g., via endoscopic ultrasound) and potential surgical intervention for MALS is considered. Subjective Date/time seen: 10/02/24 13:34 Objective Data Vital Signs Vital Signs: Vital Signs - 24 hr 10/01/24 14:00 10/01/24 20:00 10/01/24 22:00 Temperature 97.1 F L 97.9 F Pulse Rate 57 L 60 70 Respiratory Rate 18 18 16 Blood Pressure 132/66 137/67 Pulse Oximetry 96 94 100 Oxygen Delivery Room Air 10/02/24 06:52 10/02/24 08:00 10/02/24 12:34 Temperature 97 F L 98.2 F Pulse Rate 60 64 Respiratory Rate 18 18 Blood Pressure 115/60 124/66 Pulse Oximetry 94 95 Oxygen Delivery Room Air Room Air Intake/Output Intake/Output: Intake & Output 09/29/24 09/30/24 10/01/24 10/02/24 23:59 23:59 23:59 23:59 Intake Total 2394.6 3510 3790 200 Output Total 1900 3250 3150 1300 Balance 494.6 260 640 -1100 Meds/Results Medications: Active Medications Generic Name Dose Route Start Last Admin Trade Name Freq PRN Reason Stop Dose Admin Lipase/Protease/Amylase 1 cap 09/29/24 09:35 10/02/24 12:42 Lipase/Amylase/Protease 12,000 Units Cap PO 10/29/24 09:34 Not Given TID OSCAR Calcium Carbonate 200 mg 10/01/24 00:48 10/01/24 08:43 Calcium Carbonate (Tums) 500 Mg (200 Mg Elemental) PO 200 mg Q6H PRN Administration Indigestion Diphenhydramine HCl 25 mg 09/29/24 15:15 10/02/24 00:49 Diphenhydramine Hcl Inj 50 Mg/Ml Vial IV PUSH 25 mg Q4H PRN Administration Itching Enoxaparin Sodium 40 mg 09/29/24 09:00 10/02/24 08:13 Enoxaparin 40 Mg/0.4 Ml Syringe SUB-Q Not Given DAILY OSCAR Hydromorphone HCl 2 mg 09/29/24 12:20 10/01/24 21:48 Hydromorphone Hcl Inj (*Crx) 2 Mg/Ml Vial IV PUSH 2 mg Q4H PRN Administration Pain Rated 7-10 Hydroxyzine HCl 25 mg 09/29/24 15:15 09/30/24 04:53 Hydroxyzine Hcl 25 Mg Tablet PO 25 mg Q6H PRN Administration Itching Lactated Ringer's 1,000 mls @ 150 mls/hr 10/02/24 12:30 10/02/24 13:29 Lr - Lactated Ringers Iv IV CONT 150 mls/hr .Q6H40M [facility] Infusion Ketorolac Tromethamine 30 mg 09/28/24 23:52 10/01/24 15:10 Ketorolac 30 Mg/Ml Vial (*Bkc) IV PUSH 10/03/24 23:51 30 mg Q6H PRN Administration Pain Rated 4-6 Ondansetron HCl 4 mg 09/28/24 23:52 10/01/24 17:28 Ondansetron Inj 4 Mg/2 Ml Vial IV PUSH 4 mg Q4H PRN Administration Nausea Pantoprazole Sodium 40 mg 09/29/24 09:00 10/02/24 08:13 Pantoprazole 40 Mg Tablet PO Not Given QAM [facility] Sucralfate 1,000 mg 10/01/24 11:30 10/02/24 08:13 Sucralfate Susp 100 Mg/Ml 10 Ml Udc PO Not Given ACHS [facility] Radiology Results: ITS Impressions Abdomen/Pelvis CT 09/28/24 20:09 IMPRESSION: Acute on chronic pancreatitis. Stable pancreatic pseudocysts. Urinary bladder wall thickening may be secondary to incomplete distention, cystitis, or chronic outlet obstruction. Labs Labs: Laboratory Results - last 24 hr 10/02/24 04:11 WBC 4.9 RBC 4.06 L Hgb 12.6 L Hct 37.5 L MCV 92.4 MCH 31.0 MCHC 33.6 RDW 13.0 Plt Count 183 MPV 10.5 H Sodium 136 L Potassium 4.0 Chloride 103 Carbon Dioxide 29 Anion Gap 4 BUN 9 Creatinine 0.93 Estim Creat Clear Calc 114 Estimated GFR > 60 Glucose 115 H Calcium 9.2 Magnesium 1.8 Total Bilirubin 0.2 AST 23 ALT 18 Alkaline Phosphatase 67 Total Protein 5.9 L Albumin 3.2 L
--- NOTE | 2024-10-02 14:43 | P.DS_ITS ---
DS: Admitting Diagnosis Discharge Date 10/02/2024 Admitting Diagnosis abd pain DS: Discharge Diagnosis Discharge Diagnosis (1) Median arcuate ligament syndrome: Code(s): I77.4 - Celiac artery compression syndrome Status: Acute DS: Summary Hospital Course Hospital Course: The patient, a 43-year-old male with a history of alcohol use disorder and chronic pancreatitis, was admitted with worsening abdominal pain, which he suspected was due to pancreatitis. Initial evaluation revealed elevated lipase levels (5700 U/L) and a CT scan confirmed acute on chronic pancreatitis with a stable pancreatic pseudocyst. The patient was managed with aggressive IV fluids, Toradol, and analgesics. His lipase levels trended downwards, and liver enzymes remained normal. The patient also reported symptoms consistent with Median Arcuate Ligament Syndrome, for which he was recently diagnosed and is planning outpatient surgical intervention. During the hospital stay, he experienced an episode of hematemesis (unwitnessed) and EGD today revealed no abnormalities. Patient was placed on NPO and gradually transitioned to regular diet which he tolerated before today.. S/p IVF. Discharge Condition: The patient is stable at discharge, with improved pain control and normalized lipase levels. He is coherent Continue PRN pain control with Hydrocodone/Tylenol 7.5mg/325mg q6 pRN with total of 10 tablets Follow-Up Appointments: * [facility] for MALS evaluation setup by GIDr Carranza * F/u with PCP in 3-5 days Time Spent with Patient Time attestation: Total time spent providing and/or coordinating discharge services: DS: Data Data Completed and Pending Labs on day of discharge: Labs from last 24 hours 10/02/24 04:11 WBC 4.9 RBC 4.06 L Hgb 12.6 L Hct 37.5 L MCV 92.4 MCH 31.0 MCHC 33.6 RDW 13.0 Plt Count 183 MPV 10.5 H Sodium 136 L Potassium 4.0 Chloride 103 Carbon Dioxide 29 Anion Gap 4 BUN 9 Creatinine 0.93 Estim Creat Clear Calc 114 Estimated GFR > 60 Glucose 115 H Calcium 9.2 Magnesium 1.8 Total Bilirubin 0.2 AST 23 ALT 18 Alkaline Phosphatase 67 Total Protein 5.9 L Albumin 3.2 L Discharge Plan Discharge Attending physician on discharge: Ирина Oakley Consulting providers: Fatmata Lopez; Tere,Be M. Discharging Clinician: Ирина Oakley Anticipated Discharge Date/Time: 10/02/24 14:27 Patient Disposition: Home Activity: as tolerated Diet: as tolerated and regular Discharge Instructions: continue follow with [facility] as referred by GI Patient Instructions: Antibiotic Form Patient Language: Irish Stand Alone Forms: General Discharge Information Follow-up/Referrals: Be Carranza MD [Physician] - (F/u with GI as instructed continue follow with [facility] GI as referred by GI) Seng,BETTY Morin [Primary Care Provider] - (F/u with PCP in 3-5 days ) Discharge Medications: New hydrocodone-acetaminophen 7.5-325 mg tablet 1 tablet PO Q6H PRN (Reason: pain) 5 Days Qty: 10 0RF Continued Zenpep 10,000-32,000 -42,000 unit capsule,delayed release(DR/EC) 1 cap PO TID pantoprazole 40 mg Tablet,Delayed Release (Dr/Ec) 40 mg PO QAM Qty: 30 0RF calcium carbonate 500 mg calcium (1,250 mg) Tablet,Chewable 200 mg PO Q6H PRN (Reason: Indigestion) Qty: 30 0RF Date of admission: 09/28/24 23:52 Primary Care Provider: Seng,Ani Nelson Admitting Provider: Milagros Erickson Attending physician on admission: Milagros Erickson Condition: Stable
[2024-10-02] MEDS: ONDANSETRON INJ 4 MG/2 ML VIAL IV PUSH (16:40)
[2024-10-02] MEDS: HYDROmorphone HCL INJ (*CRX) 2 MG/ML VIAL IV PUSH (16:40)
[2024-10-02] MEDS: SUCRALFATE SUSP 100 MG/ML 10 ML UDC 1000 MG PO (16:41)
== END 2024-10-02 18:05 | disposition home or self-care (01) ==
LOC: ANHED 23:54 → ANH2MED 09-29 08:49
PROVIDERS: Internal Medicine Gastroenterology; Nurse Practitioner Family; Admitting Provider General Practice; Emergency Provider Registered Nurse; PCP Nurse Practitioner; Visit Provider Internal Medicine
PROC: 0DJ08ZZ Inspection of Upper Intestinal Tract, Via Natural or Artificial Opening Endoscopic (ICD-10-PCS; CPT 43235; principal; 2024-10-02 13:00)
DX: K85.90 Acute pancreatitis without necrosis or infection, unspecified (principal); I77.4 Celiac artery compression syndrome; K86.3 Pseudocyst of pancreas; K86.1 Other chronic pancreatitis; F10.11 Alcohol abuse, in remission; R74.8 Abnormal levels of other serum enzymes; Z87.891 Personal history of nicotine dependence; E78.5 Hyperlipidemia, unspecified
CPT/HCPCS: 43235; 36415; 74177; 80053; 80307; 81003; 82077; 83605; 83690; 83735; 84100; 84484; 85025; 85027; 85610; 85730; 93005; 96361; 96374; 96375; 96376; 99285; A9270; G0378; G0379; J1171; J1200; J1650; J1885; J2003; J2250; J2405; J2704; J7030; J7120; Q9967

== ENCOUNTER 2024-10-25 19:59 | Emergency (ER) | payer OTHER, SELFPAY ==
--- NOTE | ~2024-10-25 | CT_ITS ---
EXAMINATION: CT abdomen pelvis w con DATE: 10/26/2024 05:02 INDICATION: Chronic pancreatitis TECHNIQUE: Computed tomography (CT) of the abdomen and pelvis was performed with 100 cc Omnipaque 350 intravenous contrast. The dose-length product was 908.28 mGy-cm. Automated exposure control and iter ative reconstruction technique were employed. COMPARISON: CT dated 09/28/2024. FINDINGS: Lung bases unremarkable. Heart size normal. No significant pleural or pericardial effusion. Stable hypodense mass is pancreatic tail, largest measuring 2.6 cm. The liver, spleen, adrenal gland s and kidneys are unremarkable. No evidence for acute pancreatitis. Gallbladder is present. Nonobstru ctive bowel gas pattern. No abnormal pelvic masses or fluid collections. There is disc narrowing and endplate degenerative change at L5-S1. IMPRESSION: 1. Stable hypodense masses of the pancreatic tail, largest measuring 2.6 cm. Given clinical history t his likely represents a pancreatic pseudocyst. No evidence for acute pancreatitis. 2: No acute abdominal abnormality is identified. Reviewed, dictated and finalized at location A. IMPRESSION: 1. Stable hypodense masses of the pancreatic tail, largest measuring 2.6 cm. Gi viviana clinical history this likely represents a pancreatic pseudocyst. No evidenc e for acute pancreatitis. 2: No acute abdominal abnormality is identified.
--- OUTSIDE RECORDS SUMMARY | 2024-10-25 20:02 | XMS_ITS | Encounter Summary ---
Author Organization [facility] Address [address] [place] [address] Care Team Providers Care Blood Bank Booking Clerk Name Role Phone Ani Ellsworth NP Primary Care Provider [phone] Encounter Details Date Type Department Care Team (Late st Contact Info) Description 06/20/[address] [facility] [address] [facility] Family Medicine - [place] [address] [facility] [address] [place] [address] Ani Ellsworth NP [address] [place] [address] [place] [address] Follow up Social History Tobacco Use Types Packs/Day Years Used Date Smoking Tobacco: Former Cigarettes 2 26 0 08/24/1993 - 08/25/2019 Passive Smoke Exposure: Past Smokeless Tobacco: Never Alcohol Use Standard Drinks/Week Comments Yes 0 (1 standard drink = 0.6 oz pur e alcohol) rare [facility] Utilities Answer Date Recorded In the past 12 months has e [employer], gas, oil, or water [employer] threatened to shut off services in your [...] any clubs o r organizations such as jain groups, unions, fraternal or athletic groups, or [...] Recorded Patient Health Questionnaire-2 Score 0 06/24/2023 [facility] of Occupat ionla Health - Occupational Stress Questionnaire Answer Date [...] place to sleep or slept in a correction (including now)? No 06/13/2023 Sex and Gender [...] Rule Out 03/16/2024 03/16/2024 03/16/2024 1:26 PM TECHNICAL HEALTHCARE CONSULTANT Assessment Noted Time PHQ-9 Depression Total Score: 13 024 1:09 PM CDT documented as of this encounter Care Teams Blood Bank Booking Clerk Relationship Specialty Start Date End Date Ani Ellsworth NP [address] [place] [id number] PCP - General NURSE PRACTITIONER 06/13/23 documented as of this encounter
--- OUTSIDE RECORDS SUMMARY | 2024-10-25 20:02 | XMS_ITS | Encounter Summary ---
Author Organization [facility] Address [address] [place] [address] Care Team Providers Care Copy Writer Name Role Phone Ani Ellsworth NP Primary Care Provider [phone] Encounter Details Date Type Department Care Team (Late st Contact Info) Description 02/24/[address] [facility] Family Medicine - [place] [address] [place] [address] [phone] Michelle Cook MD [address] [place] [address] [phone] Pain Social History Tobacco Use Types Packs/Day [...] from your doctor or pharmacy? Never 10/03/2023 [facility] Utilities Answer Date Recorded In [...] Never 01/06/2024 How often do you attend hinduism or islam serv ices? Never 01/06/2024 Do you belong to any clubs o r organizations such as hinduism groups, unions, fraternal or athletic groups, or [...] Recorded Patient Health Questionnaire-2 Score 1 01/31/2024 [facility] [place] of Occupat ional Health - Occupational Stress [...] health care facility (including now)? No 06/13/2023 Housing Stability Vital Sign Answer Ciro e Recorded In the last 12 months, was t here a time when you were not able to pay the mortgage or rent on time? No 01/06/2024 In the past 12 months, how m any times have you moved where you were living? 0 01/06/2024 At any time in the past 12 m [facility], were you homeless or living in a [place] health care facility (including now)? No 01/06/2024 Sex and Gender [...] he needs to go to the ER. OLE BASTER JUMPBASTING documented in this encounter Plan of Treatment [...] Rule Out 03/16/2024 03/16/2024 03/16/2024 1:26 PM ARMHOLE BASTER JUMPBASTING Assessment Noted Time PHQ-9 Depression Total Score: 13 04/04/2 024 1:09 PM CDT documented as of this encounter Care Teams Copy Writer Relationship Specialty Start Date End Date Ani Ellsworth NP [address] [place] [address] PCP - General NURSE PRACTITIONER 06/13/23 documented as of this encounter
--- OUTSIDE RECORDS SUMMARY | 2024-10-25 20:02 | XMS_ITS | Clinical Summary ---
Author Organization [facility] Address [address] [place] [address] Care Team Providers Care Wireless Communications Engineer Name Role Phone Stan Cooper Primary Care Provider Unavailab le Source Comments [facility],non-owned Affiliates and Associated Physician Practices is amultiple site organization consisting of ambulatory clinics and hospital sitesin [place], [place], [place] and [place]. This disclosure is being madepursuant to the Care Everywhere program and may not contain all information available regarding this patient. Last updated 17.[facility] Allergies Active Allergy Reactions Criticality Noted Date Comments Aspirin Rash Medium 09/03/2018 Medications * Be aware that medications may not be up to date on this document. Alwaysverify current medications with the patient. fenofibrate (LOFIBRA) 54 MG tablet TAKE 1 TABLET BY MOUTH EVERY DAY IN THE MORNING 06/26/2020 Active Encounters Date Type Department Care Team Description 10/16/2024 Travel 08/14/2024 Telephone [facility] Pain Care [address] [place] [address] Dana Mccormack, BREWERY WORKER-[facility] Appointment 07/26/2024 Telephone [facility] [address] [place] [phone] Kaci Martinez Procedure (Eus Needed) from Last 3 Months Social History Tobacco Use Types Packs/Day Years Used Date Smoking Tobacco: Former Smokeless Tobacco: Never Alcohol Use Standard Drinks/Week Comments Yes 0 (1 standard drink = 0.6 oz pur e alcohol) Sex and Gender Information Value Date Recorded Sex Assigned at Not on file Legal Sex Male 2:56 PM SLAB PULLER Gender Identity Not on file Sexual Orientation [...] 07/08/2020 1:21 PM CDT Plan of Treatment Upcoming Encounters Date Type Department Care Team (Late st Contact Info) Description 11/09/2024 10:30 AM CDT Office Visit [facility] [address] [facility] [place] [phone] Tessy Zelaya DO [address] [facility] [address] [place] [phone] Health Maintenance Due Date Last Done Comments [...] - 3-dose SCDM series) 2005 COVID-19 VACCINE (2023- season) 2023 DEPRESSION SCREENING 03/14/2024 INFLUENZA VACCINE [...] to complete this topic Insurance Care Teams Wireless Communications Engineer Relationship Specialty Start Date End Date Stan Cooper Update Information PCP - General 07/08/20
--- OUTSIDE RECORDS SUMMARY | 2024-10-25 20:02 | XMS_ITS | Encounter Summary ---
Author Organization [facility] Address [address] [place] [address] Care Team Providers Care Football Coach Name Role Phone Ani Ellsworth NP Primary Care Provider +1 [phone] Encounter Details Date Type Department Care Team (Late st Contact Info) Description 11/15/2023 O[employer] Message Enc [facility] Medical Group Family Medicine [facility] [address] [place] [id number] [employer] [facility] Provider results. Social History Tobacco Use [...] from your doctor or pharmacy? Never 10/03/2023 [facility] Utilities Answer Date Recorded In the [...] How often do you attend chur or shinto services? Never 10/03/2023 Do you belong to any clubs o r organizations such as yazidism groups, unions, fraternal or athletic groups, or [...] Recorded Patient Health Questionnaire-2 Score 0 10/03/2023 [facility] [place] of Occupat ional Health - Occupational Stress [...] any time in the past 12 m [facility], were you homeless or living in a care home (including now)? 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
--- OUTSIDE RECORDS SUMMARY | 2024-10-25 20:02 | XMS_ITS | Encounter Summary ---
Author Organization [facility] Address [address] [place] [address] Care Team Providers Care Packing Shed Supervisor Name Role Phone Ani Ellsworth NP Primary Care Provider [phone] [phone] Encounter Details Date Type Department Care Team (Late st Contact Info) Description 11/15/2023 [employer] Message Enc [facility] Medical Group Family Medicine [facility] [address] [address] [employer], [facility] Provider xrays Social History Tobacco Use Types [...] from your doctor or pharmacy? Never 10/03/2023 [facility] Utilities Answer Date Recorded In [...] How often do you attend chur or pentecostalism services? Never 10/03/2023 Do you belong to any clubs o r organizations such as orthodox groups, unions, fraternal or athletic groups, or [...] Recorded Patient Health Questionnaire-2 Score 0 10/03/2023 [facility] [place] of Occupat ional Health - Occupational Stress [...] any time in the past 12 m [facility], were you homeless or living in a fci (including now)? 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
--- OUTSIDE RECORDS SUMMARY | 2024-10-25 20:02 | XMS_ITS | Encounter Summary ---
Author Organization [facility] Address [address] [place] [address] Care Team Providers Care Highway Engineer Name Role Phone Ani Ellsworth NP Primary Care Provider [phone] [phone] Encounter Details Date Type Department Care Team (Latest Contact Info) Description 12/21/2023 Summon Message Enc [facility] Medical Group Family Medicine - [place] [address] [facility] [address] [place] [address] Ani Ellsworth NP [address] [place] [address] follow up on endocrinology referral Social History [...] from your doctor or pharmacy? Never 10/03/2023 [facility] Utilities Answer Date Recorded [...] often do you attend chur ch or restorationism services? Never 10/03/2023 Do you belong to any clubs o r organizations such as jehovah's witness groups, unions, fraternal or athletic groups, or [...] Recorded Patient Health Questionnaire-2 Score 0 10/03/2023 [facility] [place] of Occupat ional Health - Occupational Stress [...] the past 12 m [facility], were you homeless or living in a jail (including now)? 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
--- OUTSIDE RECORDS SUMMARY | 2024-10-25 20:02 | XMS_ITS | Encounter Summary ---
Author Organization [facility] Address [address] [place] [address] Care Team Providers Care Muck Operator Name Role Phone Ani Ellsworth NP Primary Care Provider [phone] [phone] Encounter Details Date Type Department Care Team (Late st Contact Info) Description 06/24/2023 [employer]Bar Message Enc [facility] Medical Group Multispecialty Care - [place] [address] [address] [place] [address] [place] [address] [place] [address] [address] [place], [place] [id number] [employer] Social History Tobacco Use Types Packs/Day Years Used Date Smoking Tobacco: Former Cigarettes 2 26 0 08/24/1993 - 08/25/2019 Passive Smoke Exposure: Past Smokeless Tobacco: Never Alcohol Use Standard Drinks/Week Comments Yes 0 (1 standard drink = 0.6 oz pur e alcohol) rare [facility] Utilities Answer Date Recorded [...] How often do you attend chur or advent services? Never 05/21/2023 Do you belong to any clubs o r organizations such as yazidi groups, unions, fraternal or athletic groups, or [...] Recorded Patient Health Questionnaire-2 Score 0 06/24/2023 [facility] - Occupational Stress Questionnaire Answer Date [...] Rule Out 03/16/2024 03/16/2024 03/16/2024 1:26 PM NEUROLOGY MANAGER Assessment Noted Time PHQ-9 Depression Total Score: 13 024 1:09 PM CDT documented as of this encounter Care Teams Muck Operator Relationship Specialty Start Date End Date Ani Ellsworth NP [address] [place] [address] PCP - General NURSE PRACTITIONER 06/13/23 documented as of this encounter
--- OUTSIDE RECORDS SUMMARY | 2024-10-25 20:02 | XMS_ITS | Encounter Summary ---
Author Organization [facility] Address [address] [place] [address] Care Team Providers Care Computer Technology Trainer Name Role Phone Ani Ellsworth NP Primary Care Provider [phone] [phone] Encounter Details Date Type Department Care Team (Late st Contact Info) Description 04/06/2024 [employer] Message Enc [facility] Medical Group Multispecialty Care - [address], [address] [place] [address] [facility] Provider MRCP Social History Tobacco [...] from your doctor or pharmacy? Never 10/03/2023 [facility] Utilities Answer Date Recorded In the [...] Never 01/06/2024 How often do you attend evangelical or protestant serv ices? Never 01/06/2024 Do you belong to any clubs o r organizations such as evangelical groups, unions, fraternal or athletic groups, or [...] Score 1 01/31/2024 [facility] [place] of Occupat ional Health - Occupational Stress [...] documented as of this encounter Care Teams Computer Technology Trainer Relationship Specialty Start Date End Date Ani Ellsworth NP [facility] [place] [address] PCP - General NURSE PRACTITIONER 06/13/23 documented as of this encounter
--- OUTSIDE RECORDS SUMMARY | 2024-10-25 20:02 | XMS_ITS | Encounter Summary ---
Author Organization [facility] Address [address] [place] [address] Care Team Providers Care Info Specialist Name Role Phone Ani Ellsworth NP Primary Care Provider +1 [phone] Encounter Details Date Type Department Care Team (Late st Contact Info) Description 11/15/2023 Offsite Care Resources Message Enc [facility] Medical Group Multispecialty Care - [address], [address] [place] [address] [facility], [facility] Provider reschedule Social History Tobacco [...] from your doctor or pharmacy? Never 10/03/2023 [facility] Utilities Answer Date Recorded In the past [...] How often do you attend chur or anglican services? Never 10/03/2023 Do you belong to [...] Recorded Patient Health Questionnaire-2 Score 0 10/03/2023 [facility] [place] of Occupat ional Health - Occupational Stress [...] time in the past 12 m [facility], were you homeless or living [...] ADLs upon discharge from hospital Lifestyle Marycruz Arellaon RN documented as of this encounter Visit Diagnoses Not on filedocumented in this encounter Additional Health Concerns Infection Onset Date Last Indicated Resolved Time COVID-19 Rule Out 03/16/2024 03/16/2024 03/16/2024 1:26 PM [facility]ER Assessment Noted Time PHQ-9 Depression Total Score: 13 06/15/ 024 1:09 PM CDT documented as of this encounter Care Teams Info Specialist Relationship Specialty Start Date End Date Ani Ellsworth NP [address] [place] [address] PCP - General NURSE PRACTITIONER 06/13/23 documented as of this encounter
--- OUTSIDE RECORDS SUMMARY | 2024-10-25 20:02 | XMS_ITS | Encounter Summary ---
Author Organization [facility] Address [address] [place] [address] Care Team Providers Care Hydrogeology Professor Name Role Phone Ani Ellsworth NP Primary Care Provider [phone] [phone] Encounter Details Date Type Department Care Team (Late st Contact Info) Description 04/10/2024 [employer] Message Enc [facility] Medical Group Multispecialty Care - [address], [address] [place] [address] [facility] Provider MRCP Social History Tobacco Use [...] from your doctor or pharmacy? Never 10/03/2023 [facility] Utilities Answer Date Recorded In the [...] Never 01/06/2024 How often do you attend yarsani or jew serv ices? Never 01/06/2024 Do you belong to any clubs o r organizations such as yarsani groups, unions, fraternal or athletic groups, or [...] Recorded Patient Health Questionnaire-2 Score 1 01/31/2024 [facility] [place] of Occupat ional Health - Occupational Stress [...] any time in the past 12 m [facility], were you homeless or living in a penitentiary (including now)? No 03/14/2024 Sex and Gender [...] documented as of this encounter Care Teams Hydrogeology Professor Relationship Specialty Start Date End Date Ani Ellsworth NP [facility] [place] [address] PCP - General NURSE PRACTITIONER 06/13/23 documented as of this encounter
--- OUTSIDE RECORDS SUMMARY | 2024-10-25 20:02 | XMS_ITS | Clinical Summary ---
Author Organization [facility] Address [facility] [place] [address] Care Team Providers Care Scoop Filler Name Role Phone Ani Ellsworth NP Primary Care Provider [phone] Allergies Active Allergy Reactions Criticality Noted Date Comments Bee Venom Hives 09/05/2024 Wasp Venom Hives 09/05/2024 Medications HYDROcodone-aceta minophen (NORCO) 5-325 MG tabletIndications :Acute Pain < 3 Day Supply Take 1 tablet by mouth every 6 (six) hours as needed for Pain. Indications : Acute Pain < 3 Day Supply 12 tablet 5 Active pancrelipase, Hyg-Ibrs-Szeu, (ZENPEP) 33678-45368 units capsuleIndication s:Chronic pancreatitis, unspecified pancreatitis type (CMS/HCC HHS/HCC) Take 1 capsule (10,000 units of lipase total) by mouth 3 (three) times daily with meals. 30 capsule 2 5 Active pancrelipase, Uxo-Fipn-Xduy, (ZENPEP) 98290-72819 units capsuleIndication s:Chronic pancreatitis, unspecified pancreatitis type (CMS/HCC HHS/HCC) Take 1 capsule (10,000 units of lipase total) by mouth 3 (three) times daily with meals. 30 capsule 5 10/12/19 25 Discontinu ed(Reorder ) Active Problems Problem Noted Date Diagnosed Date [...] Assessment & Plan (02/15/2024 1:50 PM SUPERVISOR SAWMILL): Pt again informed to schedule his brain MRI as aoon as possible and schedule his appointment with endocrinology to follow up on these issues. I again provided pt phone number to the Endo he needs to call. If vision changes, severe, headache, or other neurological changes occur to seek ER care right away. Recurrent acute pancreatitis (HHS/HCC) Dental abscess 09/05/2023 Decreased libido 07/18/2023 Abdominal pain 07/03/2023 Acute on chronic pancreatitis ([facility]/HCC HHS/HCC) 05/21/2023 Acute pancreatitis (HHS/HCC) 04/12/2023 Chronic idiopathic constipation 09/09/2022 Alcohol abuse 08/31/2022 Pancreatitis (HHS/HCC) 08/13/2022 Prediabetes 06/09/2022 Folliculitis 05/26/2022 Right upper [...] locations, and numbers to local Chiropractor and Health Service Coordinator. Follow up in: within a month Undescended [...] from his past job he worked from [id number]. Had taken Escitalopram in the past but weaned himself off. Was started on Wellbutrin in the ER but never started Was provided prazosin by my college to help with his nightmares/insomnia but also never started. Does not see a psychiatrist or a therapist. Pt would be interested to see a psychiatrist. Assessment & Plan (02/15/2024 1:55 PM SUPERVISOR SAWMILL): Referral to psychiatry placed.Encourage CBT as well. Would recommend starting the prazosin to help with his nightmares. Resolved Problems Problem Noted Date Diagnosed Date Resolved Date Atypical chest pain 01/21/2021 07/18/19 24 Palpitations 06/14/2016 07/18/2023 Chronic cough 06/14/2016 07/18/2023 Encounters Date Type Department Care Team Description 10/16/[address] [address] Ani Ellsworth NP Orders (/) 10/11/[address] [address] Ani Ellsworth NP Refill Request 10/02/2024 Scan [facility] Scanned, [facility] EGD (SCAN) 09/28/2024 Scan [facility] Scanned, [facility] CT (SCAN) 09/05/2024 7:58 PM CDT - 09/05/2024 9:27 PM CDT Emergency [facility] Emergency Room [id number] [place] [address] Deepak Rodriguez MD Abdominal Pain Discharge Disposition: Home or Self Care (Routine Discharge) 09/05/2024 1:20 PM CDT Office Visit [address] [address] Ani Ellsworth NP Annual (Patient presents for an adult routine exam) 09/05/2024 Travel 08/16/2024 Orders Only [address] [address] Ashely Allen MA 08/14/2024 Telephone [facility], [address] [address] Paresh Mejia MD Appointment Reminder 08/14/2024 Orders Only [address] [place] [address] Vero Arango LPN 08/14/[address] [place] [address] Ani Ellsworth NP Referral Request 08/14/2024 Results Follow-Up [address] [place] [address] Ani Ellsworth NP XR THOR SPINE 3V, XR ABD KUB 08/14/2024 Hospital Follow-up Call [facility] [place] [address] Angeal Tucker LPN Follow Up Call (KALLI 08/08-08/12/24) 08/13/2024 12:20 PM CDT Office Visit [address] [place] [address] Ani Ellsworth NP Abdominal Pain 08/13/[address] [address] Ani Ellsworth NP Medication 08/12/2024 11:22 PM CDT - 08/13/2024 12:13 AM CDT Emergency [facility] Emergency Room [address] [place] [address] Sriram Juares MD Abdominal Pain Discharge Disposition: Home or Self Care (Routine Discharge) 08/12/2024 9:33 AM CDT - 08/12/2024 5:20 PM CDT Emergency [facility] Emergency Room [address] [place] [address] Tommy Shepard MD Abdominal Pain Discharge Disposition: Home or Self Care (Routine Discharge) 08/12/2024 Travel 08/09/[address] [address] Ani Ellsworth NP Information 08/08/2024 4:52 AM CDT - 08/12/2024 4:21 AM CDT Hospital Encounter [facility] Med/Surg [address] [place] [address] Nick Lubin MD Suresh, MD Lidia Mendoza Kandace C, MD Discharge Disposition: Home or Self Care (Routine Discharge) 08/07/2024 9:30 PM CDT - 08/08/2024 3:15 AM CDT Emergency [facility] Emergency Room [id number] [place] [address] Sriram Juares MD Abdominal Pain (Chronic pancreatitis) Discharge Disposition: Transfer to [facility] 08/07/2024 Travel 07/30/[address] [place] [address] Ani Ellsworth NP Follow Up Call 07/27/[address] [place] [address] Ani Ellsworth NP Medication Problem 07/25/2024 5:01 PM CDT - 07/29/2024 4:06 PM CDT Hospital Encounter [facility] Med/Surg [id number] [place] [address] Amena Bull MD Mahtani, Andrew, MD Harris, Michael, MD Rodenberg, Ani Vickers, KRYSTLE Abdominal Pain Discharge Disposition: Home or Self Care (Routine Discharge) 07/25/2024 Travel from Last 3 Months Immunizations Immunization [...] from your doctor or pharmacy? Never 10/03/2023 [facility] Utilities Answer Date Recorded In the past 12 months has [facility] [email or web address], oil, or water [employer] threatened to shut off services in your [...] Never 01/06/2024 How often do you attend jain or anabaptism serv ices? Never 01/06/2024 Do you belong [...] Recorded Patient Health Questionnaire-2 Score 0 07/05/2024 [facility] Occupat ional Health - Occupational Stress [...] money to buy more. Never true 08/09/19 Within the past 12 months, t he [...] place to sleep or slept in a fdc (including now)? No 06/13/2023 Housing Stability Vital Sign Answer Ciro e Recorded In the last 12 months, was t here a time when you were not able to pay the mortgage or rent on time? Yes 08/08/2024 In the past 12 months, how m any times have you moved where you were living? 0 08/08/2024 At any time in the past 12 m [facility], were you homeless or living in a fdc (including now)? No 08/08/2024 Sex and Gender [...] 3 - 19+ 3-dose series) 1997 HPV Vaccines (1 - 3-dose SCD M series) 2005 COVID-19 Vaccine (2023-2 5 season) 2023 Annual Physical 09/05/2025 09/05/2024 DTaP, Tdap and Td Vaccines ( 3 - Td or Tdap) 09/05/2034 09/05/2024, 07/21/2014 Hepatitis C Completed 06/29/2023 PHQ-2 (Physician [place]) Completed 07/05/2024 Meningococcal B Vaccine Aged Out No l [...] upon discharge Lifestyle No Susan Corona RN Interventions Community Resource Recommendations Community Resource Services Recommended Domains Addressed Status Status Reason/Outcome Date/Time [facility], Food Insecurity Services Food Insecurity Recommended 09/30/2024 7:05 PM CDT [facility] - Community Services Block [facility] Program ([facility] Services Financial Assistance, Food Insecurity Services Financial Resource Strain, Food Insecurity Recommended 09/30/2024 7:05 PM CDT from Last 12 Months Medical Devices Implanted Type Area Metal Container Maker Device Identifier Shelf Expiration Date Model / Serial / Lot Shrapnel Description:Pt has hx of shr apnel in lower back and it began to get warm during MRI scan, so scan was stopped - pt felt it each time the sequence started - 05/01/2024 NF Procedures Procedure Name Priority Date/Time Associated Diagnosis Comments EGD GENERIC (SCAN ORDER) 10/02/2024 CT GENERIC 09/28/2024 XR ABD FLAT+UPRIGHT STAT 09/05/2024 8 :44 [...] AUTO, COMPLETE STAT 07/25/2024 5:29 PM CDT HEPATITIS C ANTIBODY Routine 06/29/2023 9:04 AM CDT Need for hepatitis C screening test from Last 3 Months or Most Recently Relevant to Health Maintenance Results * EGD GENERIC (SCAN ORDER) (10/02/2024) 10/02/2024 [facility] Scanned SCANNING Final Resu lt * CT GENERIC (09/28/2024) Anatomical Region Laterality Modality Other 09/28/2024 [facility] Scanned SCANNING Final Resu lt * XR ABD FLAT+UPRIGHT (09/05/2024 8:44 PM CDT) Anatomical Region Laterality Modality Abdomen Radiographic Olive ging 09/05/2024 8:53 PM CDT Impressions 09/05/2024 8:56 PM CDT IMPRESSION: Nonobstructed gas pattern. Referred By: Interpreted By: Franco Phelps MD, 09/05/2024 8:53 PM Narrative 09/05/2024 8:56 PM CDT [facility] [address] [place] [address] EXAMINATION: XR ABD FLAT+UPRIGHT HISTORY: Abdominal pain, constipation DATE: 09/05/2024 8:37 PM COMPARISON: August 13, 2024 TECHNIQUE: Supine and upright AP views of the abdomen FINDINGS: Nonobstructed gas pattern. Moderate amount of stool density. No free air. No acute osseous abnormality. Procedure Note Franco Phelps MD - 09/05/2024 [facility] [address] [place] [address] EXAMINATION: XR ABD FLAT+UPRIGHT HISTORY: Abdominal pain, [...] of7 resultswithin the time period is included. GLUCOSE 97 70 - 99 MG/DL 09/05/2024 8:56 PM CDT [facility] BUN 6(L) 7 - 18 MG/DL 09/05/2024 8:56 PM CDT [facility] CREATININE S/P/B 1.09 0.7 - 1.3 MG/DL 09/05/2024 8:56 PM CDT [facility] SODIUM S/P/B 137 136 - 145 MMOL/L 09/05/2024 8:56 PM [facility] POTASSIUM S/P/B 3.9 3.5 - 5.1 MMOL/L 09/05/2024 8:56 PM T [facility] CHLORIDE S/P/B 102 100 - 108 MMOL/L 09/05/2024 8:56 PM [facility] CO2 23.6 21 - 32 MMOL/L 09/05/2024 8:56 PM T [facility] CALCIUM S/P/B 9.2 8.5 - 10.1 MG/DL 09/05/2024 8:56 PM [facility] BILIRUBIN TOTAL S/P/B 0.7 0.2 - 1.2 MG/DL 09/05/2024 8:56 PM [facility] TOTAL PROTEIN S/P/B 7.5 6.4 - 8.2 G/DL 09/05/2024 8:56 PM [facility] ALBUMIN S/P/B 4.0 3.4 - 5.0 G/DL 09/05/2024 8:56 PM [facility] AST 20 15 - 37 U/L 09/05/2024 8:56 PM [facility] ALT 37 16 - 60 U/L 09/05/2024 8:56 PM [facility] ALKALINE PHOSPHATASE S/P/B 94 50 - 136 U/L 09/05/2024 8:56 PM [facility] ANION GAP 11.4 5 - 15 MMOL/L 09/05/2024 8:56 PM [facility] BUN CREATININE RATIO 5.5(L) 6 - 26 09/05/2024 8:56 PM CDT [facility] A/G RATIO 1.1 1.0 - 2.0 RATIO 09/05/2024 8:56 PM CDT [facility] GFR ESTIMATE 85(L) >90 ML/MIN/1.7 3 M2 09/05/2024 8:56 PM CDT [facility] Comment: NOTE: eGFR is not calculated for patients <18 years of age. This is an estimated GFR calculation using the new CKD EPI creatinine equation without race and so does not require a correction factor for race. This estimated GFR should not be used for calculating drug doses. 09/05/2024 8:22 PM CDT us Deepak Rodriguez MD LABORATORY Final Resul t [facility] [address] [place] [id number], * CBC W/DIFF AUTOMATED (09/05/2024 8:22 PM CDT) Only the most recent of8 resultswithin the time period is included. WBC 7.93 4.4 - 11.0 x10'3/uL 09/05/2024 8:29 PM CDT [facility] RBC 4.76 4.50 - 5.90 x10'6/uL 09/05/2024 8:29 PM CDT [facility] HGB 14.8 14.0 - 17.5 G/DL 09/05/2024 8:29 PM CDT [facility] HCT 43.5 41.5 - 50.4 % 09/05/2024 8:29 PM CDT [facility] MCV 91.4 80.0 - 96.0 FL 09/05/2024 8:29 PM CDT [facility] MCH 31.1 26.5 - 31.4 PG 09/05/2024 8:29 PM CDT [facility] MCHC 34.0 31.9 - 34.8 G/DL 09/05/2024 8:29 PM T [facility] RDW 13.1 12.3 - 14.3 % 09/05/2024 8:29 PM CDT [facility] PLT 205 151 - 353 x10'3/uL 09/05/2024 8:29 PM CDT [facility] MPV 10.3 9.7 - 11.9 FL 09/05/2024 8:29 PM CDT [facility] RBC MORPHOLOGY NORMAL 09/05/2024 8:29 PM T [facility] PLT MORPH. NORMAL 09/05/2024 8:29 PM CDT [facility] WBC MORPHOLOGY NORMAL 09/05/2024 8:29 PM T [facility] LYMPHOCYTES % 27.9 15.8 - 45.0 % 09/05/2024 8:29 PM T [facility] NEUTROPHILS % 64.7 42.1 - 71.9 % 09/05/2024 8:29 PM T [facility] MONOCYTES % 6.1 5.7 - 12.5 % 09/05/2024 8:29 PM T [facility] EOSINOPHILS 0.6 0.0 - 5.6 % 09/05/2024 8:29 PM T [facility] BASOPHILS 0.4 0.0 - 1.3 % 09/05/2024 8:29 PM T [facility] ABS. NEUTROPHILS 5.14 1.40 - 6.00 x10'3/uL 09/05/2024 8:29 PM CDT [facility] IMMATURE GRANS % 0.3 0.0 - 0.5 % 09/05/2024 8:29 PM CDT [facility] ABS. LYMPHOCYTES 2.21 0.80 - 4.70 x10'3/uL 09/05/2024 8:29 PM CDT [facility] 09/05/2024 8:22 PM CDT us Deepak Rodriguez MD LABORATORY Final Resul t Performing Organization Address City/[facility] Co de Phone Number [facility] [address] [place] [address], [place] [phone] * (ABNORMAL) LIPASE (09/05/2024 8:22 PM CDT) Only the most recent of6 resultswithin the time period is included. LIPASE 708(H) 16 - 77 UNITS/L 09/05/2024 8:56 PM CDT [facility] 09/05/2024 8:22 PM CDT us Deepak Rodriguez MD LABORATORY Final Resul t Performing Organization Address [facility] Co de Phone Number [facility] [address] [place] [address], [place] [phone] * XR THOR SPINE 3V (08/13/2024 1:19 PM CDT) Anatomical Region Laterality Modality Spine Radiographic Olive ging 08/13/2024 1:18 PM CDT Narrative 08/14/2024 4:34 AM CDT [facility] [address] [address] Examination: XR THOR SPINE 3V Exam time: [...] Procedure Note Keith Cooper MD - 08/14/2024 [facility] Family and Internal [address] [address] Examination: XR THOR SPINE 3V Exam time: [...] PM CDT Narrative 08/14/2024 4:35 AM CDT [facility] Internal [facility] - [address] [address] Examination: XR ABD KUB Exam time: 08/13/2024 1:18 PM Clinical history: Abdominal pain, constipation, nausea, pain with eating Comparison: 08/12/2024 Technique: 1 view of the abdomen obtained. Findings: No stomach or bowel obstruction. No stomach dilation. Fecal burden is mild. No free air. No urinary stone calcifications. Bony structures are grossly intact. IMPRESSION: No acute abnormality. Referred By: Interpreted By: Kieth Cooper MD, 08/14/2024 4:35 AM Procedure Note Keith Cooper MD - 08/14/2024 [facility] [place] [address] Examination: XR ABD KUB Exam time: 08/13/2024 1:18 PM Clinical history: Abdominal pain, constipation, nausea, pain with eating Comparison: 08/12/2024 Technique: 1 view of the abdomen obtained. Findings: No stomach or bowel obstruction. No stomach dilation. Fecal burden ismild. No free air. No urinary stone calcifications. Bony structures aregrossly intact. IMPRESSION: No acute abnormality. Referred By: Interpreted By: Keith Cooepr MD, 08/14/2024 4:35 AM us Ani Ellsworth [...] 11:25 AM Narrative 08/12/2024 11:30 AM CDT [facility] [address] [place] [id number] CT abdomen and pelvis with IV contrast [...] Procedure Note Emigdio Xie MD - 08/12/2024 [facility] [address] [place] [id number] [address] abdomen and pelvis with IV contrast [...] By: Emigdio Xie MD, 08/12/2024 11:25 AM Tommy Shepard MD CT Final Result * LACTIC ACID W REFLEX (SEPSIS) (08/12/2024 9:59 AM CDT) LACTIC ACID VENOUS 1.6 0.4 - 2.0 MMOL/L 08/12/2024 10:25 AM CDT [facility] 08/12/2024 9:59 AM CDT us Tommy Shepard MD LABORATORY Final Result [facility] [address] [place] [address], [place] [phone] * PARTIAL THROMBOPLASTIN TIME,PTT (08/12/2024 9:59 AM CDT) Pathologist [facility] PTT 33.5 25.1 - 36.5 SEC 08/12/2024 10:13 AM CDT [facility] 08/12/2024 9:59 AM CDT us Tommy Shepard MD LABORATORY Final Result Performing Organization Address [facility] Co de Phone Number [facility] [address] [place] [address], [place] [phone] * PROTIME/INR, VENOUS (08/12/2024 9:59 AM CDT) Only the most recent of2 resultswithin the time period is included. PROTIME 11.7 9.1 - 12.4 SEC 08/12/2024 10:13 AM CDT [facility] INR 1.0 08/12/2024 10:13 AM CDT [facility] Comment: Recommend INR ranges for Oral Anticoagulant Therapy: Mechanical Cardiac Values 2.5-3.5 All others indication 2.0-3.0 08/12/2024 9:59 AM CDT us Tommy Shepard MD LABORATORY Final Result [facility] [address] [place] [address], [place] [phone] * MAGNESIUM (08/12/2024 9:59 AM CDT) Only the most recent of3 resultswithin the time period is included. MAGNESIUM 2.0 1.8 - 2.4 MG/DL 08/12/2024 10:45 AM CDT [facility] 08/12/2024 9:59 AM CDT Tommy Shepard MD LABORATORY Final Result Performing Organization Address [facility] Co de Phone Number [facility] [address] [place] [address], [place] [phone] * CTA ABD+PEL (08/11/2024 1:39 PM CDT) [...] 2:25 PM Narrative 08/11/2024 2:38 PM CDT [address] [address] Study: Computed angiography abdomen and pelvis Exam [...] Procedure Note Adán Galvan MD - 08/11/2024 [facility] [address] [place], [place] [address] Study: Computed angiography abdomen and pelvis Exam [...] - 99 MG/DL 08/11/2024 6:45 AM CDT [facility] BUN 5(L) 7 - 18 MG/DL 08/11/2024 6:45 AM CDT [facility] CREATININE S/P/B 1.07 0.7 - 1.3 MG/DL 08/11/2024 6:45 AM CDT [facility] SODIUM S/P/B 139 136 - 145 MMOL/L 08/11/2024 6:45 AM CDT [facility] POTASSIUM S/P/B 3.5 3.5 - 5.1 MMOL/L 08/11/2024 6:45 AM CDT [facility] CHLORIDE S/P/B 104 97 - 115 MMOL/L 08/11/2024 6:45 AM CDT [facility] CO2 30.3 21 - 32 MMOL/L 08/11/2024 6:45 AM CDT [facility] CALCIUM S/P/B 9.6 8.5 - 10.1 MG/DL 08/11/2024 6:45 AM CDT [facility] ANION GAP 4.7 2 - 10 MMOL/L 08/11/2024 6:45 AM CDT [facility] BUN CREATININE RATIO 4.7(L) 6 - 26 08/11/2024 6:45 AM CDT [facility] GFR ESTIMATE 87(L) >90 ML/MIN/1.7 3 M2 08/11/2024 6:45 AM CDT [facility] Comment: NOTE: eGFR is not calculated for patients <18 years of age or gender unknown. This is an estimated GFR calculation using the new CKD EPI creatinine equation without race and so does not require a correction factor for race. This estimated GFR should not be used for calculating drug doses. 08/11/2024 5:54 AM CDT us Baltazar Perales MD LABORATORY Final R esult [facility] [address] [place] [address], [place] [phone] * CBC, AUTO, NO DIFF (08/11/2024 5:54 AM CDT) Only the most recent of3 resultswithin the time period is included. WBC 5.22 4.5 - 11.0 x10'3/uL 08/11/2024 6:28 AM CDT [facility] RBC 4.70 4.70 - 6.10 x10'6/uL 08/11/2024 6:28 AM CDT [facility] HGB 14.4 14.0 - 18.0 G/DL 08/11/2024 6:28 AM CDT [facility] HCT 43.1 43.0 - 54.0 % 08/11/2024 6:28 AM CDT [facility] MCV 91.7 80.0 - 94.0 FL 08/11/2024 6:28 AM CDT [facility] MCH 30.6 27.0 - 31.0 PG 08/11/2024 6:28 AM CDT [facility] MCHC 33.4 32.0 - 36.0 G/DL 08/11/2024 6:28 AM CDT [facility] RDW 12.9 11.5 - 14.5 % 08/11/2024 6:28 AM CDT [facility] PLT 244 130 - 400 x10'3/uL 08/11/2024 6:28 AM CDT [facility] MPV 10.2 9.3 - 12.2 FL 08/11/2024 6:28 AM CDT [facility] 08/11/2024 5:54 AM CDT us Baltazar Perales MD LABORATORY Final R esult [facility] [address] [place] [address], [place] [phone] * (ABNORMAL) POCT glucose (08/10/2024 5:28 AM CDT) Only the most recent of2 resultswithin the time period is included. GLUCOSE POC 149(H) 70 - 99 mg/dL 08/10/2024 5:34 AM CDT [facility] 08/10/2024 5:28 AM CDT us Baltazar Perales MD POCT ORDERABLES - DEVIC E Final Result [facility] [address] [place] [address], [place] [phone] * US ABD LIMITED (08/08/2024 12:03 PM CDT) Anatomical Region Laterality Modality Abdomen Ultrasound 08/10/2024 5:54 AM CDT Impressions 08/10/2024 6:01 AM CDT IMPRESSION: ===== 1. No acute abnormalities in the right upper quadrant. Referred By: SRIRAM JUARES Interpreted By: Casey Tomas MD, 08/10/2024 5:54 AM Narrative 08/10/2024 6:[address] [facility] [address] [place], [place] [address] Exam: Right upper quadrant abdominal ultrasound Exam [...] Procedure Note Casey Tomas MD - 08/10/2024 [facility] [address] [place], [place] [address] Exam: Right upper quadrant abdominal ultrasound Exam [...] By: Casey Tomas MD, 08/10/2024 5:54 AM Nick Lubin MD ULTRASOUND Final Resul t * (ABNORMAL) HEMOGLOBIN, GLYCATED (08/08/2024 6:00 AM CDT) HGB A1C 6.1(H) <5.7 % 08/08/2024 9:30 AM CDT [facility] Comment: ADA GUIDELINES 2010 5.7 TO 6.4% INCREASED RISK OF DIABETES > OR = 6.5% CONSISTENT WITH DIABETES ESTIMATED AVG GLUCOSE 128 mg/dL 08/08/2024 9:30 AM CDT [facility] 08/08/2024 6:00 AM CDT Nick Lubin MD LABORATORY Final Resul t [facility] [address] [place] [address], [place] [phone] * (ABNORMAL) LIPID PANEL (08/08/2024 6:00 AM CDT) CHOLESTEROL 156 <200 MG/DL 08/08/2024 7:11 AM CDT [facility] TRIGLYCERIDES 136 <150 MG/DL 08/08/2024 7:11 AM CDT [facility] HDL 28(L) >40.0 MG/DL 08/08/2024 7:11 AM CDT [facility] LDL (CALCULATED) 101(H) <100 MG/DL 08/08/2024 7:11 AM CDT [facility] NON HDL CHOLESTEROL 128 <130 MG/DL 08/08/2024 7:11 AM CDT [facility] CHOL/HDL RATIO 5.6(H) 0.0 - 4.5 08/08/2024 7:11 AM CDT [facility] VLDL CALCULATION 27 5 - 55 MG/DL 08/08/2024 7:11 AM CDT [facility] LIPID INTERPRETATION 08/08/2024 7:11 AM CDT [facility] Comment: NIH CONCENSUS REPORT RECOMMENDATIONS: ADULT CHILD LOW RISK: CHOLESTEROL <200 <170 TRIGLYCERIDE <150 --- HDL >=60 --- LDL <100 <110 BORDERLINE: CHOLESTEROL 200-239 170-199 TRIGLYCERIDE 150-199 --- HDL 40-59 --- LDL 100-159 110-129 HIGH RISK: CHOLESTEROL >=240 >=200 TRIGLYCERIDE >=200 --- HDL <40 --- LDL >=160 >=130 08/08/2024 6:00 AM CDT Nick Lubin MD LABORATORY Final Resul t Performing Organization Address City/[facility]/ZIP Co de Phone Number [facility] [address] [place] [address], [place] [phone] * THYROID STIM HORMONE, TSH (08/08/2024 6:00 AM CDT) TSH 2.200 0.358 - 3.74 uIU/ML 08/08/2024 7:11 AM CDT [facility] Comment: HIGH DOSES OF BIOTIN MAY INTERFERE WITH THIS TEST RESULT. CORRELATION TO CLINICAL HISTORY AND PRESENTATION RECOMMENDED. 08/08/2024 6:00 AM CDT Nick Lubin MD LABORATORY Final Resul t [facility] [address] [place] [address], [place] [phone] * URINALYSIS, AUTO, COMPLETE (07/25/2024 5:29 PM CDT) COLOR (U) YELLOW 07/25/2024 5:49 PM CDT [facility] TRANSPARENCY CLOUDY 07/25/2024 5:49 PM CDT [facility] SPECIFIC GRAVITY (U) 1.025 1.000 - 1.030 07/25/2024 5:49 PM CDT [facility] U PH 6.0 5.0 - 9.0 07/25/2024 5:49 PM T [facility] LEUKOCYTES (U) NEGATIVE NEGATIVE 07/25/2024 5:49 PM CDT [facility] NITRITES NEGATIVE NEGATIVE 07/25/2024 5:49 PM T [facility] PROTEIN RANDOM (U) NEGATIVE NEGATIVE 07/25/2024 5:49 PM T [facility] GLUCOSE (U) NEGATIVE NEGATIVE 07/25/2024 5:49 PM T [facility] KETONES MG/DL (U) NEGATIVE NEGATIVE 07/25/2024 5:49 PM T [facility] BILIRUBIN (U) NEGATIVE NEGATIVE 07/25/2024 5:49 PM T [facility] BLOOD (U) NEGATIVE NEGATIVE 07/25/2024 5:49 PM T [facility] WBC/HPF 0-5 0 - 5 /HPF 07/25/2024 5:49 PM T [facility] RBC/HPF 0-5 0 - 5 /HPF 07/25/2024 5:49 PM T [facility] EPI/HPF FEW /HPF 07/25/2024 5:49 PM T [facility] BACTERIA (U) FEW /HPF 07/25/2024 5:49 PM [facility] URINE ALMODOVAR FEW 07/25/2024 5:49 PM T [facility] Comment:MUCOUS URINE SPECIMEN OBTAINED BY CLEAN CATCH PROCEDURE / Unknown 07/25/2024 5:29 PM CDT us Amena Bull MD URINE ORDERABLES Final Res ult [facility] [address] [place] [address], [place] [phone] * HEPATITIS C ANTIBODY (06/29/2023 9:04 AM CDT) HEPATITIS C AB NON-REACTI VE NON-REACT ANTONI 06/29/2023 6:33 PM CDT [facility] Comment: ANTIBODIES TO HCV NOT DETECTED. DOES NOT EXCLUDE THE POSSIBILITY OF EXPOSURE TO HCV. 06/29/2023 9:04 AM CDT Ani Ellsworth NP LABORATORY Final Res ult [facility] [address] [place] [address], [place] [phone] [id number] from Last 3 Months or Most Recently Relevant to Health Maintenance Insurance [employer] Advance Directives * Full Code (Latest Code [...] 6:55 PM 01/11/2024 2:03 PM Care Teams Scoop Filler Relationship Specialty Start Date End Date Ani Ellsworth NP [address] [place] [address] PCP - General NURSE PRACTITIONER 06/13/23
--- OUTSIDE RECORDS SUMMARY | 2024-10-25 20:02 | XMS_ITS | Encounter Summary ---
Author Organization [facility] Address [address] [place] [address] Care Team Providers Care Criminal Legal Assistant Name Role Phone Ani Ellsworth NP Primary Care Provider +1 [phone] Encounter Details Date Type Department Care Team (Late st Contact Info) Description 11/17/2023 [employer] Message Enc [facility] Medical Group Multispecialty Care - [address], [address] [place] [address] Sp[place], [facility] Provider Reschedule Social History Tobacco Use [...] or pharmacy? Never 10/03/[address] [facility] Utilities Answer Date Recorded In the [...] How often do you attend chur or yazidism services? Never 10/03/2023 Do you belong to [...] Recorded Patient Health Questionnaire-2 Score 0 10/03/2023 [facility] [place] of Occupat ional Health - Occupational Stress [...] in a longterm (including now)? No 06/13/2023 Housing Stability Vital Sign Answer Ciro e Recorded In the last 12 months, was t here a time when you were not able to pay the mortgage or rent on time? No 10/03/2023 In the past 12 months, how m any times have you moved where you were living? 1 10/03/2023 At any time in the past 12 m [facility], were you homeless or living in a longterm (including now)? No 10/03/2023 Sex and Gender [...] Rule Out 03/16/2024 03/16/2024 03/16/2024 1:26 PM PERSONAL CARE AID Assessment Noted Time PHQ-9 Depression Total Score: 13 06/15/ 024 1:09 PM CDT documented as of this encounter Care Teams Criminal Legal Assistant Relationship Specialty Start Date End Date Ani Ellsworth NP [address] [place] [address] PCP - General NURSE PRACTITIONER 06/13/23 documented as of this encounter
--- OUTSIDE RECORDS SUMMARY | 2024-10-25 20:02 | XMS_ITS | Encounter Summary ---
Author Organization [facility] Address [address] [place] [address] Care Team Providers Care Straddle Bug Driver Name Role Phone Ani Ellsworth NP Primary Care Provider [phone] [phone] Encounter Details Date Type Department Care Team (Late st Contact Info) Description 01/27/2024 [employer] Message Enc [facility] Medical Group Family Medicine [facility] [address] [place] [address] [employer] Studiosmichael, [facility] Provider Endo Referral Social History Tobacco Use [...] Never 10/03/2023 [facility] Utilities Answer Date Recorded In the past [...] Never 01/06/2024 How often do you attend sikh or sikhism serv ices? Never 01/06/2024 Do you belong to any clubs o r organizations such as sikh groups, unions, fraternal or athletic groups, or [...] Recorded Patient Health Questionnaire-2 Score 1 01/31/2024 [facility] - Occupational Stress Questionnaire [...] any time in the past 12 m [facility], were you homeless or living [...] Author Status No 01/06/2024 7:13 PM CDT Saadf Huang R N Active * Because of [...] Rule Out 03/16/2024 03/16/2024 03/16/2024 1:26 PM SHEET ROCK APPLIER Assessment Noted Time PHQ-9 Depression Total Score: 13 024 1:09 PM CDT documented as of this encounter Care Teams Straddle Bug Driver Relationship Specialty Start Date End Date Ani Ellsworth NP [address] [place] [address] PCP - General NURSE PRACTITIONER 06/13/23 documented as of this encounter
[2024-10-25 20:42] VITALS: BP 114/80; PULSE 105; RESP 18; TEMP 37; O2SAT 100
[2024-10-25 22:29] VITALS: BP 125/53; PULSE 90; RESP 20; O2SAT 97
--- OUTSIDE RECORDS SUMMARY | 2024-10-26 00:29 | XMS_ITS | Encounter Summary ---
Author Organization [facility] Address [address] [place] [address] Care Team Providers Care Gambling Cashier Name Role Phone Ani Ellsworth NP Primary Care Provider [phone] [phone] Encounter Details Date Type Department Care Team (Late st Contact Info) Description 02/24/2024 [employer] Message Enc [facility] Medical Group Family Medicine - [place] [address] [place] [id number] Michelle Cook MD [address] [place] [id number] Pain Social History Tobacco Use Types Packs/Day [...] from your doctor or pharmacy? Never 10/03/2023 [facility] Utilities Answer Date Recorded In [...] Never 01/06/2024 How often do you attend shinto or judaism serv ices? Never 01/06/2024 Do you belong to any clubs o r organizations such as shinto groups, unions, fraternal or athletic groups, or [...] Recorded Patient Health Questionnaire-2 Score 1 01/31/2024 [facility] [place] of Occupat ional Health - Occupational Stress [...] any time in the past 12 m [facility], were you homeless or living in [...] he needs to go to the ER. CHANGER documented in this encounter Plan of Treatment [...] Rule Out 03/16/2024 03/16/2024 03/16/2024 1:26 PM MOLD CHANGER Assessment Noted Time PHQ-9 Depression Total Score: 13 04/04/2 024 1:09 PM CDT documented as of this encounter Care Teams Gambling Cashier Relationship Specialty Start Date End Date Ani Ellsworth NP [address] [place] [address] PCP - General NURSE PRACTITIONER 06/13/23 documented as of this encounter
--- OUTSIDE RECORDS SUMMARY | 2024-10-26 00:29 | XMS_ITS | Encounter Summary ---
Author Organization [facility] Address [address] [place] [address] Care Team Providers Care Staple Cutter Name Role Phone Ani Ellsworth NP Primary Care Provider [phone] [phone] Encounter Details Date Type Department Care Team (Late st Contact Info) Description 04/06/[address] [facility] Medical Group Multispecialty Care - [address], [address] [place] [address] Spenser [facility] Provider MRCP Social History Tobacco Use [...] from your doctor or pharmacy? Never 10/03/2023 [facility] Utilities Answer Date Recorded In [...] Never 01/06/2024 How often do you attend mandaen or nondenominational serv ices? Never 01/06/2024 Do you belong to any clubs o r organizations such as mandaen groups, unions, fraternal or athletic groups, or [...] Recorded Patient Health Questionnaire-2 Score 1 01/31/2024 [facility] [place] of Occupat ional Health - Occupational Stress [...] any time in the past 12 m [facility], were you homeless or living in [...] documented as of this encounter Care Teams Staple Cutter Relationship Specialty Start Date End Date Ani Ellsworth NP [facility] [place] [address] PCP - General NURSE PRACTITIONER 06/13/23 documented as of this encounter
--- OUTSIDE RECORDS SUMMARY | 2024-10-26 00:29 | XMS_ITS | Encounter Summary ---
Author Organization [facility] Address [address] [place] [address] Care Team Providers Care Red Cross Executive Director Name Role Phone Ani Ellsworth NP Primary Care Provider [phone] [phone] Encounter Details Date Type Department Care Team (Late st Contact Info) Description 04/10/2024 [employer] Message Enc [facility] Medical Group Multispecialty Care - [address], [address] [place] [address] Sp[place]er [facility] Provider MRCP Social History Tobacco Use [...] from your doctor or pharmacy? Never 10/03/2023 [facility] Utilities Answer Date Recorded In the [...] Never 01/06/2024 How often do you attend advent or advent serv ices? Never 01/06/2024 Do you belong [...] Recorded Patient Health Questionnaire-2 Score 1 01/31/2024 [facility] [place] of Occupat ional Health - Occupational Stress [...] in a prison (including now)? No 06/13/2023 Housing Stability Vital Sign Answer Ciro e Recorded In the last 12 months, was t here a time when you were not able to pay the mortgage or rent on time? No 03/14/2024 In the past 12 months, how m any times have you moved where you were living? 0 03/14/2024 At any time in the past 12 m [facility], were you homeless or living in a prison (including now)? No 03/14/2024 Sex and Gender [...] documented as of this encounter Care Teams Red Cross Executive Director Relationship Specialty Start Date End Date Ani Ellsworth NP [facility] [place] [address] PCP - General NURSE PRACTITIONER 06/13/23 documented as of this encounter
--- OUTSIDE RECORDS SUMMARY | 2024-10-26 00:30 | XMS_ITS | Encounter Summary ---
Author Organization [facility] Address [address] [place] [address] Care Team Providers Care Water Fabricator Operator Name Role Phone Ani Ellsworth NP Primary Care Provider +1 [phone] Encounter Details Date Type Department Care Team (Late st Contact Info) Description 06/20/2023 [employer] Message Enc [facility] Medical Group Family Medicine - [place] [address] [facility] [address] [place] [address] Ani Ellsworth NP [address] [place] [address] Follow up Social History Tobacco Use Types Packs/Day Years Used Date Smoking Tobacco: Former Cigarettes 2 26 0 08/24/1993 - 08/25/2019 Passive Smoke Exposure: Past Smokeless Tobacco: Never Alcohol Use Standard Drinks/Week Comments Yes 0 (1 standard drink = 0.6 oz pur e alcohol) rare [facility] Utilities Answer Date Recorded In the past 12 months has e [employer], gas, oil, or water [employer] threatened to shut off services in your [...] How often do you attend chur or episcopalian services? Never 05/21/2023 Do you belong to [...] Recorded Patient Health Questionnaire-2 Score 0 06/24/2023 [facility] of Occupat ionpr Health - Occupational Stress Questionnaire Answer Date [...] Rule Out 03/16/2024 03/16/2024 03/16/2024 1:26 PM SE[employer] TUBE ROLLER Assessment Noted Time PHQ-9 Depression Total Score: 13 024 1:09 PM CDT documented as of this encounter Care Teams Water Fabricator Operator Relationship Specialty Start Date End Date Ani Ellsworth NP [address] [place] [address] PCP - General NURSE PRACTITIONER 06/13/23 documented as of this encounter
--- OUTSIDE RECORDS SUMMARY | 2024-10-26 00:30 | XMS_ITS | Encounter Summary ---
Author Organization [facility] Address [address] [place] [address] Care Team Providers Care Miniature Set Builder Name Role Phone Ani Ellsworth NP Primary Care Provider [phone] [phone] Encounter Details Date Type Department Care Team (Late st Contact Info) Description 11/15/2023 [employer] Message Enc [facility] Medical Group Multispecialty Care - [address], [address] [place] [address] Spenser, [facility] Provider reschedule Social History [...] from your doctor or pharmacy? Never 10/03/2023 [facility] Utilities Answer Date Recorded In [...] How often do you attend chur or yarsanism services? Never 10/03/2023 Do you belong to [...] Recorded Patient Health Questionnaire-2 Score 0 10/03/2023 [facility] [place] of Occupat ional Health - Occupational Stress [...] any time in the past 12 m [facility], were you homeless or living in a [...] Rule Out 03/16/2024 03/16/2024 03/16/2024 1:26 PM BOLOGNA LACER Assessment Noted Time PHQ-9 Depression Total Score: 13 06/15/ 024 1:09 PM CDT documented as of this encounter Care Teams Miniature Set Builder Relationship Specialty Start Date End Date Ani Ellsworth NP [address] [place] [address] PCP - General NURSE PRACTITIONER 06/13/23 documented as of this encounter
--- OUTSIDE RECORDS SUMMARY | 2024-10-26 00:30 | XMS_ITS | Clinical Summary ---
Author Organization [facility] Address [facility] [place] [address] Care Team Providers Care Cork Insulator Name Role Phone Ani Ellsworth NP Primary Care Provider [phone] Allergies Active Allergy Reactions Criticality Noted Date Comments Bee Venom Hives 09/05/2024 Wasp Venom Hives 09/05/2024 Medications HYDROcodone-aceta minophen (NORCO) 5-325 MG tabletIndications :Acute Pain < 3 Day Supply Take 1 tablet by mouth every 6 (six) hours as needed for Pain. Indications : Acute Pain < 3 Day Supply 12 tablet 5 Active pancrelipase, Dlm-Quam-Ufsi, (ZENPEP) 78602-35458 units capsuleIndication s:Chronic pancreatitis, unspecified pancreatitis type (CMS/HCC HHS/HCC) Take 1 capsule (10,000 units of lipase total) by mouth 3 (three) times daily with meals. 30 capsule 2 5 Active pancrelipase, Upi-Csxi-Dmba, (ZENPEP) 06686-51621 units capsuleIndication s:Chronic pancreatitis, unspecified pancreatitis type [...] vision. Assessment & Plan (02/15/2024 1:50 PM HORSE RACER): Pt again informed to schedule his brain [...] Abdominal pain 07/03/2023 Acute on chronic pancreatitis ([facility]/HCC HHS/HCC) 05/21/2023 Acute pancreatitis (HHS/HCC) 04/12/2023 Chronic [...] locations, and numbers to local Chiropractor and Machine Fur Cleaner. Follow up in: within a month Undescended [...] from his past job he worked from [id number]. Had taken Escitalopram in the past but weaned himself off. Was started on Wellbutrin in the ER but never started Was provided prazosin by my college to help with his nightmares/insomnia but also never started. Does not see a psychiatrist or a therapist. Pt would be interested to see a psychiatrist. Assessment & Plan (02/15/2024 1:55 PM HORSE RACER): Referral to psychiatry placed.Encourage CBT as well. Would recommend starting the prazosin to help with his nightmares. Resolved Problems Problem Noted Date Diagnosed Date Resolved Date Atypical chest pain 01/21/2021 07/18/19 24 Palpitations 06/14/2016 07/18/2023 Chronic cough 06/14/2016 07/18/2023 Encounters Date Type Department Care Team Description 10/16/[address] [address] Ani Ellsworth NP Orders (/) 10/11/[address] [address] Ani Ellsworth NP Refill Request 10/02/2024 Scan [facility] Scanned, [facility] EGD (SCAN) 09/28/2024 [facility] Scanned, Doc [facility] CT (SCAN) 09/05/2024 7:58 PM CDT - 09/05/2024 9:27 PM CDT Emergency [facility] Room [id number] [place] [address] Deepak Rodriguez MD Abdominal Pain Discharge Disposition: Home or Self Care (Routine Discharge) 09/05/2024 1:20 PM CDT Office Visit [address] [address] Ani Ellsworth NP Annual (Patient presents for an adult routine exam) 09/05/2024 Travel 08/16/2024 Orders Only [address] [address] Ashely Allen MA 08/14/2024 Telephone [facility], [address] [address] Paresh Mejia MD Appointment Reminder 08/14/2024 Orders Only [address] [place] [address] Vero Arango LPN 08/14/[address] [place] [address] Ani Ellsworth NP Referral Request 08/14/2024 Results Follow-Up [address] [place] [address] Ani Ellsworth NP XR THOR SPINE 3V, XR ABD KUB 08/14/2024 Hospital Follow-up Call [facility] [place] [address] Angela Tucker LPN Follow Up Call (KALLI 08/08-08/12/24) 08/13/2024 12:20 PM CDT Office Visit [address] [place] [address] Ani Ellsworth NP Abdominal Pain 08/13/[address] [address] Ani Ellsworth NP Medication 08/12/2024 11:22 PM CDT - 08/13/2024 12:13 AM CDT Emergency [facility] Emergency Room [address] [place] [address] Sriram Juares MD Abdominal Pain Discharge Disposition: Home or Self Care (Routine Discharge) 08/12/2024 9:33 AM CDT - 08/12/2024 5:20 PM CDT Emergency [facility] Room [address] [place] [address] Tommy Shepard MD Abdominal Pain Discharge Disposition: Home or Self Care (Routine Discharge) 08/12/2024 Travel 08/09/[address] [address] Ani Ellsworth NP Information 08/08/2024 4:52 AM CDT - 08/12/2024 4:21 AM CDT Hospital Encounter [facility] Med/Surg 5th [place] [address] Nick Lubin MD Suresh, MD Lidia Mendoza Kandace C, MD Discharge Disposition: Home or Self Care (Routine Discharge) 08/07/2024 9:30 PM CDT - 08/08/2024 3:15 AM CDT Emergency [facility] Room [id number] [place] [address] Sriram Juares MD Abdominal Pain (Chronic pancreatitis) Discharge Disposition: Transfer to Acute Care Hospital 08/07/2024 Travel 07/30/[address] [place] [address] Ani Ellsworth NP Follow Up Call 07/27/[address] [place] [address] Ani Ellsworth NP Medication Problem 07/25/2024 5:01 PM CDT - 07/29/2024 4:06 PM CDT Hospital Encounter [facility] Med/Surg [id number] [place] [address] Amena Bull MD Mahtani, Andrew, MD Harris, Michael, MD Rodenberg, Deanna L, KRYSTLE Abdominal Pain Discharge Disposition: Home or Self Care (Routine Discharge) from Last 3 Months Immunizations Immunization Administration [...] from your doctor or pharmacy? Never 10/03/2023 [facility] Utilities Answer Date Recorded In the past 12 months has e [employer], oil, or water [employer] threatened to shut off services in your [...] Never 01/06/2024 How often do you attend uatsdin or spiritism serv ices? Never 01/06/2024 Do you belong to any clubs o r organizations such as uatsdin groups, unions, fraternal or athletic groups, or [...] Recorded Patient Health Questionnaire-2 Score 0 07/05/2024 [facility] - Occupational Stress Questionnaire Answer Date Recorded [...] any time in the past 12 m [facility], were you homeless or living in a nursing home (including now)? No 08/08/2024 Sex and Gender [...] 07/21/2014 Hepatitis C Completed 06/29/2023 PHQ-2 (Physician [place]) Completed 07/05/2024 Meningococcal B Vaccine Aged Out [...] Recommended Domains Addressed Status Status Reason/Outcome Date/Time [facility] Food Pantry, Food Insecurity Services Food Insecurity Recommended 09/30/2024 7:05 PM CDT [facility] - Community Services [facility] Financial Assistance, Food Insecurity Services Financial Resource Strain, Food Insecurity Recommended 09/30/2024 7:05 PM CDT from Last 12 Months Medical Devices Implanted Type Area Wax Pot Tender Device Identifier Shelf Expiration Date Model / [...] W/DIFF AUTOMATED Routine 07/26/2024 6:27 AM CDT HEPATITIS C ANTIBODY Routine 06/29/2023 9:04 AM CDT Need for hepatitis C screening test from Last 3 Months or Most Recently Relevant to Health Maintenance Results * EGD GENERIC (SCAN ORDER) (10/02/2024) 10/02/2024 [facility] Scanned SCANNING Final Resu lt * CT GENERIC (09/28/2024) Anatomical Region Laterality Modality Other 09/28/2024 [facility] Scanned SCANNING Final Resu lt * XR ABD FLAT+UPRIGHT (09/05/2024 8:44 PM CDT) Anatomical Region Laterality Modality Abdomen Radiographic Olive ging 09/05/2024 8:53 PM CDT Impressions 09/05/2024 8:56 PM CDT IMPRESSION: Nonobstructed gas pattern. Referred By: Interpreted By: Franco Phelps MD, 09/05/2024 8:53 PM Narrative 09/05/2024 8:56 PM CDT [facility] [address] [place] [address] EXAMINATION: XR ABD FLAT+UPRIGHT HISTORY: Abdominal pain, constipation DATE: 09/05/2024 8:37 PM COMPARISON: August 13, 2024 TECHNIQUE: Supine and upright AP views of the abdomen FINDINGS: Nonobstructed gas pattern. Moderate amount of stool density. No free air. No acute osseous abnormality. Procedure Note Franco Phelps MD - 09/05/2024 [facility] [address] [place] [address] EXAMINATION: XR ABD FLAT+UPRIGHT HISTORY: Abdominal pain, constipation DATE: 09/05/2024 8:37 PM COMPARISON: August 13, 2024 TECHNIQUE: Supine and upright AP views of the abdomen FINDINGS: Nonobstructed gas pattern. Moderate amount of stool density.No free air. No acute osseous abnormality. IMPRESSION: Nonobstructed gas pattern. Referred By: Interpreted By: Franco Phelps MD, 09/05/2024 8:53 PM us Deepak Rodriguez MD GENERAL IMAGING Final Resul t * (ABNORMAL) COMPREHENSIVE METABOLIC PANEL (09/05/2024 8:22 PM CDT) Only the most recent of6 resultswithin the time period is included. GLUCOSE 97 70 - 99 MG/DL 09/05/2024 8:56 PM CDT [facility] BUN 6(L) 7 - 18 MG/DL 09/05/2024 8:56 PM CDT [facility] CREATININE S/P/B 1.09 0.7 - 1.3 MG/DL 09/05/2024 8:56 PM CDT [facility] SODIUM S/P/B 137 136 - 145 MMOL/L 09/05/2024 8:56 PM CDT [facility] POTASSIUM S/P/B 3.9 3.5 - 5.1 MMOL/L 09/05/2024 8:56 PM CDT [facility] CHLORIDE S/P/B 102 100 - 108 MMOL/L 09/05/2024 8:56 PM CDT [facility] CO2 23.6 21 - 32 MMOL/L 09/05/2024 8:56 PM [facility] CALCIUM S/P/B 9.2 8.5 - 10.1 MG/DL 09/05/2024 8:56 PM [facility] BILIRUBIN TOTAL S/P/B 0.7 0.2 - 1.2 MG/DL 09/05/2024 8:56 PM [facility] TOTAL PROTEIN S/P/B 7.5 6.4 - 8.2 G/DL 09/05/2024 8:56 PM [facility] ALBUMIN S/P/B 4.0 3.4 - 5.0 G/DL 09/05/2024 8:56 PM [facility] AST 20 15 - 37 U/L 09/05/2024 8:56 PM [facility] ALT 37 16 - 60 U/L 09/05/2024 8:56 PM [facility] ALKALINE PHOSPHATASE S/P/B 94 50 - 136 U/L 09/05/2024 8:56 PM [facility] ANION GAP 11.4 5 - 15 MMOL/L 09/05/2024 8:56 PM [facility] BUN CREATININE RATIO 5.5(L) 6 - 26 09/05/2024 8:56 PM [facility] A/G RATIO 1.1 1.0 - 2.0 RATIO 09/05/2024 8:56 PM [facility] GFR ESTIMATE 85(L) >90 ML/MIN/1.7 3 M2 09/05/2024 8:56 PM [facility] Comment: NOTE: eGFR is not calculated for patients <18 years of age. This is an estimated GFR calculation using the new CKD EPI creatinine equation without race and so does not require a correction factor for race. This estimated GFR should not be used for calculating drug doses. 09/05/2024 8:22 PM CDT us Deepak Rodriguez MD LABORATORY Final Resul t [facility] [address] [place] [address], [place] [phone] * CBC W/DIFF AUTOMATED (09/05/2024 8:22 PM CDT) Only the most recent of7 resultswithin the time period is included. WBC 7.93 4.4 - 11.0 x10'3/uL 09/05/2024 8:29 PM CDT [facility] RBC 4.76 4.50 - 5.90 x10'6/uL 09/05/2024 8:29 PM CDT [facility] HGB 14.8 14.0 - 17.5 G/DL 09/05/2024 8:29 PM CDT [facility] HCT 43.5 41.5 - 50.4 % 09/05/2024 8:29 PM CDT [facility] MCV 91.4 80.0 - 96.0 FL 09/05/2024 8:29 PM CDT [facility] MCH 31.1 26.5 - 31.4 PG 09/05/2024 8:29 PM CDT [facility] MCHC 34.0 31.9 - 34.8 G/DL 09/05/2024 8:29 PM CDT [facility] RDW 13.1 12.3 - 14.3 % 09/05/2024 8:29 PM CDT [facility] PLT 205 151 - 353 x10'3/uL 09/05/2024 8:29 PM CDT [facility] MPV 10.3 9.7 - 11.9 FL 09/05/2024 8:29 PM CDT [facility] RBC MORPHOLOGY NORMAL 09/05/2024 8:29 PM CDT [facility] PLT MORPH. NORMAL 09/05/2024 8:29 PM CDT [facility] WBC MORPHOLOGY NORMAL 09/05/2024 8:29 PM CDT [facility] LYMPHOCYTES % 27.9 15.8 - 45.0 % 09/05/2024 8:29 PM CDT [facility] NEUTROPHILS % 64.7 42.1 - 71.9 % 09/05/2024 8:29 PM CDT [facility] MONOCYTES % 6.1 5.7 - 12.5 % 09/05/2024 8:29 PM CDT [facility] EOSINOPHILS 0.6 0.0 - 5.6 % 09/05/2024 8:29 PM CDT [facility] BASOPHILS 0.4 0.0 - 1.3 % 09/05/2024 8:29 PM CDT [facility] ABS. NEUTROPHILS 5.14 1.40 - 6.00 x10'3/uL 09/05/2024 8:29 PM CDT [facility] IMMATURE GRANS % 0.3 0.0 - 0.5 % 09/05/2024 8:29 PM CDT [facility] ABS. LYMPHOCYTES 2.21 0.80 - 4.70 x10'3/uL 09/05/2024 8:29 PM CDT [facility] 09/05/2024 8:22 PM CDT us Deepak Rodriguez MD LABORATORY Final Resul t [facility] [address] [place] [address], [place] [phone] * (ABNORMAL) LIPASE (09/05/2024 8:22 PM CDT) Only the most recent of5 resultswithin the time period is included. LIPASE 708(H) 16 - 77 UNITS/L 09/05/2024 8:56 PM CDT [facility] 09/05/2024 8:22 PM CDT us Deepak Rodriguez MD LABORATORY Final Resul t [facility] [address] [place] [address], * XR THOR SPINE 3V (08/13/2024 1:19 PM CDT) Anatomical Region Laterality Modality Spine Radiographic Olive ging 08/13/2024 1:18 PM CDT Narrative 08/14/2024 4:34 AM CDT [facility] [address] [address] Examination: XR THOR SPINE 3V Exam time: [...] Procedure Note Keith Cooper MD - 08/14/2024 [facility] Internal [address] [address] Examination: XR THOR SPINE 3V Exam time: [...] PM CDT Narrative 08/14/2024 4:35 AM CDT [facility] [place] [id number] Examination: XR ABD KUB Exam time: 08/13/2024 [...] Procedure Note Keith Cooper MD - 08/14/2024 [facility] [address] [address] Examination: XR ABD KUB Exam time: 08/13/2024 [...] 11:11 AM CDT) Only the most recent of2 [...] 11:25 AM Narrative 08/12/2024 11:30 AM CDT [place] [address] [facility] [place] [address] CT abdomen and pelvis with IV contrast [...] Procedure Note Emigdio Xie MD - 08/12/2024 [facility] [address] [facility] [place] [address] CT abdomen and pelvis with IV contrast [...] - 2.0 MMOL/L 08/12/2024 10:25 AM CDT [facility] 08/12/2024 9:59 AM CDT us Tommy Shepard MD LABORATORY Final Result [facility] [address] [place] [address], [place] [phone] * PARTIAL THROMBOPLASTIN TIME,PTT (08/12/2024 9:59 AM CDT) PTT 33.5 25.1 - 36.5 SEC 08/12/2024 10:13 AM CDT [facility] 08/12/2024 9:59 AM CDT us Tommy Shepard MD LABORATORY Final Result Performing Organization Address City/[facility] Co de Phone Number [facility] [address] [place] [address], [place] [phone] * PROTIME/INR, VENOUS (08/12/2024 9:59 AM CDT) Only the most recent of2 resultswithin the time period is included. PROTIME 11.7 9.1 - 12.4 SEC 08/12/2024 10:13 AM CDT [facility] INR 1.0 08/12/2024 10:13 AM CDT [facility] Comment: Recommend INR ranges for Oral Anticoagulant Therapy: Mechanical Cardiac Values 2.5-3.5 All others indication 2.0-3.0 08/12/2024 9:59 AM CDT us Tommy Shepard MD LABORATORY Final Result Performing Organization Address [facility] Co de Phone Number [facility] [address] [place] [address], [place] [phone] * MAGNESIUM (08/12/2024 9:59 AM CDT) Only the most recent of3 resultswithin the time period is included. MAGNESIUM 2.0 1.8 - 2.4 MG/DL 08/12/2024 10:45 AM CDT [facility] 08/12/2024 9:59 AM CDT Tommy Shepard MD LABORATORY Final Result [facility] [address] [facility] [place] [address], * CTA ABD+PEL (08/11/2024 1:39 PM CDT) [...] 2:25 PM Narrative 08/11/2024 2:[address] [address] Study: Computed angiography abdomen and pelvis Exam [...] Procedure Note Adán Galvan MD - 08/11/[address] [address] Study: Computed angiography abdomen and pelvis Exam [...] By: Adán Galvan MD, 08/11/2024 2:25 PM us Lorena Murillo MD CT Final Resu lt * (ABNORMAL) BASIC METABOLIC PANEL (08/11/2024 5:54 AM CDT) Only the most recent of4 resultswithin the time period is included. GLUCOSE 102(H) 70 - 99 MG/DL 08/11/2024 6:45 AM CDT [facility] BUN 5(L) 7 - 18 MG/DL 08/11/2024 6:45 AM CDT [facility] CREATININE S/P/B 1.07 0.7 - 1.3 MG/DL 08/11/2024 6:45 AM CDT [facility] SODIUM S/P/B 139 136 - 145 MMOL/L 08/11/2024 6:45 AM CDT [facility] POTASSIUM S/P/B 3.5 3.5 - 5.1 MMOL/L 08/11/2024 6:45 AM CDT [facility] CHLORIDE S/P/B 104 97 - 115 MMOL/L 08/11/2024 6:45 AM CDT [facility] CO2 30.3 21 - 32 MMOL/L 08/11/2024 6:45 AM CDT [facility] CALCIUM S/P/B 9.6 8.5 - 10.1 MG/DL 08/11/2024 6:45 AM CDT [facility] ANION GAP 4.7 2 - 10 MMOL/L 08/11/2024 6:45 AM CDT [facility] BUN CREATININE RATIO 4.7(L) 6 - 26 08/11/2024 6:45 AM CDT [facility] GFR ESTIMATE 87(L) >90 ML/MIN/1.7 3 M2 08/11/2024 6:45 AM CDT [facility] Comment: NOTE: eGFR is not calculated for patients <18 years of age or gender unknown. This is an estimated GFR calculation using the new CKD EPI creatinine equation without race and so does not require a correction factor for race. This estimated GFR should not be used for calculating drug doses. 08/11/2024 5:54 AM CDT Baltazar Perales MD LABORATORY Final R esult [facility] [address] [place] [address], [place] [phone] * CBC, AUTO, NO DIFF (08/11/2024 5:54 AM CDT) Only the most recent of3 resultswithin the time period is included. WBC 5.22 4.5 - 11.0 x10'3/uL 08/11/2024 6:28 AM CDT [facility] RBC 4.70 4.70 - 6.10 x10'6/uL 08/11/2024 6:28 AM CDT [facility] HGB 14.4 14.0 - 18.0 G/DL 08/11/2024 6:28 AM CDT [facility] HCT 43.1 43.0 - 54.0 % 08/11/2024 6:28 AM CDT [facility] MCV 91.7 80.0 - 94.0 FL 08/11/2024 6:28 AM CDT [facility] MCH 30.6 27.0 - 31.0 PG 08/11/2024 6:28 AM CDT [facility] MCHC 33.4 32.0 - 36.0 G/DL 08/11/2024 6:28 AM CDT [facility] RDW 12.9 11.5 - 14.5 % 08/11/2024 6:28 AM CDT [facility] PLT 244 130 - 400 x10'3/uL 08/11/2024 6:28 AM CDT [facility] MPV 10.2 9.3 - 12.2 FL 08/11/2024 6:28 AM CDT [facility] 08/11/2024 5:54 AM CDT us Baltazar Perales MD [place] [address], [place] [phone] * (ABNORMAL) POCT glucose (08/10/2024 5:28 AM CDT) Only the most recent of2 resultswithin the time period is included. GLUCOSE POC 149(H) 70 - 99 mg/dL 08/10/2024 5:34 AM CDT [facility] 08/10/2024 5:28 AM CDT Baltazar Perales MD POCT ORDERABLES - DEVIC E Final Result [facility] [address] [place] [id number], * [place] ABD LIMITED (08/08/2024 12:03 PM CDT) Anatomical Region Laterality Modality Abdomen Ultrasound 08/10/2024 5:54 AM CDT Impressions 08/10/2024 6:01 AM CDT IMPRESSION: ===== 1. No acute abnormalities in the right upper quadrant. Referred By: SRIRAM JUARES Interpreted By: Casey Tomas MD, 08/10/2024 5:54 AM Narrative 08/10/2024 6:01 AM CDT [address] [address] Exam: Right upper quadrant abdominal ultrasound Exam [...] Procedure Note Casey Tomas MD - 08/10/2024 [address] [place], [place] [address] Exam: Right upper quadrant abdominal ultrasound Exam [...] 6.1(H) <5.7 % 08/08/2024 9:30 AM CDT [facility] Comment: ADA GUIDELINES 2010 5.7 TO 6.4% INCREASED RISK OF DIABETES > OR = 6.5% CONSISTENT WITH DIABETES ESTIMATED AVG GLUCOSE 128 mg/dL 08/08/2024 9:30 AM CDT [facility] 08/08/2024 6:00 AM CDT us Nick Lubin MD LABORATORY Final Resul t [facility] [address] [place] [address], * (ABNORMAL) LIPID PANEL (08/08/2024 6:00 AM CDT) CHOLESTEROL 156 <200 MG/DL 08/08/2024 7:11 AM CDT [facility] TRIGLYCERIDES 136 <150 MG/DL 08/08/2024 7:11 AM CDT [facility] HDL 28(L) >40.0 MG/DL 08/08/2024 7:11 AM CDT [facility] LDL (CALCULATED) 101(H) <100 MG/DL 08/08/2024 7:11 AM CDT [facility] NON HDL CHOLESTEROL 128 <130 MG/DL 08/08/2024 7:11 AM CDT [facility] CHOL/HDL RATIO 5.6(H) 0.0 - 4.5 08/08/2024 7:11 AM CDT [facility] VLDL CALCULATION 27 5 - 55 MG/DL 08/08/2024 7:11 AM CDT [facility] LIPID INTERPRETATION 08/08/2024 7:11 AM T [facility] Comment: NIH CONCENSUS REPORT RECOMMENDATIONS: ADULT CHILD LOW RISK: CHOLESTEROL <200 <170 TRIGLYCERIDE <150 --- HDL >=60 --- LDL <100 <110 BORDERLINE: CHOLESTEROL 200-239 170-199 TRIGLYCERIDE 150-199 --- HDL 40-59 --- LDL 100-159 110-129 HIGH RISK: CHOLESTEROL >=240 >=200 TRIGLYCERIDE >=200 --- HDL <40 --- LDL >=160 >=130 08/08/2024 6:00 AM CDT Nick Lubin MD LABORATORY Final Resul t Performing Organization Address [facility] Co de Phone Number [facility] [address] [place] [address], [place] [phone] * THYROID STIM HORMONE, TSH (08/08/2024 6:00 AM CDT) TSH 2.200 0.358 - 3.74 uIU/ML 08/08/2024 7:11 AM CDT [facility] Comment: HIGH DOSES OF BIOTIN MAY INTERFERE WITH THIS TEST RESULT. CORRELATION TO CLINICAL HISTORY AND PRESENTATION RECOMMENDED. 08/08/2024 6:00 AM CDT Nick Lubin MD LABORATORY Final Resul t Performing Organization Address [facility] Co de Phone Number [facility] [address] [place] [address], [place] [phone] * HEPATITIS C ANTIBODY (06/29/2023 9:04 AM CDT) HEPATITIS C AB NON-REACTI VE NON-REACT ANTONI 06/29/2023 6:33 PM CDT [facility] Comment: ANTIBODIES TO HCV NOT DETECTED. DOES NOT EXCLUDE THE POSSIBILITY OF EXPOSURE TO HCV. 06/29/2023 9:04 AM CDT Ani Ellsworth NP LABORATORY Final Res ult Performing Organization Address City/[facility] Co de Phone Number [facility] [address] [place] [address], [place] [phone] from Last 3 Months or Most Recently [...] 6:55 PM 01/11/2024 2:03 PM Care Teams Cork Insulator Relationship Specialty Start Date End Date Ani Ellsworth NP [address] [place] [address] PCP - General NURSE PRACTITIONER 06/13/23
--- OUTSIDE RECORDS SUMMARY | 2024-10-26 00:30 | XMS_ITS | Encounter Summary ---
Author Organization [facility] Address [address] [place] [address] Care Team Providers Care Regasification Plant Operator Name Role Phone Ani Ellsworth NP Primary Care Provider [phone] [phone] Encounter Details Date Type Department Care Team (Late st Contact Info) Description 11/17/2023 [employer] Message Enc [facility] Medical Group Multispecialty Care - [address], [address] [place] [address] [place], [facility] Provider Reschedule Social History Tobacco Use [...] doctor or pharmacy? Never 10/03/2023 [facility] Utilities Answer Date Recorded In the [...] How often do you attend chur or evangelical services? 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
--- OUTSIDE RECORDS SUMMARY | 2024-10-26 00:30 | XMS_ITS | Clinical Summary ---
Author Organization [facility] Address [address] [facility] [place] [address] Care Team Providers Care Animal Husbandry Worker Name Role Phone Stan Coopre Primary Care Provider Unavailab le Source Comments [facility],non-owned Affiliates and Associated Physician Practices is amultiple site organization consisting of ambulatory clinics and hospital sitesin [place], [place], [place] and [place]. This disclosure is being madepursuant to the Care Everywhere program and may not contain all information available regarding this patient. Last updated 17.[facility] Allergies Active Allergy Reactions Criticality Noted Date Comments Aspirin Rash Medium 09/03/2018 Medications * Be aware that medications may not be up to date on this document. Alwaysverify current medications with the patient. fenofibrate (LOFIBRA) 54 MG tablet TAKE 1 TABLET BY MOUTH EVERY DAY IN THE MORNING 06/26/2020 Active Encounters Date Type Department Care Team Description 10/16/2024 Travel 08/14/2024 Telephone [facility] Pain Care [address] [place] [address] Dana Mccormack, SCRAP MATERIALS BUYER-POLICY ADVISER Appointment 07/26/2024 Telephone [facility] ENDOSCOPY [address] [place] [id number] Kaci Martinez Procedure (Eus Needed) from Last 3 Months Social History Tobacco Use Types Packs/Day Years Used Date Smoking Tobacco: Former Smokeless Tobacco: Never Alcohol Use Standard Drinks/Week Comments Yes 0 (1 standard drink = 0.6 oz pur e alcohol) Sex and Gender Information Value Date Recorded Sex Assigned at Not on file Legal Sex Male 2:56 PM SOCIAL PSYCHOLOGIST Gender Identity Not on file Sexual Orientation [...] Visit [facility] [address] [facility], [place] [id number] Tessy Zelaya DO [address] [facility] [address] [place] [id number] Health Maintenance Due Date Last Done Comments [...] to complete this topic Insurance Care Teams Animal Husbandry Worker Relationship Specialty Start Date End Date Stan Cooper Update Information PCP - General 07/08/20
--- OUTSIDE RECORDS SUMMARY | 2024-10-26 00:30 | XMS_ITS | Encounter Summary ---
Author Organization [facility] Address [address] [place] [address] Care Team Providers Care Letter Of Credit Document Examiner Name Role Phone Ani Ellsworth NP Primary Care Provider [phone] [phone] Encounter Details Date Type Department Care Team (Late st Contact Info) Description 11/15/2023 [employer] Message Enc [facility] Medical Group Family Medicine [facility] [address] [address] [email or web address], [facility] Provider xrays Social History Tobacco Use Types [...] from your doctor or pharmacy? Never 10/03/2023 [facility] Utilities Answer Date Recorded In the [...] How often do you attend chur or samaritan services? Never 10/03/2023 Do you belong to any clubs o r organizations such as jewish groups, unions, fraternal or athletic groups, or [...] Patient Health Questionnaire-2 Score 0 10/03/2023 [facility] [place] of Occupat ional Health - Occupational Stress [...] place to sleep or slept in a custodial (including now)? No 06/13/2023 Housing Stability Vital Sign Answer Ciro e Recorded In the last 12 months, was t here a time when you were not able to pay the mortgage or rent on time? No 10/03/2023 In the past 12 months, how m any times have you moved where you were living? 1 10/03/2023 At any time in the past 12 m [facility], were you homeless or living in a custodial (including now)? No 10/03/2023 Sex and Gender [...] Rule Out 03/16/2024 03/16/2024 03/16/2024 1:26 PM COW TENDER Assessment Noted Time PHQ-9 Depression Total Score: 13 024 1:09 PM CDT documented as of this encounter Care Teams Letter Of Credit Document Examiner Relationship Specialty Start Date End Date Ani Ellsworth NP [facility] [place] [address] PCP - General NURSE PRACTITIONER 06/13/23 documented as of this encounter
--- OUTSIDE RECORDS SUMMARY | 2024-10-26 00:30 | XMS_ITS | Encounter Summary ---
Author Organization [facility] Address [address] [place] [address] Care Team Providers Care Audit Mgr Name Role Phone Ani Ellsworth NP Primary Care Provider [phone] [phone] Encounter Details Date Type Department Care Team (Late st Contact Info) Description 01/27/2024 [employer] Message Enc [facility] Medical Group Family Medicine [facility] [address] [place] [address] Striivmichael, [facility] Provider Endo Referral Social History Tobacco [...] your doctor or pharmacy? Never 10/03/2023 [facility] Utilities Answer Date Recorded In [...] Never 01/06/2024 How often do you attend zoroastrian or mandaeism serv ices? Never 01/06/2024 Do you belong to any clubs o r organizations such as zoroastrian groups, unions, fraternal or athletic groups, or [...] Recorded Patient Health Questionnaire-2 Score 1 01/31/2024 [facility] - Occupational Stress Questionnaire Answer [...] place to sleep or slept in a mcfp (including now)? No 06/13/2023 Housing Stability Vital [...] were you homeless or living in a mcfp (including now)? 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
--- OUTSIDE RECORDS SUMMARY | 2024-10-26 00:30 | XMS_ITS | Encounter Summary ---
Author Organization [facility] Address [address] [place] [address] Care Team Providers Care Roper Operator Name Role Phone Ani Ellsworth NP Primary Care Provider [phone] [phone] Encounter Details Date Type Department Care Team (Late st Contact Info) Description 06/24/2023 [employer] Message Enc [facility] Medical Group Multispecialty Care - [place] [address] [address] [place] [address] [place] [address] [place] [address] [address] [place], [place] [id number] [employer] Social History Tobacco Use Types Packs/Day Years Used Date Smoking Tobacco: Former Cigarettes 2 26 0 08/24/1993 - 08/25/2019 Passive Smoke Exposure: Past Smokeless Tobacco: Never Alcohol Use Standard Drinks/Week Comments Yes 0 (1 standard drink = 0.6 oz pur e alcohol) rare [facility] Utilities Answer Date Recorded In the [...] How often do you attend chur or confucianist services? Never 05/21/2023 Do you belong to [...] Recorded Patient Health Questionnaire-2 Score 0 06/24/2023 [facility] - Occupational Stress Questionnaire Answer [...] Rule Out 03/16/2024 03/16/2024 03/16/2024 1:26 PM PATTERN GATER Assessment Noted Time PHQ-9 Depression Total Score: 13 024 1:09 PM CDT documented as of this encounter Care Teams Roper Operator Relationship Specialty Start Date End Date Ani Ellsworth NP [address] [place] [address] PCP - General NURSE PRACTITIONER 06/13/23 documented as of this encounter
--- OUTSIDE RECORDS SUMMARY | 2024-10-26 00:30 | XMS_ITS | Encounter Summary ---
Author Organization [facility] Address [address] [place] [address] Care Team Providers Care Cheese Wrapper Name Role Phone Ani Ellsworth NP Primary Care Provider [phone] [phone] Encounter Details Date Type Department Care Team (Late st Contact Info) Description 11/15/2023 [employer] Message Enc [facility] Medical Group Family Medicine [facility] [address] [place] [address] [employer], [facility] Provider results. Social [...] from your doctor or pharmacy? Never 10/03/2023 [facility] Utilities Answer Date Recorded In the [...] you attend chur or confucianist services? Never 10/03/2023 Do you [...] Recorded Patient Health Questionnaire-2 Score 0 10/03/2023 [facility] [place] of Occupat ional Health - Occupational Stress [...] any time in the past 12 m [facility], were you homeless or living in a fdc (including now)? 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
--- OUTSIDE RECORDS SUMMARY | 2024-10-26 00:30 | XMS_ITS | Encounter Summary ---
Author Organization [facility] Address [address] [place] [address] Care Team Providers Care Canal Equipment Maintenance Supervisor Name Role Phone Ani Ellsworth NP Primary Care Provider [phone] [phone] Encounter Details Date Type Department Care Team (Latest Contact Info) Description 12/21/2023 [employer] Message Enc [facility] Medical Group Family Medicine - [place] [address] [facility] [address] [place] [address] Ani Ellsworth NP [address] [place] [address] follow up on endocrinology referral Social History [...] your doctor or pharmacy? Never 10/03/2023 [facility] Utilities Answer Date Recorded In [...] often do you attend chur ch or mandaen services? Never 10/03/2023 Do you belong to any clubs o r organizations such as methodist groups, unions, fraternal or athletic groups, or [...] Recorded Patient Health Questionnaire-2 Score 0 10/03/2023 [facility] [place] of Occupat ional Health - Occupational Stress [...] any time in the past 12 m [facility], were you homeless or [...] Author Status No 10/03/2023 5:52 PM REINIERT Staic Medina RN Active documented in this encounter [...] Rule Out 03/16/2024 03/16/2024 03/16/2024 1:26 PM CONTRACT TECHNICIAN Assessment Noted Time PHQ-9 Depression Total Score: 13 06/15/ 024 1:09 PM CDT documented as of this encounter Care Teams Canal Equipment Maintenance Supervisor Relationship Specialty Start Date End Date Ani Ellsworth NP [address] [place] [address] PCP - General NURSE PRACTITIONER 06/13/23 documented as of this encounter
[2024-10-26] MEDS: LACTATED RINGERS 1,000 ML 999 ML IV CONT ×2 (00:38)
[2024-10-26] MEDS: ONDANSETRON INJ 4 MG/2 ML VIAL IV PUSH (00:39)
[2024-10-26 00:50] LABS: Hematocrit 45.0 % (42.0-52.0); Hemoglobin 15.1 g/dL (14.0-18.0); Immature Granulocyte Percent A 0.3 % (0-0.5); Lymphocytes Absolute Auto 2.41 K/mm3 (0.9-3.2); Mean Corpuscular HGB Conc 33.6 g/dl (32-36); Mean Corpuscular Hemoglobin 30.3 pg (26-34); Mean Corpuscular Volume 90.4 fl (80-100); Nucleated Red Blood Cells Absolute Auto 0.000 K/mm3 (0.0-0.012); Nucleated Red Blood Cells Perc 0.0 % (0.0-0.2); Platelet Count Result 202 k/mm3 (150-375); Red Blood Count 4.98 M/mm3 (4.6-6.20); White Blood Count 7.5 K/mm3 (4.5-10.0)
[2024-10-26 00:51] LABS: Add Urine Microscopic? NO; Appearance Urine Clear (Clear); Glucose Urine UA Negative (Negative); Leukocyte Esterase Ur Negative LEU/UL (Negative); Nitrate Urine Negative (Negative); Specific Grav Ur 1.028 (1.001-1.035)
--- NOTE | 2024-10-26 01:17 | ED.ABDPAIN ---
HPI - Abdominal Pain General Chief Complaint: Dizziness Stated Complaint: abd pain, dizziness Time Seen by Provider: 10/26/24 00:20 History of Present Illness HPI narrative: 43-year-old male with a history of chronic pancreatitis and pseudocysts. History of previous alcohol abuse. Presents to the emergency department with vague epigastric abdominal discomfort radiating towards his back as well as dizziness, lightheadedness and nauseousness. States that initially felt different than his chronic pancreatitis and then had some components that feels similar. Has a specialist appointment at the end of next month at [facility] to evaluate for his chronic pancreatitis but he has not seen a specialist for this yet. Denies any chest pain or shortness of breath. No direct trauma or injuries. Noted diarrhea, constipation, dysuria. States he tries to eat and drink but this exacerbates his symptoms so he has to drink Ensure to get nutrition which does help. No sick contacts. Related Data Home Medications ?Medication ?Instructions ?Recorded ?Confirmed ?Last Taken ?Type [id number] 1 cap PO TID 09/29/24 09/29/24 Unknown History 10,000-32,000-42,000 unit capsule,delayed rel (Zenpep) Allergies Allergy/AdvReac Type Severity Reaction Status Date / Time bee venom protein (honey Allergy Swelling Verified 10/25/24 20:47 bee) (bees) wasp Allergy Swelling Uncoded 10/25/24 20:47 yellow jackets Allergy Swelling Uncoded 10/25/24 20:47 Review of Systems Review of Systems: As reviewed above in HPI PMFSH Past Medical History Medical History Acute on chronic pancreatitis Alcoholic pancreatitis Sleep apnea Depressive disorder, not elsewhere classified Infertility Hyperlipidemia Smoking Cardiac arrhythmia History of migraine headaches Blackout Dizziness and giddiness Chest pain Back pain Surgical History Surgical History No pertinent past surgical history Family History Family History Sibling Autoimmune disease Social History Social History Social History: former smoker. The patient has a significant Other. The patient recently lost his job. He is not currently working. The patient states that he drinks heavily at least 2-3 days a week which is more than 6 drinks at a time. Reports no alcohol since episode of pancreatitis in July 2022. States employed at present time. Code status full code Smoking status: Former smoker Alcohol intake: former Alcohol use details: reports no alcohol since episode of pancreatitis Substance use: never Substance use type: does not use Other substance usage details: QUIT 9 MONTHS AGO Do You Feel Safe in your Home?: Yes Lack of Transportation: No Lack of Food: Never True Current Housing: I Have Housing Concerned About Future Housing: No Difficulty Paying Gas/Electric Bills: YES Difficulty Paying for Meds: No Currently Unemployed: No Education: Associate Degree Difficulty w/ Childcare or Family Care: No Gender identity (if verbalized by the patient): Male Spiritual care concerns: No Exam Narrative: GENERAL: [Well-appearing, well-nourished, and in no acute distress.] HEAD: [Normocephalic, atraumatic.] EYES: [PERRLA and EOMI.] ENT: Nares clear, no rhinorrhea or epistaxis. Mucous membranes dry. NECK: Supple. CHEST: [Clear to auscultation. No respiratory distress.] HEART: [Regular rate and rhythm]. No murmur heard. [Normal peripheral pulses.] ABDOMEN: [Soft, nondistended], mildly tender in the epigastrium, [No rigidity or guarding] EXTREMITIES: Normal range of motion. [No edema.] SKIN: Warm, dry, no rash. NEURO: [No focal deficits]. Alert and oriented [x3.] PSYCH: [Normal mood and affect.] Course Vital Signs Vital signs: Vital Signs Temperature 37.0 C 10/25/24 20:42 Pulse Rate 105 H 10/25/24 20:42 Respiratory Rate 18 10/25/24 20:42 Blood Pressure 114/80 10/25/24 20:42 Pulse Oximetry 100 10/25/24 20:42 Oxygen Delivery Room Air 10/25/24 20:42 Temperature 37.0 C 10/25/24 20:42 Pulse Rate 90 10/25/24 22:29 Respiratory Rate 20 10/25/24 22:29 Blood Pressure 125/53 L 10/25/24 22:29 Pulse Oximetry 97 10/25/24 22:29 Oxygen Delivery Room Air 10/25/24 20:42 MDM - Abdominal Pain MDM Narrative Medical decision making narrative: 43-year-old male with a history of chronic pancreatitis and pseudocysts. History of previous alcohol abuse. Presents to the emergency department with vague epigastric abdominal discomfort radiating towards his back as well as dizziness, lightheadedness and nauseousness. States that initially felt different than his chronic pancreatitis and then had some components that feels similar. Has a specialist appointment at the end of next month at [facility] to evaluate for his chronic pancreatitis but he has not seen a specialist for this yet. Denies any chest pain or shortness of breath. No direct trauma or injuries. Noted diarrhea, constipation, dysuria. States he tries to eat and drink but this exacerbates his symptoms so he has to drink Ensure to get nutrition which does help. No sick contacts. Patient is mildly tachycardic, afebrile without any tachypnea or blood pressure concerns. Mildly tender in the epigastrium region. Given his chronic pancreatitis history with different quality in his pain investigations for other potential sources such as pseudocyst, infected pseudocyst, intra-abdominal infection or abscess versus chronic pancreatitis versus other potential sources or electrolyte deficiencies or dehydration were ordered. CT abdomen pelvis with contrast obtained. Lipase level, CBC, CMP ordered. He was given 2 L of fluid and Dilaudid 0.5 mg IV for pain control. Re-evaluated after interventions. Workup shows no leukocytosis or anemia. Normal platelet count. Chemistry panel shows no significant derangements. No electrolyte problems, normal creatinine, normal glucose, normal LFTs, normal lipase. Urinalysis unremarkable. Patient did have an additional round of pain medications but had improvement in symptoms. CT read no acute abnormalities, stable hypodense lesions consistent with pseudocyst. No evidence of acute pancreatitis. Medical Records Attestation: I reviewed the patient's medical records. Lab Data Attestation: I reviewed the patient's lab results. 10/26/24 00:31 10/26/24 00:31 Labs: Lab Results 10/26/24 Range/Units 00:31 WBC 7.5 (4.5-10.0) K/mm3 RBC 4.98 (4.6-6.20) M/mm3 Hgb 15.1 (14.0-18.0) g/dL Hct 45.0 (42.0-52.0) % MCV 90.4 (80-100) fl MCH 30.3 (26-34) pg MCHC 33.6 (32-36) g/dl RDW 13.2 (11.5-14.5) % Plt Count 202 (150-375) k/mm3 MPV 10.6 H (7.4-10.4) fl Immature Gran % (Auto) 0.3 (0-0.5) % Neut % (Auto) 59.0 (45.5-73.1) % Lymph % (Auto) 32.3 (18.3-44.2) % [place] % (Auto) 7.8 (2.6-8.5) % Eos % (Auto) 0.3 (0-4.4) % Baso % (Auto) 0.3 (0.2-1.2) % Lymph # (Auto) 2.41 (0.9-3.2) K/mm3 [place] # (Auto) 0.6 (0.1-0.6) K/mm3 Eos # (Auto) 0.0 (0-0.3) K/mm3 Baso # (Auto) 0.0 (0.0-0.1) K/mm3 Abs Immat Gran (auto) 0.02 (0.00-0.031) K/mm3 Absolute Neuts (auto) 4.4 (1.3-6.7) K/mm3 Absolute Nucleated RBC 0.000 (0.0-0.012) K/mm3 Nucleated RBC % 0.0 (0.0-0.2) % Sodium 135 L (137-145) mmol/L Potassium 4.3 (3.4-5.0) mmol/L Chloride 103 (98-107) mmol/L Carbon Dioxide 21 L (22-30) mmol/L Anion Gap 11 (4-12) mmol/L BUN 22 H D (9-20) mg/dL Creatinine 1.01 (0.7-1.3) mg/dL Estim Creat Clear Calc 103 ml/min Estimated GFR > 60 (59 - ) Glucose 113 H (65-110) mg/dL Calcium 9.7 (8.4-10.2) mg/dL Total Bilirubin 0.5 (0.2-1.3) mg/dL AST 29 (17-59) U/L ALT 30 (6-50) U/L Alkaline Phosphatase 91 (38-126) U/L Total Protein 7.8 (6.3-8.2) g/dL Albumin 4.4 (3.5-5.1) g/dL Lipase 234 (23-300) U/L Urine Color Yellow (Yellow) Urine Appearance Clear (Clear) Urine pH 5.5 (5.0-9.0) Ur Specific [place] 1.028 (1.001-1.035) Urine Protein Negative (Negative) mg/dL Urine Glucose (UA) Negative (Negative) mg/dL Urine Ketones Negative (Negative) mg/dL Ur Blood (Man) Negative (Negative) Urine Nitrate Negative (Negative) Urine Bilirubin Negative (Negative) Urine Urobilinogen 0.2 (<2.0) mg/dL Leukocyte Esterase Rfl Negative (Negative) MARCELO/UL Imaging Data Attestation: I personally reviewed and interpreted this imaging study as follows: Discharge Plan Discharge Clinical Impression: Acute dehydration, Chronic pancreatitis, Pancreatic pseudocyst Patient Disposition: Home Condition: Stable Instructions: Antibiotic Form, Pancreatitis (ED) Additional Instructions: All of your laboratory studies are reassuring, no signs of any significant derangements, infection, electrolyte abnormalities or any lipase elevations. CT scan shows no abnormalities that are acute. No evidence of acute pancreatitis, no changes in your pancreatic pseudocysts. Lipase currently 234. Follow-up with your regular primary care provider and specialist. Return with any emergent concerns. Refrain from alcohol intake any other potential triggers of your pancreatitis. Patient Language: Kuwaiti Prescriptions: No Action Zenpep 10,000-32,000 -42,000 unit capsule,delayed release(DR/EC) 1 cap PO TID hydrocodone-acetaminophen 7.5-325 mg tablet 1 tablet PO Q6H PRN (Reason: pain) 5 Days Qty: 10 0RF pantoprazole 40 mg Tablet,Delayed Release (Dr/Ec) 40 mg PO QAM Qty: 30 0RF calcium carbonate 500 mg calcium (1,250 mg) Tablet,Chewable 200 mg PO Q6H PRN (Reason: Indigestion) Qty: 30 0RF Follow-up/Referrals: Seng,BETTY Morin [Primary Care Provider] - Time of Disposition: 06:54
[2024-10-26 05:32] LABS: Alanine Aminotransferase 30 U/L (6-50); Albumin Level 4.4 g/dL (3.5-5.1); Alkaline Phosphatase 91 U/L (38-126); Anion Gap 11 mmol/L (4-12); Aspartate Amino Transferase 29 U/L (17-59); Bilirubin,Total 0.5 mg/dL (0.2-1.3); Blood Urea Nitrogen 22 mg/dL (9-20); Calcium 9.7 mg/dL (8.4-10.2); Carbon Dioxide 21 mmol/L (22-30); Chloride 103 mmol/L (98-107); Estimated CRCL calculation 103 ml/min; Estimated Glomerular Filt Rate > 60; Glucose 113 mg/dL (65-110); Lipase 234 U/L (23-300); Potassium 4.3 mmol/L (3.4-5.0); Sodium 135 mmol/L (137-145); Total Protein 7.8 g/dL (6.3-8.2)
== END 2024-10-26 07:18 | disposition home or self-care (01) ==
PROVIDERS: Emergency Provider Student in an Organized Health Care Education/Training Program; PCP Nurse Practitioner
DX: K86.1 Other chronic pancreatitis (principal); K86.3 Pseudocyst of pancreas; E86.0 Dehydration; E78.5 Hyperlipidemia, unspecified; G47.30 Sleep apnea, unspecified; Z87.891 Personal history of nicotine dependence
CPT/HCPCS: 36415; 74177; 80053; 81003; 83690; 85025; 96374; 99284; J2405; J7120; Q9967

== ENCOUNTER 2025-01-09 13:53 | Emergency (ER) | payer OTHER, SELFPAY ==
--- NOTE | ~2025-01-09 | CT_ITS ---
EXAMINATION: CT abdomen pelvis w con DATE: 01/09/2025 16:26 INDICATION: Abdominal pain. TECHNIQUE: Computed tomography (CT) of the abdomen and pelvis was performed with 100 mL Omnipaque 350 intravenous contrast. Automated exposure control and iterative reconstruction technique were employed. The dose-length product was 643.72 mGy-cm. COMPARISON: CT abdomen and pelvis 10/26/2024, 06/17/24, 11/20/22, 08/08/22, 01/10/2016 FINDINGS: The visualized portions of the lung bases are clear without pneumonia or pleural effusion. The heart size is normal. No pericardial effusion. The liver, gallbladder, and spleen are normal. There is fat stranding around the pancreas with areas of hypoenhancement in the head and body of the pancreas. There are rim-enhancing collections along the tail of the pancreas measuring up to 2.2 x 2.6 cm, stable from 06/17/24 and decreased in size from 11/20/22, consistent with walled-off necrosis. The adrenal glands and kidneys are normal. The prostate is moderately enlarged. There are no dilated loops of bowel. The appendix is normal. There are no pathologically enlarged lymph nodes. There is no free intraperitoneal fluid. There is severe lower lumbar spondylosis. There is mild thoracic spondylosis. IMPRESSION: 1. Acute pancreatitis superimposed on chronic necrotic pancreatitis. Reviewed, dictated and finalized at location E.
[2025-01-09 13:56] VITALS: BP 149/68; PULSE 116; RESP 16; TEMP 36.6; O2SAT 100
[2025-01-09 15:07] LABS: Hematocrit 46.6 % (42.0-52.0); Hemoglobin 16.1 g/dL (14.0-18.0); Immature Granulocyte Percent A 0.1 % (0-0.5); Lymphocytes Absolute Auto 1.68 K/mm3 (0.9-3.2); Mean Corpuscular HGB Conc 34.5 g/dl (32-36); Mean Corpuscular Hemoglobin 31.4 pg (26-34); Mean Corpuscular Volume 90.8 fl (80-100); Nucleated Red Blood Cells Absolute Auto 0.000 K/mm3 (0.0-0.012); Nucleated Red Blood Cells Perc 0.0 % (0.0-0.2); Platelet Count Result 255 k/mm3 (150-375); Red Blood Count 5.13 M/mm3 (4.6-6.20); White Blood Count 6.8 K/mm3 (4.5-10.0)
[2025-01-09 15:17] LABS: Add Urine Microscopic? NO; Appearance Urine Clear (Clear); Glucose Urine UA Negative (Negative); Leukocyte Esterase Ur Negative LEU/UL (Negative); Nitrate Urine Negative (Negative); Specific Grav Ur 1.017 (1.001-1.035)
[2025-01-09 15:26] LABS: Alanine Aminotransferase 26 U/L (6-50); Albumin Level 4.3 g/dL (3.5-5.1); Alkaline Phosphatase 94 U/L (38-126); Anion Gap 7 mmol/L (4-12); Aspartate Amino Transferase 29 U/L (17-59); Bilirubin,Total 0.6 mg/dL (0.2-1.3); Blood Urea Nitrogen 16 mg/dL (9-20); Calcium 9.5 mg/dL (8.4-10.2); Carbon Dioxide 22 mmol/L (22-30); Chloride 107 mmol/L (98-107); Estimated CRCL calculation 111 ml/min; Estimated Glomerular Filt Rate > 60; Glucose 108 mg/dL (65-110); Potassium 4.5 mmol/L (3.4-5.0); Sodium 136 mmol/L (137-145); Total Protein 7.8 g/dL (6.3-8.2)
--- OUTSIDE RECORDS SUMMARY | 2025-01-09 15:33 | XMS_ITS | Clinical Summary ---
Author Organization [facility] Address [address] [facility] [place] [address] Care Team Providers Care Seo Assistant Name Role Phone Ani Ellsworth APRN-[facility] Primary Care Provi cielo Source Comments [facility],non-owned Affiliates and Associated Physician Practices is amultiple site organization consisting of ambulatory clinics and hospital sitesin [place], [place] and [place]. This disclosure is being madepursuant to the Care Everywhere program and may not contain all information available regarding this patient. Last updated 17.[facility] Allergies Active Allergy Reactions Criticality Noted Date Comments Aspirin Rash Medium 09/03/2018 Medications * Be aware that medications may not be up to date on this document. Alwaysverify current medications with the patient. pancrelipase (Zenpep) 50476-86935 units capsule Take 1 (one) capsule by mouth 3 times daily with meals Do not crush or chew. Active dicyclomine (Bentyl) 10 MG capsuleIndication s:Recurrent acute pancreatitis (HCC) Take 1 (one) capsule by mouth 4 times daily as needed (abdominal pain) 90 capsule 3 5 Active Encounters Date Type Department Care Team Description 11/09/2024 12:50 PM CDT - 11/09/2024 11:59 PM CDT Hospital Encounter [facility] OP DRAW STATION [address] [place] [address] Tessy Zelaya DO Discharge Disposition: Home or Self Care 11/09/2024 10:30 AM CDT Office Visit [facility] - GI [address] [place] [phone] Tessy Zelaya DO Recurrent acute pancreatitis (HCC) (Primary Dx); Loss of weight; GERD without esophagitis; Pancreatic cyst (HCC); Cyst and pseudocyst of pancreas (HCC); Irritable bowel syndrome with both constipation and diarrhea; Lightheadedness; Chest wall pain 11/09/2024 Travel 10/16/2024 Travel from Last 3 Months Social History Tobacco Use Types Packs/Day Years Used Date Smoking Tobacco: Former Smokeless Tobacco: Never Alcohol Use Standard Drinks/Week Comments Not Currently 0 (1 standard drink = 0.6 oz pur e alcohol) quit May 2022 Sex and Gender Information Value Date Recorded Sex Assigned at Not on file Legal Sex Male 2:56 PM [employer]ACE [employer] 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 SUPERINTENDENT Gender Identity Not on file Sexual Orientation Not on file Last Filed Vital Signs Vital Sign Reading Time Taken Comments Blood Pressure 117/71 11/09/2024 10:59 AM CDT Pulse 72 11/09/2024 10:59 AM CDT Temperature 36.6 C (97.9 F) 11/09/2024 10:59 AM CDT Respiratory Rate - - Oxygen Saturation 99% 11/09/2024 10:59 AM CDT Inhaled Oxygen Concentration - - Weight 94.2 kg (207 lb 9.6 oz) 11/09/2024 10:59 AM CDT Height 195.6 cm (6' 5) 11/09/2024 10:59 AM CDT Body Mass Index 24.62 11/09/2024 10:59 AM CDT Plan of Treatment Upcoming Encounters Date Type Department Care Team (Late st Contact Info) Description 02/15/2025 10:30 AM SPACE SYSTEMS OPERATIONS SUPERINTENDENT Office Visit [facility] - [place] [address] [place] [phone] Tessy Zelaya DO [address] [place] [address] [address] [place] [address] Health Maintenance Due Date Last Done Comments [...] of 3 - 19+ 3-dose series) 1997 DEPRESSION SCREENING 03/14/2024 COVID-19 VACCINE (1 - 2023-2 5 season) 2024 INFLUENZA VACCINE (#1) 2024 ZOSTER VACCINE (1 of 2) 2028 LIPID [...] on patient's age to complete this topic Procedures Procedure Name Priority Date/Time Associated Diagnosis Comments VITAMIN K1 Routine 11/09/2024 1:02 PM CDT Recurrent acute pancreatitis (HCC) VITAMIN E Routine 11/09/2024 1:02 PM CDT Recurrent acute pancreatitis (HCC) VITAMIN A Routine 11/09/2024 1:02 PM CDT Recurrent acute pancreatitis (HCC) VITAMIN D 25-HYDROXY Routine 11/09/2024 1:02 PM CDT Recurrent acute pancreatitis (HCC) from Last 3 Months Results * VITAMIN K1 (11/09/2024 1:02 PM CDT) Vitamin K1 4.69 0.22 - 4.88 nmol/L 11/13/2024 7:42 PM CDT [facility] [employer] ([facility]) Comment: INTERPRETIVE INFORMATION: Vitamin K1, Serum Vitamin K concentration is reported as nanomoles per liter (nmol/L). To convert concentration to nanograms per milliliter (ng/mL), multiply the result by 0.45. This test was developed and its performance characteristics determined by [employer]. It has not been cleared or approved by the US Food and Drug Administration. This test was performed in a CLIA certified laboratory and is intended for clinical purposes. Performed By: [facility] [address] [place] [address] White Work Cleaner: Deandre Slade MD, PhD CLIA Number: [id number] Blood BLOOD SPECIMEN / Unknown Lab Venipuncture / Unknown 11/09/2024 1:02 PM CDT 11/09/2024 1:17 PM CDT Tessy Zelaya DO LAB - CHEMISTRY ORDERABLES Final Result [facility] [employer] [facility]) [address] [place] [address] * VITAMIN A (11/09/2024 1:02 PM CDT) Vitamin A 0.74 0.30 - 1.20 mg/L 11/13/2024 12:39 PM CDT [facility] [employer] ([facility]) Retinyl Palmitate 0.06 0.00 - 0.10 mg/L 11/13/2024 12:39 PM CDT [facility] ([facility]) Interpretation Vitamin A Normal 11/13/2024 12:39 PM CDT [facility]) Comment: This test was developed and its performance characteristics determined by [employer]. It has not been cleared or approved by the US Food and Drug Administration. This test was performed in a CLIA certified laboratory and is intended for clinical purposes. Performed By: [facility] [address] [place] [address] White Work Cleaner: Deandre Sldae MD, PhD CLIA Number: [id number] Blood BLOOD SPECIMEN / Unknown Lab Venipuncture / Unknown 11/09/2024 1:02 PM CDT 11/09/2024 1:17 PM CDT [facility] LAB - CHEMISTRY ORDERABLES Final Result Performing Organization Address [facility] de Phone Number [facility] [employer] [facility]) [address] [place] [address] * VITAMIN E (11/09/2024 1:02 PM CDT) [facility] Vitamin E Alpha Tocopherol 12.6 5.5 - 18.0 mg/L 11/13/2024 12:39 PM CDT [facility] [employer] ([facility]) Comment: This test was developed and its performance characteristics determined by [employer]. It has not been cleared or approved by the US Food and Drug Administration. This test was performed in a CLIA certified laboratory and is intended for clinical purposes. Vitamin E Gamma Tocopherol 1.4 0.0 - 6.0 mg/L 11/13/2024 12:39 PM CDT [facility] [employer] ([facility]) Comment: Performed By: [facility] [address] [place] [address] White Work Cleaner: Deandre Slade MD, PhD CLIA Number: [id number] Blood BLOOD SPECIMEN / Unknown Lab Venipuncture / Unknown 11/09/2024 1:02 PM CDT 11/09/2024 1:17 PM CDT Tessy Zelaya LAB - CHEMISTRY ORDERABLES Final Result Performing Organization Address [facility]/ZIP Co de Phone Number [facility] [employer] [facility]) [address] [place] [address] * VITAMIN D 25-HYDROXY (11/09/2024 1:02 PM CDT) Pathologist [facility] Vitamin D, 25 Hydroxy 47.6 30.0 - 80.0 ng/mL 11/09/2024 2:09 PM CDT [facility] Comment: The recommendations for 25-Hydroxy Vitamin D clinical decision points are as follows: Deficient: <20.0 ng/mL Insufficient: 20.0 - 29.9 ng/mL Sufficient: 30.0 - 100.0 ng/mL Potential Toxicity: >100 ng/mL Reference: The Endocrine Society Clinical Practice Guidelines. 2011 If the 25-Hydroxy Vitamin D results are inconsitent with clinical evidence, it is recommended that follow-up testing using a method such as LC/MS/MS be performed to confirm the result. Blood BLOOD SPECIMEN / Unknown Lab Venipuncture / Unknown 11/09/2024 1:02 PM CDT 11/09/2024 1:21 PM CDT us Tessy Zelaya DO LAB - CHEMISTRY ORDERABLES Final Result [facility] [address] [place] [address], [facility] [phone] from Last 3 Months Insurance Care Teams Seo Assistant Relationship Specialty Start Date End Date Ani Ellsworth APRN-[employer] [address] [place] [address] PCP - General Nurse Practitioner 11/09/24
[2025-01-09 15:52] LABS: Lipase 6039 U/L (23-300)
--- NOTE | 2025-01-09 16:47 | ED_ITS ---
HPI - General Adult General Chief complaint: Abdominal Pain Stated complaint: abd pain, hx pancreatitis Time Seen by Provider: 01/09/25 16:14 History of Present Illness HPI narrative: 44-year-old male presenting to the emergency department for evaluation for worsening epigastric pain that radiates through his entire abdomen. Patient states pain started acutely at noon today. Patient does have prior history of pancreatitis. Patient reports he has been worked up at [facility] for this and was told he does have gallbladder sludge. Patient reports he did have a prior history of heavy alcohol consumption but quit drinking any alcohol approximately 1 year ago. Patient states he does have a GI specialist at [facility] and also at [facility] [place]. Patient prefers not to go back to [place] but was willing to go back to [facility] Related Data Home Medications ?Medication ?Instructions ?Recorded ?Confirmed ?Last Taken ?Type slzfci-hkedtobi-imhwrdh(pork)10,000-32,000-42,000 1 ca p PO TID 09/29/24 09/29/24 Unknown History unit capsule,del rel (Zenpep) Allergies Allergy/AdvReac Type Severity Reaction Status Date / Time bee venom protein (honey Allergy Swelling Verified 01/09/25 13:59 bee) (bees) wasp Allergy Swelling Uncoded 10/25/24 20:47 yellow jackets Allergy Swelling Uncoded 10/25/24 20:47 Review of Systems 2 Review of Systems: All systems reviewed & are unremarkable except as noted in HPI and below PMFSH Past Medical History Medical History Acute on chronic pancreatitis Alcoholic pancreatitis Sleep apnea Depressive disorder, not elsewhere classified Infertility Hyperlipidemia Smoking Cardiac arrhythmia History of migraine headaches Blackout Dizziness and giddiness Chest pain Back pain Surgical History Surgical History No pertinent past surgical history Family History Family History Sibling Autoimmune disease Social History Social History Social History: former smoker. The patient has a significant Other. The patient recently lost his job. He is not currently working. The patient states that he drinks heavily at least 2-3 days a week which is more than 6 drinks at a time. Reports no alcohol since episode of pancreatitis in July 2022. States employed at present time. Code status full code Smoking status: Former smoker Alcohol intake: former Alcohol use details: reports no alcohol since episode of pancreatitis Substance use: never Substance use type: does not use Other substance usage details: QUIT 9 MONTHS AGO Do You Feel Safe in your Home?: Yes Lack of Transportation: No Lack of Food: Never True Current Housing: I Have Housing Concerned About Future Housing: No Difficulty Paying Gas/Electric Bills: YES Difficulty Paying for Meds: No Currently Unemployed: No Education: Associate Degree Difficulty w/ Childcare or Family Care: No Gender identity (if verbalized by the patient): Male Spiritual care concerns: No Exam 2 Narrative: APPEARANCE: Uncomfortable appearing HEAD: normocephalic, atraumatic. EYES: PERRLA/EOMI, conjunctivae clear. NOSE: Normal no drainage EARS:TMS clear with good light reflex. THROAT: Pharynx clear, no exudate. NECK: Supple. No adenopathy, no masses. RESPIRATORY: Airway patent, respirations nonlabored. Clear to auscultation bilaterally, no rales, rhonchi, wheezing. CARDIOVASCULAR: Regular rate and rhythm without murmurs rubs or gallops. ABDOMINAL: Epigastric tenderness to palpation MUSCULOSKELETAL: Moves all extremities. Strength/ROM intact, No edema, No calf tenderness. NEURO: Alert. Cranial nerves II through XII intact. Good gait. Good coordination SKIN: Warm, dry. Normal Color Course Vital Signs Vital signs: Vital Signs Temperature 97.8 F 01/09/25 13:56 Pulse Rate 116 H 01/09/25 13:56 Respiratory Rate 16 01/09/25 13:56 Blood Pressure 149/68 H 01/09/25 13:56 Pulse Oximetry 100 01/09/25 13:56 Oxygen Delivery Room Air 01/09/25 13:56 Temperature 97.8 F 01/09/25 13:56 Pulse Rate 58 L 01/09/25 18:59 Respiratory Rate 20 01/09/25 18:59 Blood Pressure 141/92 H 01/09/25 18:59 Pulse Oximetry 100 01/09/25 18:59 Oxygen Delivery Room Air 01/09/25 13:56 Medical Decision Making MDM Narrative Medical decision making narrative: 44-year-old male presents emergency department for evaluation for increased epigastric abdominal pain. Patient is currently afebrile with no leukocytosis hemoglobin of 16.1. Patient has no significant abnormalities on his CMP including normal ALT and AST but patient does have an elevated lipase [place] 6039. CT scan does show evidence of acute pancreatitis superimposed on chronic necrotic pancreatitis. I did discuss the case with GI, Dr. Veronica, and they felt the patient did have a high chance of worsening so they did recommend transfer to the facility with his GI physicians. Patient states he did not want to go back to [place] but was willing to go back to [facility] in [facility] system. Patient was accepted at [facility] by the hospitalist Dr. Allison. Patient was treated with 2 L of lactated Ringer's, started on maintenance fluid, made NPO and provided medications for nausea and for pain control. Dr. Veronica did say that if the patient was unable to get placement at a tertiary care center he would be willing to admit the patient. Patient has a low Shiv score with no elevated blood glucose, no leukocytosis, no elevation in ALT AST and a normal LDH. Differential Diagnosis Differential Diagnosis: Colitis, diverticulitis, soft ice, gastritis, pancreatitis, chronic pancreatitis Vital Signs Vital Signs: Vital Signs Temperature 97.8 F 01/09/25 13:56 Pulse Rate 116 H 01/09/25 13:56 Respiratory Rate 16 01/09/25 13:56 Blood Pressure 149/68 H 01/09/25 13:56 Pulse Oximetry 100 01/09/25 13:56 Oxygen Delivery Room Air 01/09/25 13:56 Temperature 97.8 F 01/09/25 13:56 Pulse Rate 58 L 01/09/25 18:59 Respiratory Rate 20 01/09/25 18:59 Blood Pressure 141/92 H 01/09/25 18:59 Pulse Oximetry 100 01/09/25 18:59 Oxygen Delivery Room Air 01/09/25 13:56 Lab Data Lab results reviewed: Yes I reviewed the patient's lab results. 01/09/25 15:00 01/09/25 15:00 Labs: Lab Results 01/09/25 Range/Units 15:00 WBC 6.8 (4.5-10.0) K/mm3 RBC 5.13 (4.6-6.20) M/mm3 Hgb 16.1 (14.0-18.0) g/dL Hct 46.6 (42.0-52.0) % MCV 90.8 (80-100) fl MCH 31.4 (26-34) pg MCHC 34.5 (32-36) g/dl RDW 13.2 (11.5-14.5) % Plt Count 255 (150-375) k/mm3 MPV 9.6 (7.4-10.4) fl Immature Gran % (Auto) 0.1 (0-0.5) % Neut % (Auto) 66.7 (45.5-73.1) % Lymph % (Auto) 24.6 (18.3-44.2) % Kimble % (Auto) 7.3 (2.6-8.5) % Eos % (Auto) 0.9 (0-4.4) % Baso % (Auto) 0.4 (0.2-1.2) % Lymph # (Auto) 1.68 (0.9-3.2) K/mm3 Kimble # (Auto) 0.5 (0.1-0.6) K/mm3 Eos # (Auto) 0.1 (0-0.3) K/mm3 Baso # (Auto) 0.0 (0.0-0.1) K/mm3 Abs Immat Gran (auto) 0.01 (0.00-0.031) K/mm3 Absolute Neuts (auto) 4.6 (1.3-6.7) K/mm3 Absolute Nucleated RBC 0.000 (0.0-0.012) K/mm3 Nucleated RBC % 0.0 (0.0-0.2) % Sodium 136 L (137-145) mmol/L Potassium 4.5 (3.4-5.0) mmol/L Chloride 107 (98-107) mmol/L Carbon Dioxide 22 (22-30) mmol/L Anion Gap 7 (4-12) mmol/L BUN 16 (9-20) mg/dL Creatinine 0.92 (0.7-1.3) mg/dL Estim Creat Clear Calc 111 ml/min Estimated GFR > 60 (59 - ) Glucose 108 (65-110) mg/dL Calcium 9.5 (8.4-10.2) mg/dL Total Bilirubin 0.6 (0.2-1.3) mg/dL AST 29 (17-59) U/L ALT 26 (6-50) U/L Alkaline Phosphatase 94 (38-126) U/L Lactate Dehydrogenase 184 (120-246) U/L Total Protein 7.8 (6.3-8.2) g/dL Albumin 4.3 (3.5-5.1) g/dL Lipase 6039 H (23-300) U/L Urine Color Yellow (Yellow) Urine Appearance Clear (Clear) Urine pH 5.0 (5.0-9.0) Ur Specific [place] 1.017 (1.001-1.035) Urine Protein Negative (Negative) mg/dL Urine Glucose (UA) Negative (Negative) mg/dL Urine Ketones Negative (Negative) mg/dL Ur Blood (Man) Negative (Negative) Urine Nitrate Negative (Negative) Urine Bilirubin Negative (Negative) Urine Urobilinogen 0.2 (<2.0) mg/dL Leukocyte Esterase Rfl Negative (Negative) MARCELO/UL Imaging Data Radiologist's impression: Impressions Abdomen/Pelvis CT 01/09/25 16:44 IMPRESSION: 1. Acute pancreatitis superimposed on chronic necrotic pancreatitis. Discharge Plan Discharge Clinical Impression: Acute on chronic pancreatitis Patient Disposition: Acute Care Hospital [facility] Condition: Serious Instructions: Antibiotic Form Patient Language: Slovak Prescriptions: No Action Zenpep 10,000-32,000 -42,000 unit capsule,delayed release(DR/EC) 1 cap PO TID hydrocodone-acetaminophen 7.5-325 mg tablet 1 tablet PO Q6H PRN (Reason: pain) 5 Days Qty: 10 0RF pantoprazole 40 mg Tablet,Delayed Release (Dr/Ec) 40 mg PO QAM Qty: 30 0RF calcium carbonate 500 mg calcium (1,250 mg) Tablet,Chewable 200 mg PO Q6H PRN (Reason: Indigestion) Qty: 30 0RF Follow-up/Referrals: Joyce,Michelle Nelson MD [Primary Care Provider, Unknown]
[2025-01-09] MEDS: LACTATED RINGERS 2,000 ML 999 ML IV CONT (17:00)
[2025-01-09] MEDS: ONDANSETRON INJ 4 MG/2 ML VIAL IV PUSH ×2 (17:00→23:07)
[2025-01-09] MEDS: HYDROmorphone HCL INJ (*CRX) 1 MG/ML SYR IV PUSH ×4 (17:00→23:07)
--- OUTSIDE RECORDS SUMMARY | 2025-01-09 17:57 | XMS_ITS | Encounter Summary ---
Author Organization [facility] Address [address] [place] [address] Care Team Providers Care Bronzer Name Role Phone Ani Ellsworth NP Primary Care Provider [phone] Michelle Cook MD Primary Care Provider + Encounter Details Date Type Department Care Team (Late st Contact Info) Description 06/20/2023 CitySourced Message Enc [facility] Family Medicine - [place] [address] [facility] [address] [place] [phone] Ani Ellsworth NP [address] [phone] Follow up Social History Tobacco Use Types Packs/Day Years Used Date Smoking Tobacco: Former Cigarettes 2 26 0 08/24/1993 - 08/25/2019 Passive Smoke Exposure: Past Smokeless Tobacco: Never Alcohol Use Standard Drinks/Week Comments Yes 0 (1 standard drink = 0.6 oz pur e alcohol) rare [facility] Utilities Answer Date Recorded In [...] or ex-partner? No 06/13/2023 Social Connection and Isolation Panel Answer Date Recorded In a typical week, how many times do you talk on the phone with family, friends, or neighbors? More than three times a week 05/21/2023 How often do you get togethe r with friends or relatives? Once a week 05/21/2023 How often do you attend chur or protestant services? Never 05/21/2023 Do you belong to [...] Recorded Patient Health Questionnaire-2 Score 0 06/24/2023 [facility] [employer] of Occupat ional Health - Occupational Stress [...] Care Team (Late st Contact Info) Description 01/28/2025 2:00 PM PENSION FUND MANAGER Office Visit [facility] Family Medicine - [place] [address] [facility] [address] [place] [phone] Ani Ellsworth NP [address] [place] [address] [place] [phone] Michelle Cook MD [address] [facility] [address] [place] [phone] documented as of this encounter Goals Goal [...] Rule Out 03/16/2024 03/16/2024 03/16/2024 1:26 PM PENSION FUND MANAGER Assessment Noted Time PHQ-9 Depression Total Score: 13 024 1:09 PM CDT documented as of this encounter Care Teams Bronzer Relationship Specialty Start Date End Date Ani Ellsworth NP [address] [place] [address] PCP - General NURSE PRACTITIONER 06/13/23 12/31/24 Michelle Coko MD [address] [place] [id number] PCP - General FAMILY PRACTICE 01/01/25 documented as of this encounter
--- OUTSIDE RECORDS SUMMARY | 2025-01-09 17:57 | XMS_ITS | Encounter Summary ---
Author Organization [facility] Address [facility] [place] [address] Care Team Providers Care Interactive Designer Name Role Phone Ani Ellsworth NP Primary Care Provider [phone] Michelle Cook MD Primary Care Provider + Encounter Details Date Type Department Care Team (Late st Contact Info) Description 11/15/2023 iDoc24 Message Enc [facility] Medical Group Family Medicine - [place] [address] [address] [facility] Provider results. Social History Tobacco Use Types [...] your doctor or pharmacy? Never 10/03/2023 [facility] Utilities Answer Date Recorded In the past 12 months has e [employer], gas, oil, or water [employer] threatened to shut off services in your [...] or ex-partner? No 10/03/2023 Social Connection and Isolation Panel Answer Date [...] any clubs o r organizations such as scientologist groups, unions, fraternal or athletic groups, or [...] Recorded Patient Health Questionnaire-2 Score 0 10/03/2023 [facility] of Occupat ional Health - Occupational Stress [...] time in the past [address] [facility], were you homeless or living [...] st Contact Info) Description 01/28/2025 2:00 PM MANAGER CREDIT RISK Office Visit [facility] Medical Group Family Medicine - [place] [address] [facility] [address] [place], [place] [phone] Ani Ellsworth NP [address] [place], [place] [phone] Michelle Cook MD [address] [place], [place] [phone] documented as of this encounter Goals Goal Patient Goal Type Associated Problems Recent Progress Patient-Stated? Author Patient will return to prior living situation and remain independent in ADLs upon discharge from hospital Marycruz Fournier RN documented as of this encounter Visit Diagnoses Not on filedocumented in this encounter Additional Health Concerns Infection Onset Date Last Indicated Resolved Time COVID-19 Rule Out 03/16/2024 03/16/2024 03/16/2024 1:26 PM MANAGER CREDIT RISK Assessment Noted Time PHQ-9 Depression Total Score: 13 024 1:09 PM CDT documented as of this encounter Care Teams Interactive Designer Relationship Specialty Start Date End Date Ani Ellsworth NP [facility] [place] [address] PCP - General NURSE PRACTITIONER 06/13/23 12/31/24 Michelle Cook MD [address] [address] PCP - General FAMILY PRACTICE 01/01/25 documented as of this encounter
--- OUTSIDE RECORDS SUMMARY | 2025-01-09 17:57 | XMS_ITS | Encounter Summary ---
Author Organization [facility] - [facility] Address [address] [place] [address] Care Team Providers Care Metal Fabricator Helper Name Role Phone Ani Ellsworth NP Primary Care Provider [phone] Michelle Cook MD Primary Care Provider + Encounter Details Date Type Department Care Team (Late st Contact Info) Description 11/17/2023 [facility] Message Enc [facility] Medical Group Multispecialty Care - [facility] [address] [facility], [address] [place] [address] Spenser, [facility] Provider Reschedule Social History Tobacco Use Types [...] Never 10/03/2023 [facility] Utilities Answer Date Recorded In the past [...] often do you attend chur ch or yazdanism services? Never 10/03/2023 Do you [...] Patient Health Questionnaire-2 Score 0 10/03/2023 [facility] [place] of Occupat ional Health - Occupational Stress [...] [place] [facility] (including now)? No 10/03/2023 Sex and Gender [...] 10/03/2023 5:52 PM Staci Oreilly RN Active * Are you blind or do you have serious difficulty seeing, even when wearing glasses? Answer Date of Assessment Author Status No 10/03/2023 5:52 PM Staci Oreilly RN Active * Do you have serious difficulty walking or climbing stairs? Answer Date of Assessment Author Status No 10/03/2023 5:52 PM Staci Oreilly RN Active * Do you have difficulty dressing or bathing? Answer Date of Assessment Author Status No 10/03/2023 5:52 PM Staci Oreilly RN Active * Because of a physical, [...] Date Author Status No 10/03/2023 5:52 PM Staci Oreilly RN Active documented in this encounter Plan of Treatment Upcoming Encounters Date Type Department Care Team (Late st Contact Info) Description 01/28/2025 2:00 PM SILVERSMITH APPRENTICE Office Visit [facility] Medical Group Family Medicine - [place] [address] [address] Ani Ellsworth NP [address] [place] [address] Michelle Cook MD [address] [place], [place] [address] documented as of this encounter Goals Goal [...] Rule Out 03/16/2024 03/16/2024 03/16/2024 1:26 PM SILVERSMITH APPRENTICE Assessment Noted Time PHQ-9 Depression Total Score: 13 024 1:09 PM CDT documented as of this encounter Care Teams Metal Fabricator Helper Relationship Specialty Start Date End Date Ani Ellsworth NP [address] [place] [address] PCP - General NURSE PRACTITIONER 06/13/23 12/31/24 Michelle Cook MD [address] [address] PCP - General FAMILY PRACTICE 01/01/25 documented as of this encounter
--- OUTSIDE RECORDS SUMMARY | 2025-01-09 17:57 | XMS_ITS | Encounter Summary ---
Author Organization [facility] Address [facility] [place] [address] Care Team Providers Care Enterprise Engineer Name Role Phone Ani Ellsworth NP Primary Care Provider [phone] Michelle Cook MD Primary Care Provider + Encounter Details Date Type Department Care Team (Latest Contact Info) Description 12/21/2023 [employer] Message Enc [facility] Medical Group Family Medicine - [place] [address] [facility] [address] [place] [address] [phone] Ani Ellsworth NP [address] [phone] follow up on endocrinology referral Social History [...] Recorded Patient Health Questionnaire-2 Score 0 10/03/2023 [facility] of Occupat ional Health - Occupational Stress [...] st Contact Info) Description 01/28/2025 2:00 PM MECHANICAL SHOVEL OPERATOR Office Visit [facility] Medical Group Family Medicine - [place] [address] [phone] Ani Ellsworth NP [address] [place] [phone] Michelle Cook MD [address] [facility] [address] [place] [phone] documented as of this encounter Goals Goal [...] Rule Out 03/16/2024 03/16/2024 03/16/2024 1:26 PM MECHANICAL SHOVEL OPERATOR Assessment Noted Time PHQ-9 Depression Total Score: 13 024 1:09 PM CDT documented as of this encounter Care Teams Enterprise Engineer Relationship Specialty Start Date End Date Ani Ellsworth NP [facility] [place] [address] PCP - General NURSE PRACTITIONER 06/13/23 12/31/24 Michelle Cook MD [address] [place] [address] PCP - General FAMILY PRACTICE 01/01/25 documented as of this encounter
--- OUTSIDE RECORDS SUMMARY | 2025-01-09 17:57 | XMS_ITS | Encounter Summary ---
Author Organization [facility] - [facility] Address [address] [place] [address] Care Team Providers Care Vp Product Name Role Phone Ani Ellsworth NP Primary Care Provider [phone] Michelle Cook MD Primary Care Provider + Encounter Details Date Type Department Care Team (Late st Contact Info) Description 06/24/[address] [facility] Medical Group Multispecialty Care - [place] [address] [address] [place] [address] Prateek Calle MD [address] [place] [address] [address] [place], [place] [phone] norco Social History Tobacco Use Types Packs/Day [...] How often do you attend chur or gnosticism services? Never 05/21/2023 Do you belong to any clubs o r organizations such as muslim groups, unions, fraternal or athletic groups, or [...] Recorded Patient Health Questionnaire-2 Score 0 06/24/2023 [facility] [place] of Occupat ional Health - Occupational Stress [...] a group home (including now)? No 06/13/2023 Sex and Gender [...] PM REINIERT Duglas Khoury RN Active * Over the [...] Health Questionnaire-2 Score 0 06/24/2023 2:39 PM REINIERT Millicent Muro MA Active documented as of this encounter Mental Status * Because of a physical, mental, or emotional condition, do you have serious difficulty concentrating, remembering, or making decisions? Answer Entry Date Author Status No 06/15/2023 3:07 PM REINIERT Duglas Khoury RN Active documented in this encounter Plan of Treatment Upcoming Encounters Date Type Department Care Team (Late st Contact Info) Description 01/28/2025 2:00 PM TRICHOLOGIST Office Visit [facility] Medical Group Family Medicine - [place] [address] [facility] [address] [place] [address] Ani Ellsworth NP [address] [place] [address] Michelle Cook MD [address] [place] [address] documented as of this encounter Goals Goal [...] Rule Out 03/16/2024 03/16/2024 03/16/2024 1:26 PM TRICHOLOGIST Assessment Noted Time PHQ-9 Depression Total Score: 13 024 1:09 PM CDT documented as of this encounter Care Teams Vp Product Relationship Specialty Start Date End Date Ani Ellsworth NP [address] [place] [address] PCP - General NURSE PRACTITIONER 06/13/23 12/31/24 Michelle Cook MD [address] [place] [address] PCP - General FAMILY PRACTICE 01/01/25 documented as of this encounter
--- OUTSIDE RECORDS SUMMARY | 2025-01-09 17:57 | XMS_ITS | Encounter Summary ---
Author Organization [facility] - [facility] Address [address] [place] [address] Care Team Providers Care Trestle Mechanic Name Role Phone Ani Ellsworth NP Primary Care Provider [phone] Michelle Cook MD Primary Care Provider + Encounter Details Date Type Department Care Team (Late st Contact Info) Description 01/27/2024 [place] Message Enc [facility] Medical Group Family Medicine - [place] [address] [phone] [facility] [facility] Provider Endo Referral Social History Tobacco Use [...] In the past 12 months has e [employer], gas, oil, or water company threatened to [...] No 01/06/2024 Social Connection and Isolation Panel Answer Date Recorded In a typical week, how many times do you talk on the phone with family, friends, or neighbors? Once a week 01/06/2024 How often do you get together with friends or re latives? Never 01/06/2024 How often do you attend adventism or congregational serv ices? Never 01/06/2024 Do you belong to any clubs o r organizations such as adventism groups, unions, fraternal or athletic groups, or [...] Recorded Patient Health Questionnaire-2 Score 1 01/31/2024 [facility] [place] of Occupat ional Health - Occupational Stress [...] any time in the past 12 m [facility], were you homeless or living in [...] st Contact Info) Description 01/28/2025 2:00 PM IN HOME AIDE Office Visit [facility] Medical Group Family Medicine [facility] [address] [facility] [address] [place] [address] Ani Ellsworth NP [address] [place] [address] [place], [place] [address] Michelle Cook MD [address] [place], [place] [phone] documented as of this encounter Goals Goal [...] Rule Out 03/16/2024 03/16/2024 03/16/2024 1:26 PM IN HOME AIDE Assessment Noted Time PHQ-9 Depression Total Score: 13 024 1:09 PM CDT documented as of this encounter Care Teams Trestle Mechanic Relationship Specialty Start Date End Date Ani Ellsworth NP [address] [place] [address] PCP - General NURSE PRACTITIONER 06/13/23 12/31/24 Michelle Cook MD [address] [address] PCP - General FAMILY PRACTICE 01/01/25 documented as of this encounter
--- OUTSIDE RECORDS SUMMARY | 2025-01-09 17:57 | XMS_ITS | Encounter Summary ---
Author Organization [facility] Address [address] [place] [address] Care Team Providers Care Tap And Die Maker Technician Name Role Phone Ani Ellsworth NP Primary Care Provider [phone] Michelle Cook MD Primary Care Provider + Encounter Details Date Type Department Care Team (Late st Contact Info) Description 02/24/2024 [employer] Message Enc [facility] Medical Group Family Medicine - [place] [address] [place] [address] Michelle Cook MD [address] [facility] [address] [place] [address] Pain Social History Tobacco Use Types Packs/Day [...] your doctor or pharmacy? Never 10/03/2023 [facility] Utilities Answer Date Recorded In [...] How often do you attend sabianist or spiritism serv ices? Never 01/06/2024 Do [...] Recorded Patient Health Questionnaire-2 Score 1 01/31/2024 [facility] of Occupat ional Health - Occupational [...] time in the past 12 [facility], were you homeless or living in a halfway (including now)? No 01/06/2024 Sex and Gender [...] No 01/06/2024 7:13 PM CDT Sadaf Huang I R N Active * Are you blind or do you have serious difficulty seeing, even when wearing glasses? Answer Date of Assessment Author Status No 01/06/2024 7:13 PM CDT Sadaf Huang I R N Active * Do you have serious difficulty walking or climbing stairs? Answer Date of Assessment Author Status No 01/06/2024 7:13 PM CDT Sadaf Huang I R N Active * Do you have difficulty dressing or bathing? Answer Date of Assessment Author Status No 01/06/2024 7:13 PM CDT Sadaf Huang I R N Active * Because of a physical, mental, or emotional condition, do you have difficulty doing errands alone such as visiting a doctor's office or shopping? Answer Date of Assessment Author Status No 01/06/2024 7:13 PM CDT Sadaf Huang I R N Active documented as of this encounter Mental Status * Because of a physical, mental, or emotional condition, do you have serious difficulty concentrating, remembering, or making decisions? Answer Entry Date Author Status No 01/06/2024 7:13 PM CDT Sadaf Huang I R N Active documented in this encounter Progress Notes * Ani Ellsworth NP - 02/27/2024 5:34 PM CST I cannot provide pt pain medication for his abdominal pain. He will need to discuss with GI. If hispain is bad enough from an infection in his tooth then he needs to go to the ER. CE CAPTAIN documented in this encounter Plan of Treatment Upcoming Encounters Date Type Department Care Team (Late st Contact Info) Description 01/28/2025 2:00 PM POLICE CAPTAIN Office Visit [facility] Family Medicine - [place] [address] [facility] [address] [place], [place] [phone] Ani Ellsworth NP [address] [place], [place] [phone] Michelle Cook MD [address] [place] [address] documented as of this encounter Goals Goal [...] Rule Out 03/16/2024 03/16/2024 03/16/2024 1:26 PM POLICE CAPTAIN Assessment Noted Time PHQ-9 Depression Total Score: 13 024 1:09 PM CDT documented as of this encounter Care Teams Tap And Die Maker Technician Relationship Specialty Start Date End Date Ani Ellsworth NP [address] [place] [address] PCP - General NURSE PRACTITIONER 06/13/23 12/31/24 Michelle Cook MD [address] [place] [address] PCP - General FAMILY PRACTICE 01/01/25 documented as of this encounter
--- OUTSIDE RECORDS SUMMARY | 2025-01-09 17:57 | XMS_ITS | Clinical Summary ---
Author Organization [facility] Address [facility] [place] [address] Care Team Providers Care Hide Or Skin Buffer Name Role Phone Michelle Cook MD Primary Care Provider + Allergies Active Allergy Reactions Criticality Noted Date Comments Bee Venom Hives 09/05/2024 Wasp Venom Hives 09/05/2024 Medications HYDROcodone-aceta minophen (NORCO) 5-325 MG tabletIndications :Acute Pain < 3 Day Supply Take 1 tablet by mouth every 6 (six) hours as needed for Pain. Indications: Acute Pain < 3 Day Supply 12 tablet 5 Active pancrelipase, Kii-Goed-Nxvd, (ZENPEP) 20632-14566 units capsuleIndication s:Chronic pancreatitis, unspecified pancreatitis type ([facility]/HCC) Take 1 capsule (10,000 units of lipase total) by mouth 3 (three) times daily with meals. 30 capsule 2 5 Active hydrOXYzine (ATARAX) 25 MG tabletIndications :Insect stings, accidental or unintentional, initial encounter Take 1 tablet (25 mg total) by mouth 3 (three) times daily as needed for Itching. 30 tablet 5 12/11/19 25 Active Problems Problem Noted Date Diagnosed Date Klinefelter syndrome 12/28/2024 Overview (12/28/2024): Patient reports that he is getting taller. Previously his height was listed as 6 foot 3 inches and he feels he is now 6 foot 5 inches. He reports that he does not feel clothing is fitting him as well. Patient was referred to endocrinology. Klinefelter diagnosis provided only casually by urologist when seen for high riding testicles and he recommended endocrine referral. Assessment & Plan (12/28/2024 12:21 PM CDT): This was only casually mentioned as a diagnosis by urology but has not formally been established. Previously, his height is 6 foot 2-1/4 inches suggesting no height gain. We will check this at each visit to see whether it does change. I strongly advised that he follow through on the endocrine referral which has been recommended for several years now. May consider additional blood testing if height does increase. Hypertriglyceridemia 12/28/2024 Recurrent acute pancreatitis 01/06/2024 Overview (12/28/2024): Patient reports at least 23 episodes. Hospitalized for most of them. Lately he simply goes on a liquid diet when pain presents and does not go to the hospital. He has not been taking his Zenpep because he feels better off of it. Did see GI but has not recently. Assessment & Plan (12/28/2024 12:18 PM CDT): No pancreatitis recently. Cause unknown. No longer drinking alcohol according to patient report. Triglycerides not significantly elevated. Decreased libido 07/18/2023 Acute on chronic pancreatitis 05/21/2023 Alcohol abuse 08/31/2022 Overview (12/28/2024): No alcohol for at least 2 years. Prediabetes 06/09/2022 Neck pain 11/02/2021 Dental caries 07/28/2021 Degeneration of lumbar intervertebral disc 08/14 Chronic [...] locations, and numbers to local Chiropractor and [employer]. 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 Assessment & Plan (12/28/2024 12:20 PM CDT): Patient has not followed through with endocrinology referral. Urologist was not concerned about the testicles at the time of the visit. Chronic insomnia 02/21/2020 Overview (12/28/2024): Reports that he drinks Erna tea several throughout the day and crush orange soda. He is cut out coffee. Assessment & Plan (12/28/2024 12:22 PM CDT): Recommend that he eliminate all caffeine for the next month as I suspect this may be contributing to his insomnia and may not require any other intervention at this time. Patient is agreeable. Moderate episode of recurrent major depressive d isorder 2019 PTSD (post-traumatic stress disorder) 06/14/2016 Overview (02/15/2024): Hx of PTSD, anxiety, depression, alcohol abuse, insomnia from his past job he worked from [id number]. Had taken Escitalopram in the past but weaned himself off. Was started on Wellbutrin in the ER but never started Was provided prazosin by my college to help with his nightmares/insomnia but also never started. Does not see a psychiatrist or a therapist. Pt would be interested to see a psychiatrist. Assessment & Plan (02/15/2024 1:55 PM ZIPPER MACHINE OPERATOR): Referral to psychiatry placed.Encourage CBT as well. Would recommend starting the prazosin to help with his nightmares. Resolved Problems Problem Noted Date Diagnosed Date Resolved Date Atypical chest pain 01/21/2021 07/18/19 24 Palpitations 06/14/2016 07/18/2023 Chronic cough 06/14/2016 07/18/2023 Encounters Date Type Department Care Team Description 12/28/2024 11:10 AM CDT Office Visit [address] [place] [address] Michelle Cook MD Follow Up (Transferring from Ani Ellsworth NP. Same issues but different day per patient. ) 12/28/2024 Travel 11/30/2024 11:10 AM CDT Office Visit [address] [place] [address] Michelle Cook MD Insect Bite (Patient presents c/o of insect bite on left pinky finger) 11/30/2024 Travel 10/26/2024 Scan [facility] Scanned, [facility] 10/25/2024 Scan [facility] Scanned, Doc [facility] 10/16/[address] [place] [address] Ani Ellsworth NP Orders (/) 10/11/[address] [place] [address] Ani Ellsworth NP Refill Request from Last 3 Months Immunizations Immunization Administration Dates Next Due Td (Generic) 12/24/1997 Tdap (Adacel) 09/05/2024 Tdap (Boostrix) 07/21/2014 Tdap (Generic) 07/21/2014 Family History Medical History Relation Comments [...] from your doctor or pharmacy? Never 10/03/2023 [facility] Utilities Answer Date Recorded In the past 12 months has e ach[employer], gas, oil, or water [employer] threatened to shut off services in your [...] No 08/08/2024 Social Connection and Isolation Panel Answer Date Recorded In a typical week, how many times do you talk on the phone with family, friends, or neighbors? Once a week 01/06/2024 How often do you get together with friends or re latives? Never 01/06/2024 How often do you attend temple or spiritism serv ices? Never 01/06/2024 Do [...] Date Recorded Patient Health Questionnaire-2 Score 0 11/30/2024 [facility] of Occupat ional Health - [...] place to sleep or slept in a skilled nursing (including now)? No 06/13/2023 Housing Stability Vital Sign Answer Ciro e Recorded In the last 12 months, was t here a time when you were not able to pay the mortgage or rent on time? Yes 08/08/2024 In the past 12 months, how m any times have you moved where you were living? 0 08/08/2024 At any time in the past 12 m [facility], were you homeless or living in a skilled nursing (including now)? No 08/08/2024 Sex and Gender Information Value Date Recorded Sex Assigned at Male 08/13/2022 10:18 PM CDT Legal Sex Male 11:28 AM CDT Gender Identity Male 08/13/2022 10:18 PM CDT Sexual Orientation Straight 08/13/2022 10 :18 PM CDT Last Filed Vital Signs Vital Sign Reading Time Taken Comments Blood Pressure 120/77 12/28/2024 11:12 AM CDT Pulse 68 12/28/2024 11:12 AM CDT Temperature 36.2 C (97.2 F) 12/28/2024 11:12 AM CDT Respiratory Rate 16 11/30/2024 11:07 AM CDT Oxygen Saturation 99% 12/28/2024 11:12 AM CDT Inhaled Oxygen Concentration - - Weight 98.1 kg (216 lb 3.2 oz) 12/28/2024 11:12 AM CDT Height 188.6 cm (6' 2.25) 12/28/2024 11:12 AM C DT Body Mass Index 27.57 12/28/2024 11:12 AM CDT Plan of Treatment Upcoming Encounters Date Type Department Care Team (Late st Contact Info) Description 01/28/2025 2:00 PM ZIPPER MACHINE OPERATOR Office Visit [facility] Medical Group Family Medicine - [place] 7[address] [facility] [address] [place] [address] Ani Ellsworth NP [address] [place] [id number] Michelle Cook MD [address] [facility] [address] [place] [address] Health Maintenance Due Date Last Done Comments Colorectal Cancer Screening Colonoscopy (10 Years) 1978 Hepatitis B Vaccines (1 of 3 - 19+ 3-dose series) 1997 COVID-19 Vaccine ( - season) 2024 Influenza Adult (#1) 2024 Annual Physical 09/05/2025 09/05/2024 DTaP, Tdap and Td Vaccines (4 - Td or Tdap) 09/05/2034 09/05/2024, 07/21/2014, 07/21/2014, Additional history exists Hepatitis C Completed 06/29/2023 PHQ-2 (Physician [place]) Completed 11/30/2024 Hepatitis A Vaccines Aged Out No long er eligible based [...] 49 Years) Aged Out No longer eligible based on [...] Recommended Domains Addressed Status Status Reason/Outcome Date/Time [facility], Food Insecurity Services Food Insecurity Recommended 09/30/2024 7:05 PM CDT [facility] Community Services - Community Services Block [place] Program ([facility] Services Financial Assistance, Food Insecurity Services Financial Resource Strain, Food Insecurity Recommended 09/30/2024 7:05 PM CDT from Last 12 Months Medical Devices Implanted Type Area Competitive Shopper Device Identifier Shelf Expiration Date Model / Serial / Lot Shrapnel Description:Pt has hx of shr apnel in lower back and it began to get warm during MRI scan, so scan was stopped - pt felt it each time the sequence started - 05/01/2024 NF Procedures Procedure Name Priority Date/Time Associated Diagnosis Comments HEPATITIS C ANTIBODY Routine 06/29/2023 9:04 AM CDT Need for hepatitis C screening test from Last 3 Months or Most Recently Relevant to Health Maintenance Results * HEPATITIS C ANTIBODY (06/29/2023 9:04 AM CDT) HEPATITIS C AB NON-REACTI VE NON-REACT ANTONI 06/29/2023 6:33 PM CDT [facility] Comment: ANTIBODIES TO HCV NOT DETECTED. DOES NOT EXCLUDE THE POSSIBILITY OF EXPOSURE TO HCV. 06/29/2023 9:04 AM CDT us Ani Ellsworth [facility] Final Res ult [facility] [address] [place] [address], [id number] from Last 3 Months or Most Recently Relevant to Health Maintenance Insurance [employer] Advance Directives * Full Code (Latest Code [...] 6:55 PM 01/11/2024 2:03 PM Care Teams Hide Or Skin Buffer Relationship Specialty Start Date End Date Michelle Cook MD [address] [address] PCP - General FAMILY PRACTICE 01/01/25
--- OUTSIDE RECORDS SUMMARY | 2025-01-09 17:57 | XMS_ITS | Encounter Summary ---
Author Organization [facility] - [facility] Address [address] [place] [address] Care Team Providers Care Engineering Operations Leader Name Role Phone Ani Ellsworth NP Primary Care Provider [phone] [phone] Michelle Cook MD Primary Care Provider + Encounter Details Date Type Department Care Team (Late st Contact Info) Description 04/10/2024 Eyegroove Message Enc [facility] Multispecialty Care - [facility] [address] [facility], [address] [place] [address] Sp[place], [facility] Provider MRCP [...] from your doctor or pharmacy? Never 10/03/2023 [facility] Utilities [...] No 03/14/2024 Social Connection and Isolation Panel Answer Date Recorded In a typical week, how many times do you talk on the phone with family, friends, or neighbors? Once a week 01/06/2024 How often do you get together with friends or re latives? Never 01/06/2024 How often do you attend scientology or shinto serv ices? Never 01/06/2024 Do you belong to any clubs o r organizations such as scientology groups, unions, fraternal or athletic groups, or [...] Recorded Patient Health Questionnaire-2 Score 1 01/31/2024 [facility] [place] of Occupat ional Health - Occupational Stress [...] st Contact Info) Description 01/28/2025 2:00 PM AT HOME INDEPENDENT CALL CENTER AGENT Office Visit [facility] Family Medicine - [place] [address] [phone] Ani Ellsworth NP [address] [place] [phone] Micehlle Cook MD [address] [facility] [address] [place], [place] [id number] documented as of this encounter Goals Goal [...] documented as of this encounter Care Teams Engineering Operations Leader Relationship Specialty Start Date End Date Ani Ellsworth NP [address] [place] [address] PCP - General NURSE PRACTITIONER 06/13/23 12/31/24 Michelle Cook MD [address] [place] [address] PCP - General FAMILY PRACTICE 01/01/25 documented as of this encounter
--- OUTSIDE RECORDS SUMMARY | 2025-01-09 17:57 | XMS_ITS | Encounter Summary ---
Author Organization [facility] Address [address] [place] [address] Care Team Providers Care Supervisor Meter Repair Shop Name Role Phone Ani Ellsworth NP Primary Care Provider [phone] [phone] Michelle Cook MD Primary Care Provider + Encounter Details Date Type Department Care Team (Late st Contact Info) Description 11/15/2023 IForem Message Enc [facility] Medical Group Multispecialty Care - [facility] [address] [facility], [address] [place] [address] [place], [facility] Provider reschedule Social History Tobacco Use Types [...] from your doctor or pharmacy? Never 10/03/2023 [facility] Utilities Answer Date Recorded In the [...] often do you attend chur ch or mandaeism services? Never 10/03/2023 Do you belong to [...] Recorded Patient Health Questionnaire-2 Score 0 10/03/2023 [facility] [place] of Occupat ional Health - Occupational Stress [...] living in a assisted (including now)? No 10/03/2023 Sex and Gender [...] st Contact Info) Description 01/28/2025 2:[address] DRIVER Office Visit [facility] Medical Group Family Medicine - [place] [address] [address] Ani Ellsworth NP [address] [place] [address] Michelle Cook MD [address] [place], [place] [phone] documented as of this encounter Goals Goal [...] Rule Out 03/16/2024 03/16/2024 03/16/2024 1:[address]IN DRIVER Assessment Noted Time PHQ-9 Depression Total Score: 13 024 1:09 PM CDT documented as of this encounter Care Teams Supervisor Meter [employer]air Shop Relationship Specialty Start Date End Date Ani Ellsworth NP [address] [place] [address] PCP - General NURSE PRACTITIONER 06/13/23 12/31/24 Michelle Cook MD [address] [address] PCP - General FAMILY PRACTICE 01/01/25 documented as of this encounter
--- OUTSIDE RECORDS SUMMARY | 2025-01-09 17:57 | XMS_ITS | Clinical Summary ---
Author Organization [facility] Address [address] [facility] [place] [address] Care Team Providers Care Cable Braider Name Role Phone Ani Ellsworth APRN-[facility] Primary Care Provi cielo Source Comments [facility],non-owned Affiliates and Associated Physician Practices is amultiple site organization consisting of ambulatory clinics and hospital sitesin [place], [place], [place] and [place]. This disclosure is being madepursuant to the Care Everywhere program and may not contain all information available regarding this patient. Last updated 17.[facility] Allergies Active Allergy Reactions Criticality Noted Date Comments Aspirin Rash Medium 09/03/2018 Medications * Be aware that medications may not be up to date on this document. Alwaysverify current medications with the patient. 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 To convert concentration to nanograms per milliliter (ng/mL), multiply the result by 0.45. This test was developed and its performance characteristics determined by [facility]. It has not been cleared or approved by the US Food and Drug Administration. This test was performed in a CLIA certified laboratory and is intended for clinical purposes. Performed By: [facility] [address] [place] [address] Concrete Mixer Operator Helper: Deandre Slade MD, PhD CLIA Number: [id number] Blood BLOOD SPECIMEN / Unknown Lab Venipuncture / Unknown 11/09/2024 1:02 PM CDT 11/09/2024 1:17 PM CDT Tessy Zelaya DO LAB - CHEMISTRY ORDERABLES Final Result [facility]) [address] [place] [address] * VITAMIN A (11/09/2024 1:02 PM CDT) Vitamin A 0.74 0.30 - 1.20 mg/L 11/13/2024 12:39 PM CDT [facility] ([facility]) Retinyl Palmitate 0.06 0.00 - 0.10 mg/L 11/13/2024 12:39 PM CDT [facility] ([facility]) Interpretation Vitamin A Normal 11/13/2024 12:39 PM CDT [facility]) Comment: This test was developed and its performance characteristics determined by [facility]. It has not been cleared or approved by the US Food and Drug Administration. This test was performed in a CLIA certified laboratory and is intended for clinical purposes. Performed By: [facility] [address] [place] [address] Concrete Mixer Operator Helper: Deandre Slade MD, PhD CLIA Number: [id number] Blood BLOOD SPECIMEN / Unknown Lab Venipuncture / Unknown 11/09/2024 1:02 PM CDT 11/09/2024 1:17 PM CDT [facility] LAB - CHEMISTRY ORDERABLES Final Result Performing Organization Address [facility] de Phone Number [facility]) [address] [place] [address] * VITAMIN E (11/09/2024 1:02 PM CDT) [facility] Vitamin E Alpha Tocopherol 12.6 5.5 - 18.0 mg/L 11/13/2024 12:39 PM CDT [facility] ([facility]) Comment: This test was developed and its performance characteristics determined by [employer]. It has not been cleared or approved by the US Food and Drug Administration. This test was performed in a CLIA certified laboratory and is intended for clinical purposes. Vitamin E Gamma Tocopherol 1.4 0.0 - 6.0 mg/L 11/13/2024 12:39 PM CDT [facility] ([facility]) Comment: Performed By: [facility] [address] [place] [address] Concrete Mixer Operator Helper: Deandre Slade MD, PhD CLIA Number: [id number] Blood BLOOD SPECIMEN / Unknown Lab Venipuncture / Unknown 11/09/2024 1:02 PM CDT 11/09/2024 1:17 PM CDT Tessy Zelaya LAB - CHEMISTRY ORDERABLES Final Result Performing Organization Address [facility]/ZIP Co de Phone Number [facility]) [address] [place] [address] * VITAMIN D 25-HYDROXY (11/09/2024 1:02 PM CDT) Pathologist [facility] Vitamin D, 25 Hydroxy 47.6 30.0 - 80.0 ng/mL 11/09/2024 2:09 PM CDT [facility] Comment: The recommendations for 25-Hydroxy [...] DO LAB - CHEMISTRY ORDERABLES Final Result [facility] [address] [place] [address], [facility] [phone] from Last 3 Months Insurance Care Teams Cable Braider Relationship Specialty Start Date End Date Ani Ellsworth APRN-[facility] [address] [place] [address] PCP - General Nurse Practitioner 11/09/24
--- OUTSIDE RECORDS SUMMARY | 2025-01-09 17:57 | XMS_ITS | Encounter Summary ---
Author Organization [facility] - [facility] Address [address] [place] [address] Care Team Providers Care Cellars Supervisor Name Role Phone Ani Ellsworth NP Primary Care Provider [phone] [phone] Michelle Cook MD Primary Care Provider + Encounter Details Date Type Department Care Team (Late st Contact Info) Description 04/06/2024 EyeIC Message Enc [facility] Medical Group Multispecialty Care - [place] [facility] [address] [facility], [address] [place] [address] Sp[place], [facility] Provider MRCP Social History Tobacco Use Types [...] How often do you attend temple or yazidi serv ices? Never 01/06/2024 Do you belong [...] Recorded Patient Health Questionnaire-2 Score 1 01/31/2024 [facility] [place] of Occupat ional Health - Occupational Stress [...] time in the past 12 m [facility], were you homeless or living [...] st Contact Info) Description 01/28/2025 2:00 PM LOCATOR Office Visit [facility] Medical Group Family Medicine - [place] [address] [address] Ani Ellsworth NP [address] [place] [address] [phone] Michelle Cook MD [address] [facility] [address] [place], [place] [address] documented as of this encounter Goals Goal [...] documented as of this encounter Care Teams Cellars Supervisor Relationship Specialty Start Date End Date Ani Ellsworth NP [address] [place] [address] PCP - General NURSE PRACTITIONER 06/13/23 12/31/24 Michelle Cook MD [address] [place] [address] PCP - General FAMILY PRACTICE 01/01/25 documented as of this encounter
--- OUTSIDE RECORDS SUMMARY | 2025-01-09 17:57 | XMS_ITS | Encounter Summary ---
Author Organization [facility] - [facility] Address [address] [place] [address] Care Team Providers Care Divisional Storekeeper Name Role Phone Ani Ellsworth NP Primary Care Provider [phone] [phone] Michelle Cook MD Primary Care Provider + Encounter Details Date Type Department Care Team (Late st Contact Info) Description 11/15/2023 [employer] Message Enc [facility] Medical Group Family Medicine - [place] [address] [phone] [place], [facility] Provider xrays Social History Tobacco [...] In the past 12 months has e [email or web address], gas, oil, or water company threatened to [...] How often do you attend chur or anabaptist services? 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 MERCERIZING MACHINE OPERATOR Office Visit [facility] Medical Group Family Medicine - [place] [address] [facility] [address] [place] [address] Ani Ellsworth NP [address] [place] [address] Michelle Cook MD [address] [place], [place] [address] documented as of this encounter Goals Goal [...] Rule Out 03/16/2024 03/16/2024 03/16/2024 1:26 PM SKEIN MERCERIZING MACHINE OPERATOR Assessment Noted Time PHQ-9 Depression Total Score: 13 024 1:09 PM CDT documented as of this encounter Care Teams Divisional Storekeeper Relationship Specialty Start Date End Date Ani Ellsworth NP [address] [place] [address] PCP - General NURSE PRACTITIONER 06/13/23 12/31/24 Michelle Cook MD [address] [place] [address] PCP - General FAMILY PRACTICE 01/01/25 documented as of this encounter
[2025-01-09 18:59] VITALS: BP 141/92; PULSE 58; RESP 20; O2SAT 100
[2025-01-09] MEDS: LACTATED RINGERS 1,000 ML 125 ML IV CONT (19:56)
[2025-01-09 22:09] VITALS: BP 134/39; PULSE 57; RESP 20; O2SAT 98
[2025-01-09 23:14] VITALS: O2SAT 94
[2025-01-09 23:32] VITALS: BP 133/71
[2025-01-09 23:46] VITALS: BP 119/66; O2SAT 96
[2025-01-10] VITALS (21 sets, daily range): BP systolic 114–139; BP diastolic 60–87; O2SAT 91–99
[2025-01-10] MEDS: LACTATED RINGERS 1,000 ML 125 ML IV CONT (03:18)
[2025-01-10] MEDS: IBUPROFEN 400 MG TABLET 800 MG PO (03:25)
[2025-01-10] MEDS: HYDROmorphone HCL INJ (*CRX) 1 MG/ML SYR IV PUSH (05:15)
--- NOTE | 2025-01-10 07:24 | PC.NURSE ---
Patient states that he doesn't want to be transferred to [facility] due to it being so much time since his pancreatitis flair begun and he knows the drill, no food, clear liquids when tolerated, on to food states that he's not having that much pain at this time and feels like it's silly to sit and wait for a transfer bed
--- NOTE | 2025-01-10 08:30 | PC.NURSE ---
Patient very insistant that he doesn't think he needs transfer, states that it's been too long the other hospital won't even run any tests because it's been too long patient requesting to speak to EDP. Dr Moreno aware. Updated the patient that the doctor would come talk to him when he had a minute.
--- NOTE | 2025-01-10 09:00 | PC.NURSE ---
Patient stating that the dilaudid has been givin him a headache and is requesting pain medication. Dr. Moreno aware and orders for toradol placed. patient states that he just wants any pain medication other than dilaudid toradol given, educated to utilize call light if the pain medication wasn't effective. patient updated to plan of care. discussed with him reasons for the transfer and that I would updated him when I had more information
[2025-01-10] MEDS: KETOROLAC 15 MG/ML VIAL (*BKC) IV PUSH (09:19)
--- NOTE | 2025-01-10 12:00 | PC.NURSE ---
patient called out and had told someone his iv bag was empty- patient also began asking if there are even any doctors that work here, stating that he still hasn't talked to anyone. this rn let the patient know that I would let the doctor know he was still waiting to hear from them. patient said that he didn't want to stay or be transferred because he was starting to feel better. patient educated that this rn would restart the iv fluids when he was done speaking with the physician and decided whether or not he was going to stay in the hospital/transfer or sign out AMA. Patient continuously stated that he didn't want to sign out AMA but felt it was unnecessary to transfer anywhere since he was starting to feel better and not having as much pain.
--- NOTE | 2025-01-10 13:31 | PC.NURSE ---
pt asking to leave AMA Reasons 1- Asked for pain Meds-didn't get them 2. Told RN fluid bag was out, needing new bag-never received 3. Asked to speak to EDP at 0900-Never arrived until 1310 EDP made aware, spoke with the pt, still requesting to leave AMA pt signed without issue
== END 2025-01-10 13:38 | disposition left against medical advice (07) ==
PROVIDERS: Emergency Provider Emergency Medicine; PCP Student in an Organized Health Care Education/Training Program
DX: K85.90 Acute pancreatitis without necrosis or infection, unspecified (principal); K86.1 Other chronic pancreatitis; E78.5 Hyperlipidemia, unspecified; G47.30 Sleep apnea, unspecified; F32.A Depression, unspecified; Z87.891 Personal history of nicotine dependence
CPT/HCPCS: 36415; 74177; 80053; 81003; 83615; 83690; 85025; 96361; 96374; 96375; 99284; A9270; J1171; J1885; J2405; J7120; Q9967